=== PATIENT | female | born 1960 | race Caucasian/White ===

== ENCOUNTER → 2017-06-08 | Outpatient (CLI) | payer MEDICARE, SELFPAY | PROVIDERS: Family Provider Family Medicine; Visit Provider Family Medicine | DX: R60.9 Edema, unspecified (principal); M79.602 Pain in left arm | CPT/HCPCS: 93971 ==

== ENCOUNTER 2017-08-16 00:09 | Inpatient (IN) | payer MEDICARE, SELFPAY ==
[2017-08-16] VITALS (8 sets, daily range): BP systolic 94–184; BP diastolic 57–96; PULSE 76–96; RESP 16–20; TEMP 36.6–37.1; O2SAT 95–100; BMI 40.2; BMI 39.5
[2017-08-16 00:56] LABS: Basophils % 0.2 % (0.1-2.0); Eosinophils # 0.4 K/mm3 (0.0-0.4); Eosinophils % 1.9 % (0.1-12.0); Hematocrit 27.3 % (37.0-47.0); Lymphocytes % 4.7 K/mm3 (10-50); Mean Corpuscular HGB Conc 29.5 g/dL (31.8-35.4); Mean Corpuscular Hemoglobin 26.4 pg (27.0-31.2); Mean Corpuscular Volume 89.6 fl (81-99); Mean Platelet Volume 8.4 fl (7.4-10.4); Monocytes % 4.4 % (1.7-9.3); Neutrophils # 19.4 K/mm3 (1.8-7.8); Neutrophils % 88.8 % (37.0-80.0); Platelet Count 432 K/mm3 (142-424); Red Blood Count 3.04 M/mm3 (4.20-5.40); Red Cell Distribution Width 14.1 % (11.5-17.5); White Blood Count 21.9 K/mm3 (4.8-10.8)
[2017-08-16 01:10] LABS: Alanine Aminotransferase 16 U/L (12-78); Albumin Level 2.4 gm/dL (3.4-5.0); Albumin/Globulin Ratio 0.5 (1.1-1.8); Alkaline Phosphatase 151 U/L (46-116); Aspartate Amino Transferase 7 U/L (15-37); Bilirubin,Total 0.3 mg/dL (0.2-1.0); Blood Urea Nitrogen 43 mg/dL (7-18); Calcium 8.7 mg/dL (8.5-10.1); Carbon Dioxide 18 mmol/L (21.0-32.0); Chloride 105 mmol/L (98-107); Creatinine Clearance Estimated 38 mL/min (0-300); Creatinine,Serum 2.64 mg/dL (0.55-1.02); Estimated Glomerular Filt Rate 19 ml/min (>60); GFR (African American) 23 ML/MIN (>60); Globulin 4.5 gm/dl (1.3-3.2); Glucose 105 mg/dL (74-106); Salicylate 4.5 mg/dL (2.8-20.0); Sodium 136 mmol/L (136-145); Total Protein,Serum 6.9 gm/dL (6.4-8.2)
[2017-08-16 01:18] LABS: Acetaminophen 0 ug/mL (10-30); MANUAL DIFFERENTIAL MANUAL DIFFERENTIAL (MANUAL DIFF)
--- NOTE | 2017-08-16 01:18 | PC.NURSE ---
LAB CALLED WITH CRITICAL LAB VALUE. HEMOGLOBIN IS 8.0. DR ROWLAND NOTIFIED
[2017-08-16 01:22] LABS: Ethyl Alcohol 0 mg/dL (0-99)
--- NOTE | 2017-08-16 01:23 | XR_ITS ---
XR chest portable HISTORY: past history of hypoxia and shortness of air ITS.REASON: CONFUSION ORDERING PHYSICIAN: Zack Batista MD PATIENT AGE: 57 years COMPARISON: 11/24/2016 FINDINGS: The cardiomediastinal silhouette and pulmonary vascularity are within normal limits. The lungs are clear without infiltrates, suspicious nodules, or pleural effusions. No acute bony abnormalities. IMPRESSION: Negative chest, no acute finding
--- NOTE | 2017-08-16 01:25 | HMH.EDAMS ---
ED Disposition Clinical Impression: Acute delirium, Renal insufficiency Anemia Qualifiers: Anemia type: unspecified type Qualified Code(s): D64.9 - Anemia, unspecified Leukocytosis Qualifiers: Leukocytosis type: bandemia Qualified Code(s): D72.825 - Bandemia Disposition: Admitted as Observation Condition on Discharge: Good Referrals: Zack Batista MD [Primary Care Provider] - - Critical Care Critical Care Time: No Attestation: On 08/16/17, the high probability of a clinically significant, sudden or life threatening deterioration of the following system(s) required my full and direct attention, intervention and personal management. The time I documented below is in addition to time spent performing reported procedures but includes the following listed in this critical care notation. Medical Decision Making - Medical Records Medical records reviewed: Yes: I reviewed the patient's medical records. Vital Signs: 08/16/17 00:13 Temperature 97.8 F Temperature Source Oral Pulse Rate [Right Brachial] 96 H Respiratory Rate 16 Blood Pressure [Right Arm] 130/79 Blood Pressure Mean [Right Arm] 96 02 Sat by Pulse Oximetry 99 Oxygen Delivery Method Room Air - Lab Data Lab results reviewed: Yes: I reviewed the patient's lab results. Lab Results 08/16/17 00:45: WBC 21.9 H*, RBC 3.04 L, Hgb 8.0 L, Hct 27.3 L, MCV 89.6, MCH 26.4 L, MCHC 29.5 L, RDW 14.1, Plt Count 432 H, MPV 8.4, Neut % (Auto) 88.8 H, Lymph % (Auto) 4.7 L, [place] % (Auto) 4.4, Eos % (Auto) 1.9, Baso % (Auto) 0.2, Neut # (Auto) 19.4 H, Lymph # (Auto) 1.0, [place] # (Auto) 1.0, Eos # (Auto) 0.4, Baso # (Auto) 0.0 08/16/17 00:45: Sodium 136, Potassium 5.0, Chloride 105, Carbon Dioxide 18 L, Anion Gap 18.0 H, BUN 43 H, Creatinine 2.64 H, Estimated Creat Clear 38, Estimated GFR 19 L*, Est GFR ( Amer) 23 L, Glucose 105, Calcium 8.7, Total Bilirubin 0.3, AST 7 L, ALT 16, Alkaline Phosphatase 151 H, Total Protein 6.9, Albumin 2.4 L, Globulin 4.5 H, Albumin/Globulin Ratio 0.5 L, Salicylates 4.5, Acetaminophen 0 L, Plasma/Serum Alcohol 0 08/16/17 01:32: Urine Color Yellow, Urine Appearance Clear, Urine pH 5.0, Ur Specific [place] >= 1.030, Urine Protein Negative, Urine Glucose (UA) Negative, Urine Ketones Trace, Urine Blood Negative, Urine Nitrate Negative, Urine Bilirubin Negative, Urine Urobilinogen 0.2, Ur Leukocyte Esterase Negative 08/16/17 01:32: Urine Opiates Screen Positive H, Ur Barbituates Screen Negative, Ur Phencyclidine Scrn Negative, Ur Amphetamines Screen Negative, U Methamphetamines Scrn Negative, U Benzodiazepines Scrn Negative, Urine Cocaine Screen Negative, U Marijuana (THC) Screen Negative 08/16/17 01:32: Stool Occult Blood Negative Result diagrams: 08/16/17 00:45 08/16/17 00:45 Orders (Tests/Meds): ORDERS Category Date Time Status XR chest portable Stat Exams 08/16/17 01:23 Ordered Cardiac Enzymes Stat Lab 08/16/17 01:32 Received Complete Blood Count Auto Diff Stat Lab 08/16/17 00:45 Results POC Glucose,Bedside Stat Lab 08/16/17 00:29 Ordered Rapid Influenza A&B Antigens Stat Lab 08/16/17 01:23 Ordered UA [Urinalysis and Microscopic] Stat Lab 08/16/17 01:32 Results 12-lead EKG Request [ECG Request by /Joseph] Stat Y 08/16/17 00:55 Ordered - Radiology Data #1 Image(s): Chest Image Reviewed: Yes I reviewed the patient's radiology image Preliminary Findings: Normal/NAD - ECG Data Tracing #1 I reviewed this ECG and interpreted as documented below: Normal Sinus Rhythm: Yes Ischemic changes: non-specific ST-T wave changes - Physician Consults Physician Consulted: samantha Reason -: Admission - [place] Inquiry Pt receiving controlled substance: No Altered Mental Status HPI - General Chief Complaint: Psychiatric Symptoms Stated Complaint: need blood sugar checked, meter does not work Time Seen by Provider: 08/16/17 01:25 Mode of Arrival: Family Vehicle Source of Information: Patient, Relative, Medi
[2017-08-16 01:39] LABS: Microscopic, Urine URINE MICROSCOPIC (MICROSCOPIC)
[2017-08-16 01:42] LABS: Appearance,Urine CLEAR (Clear); Blood, Urine Negative (Negative); Color,Urine YELLOW (Yellow); Glucose,Urine (UA) Negative (Negative); Ketones,Urine TRACE (Negative); Leukocyte Esterase,Urine Negative (Negative); Nitrate,Urine Negative (Negative); Protein,Urine Negative (Negative); Specific Gravity, Urine >= 1.030 (1.005-1.030); Urobilinogen,Urine 0.2 EU/dl (0.2)
[2017-08-16 01:45] LABS: Bilirubin,Urine Negative (Negative); Occult Blood,Stool Negative (Negative)
[2017-08-16 01:50] LABS: Amphetamine/Metha Screen,Urine Negative ng/mL (<1000); Barbiturates Screen,Urine Negative ng/mL (<200); Benzodiazepines Screen,Urine Negative ng/mL (200); Cannabinoid Screen,Urine Negative ng/mL (<50); Cocaine Screen,Urine Negative ng/g (<300); Methadone Screen,Urine Negative ng/mL (<300); Opiate Screen,Urine Positive ng/mL (<300); Phencyclidine Screen,Urine Negative ng/mL (<25)
[2017-08-16 02:03] LABS: CKMB Relative Index 2.7 U/L (0-4.0); Creatine Kinase 66 U/L (26-192); Creatine Kinase MB 1.8 mg/ml (0.0-3.6); Troponin I < 0.02 ng/ml (0.00-0.06)
[2017-08-16 02:05] LABS: Bacteria,Urine Trace /lpf; WBC,Urine Occasional #/hpf (0-3)
--- NOTE | 2017-08-16 02:07 | PC.NURSE ---
[place] [facility] [place]
[2017-08-16 02:25] LABS: Anisocytosis 1+; Eosinophils % 1 % (0-3); Lymphocytes % 5 % (10-50); Monocytes % 2 % (2-9); Neutrophils % 91 % (42-76); Platelet Estimate Normal; Total Cells Counted 100
[2017-08-16 02:26] LABS: Hypochromasia 1+
[2017-08-16 02:58] LABS: T4 (Thyroxine) 5.1 ug/dl (4.7-13.3); Thyroid Stimulating Hormone 1.44 uIU/ml (0.358-3.740)
--- NOTE | 2017-08-16 03:11 | PC.NURSE ---
NURSE NOTIFIED OF PTS ELEVATED BP WILL RECHECK
[2017-08-16 03:18] LABS: Erythrocyte Sedimentation Rate > 120 mm/hr (0-30)
--- NOTE | 2017-08-16 04:18 | PC.NURSE ---
PT IS ABLE TO ANSWER QUESTIONS SUCH HER NAME, BIRTHDAY, DATE, AND WHERE SHE IS CORRECTLY. HOWEVER SHE DOES HAVE SOME CONFUSION. SHE HAS STATED THAT SHE DOES NOT KNOW HER MEDS AND THEN STATES THAT SHE DOES NOT KNOW HER MEDS. SHE ALSO STATES THAT SHE DON'T KNOW WHY SHE IS IN THE HOSPITAL AND CAN'T RECALL WHAT HAPPENED. SHE ANSWERS SOME QUESTIONS INAPPROPRIATELY. HER AND HER FAMILY ARE NOT SURE ABOUT ALL OF HER MEDICATIONS. SHE VOICED THAT SHE NEEDED TO VOID TWICE AND WAS UNSUCCESSFUL BOTH TIMES. SHE TRANSFERS WITH ASSIST X1. EQUAL AUTOMATIC GRINDING MACHINE OPERATOR. CAPILLARY REFILL <3. F/C PLACED AND PT HAD OUT 600CC OF YELLOW, CLEAR URINE IMMEDIATELY. SHE HAS A PULL SAFETY IN PLACE.
[2017-08-16 06:07] LABS: Microscopic,Cath URINE MICROSCOPIC (MICROSCOPIC)
[2017-08-16 06:11] LABS: Appearance,Urine/Cath CLEAR (Clear); Bilirubin,Cath Negative (Negative); Blood, Urine/Cath Negative (Negative); Color,Urine/Cath YELLOW (Yellow); Glucose,Urine/Cath (UA) Negative (Negative); Ketones,Urine/Cath TRACE (Negative); Leukocyte Esterase,Cath Negative (Negative); Nitrate,Cath Negative (Negative); PH,Urine/Cath 5.5 (5.0-8.5); Protein,Urine/Cath Negative (Negative); Urobilinogen,Cath 0.2 EU/dl (0.2)
[2017-08-16 06:25] LABS: Bacteria,Urine/Cath TRACE /lpf
--- NOTE | 2017-08-16 06:50 | CA_ITS ---
PROCEDURE: 2-D M-mode and color Doppler study INDICATIONS FOR THE TEST: Chest pain COPD Heart MurmurX Tobacco Smoking Palpitations Fatigue Syncope Edema Hypertension Diabetes MellitusX Rheumatic Fever SOB ESCOBAR Obesity Hyperlipidemia Family History HD Additional History PATIENT INFORMATION HEIGHT: 62 WEIGHT:220 GENDER: Female B/P:130/79 2-D/M-MODE INTERPRETATION: 2-D MEASUREMENTS OBSERVED VALUES IN CMS Right Ventricular Dimension (RVDd) 1.5 Interventricular Septum (Thickness)(IVsd) 1.2 Left Ventricular Internal Dimensions(LVIDd) 4.9 Left Ventricular Posterior Wall (Thickness)(LVPWd) 1.2 Aortic Root 2.8 Aortic Cusp Separation 1.8 Left Atrial Dimensions (LAD) 3.6 2D 1. Left atrium is mildly enlarged, left ventricle is normal size, there is mild qualitative concentric left ventricular hypertrophy, visually estimated ejection fraction 55% with no obvious regional wall motion abnormality. 2. The right atrium and right ventricle are normal size and contractility. 3. The aortic valve is minimally thickened and fibrosed. 4. The mitral and tricuspid valve leaflets are structurally normal. 5. The pulmonic valve is poorly visualized 6. No significant pericardial effusion noted. DOPPLER INTERROGATION: Doppler interrogation of the aortic, mitral and tricuspid valvular presence of mild mitral and tricuspid regurgitation, tricuspid and jet velocity is insufficient for calculation of the right ventricular systolic pressure, grade 1 diastolic dysfunction seen without tissue Doppler evidence of raised left atrial pressure. CONCLUSION: 1. Mildly enlarged left atrium, normal left ventricular size, mild qualitative concentric left ventricular hypertrophy, visually estimated ejection fraction 55% with no obvious regional wall motion abnormality, grade 1 diastolic dysfunction seen without tissue Doppler evidence of raised left atrial pressure. 2. Mild mitral and tricuspid regurgitation 3. No significant pericardial effusion noted.
[2017-08-16 06:56] LABS: Basophils % 0.2 % (0.1-2.0); Eosinophils # 0.2 K/mm3 (0.0-0.4); Eosinophils % 0.9 % (0.1-12.0); Hemoglobin 8.1 g/dL (12.2-16.2); Lymphocytes # 1.4 K/mm3 (0.7-4.5); Lymphocytes % 7.3 K/mm3 (10-50); Mean Corpuscular Hemoglobin 26.9 pg (27.0-31.2); Mean Corpuscular Volume 89.6 fl (81-99); Mean Platelet Volume 7.9 fl (7.4-10.4); Monocytes % 5.3 % (1.7-9.3); Neutrophils # 16.8 K/mm3 (1.8-7.8); Neutrophils % 86.2 % (37.0-80.0); Platelet Count 407 K/mm3 (142-424); Red Blood Count 3.01 M/mm3 (4.20-5.40); Red Cell Distribution Width 14.2 % (11.5-17.5); White Blood Count 19.5 K/mm3 (4.8-10.8)
[2017-08-16 07:04] LABS: Blood Urea Nitrogen 37 mg/dL (7-18); Carbon Dioxide 20 mmol/L (21.0-32.0); Chloride 109 mmol/L (98-107); Creatinine Clearance Estimated 46 mL/min (0-300); Creatinine,Serum 2.16 mg/dL (0.55-1.02); Estimated Glomerular Filt Rate 24 ml/min (>60); GFR (African American) 29 ML/MIN (>60); Glucose 99 mg/dL (74-106); Magnesium 2.4 mg/dL (1.4-2.2); Sodium 139 mmol/L (136-145)
--- NOTE | 2017-08-16 07:22 | HMH.HP ---
*Admission Date: 08/16/17 *Chief complaint: Hallucinations *History of present illness: 57-year-old female brought to the emergency department last night after contacting 911 with concern that there was a strange man in her bed. Police responded and found no one in the patient's home. Patient's daughter arrived at her house simultaneously. Patient reported feeling dizzy. According to the daughter she has recently become concerned about her blood sugars and wanted to check her blood sugar. She was brought to the emergency department for further evaluation. Daughter reports recently the patient has had very poor appetite with episodes of nausea. The daughter thought she may be dehydrated. Workup in the emergency department revealed a pleasant female without any significant physical findings except for a cardiac murmur. Labs revealed an elevated white blood cell count and acute kidney injury. Patient was admitted for IV fluids, further observation, repeat labs, echocardiogram. [facility] History Medical History: Reports:: Hypertension, Myocardial Infarction Denies:: Cancer, Diabetes Mellitus Type 1, Diabetes Mellitus Type 2, Internal Pacemaker, MRSA Other Surgeries: No: Pacemaker Amputation: No Fractures: No - *Social History Educational Level: Completed Grade School Smoking Status: Never smoker Alcohol Intake: never Occupational Status: unemployed Housing: apartment Household Members: none - Psychiatric History Expresses thoughts of harming self/others: None Suicide Plan Description: No Plan *Family Hx:: Anemia, Cancer, Heart Attack, Hyperlipidemia, Hypertension, Stroke Review of Systems - Constitutional Denies chills, Denies daytime sleepiness, Denies fever(s), Denies headache(s) - Eyes Denies blurry vision - ENT Denies abnormal hearing - *Cardiovascular Denies chest pain, Denies chest pain at rest, Denies chest pain with activity - *Respiratory Denies change in phlegm color, Denies chest congestion, Denies cough, Denies shortness of breath - *Gastrointestinal Reports abdominal pain, Reports vomiting - *Musculoskeletal Reports abnormal walking, Reports joint pain - *Neurologic Reports confusion, Denies localized weakness, Denies frequent falls, Denies headache(s), Denies seizure-like activity - Psychiatric Reports abnormal sleep pattern Meds Home Medications Medication Instructions Recorded Confirmed Type Baclofen [Lioresal 10mg tablet] 10 mg PO NEEDED PRN 08/16/17 08/16/17 History Fluoxetine HCl [Prozac 20mg 20 mg PO BID 08/16/17 08/16/17 History Capsule] Promethazine HCl [Phenergan 25mg 25 mg PO DAILY 08/16/17 08/16/17 History tab] Propranolol HCl 20 mg PO BID 08/16/17 08/16/17 History Tramadol HCl [Ultram 50mg 50 mg PO NEEDED PRN 08/16/17 08/16/17 History tablet] Zolpidem Tartrate [Ambien 10mg 10 mg PO HS 08/16/17 08/16/17 History tablet] levETIRAcetam [Keppra 500mg tablet] 500 mg PO BID 08/16/17 08/16/17 History Allergies Allergy/AdvReac Type Severity Reaction Status Date / Time Penicillins Allergy Intermediate I-ITCHING Verified 08/16/17 00:26 Exam Vital signs and Labs for Last 24 Hours: Temp Pulse Resp BP Pulse Ox 98.2 F 89 20 184/96 95 08/16/17 03:00 08/16/17 03:00 08/16/17 03:00 08/16/17 03:00 08/16/17 03:13 Laboratory Results - last 24 hr 08/16/17 05:15: Urine Color Yellow, Urine Appearance Clear, Urine pH 5.5, Ur Specific [place] 1.020, Urine Protein Negative, Urine Glucose (UA) Negative, Urine Ketones Trace, Urine Blood Negative, Urine Nitrate Negative, Urine Bilirubin Negative, Urine Urobilinogen 0.2, Ur Leukocyte Esterase Negative, Urine RBC None, Urine WBC None, Ur Squamous Epith Cells None, Urine Bacteria Trace 08/16/17 06:35: WBC 19.5 H, RBC 3.01 L, Hgb 8.1 L, Hct 27.0 L, MCV 89.6, MCH 26.9 L, MCHC 30.0 L, RDW 14.2, Plt Count 407, MPV 7.9, Neut % (Auto) 86.2 H, Lymph % (Auto) 7.3 L, [place] % (Auto) 5.3, Eos % (Auto) 0.9, Baso %
--- NOTE | 2017-08-16 07:26 | P.HP_ITS ---
*Admission Date: 08/16/17 *Chief complaint: Hallucinations *History of present illness: 57-year-old female brought to the emergency department last night after contacting 911 with concern that there was a strange man in her bed. Police responded and found no one in the patient's home. Patient's daughter arrived at her house simultaneously. Patient reported feeling dizzy. According to the daughter she has recently become concerned about her blood sugars and wanted to check her blood sugar. She was brought to the emergency department for further evaluation. Daughter reports recently the patient has had very poor appetite with episodes of nausea. The daughter thought she may be dehydrated. Workup in the emergency department revealed a pleasant female without any significant physical findings except for a cardiac murmur. Labs revealed an elevated white blood cell count and acute kidney injury. Patient was admitted for IV fluids, further observation, repeat labs, echocardiogram. [facility] History Medical History: Reports:: Hypertension, Myocardial Infarction Denies:: Cancer, Diabetes Mellitus Type 1, Diabetes Mellitus Type 2, Internal Pacemaker, MRSA Other Surgeries: No: Pacemaker Amputation: No Fractures: No - *Social History Educational Level: Completed Grade School Smoking Status: Never smoker Alcohol Intake: never Occupational Status: unemployed Housing: apartment Household Members: none - Psychiatric History Expresses thoughts of harming self/others: None Suicide Plan Description: No Plan *Family Hx:: Anemia, Cancer, Heart Attack, Hyperlipidemia, Hypertension, Stroke Review of Systems - Constitutional Denies chills, Denies daytime sleepiness, Denies fever(s), Denies headache(s) - Eyes Denies blurry vision - ENT Denies abnormal hearing - *Cardiovascular Denies chest pain, Denies chest pain at rest, Denies chest pain with activity - *Respiratory Denies change in phlegm color, Denies chest congestion, Denies cough, Denies shortness of breath - *Gastrointestinal Reports abdominal pain, Reports vomiting - *Musculoskeletal Reports abnormal walking, Reports joint pain - *Neurologic Reports confusion, Denies localized weakness, Denies frequent falls, Denies headache(s), Denies seizure-like activity - Psychiatric Reports abnormal sleep pattern Meds Home Medications Medication Instructions Recorded Confirmed Type Baclofen [Lioresal 10mg tablet] 10 mg PO NEEDED PRN 08/16/17 08/16/17 History Fluoxetine HCl [Prozac 20mg 20 mg PO BID 08/16/17 08/16/17 History Capsule] Promethazine HCl [Phenergan 25mg 25 mg PO DAILY 08/16/17 08/16/17 History tab] Propranolol HCl 20 mg PO BID 08/16/17 08/16/17 History Tramadol HCl [Ultram 50mg 50 mg PO NEEDED PRN 08/16/17 08/16/17 History tablet] Zolpidem Tartrate [Ambien 10mg 10 mg PO HS 08/16/17 08/16/17 History tablet] levETIRAcetam [Keppra 500mg tablet] 500 mg PO BID 08/16/17 08/16/17 History Allergies Allergy/AdvReac Type Severity Reaction Status Date / Time Penicillins Allergy Intermediate I-ITCHING Verified 08/16/17 00:26 Exam Vital signs and Labs for Last 24 Hours: Temp Pulse Resp BP Pulse Ox 98.2 F 89 20 184/96 95 08/16/17 03:00 08/16/17 03:00 08/16/17 03:00 08/16/17 03:00 08/16/17 03:13 Laboratory Results - last 24 hr 08/16/17 05:15: Urine Color Yellow, Urine Appeara
--- NOTE | 2017-08-16 07:35 | PC.NURSE ---
REPORT GIVEN TO Jp Gibbons
--- NOTE | 2017-08-16 07:54 | HMH.PHAVTE ---
[facility] Pharmacy VTE Monitoring - Patient Demographics Admission date: 08/16/17 Report Date: 08/16/17 Time: 07:54 Allergies/Adverse Reactions: Patient Allergies Penicillins Allergy (Intermediate, Verified 08/16/17 00:26) I-ITCHING Height: 1.57 m Weight: 98.089 kg Patient Problems: Current Active Problems Acute delirium (Acute) Anemia (Acute) Renal insufficiency (Acute) Leukocytosis (Acute) Delirium (Acute) Acute kidney injury (Acute) - VTE Risk Labs: VTE Related Lab Results Hgb 8.1 g/dL (12.2-16.2) L 08/16/17 06:35 Hct 27.0 % (37.0-47.0) L 08/16/17 06:35 Plt Count 407 K/mm3 (142-424) 08/16/17 06:35 BUN 37 mg/dL (7-18) H 08/16/17 06:35 Creatinine 2.16 mg/dL (0.55-1.02) H 08/16/17 06:35 Estimated Creat Clear 46 mL/min (0-300) 08/16/17 06:35 Was VTE Risk Assessment Performed: Yes VTE Risk Level: Low Risk Clinical Trial Participant: No - Prophylaxis VTE Prophylaxis Ordered?: Yes Types of VTE Prophylaxis: TEDS Thigh High Location of Applied Device: Bilateral Lower Extremeties
--- NOTE | 2017-08-16 17:59 | PC.NURSE ---
Pt has been alert to self and place. She has been confused t/o shift. No change from am assessment. Family has been at bedside. Ramirez removed and pt has had good urine output since. Will continue to monitor.
--- NOTE | 2017-08-16 18:49 | PC.NURSE ---
Report to be given to Idalmis Galeas RN
[2017-08-17] VITALS (12 sets, daily range): BP systolic 136–186; BP diastolic 52–95; PULSE 84–100; RESP 16–18; TEMP 36.8–37; O2SAT 95–98
--- NOTE | 2017-08-17 03:57 | PC.NURSE ---
PT HAS RESTED WELL THIS SHIFT. PT UP TO BSC X3 TONIGHT WITH ASSIST. PT C/O NAUSEA X1, ADMIN MED PER MAR. PT C/O HEADACHE X1 TONIGHT, BASE BRANDER PER MAR. VSS. NO OTHER CONCERNS AT THIS TIME, WILL CONT. TO MONITOR.
--- NOTE | 2017-08-17 06:27 | HMH.DCSUM ---
General - General Admission date: 08/16/17 Discharge date: 08/17/17 HPI HPI: 57-year-old female brought to the emergency department last night after contacting 911 with concern that there was a strange man in her bed. Police responded and found no one in the patient's home. Patient's daughter arrived at her house simultaneously. Patient reported feeling dizzy. According to the daughter she has recently become concerned about her blood sugars and wanted to check her blood sugar. She was brought to the emergency department for further evaluation. Daughter reports recently the patient has had very poor appetite with episodes of nausea. The daughter thought she may be dehydrated. Workup in the emergency department revealed a pleasant female without any significant physical findings except for a cardiac murmur. Labs revealed an elevated white blood cell count and acute kidney injury. Patient was admitted for IV fluids, further observation, repeat labs, echocardiogram. Hospital Course Hospital Course: Upon admission patient was started on IV fluids for her kidney injury. Pain is given Rocephin for elevated white blood cell count. Blood and urine cultures were drawn. In regards to her acute kidney injury the patient responded well to IV fluids. Medications were held that may affect her kidneys until discharge. Blood pressure remained stable during discharge. In regards to her elevated white blood cell count patient was given a dose of Rocephin. She had no physically identifiable source of infection. Patient was identified as having a murmur on physical exam. Echocardiogram was performed which showed a normal ejection fraction, mild mitral and tricuspid regurgitation, evidence of grade 1 diastolic dysfunction. Patient's urinary retention gradually improved. I believe the source of this may have been from antihistamine overdose. The patient's daughter went to the patient's medicines at home in an attempt to straighten out which medicines she is taking. Significant quantities of Benadryl were discovered which apparently the patient will take quite frequently for allergy symptoms. Patient did not have any further hallucinations once admitted to the hospital. On the morning of the on routine labs patient's white count had decreased but her anemia had slightly worsened. She was transfused packed red blood cells and anemia workup was begun with labs. Patient will follow-up in the office in 2 days for results. After transfusion she was discharged home on the . Patient will follow-up in my office in 2 days for medication review. Objective Vital signs: Temp Pulse Resp BP Pulse Ox 98.5 F 86 18 146/73 98 08/17/17 03:49 08/17/17 03:49 08/17/17 03:49 08/17/17 03:49 08/17/17 03:49 DS: Diagnosis - Discharge Diagnosis (1) Delirium Status: Resolved (2) Acute kidney injury Status: Resolved (3) Leukocytosis Status: Acute Discharge Plan - Patient Discharge Instructions ACTIVITY: Continue current activity DIET: continue same diet Patient Instructions: Anemia, Acute Renal Failure - Follow up Plan Follow up with: Zack Batista MD [Primary Care Provider] - 2 days Disposition: Home, Self-Long Term Medications: Home Medications Medication Instructions Recorded Confirmed Type Baclofen 20 mg PO QIDP PRN 08/16/17 08/16/17 History Diclofenac Potassium [Diclofenac 50 mg PO TID 08/16/17 08/16/17 History 50mg Tab] Fluoxetine HCl [Prozac 20mg 60 mg PO DAILY 08/16/17 08/16/17 History Capsule] Losartan Potassium 100 mg PO DAILY 08/16/17 08/16/17 History Omeprazole [Omeprazole 40mg 40 mg PO DAILY 08/16/17 08/16/17 History Capsule] Propranolol HCl 20 mg PO BID 08/16/17 08/16/17 History Tramadol HCl [Ultram 50mg 100 mg PO NEEDED PRN 08/16/17 08/16/17 History tablet] Zolpidem Tartrate [Ambien 10mg 10 mg PO HS 08/16/17 08/16/17 History tablet] hydrOXYzine HCl [Hy
--- NOTE | 2017-08-17 06:30 | P.DS_ITS ---
General - General Admission date: 08/16/17 Discharge date: 08/17/17 HPI HPI: 57-year-old female brought to the emergency department last night after contacting 911 with concern that there was a strange man in her bed. Police responded and found no one in the patient's home. Patient's daughter arrived at her house simultaneously. Patient reported feeling dizzy. According to the daughter she has recently become concerned about her blood sugars and wanted to check her blood sugar. She was brought to the emergency department for further evaluation. Daughter reports recently the patient has had very poor appetite with episodes of nausea. The daughter thought she may be dehydrated. Workup in the emergency department revealed a pleasant female without any significant physical findings except for a cardiac murmur. Labs revealed an elevated white blood cell count and acute kidney injury. Patient was admitted for IV fluids, further observation, repeat labs, echocardiogram. Hospital Course Hospital Course: Upon admission patient was started on IV fluids for her kidney injury. Pain is given Rocephin for elevated white blood cell count. Blood and urine cultures were drawn. In regards to her acute kidney injury the patient responded well to IV fluids. Medications were held that may affect her kidneys until discharge. Blood pressure remained stable during discharge. In regards to her elevated white blood cell count patient was given a dose of Rocephin. She had no physically identifiable source of infection. Patient was identified as having a murmur on physical exam. Echocardiogram was performed which showed a normal ejection fraction, mild mitral and tricuspid regurgitation, evidence of grade 1 diastolic dysfunction. Patient's urinary retention gradually improved. I believe the source of this may have been from antihistamine overdose. The patient's daughter went to the patient's medicines at home in an attempt to straighten out which medicines she is taking. Significant quantities of Benadryl were discovered which apparently the patient will take quite frequently for allergy symptoms. Patient did not have any further hallucinations once admitted to the hospital. On the morning of the on routine labs patient's white count had decreased but her anemia had slightly worsened. She was transfused packed red blood cells and anemia workup was begun with labs. Patient will follow-up in the office in 2 days for results. After transfusion she was discharged home on the . Patient will follow-up in my office in 2 days for medication review. Objective Vital signs: Temp Pulse Resp BP Pulse Ox 98.5 F 86 18 146/73 98 08/17/17 03:49 08/17/17 03:49 08/17/17 03:49 08/17/17 03:49 08/17/17 03:49 DS: Diagnosis - Discharge Diagnosis (1) Delirium Status: Resolved (2) Acute kidney injury Status: Resolved (3) Leukocytosis Status: Acute Discharge Plan - Patient Discharge Instructions ACTIVITY: Continue current activity DIET: continue same diet Patient Instructions: Anemia, Acute Renal Failure - Follow up Plan Follow up with: Zack Batista MD [Primary Care Provider] - 2 days Disposition: Home, Self-Snf Medications: Home Medications Medication Instructions Recorded Confirmed Type Baclofen 20 mg PO QIDP PRN 08/16/17 08/16/17 History Diclofenac Potassium [Diclofenac 50 mg PO TID 08/16/17 08/16/17 History 50mg Tab] Fluoxetine HCl [Prozac 20mg 60 mg PO DAILY 08/16/17 08/16/17 History
[2017-08-17 06:53] LABS: Basophils % 0.1 % (0.1-2.0); Eosinophils % 0.2 % (0.1-12.0); Hematocrit 25.4 % (37.0-47.0); Lymphocytes # 0.7 K/mm3 (0.7-4.5); Lymphocytes % 4.9 K/mm3 (10-50); Mean Corpuscular HGB Conc 30.3 g/dL (31.8-35.4); Mean Corpuscular Hemoglobin 26.4 pg (27.0-31.2); Mean Corpuscular Volume 87.2 fl (81-99); Monocytes # 0.6 K/mm3 (0.1-1.0); Monocytes % 4.2 % (1.7-9.3); Neutrophils % 90.7 % (37.0-80.0); Platelet Count 430 K/mm3 (142-424); Red Blood Count 2.91 M/mm3 (4.20-5.40); Red Cell Distribution Width 14.2 % (11.5-17.5); White Blood Count 15.4 K/mm3 (4.8-10.8)
[2017-08-17 07:08] LABS: Anion Gap 11.2 mEq/L (5-15); Blood Urea Nitrogen 17 mg/dL (7-18); Carbon Dioxide 22 mmol/L (21.0-32.0); Chloride 110 mmol/L (98-107); Creatinine Clearance Estimated 83 mL/min (0-300); Creatinine,Serum 1.18 mg/dL (0.55-1.02); Estimated Glomerular Filt Rate 48 ml/min (>60); GFR (African American) 58 ML/MIN (>60); Glucose 169 mg/dL (74-106); Potassium 5.2 mmoL/L (3.5-5.1); Sodium 138 mmol/L (136-145)
--- NOTE | 2017-08-17 07:25 | PC.NURSE ---
REPORT GIVEN TO Idalmis FALNNERY W/C
--- NOTE | 2017-08-17 07:27 | PC.NURSE ---
REPORT GIVEN TO Andreea LEHMAN RN
[2017-08-17 07:28] LABS: Hemoglobin 7.7 g/dL (12.2-16.2)
[2017-08-17 07:29] LABS: MANUAL DIFFERENTIAL MANUAL DIFFERENTIAL (MANUAL DIFF)
[2017-08-17 09:20] LABS: Reticulocyte % (Auto) 0.8 % (0.9-3.2)
--- NOTE | 2017-08-17 10:06 | PC.NURSE ---
PT STS HAVING CHRONIC BACK PAIN. HAVING THIS TYPE OF PAIN AT THIS TIME PRIOR TO BLOOD TRANSFUSION. INFORMED TO LET STAFF KNOW IF BACK PAIN CHANGES IN ANY WAY R/T REACTION. PT VERBALIZES UNDERSTANDING. WILL TREAT PAIN ACCORDING TO KRYSTYNA.
[2017-08-17 10:21] LABS: Ferritin 93 ng/mL (8-388)
--- NOTE | 2017-08-17 10:29 | PC.NURSE ---
PT HAS CHRONIC BACK PAIN. INSTRUCTED TO INFORM IF PAIN CHANGES IN ANY WAY R/T TRANSFUSION REACTION. PT VERBALIZED UNDERSTANDING. WILL MEDICATE PER AUG.
[2017-08-17 10:54] LABS: Lymphocytes % 4 % (10-50); Neutrophils % 96 % (42-76); Total Cells Counted 100
[2017-08-17 10:55] LABS: Hypochromasia 2+; Platelet Estimate Slight Increase
[2017-08-18 08:29] LABS: Iron 16 ug/dL (27-159); UIBC 195 ug/dL (131-425)
[2017-08-18 11:54] LABS: Iron Saturation 8 % (15-55); Vitamin B12 >2000 pg/mL (232-1245)
[2017-08-18 15:11] LABS: POC Glucose,Bedside 158 mg/dL (70-110)
[2017-08-19 08:00] LABS: Peripheral Smear Review Scanned Result
== END 2017-08-17 12:00 | disposition home or self-care (01) | DRG 948 ==
LOC: ER 02:24 → 2ND 02:36
PROVIDERS: Admitting Provider Family Medicine; Emergency Provider Emergency Medicine; Family Provider Family Medicine; PCP Family Medicine; Visit Provider Family Medicine
DX: R41.0 Disorientation, unspecified (principal); N17.9 Acute kidney failure, unspecified; I10 Essential (primary) hypertension; D72.825 Bandemia; D64.9 Anemia, unspecified; T45.0X5A Adverse effect of antiallergic and antiemetic drugs, initial encounter; R01.1 Cardiac murmur, unspecified
CPT/HCPCS: 36430; 36415; 71045; 80048; 80053; 80305; 80329; 81001; 82272; 82550; 82553; 82607; 82728; 82962; 83550; 83735; 84436; 84443; 84484; 85007; 85025; 85044; 85651; 86850; 87275; 87276; 93005; 93041; 93306; 96365; 99284; G0328; J2405; P9016

== ENCOUNTER 2017-09-18 09:11 | Observation (INO) | payer MEDICARE, SELFPAY ==
[2017-09-18] VITALS (9 sets, daily range): BP systolic 143–193; BP diastolic 81–109; PULSE 83–106; RESP 16–20; TEMP 36.4–37.1; O2SAT 94–99; BMI 38.4; BMI 39.3
--- NOTE | 2017-09-18 09:35 | PC.NURSE ---
PT UNABLE TO FINISH COCKTAIL. DRANK APPROX 10 ML
[2017-09-18 09:45] LABS: Basophils % 0.6 % (0.1-2.0); Eosinophils # 0.1 K/mm3 (0.0-0.4); Eosinophils % 1.4 % (0.1-12.0); Hematocrit 32.7 % (37.0-47.0); Hemoglobin 9.9 g/dL (12.2-16.2); Lymphocytes # 0.7 K/mm3 (0.7-4.5); Lymphocytes % 11.4 K/mm3 (10-50); Mean Corpuscular HGB Conc 30.3 g/dL (31.8-35.4); Mean Corpuscular Hemoglobin 27.1 pg (27.0-31.2); Mean Corpuscular Volume 89.5 fl (81-99); Mean Platelet Volume 8.3 fl (7.4-10.4); Monocytes # 0.2 K/mm3 (0.1-1.0); Monocytes % 3.5 % (1.7-9.3); Platelet Count 247 K/mm3 (142-424); Red Blood Count 3.65 M/mm3 (4.20-5.40); Red Cell Distribution Width 14.9 % (11.5-17.5); White Blood Count 6.1 K/mm3 (4.8-10.8)
[2017-09-18 09:58] LABS: Alanine Aminotransferase 23 U/L (12-78); Albumin Level 3.2 gm/dL (3.4-5.0); Albumin/Globulin Ratio 0.8 (1.1-1.8); Alkaline Phosphatase 107 U/L (46-116); Amylase 26 U/L (25-125); Anion Gap 11.9 mEq/L (5-15); Bilirubin,Total 0.3 mg/dL (0.2-1.0); Blood Urea Nitrogen 16 mg/dL (7-18); Calcium 9.3 mg/dL (8.5-10.1); Carbon Dioxide 27 mmol/L (21.0-32.0); Chloride 102 mmol/L (98-107); Creatinine Clearance Estimated 65 mL/min (0-300); Creatinine,Serum 1.46 mg/dL (0.55-1.02); Estimated Glomerular Filt Rate 37 ml/min (>60); GFR (African American) 45 ML/MIN (>60); Globulin 4.2 gm/dl (1.3-3.2); Glucose 123 mg/dL (74-106); Lipase 38 u/L (73-393); Sodium 137 mmol/L (136-145); Total Protein,Serum 7.4 gm/dL (6.4-8.2)
[2017-09-18 10:01] LABS: Aspartate Amino Transferase 20 U/L (15-37); Potassium 3.9 mmoL/L (3.5-5.1)
--- NOTE | 2017-09-18 10:48 | HMH.EDABDPAI ---
ED Disposition Clinical Impression: Abdominal pain, Intractable vomiting, Chronic anemia, Renal insufficiency Disposition: Home, Self-Care Condition on Discharge: Fair Instructions: DI for Acute Abdomen Referrals: Zack Batista MD [Primary Care Provider] - - Critical Care Critical Care Time: No Attestation: On 09/18/17, the high probability of a clinically significant, sudden or life threatening deterioration of the following system(s) required my full and direct attention, intervention and personal management. The time I documented below is in addition to time spent performing reported procedures but includes the following listed in this critical care notation. Medical Decision Making - Zion Inquiry Pt receiving controlled substance: No Zion was queried for this patient: No Vital Signs: 09/18/17 09:15 09/18/17 09:37 09/18/17 13:54 Temperature 98.1 F 98.2 F Temperature Source Temporal Artery Scan Temporal Artery Scan Pulse Rate [Right Radial] 106 H 98 H 103 H Respiratory Rate 16 18 18 Blood Pressure [Left Arm] 162/109 156/88 158/81 Blood Pressure Mean [Left Arm] 126 110 106 Blood Pressure Source [Left Arm] Automatic Cuff Blood Pressure Position [Left Arm] Sitting 02 Sat by Pulse Oximetry 96 99 96 Oxygen Delivery Method Room Air Room Air - Lab Data Lab Results 09/18/17 09:30: WBC 6.1, RBC 3.65 L, Hgb 9.9 L, Hct 32.7 L, MCV 89.5, MCH 27.1, MCHC 30.3 L, RDW 14.9, Plt Count 247, MPV 8.3, Neut % (Auto) 83.0 H, Lymph % (Auto) 11.4, [place] % (Auto) 3.5, Eos % (Auto) 1.4, Baso % (Auto) 0.6, Neut # (Auto) 5.0, Lymph # (Auto) 0.7, [place] # (Auto) 0.2, Eos # (Auto) 0.1, Baso # (Auto) 0.0 09/18/17 09:30: Sodium 137, Potassium 3.9, Chloride 102, Carbon Dioxide 27, Anion Gap 11.9, BUN 16, Creatinine 1.46 H, Estimated Creat Clear 65, Estimated GFR 37 L, Est GFR ( Amer) 45 L, Glucose 123 H, Calcium 9.3, Total Bilirubin 0.3, AST 20, ALT 23, Alkaline Phosphatase 107, Total Protein 7.4, Albumin 3.2 L, Globulin 4.2 H, Albumin/Globulin Ratio 0.8 L, Amylase 26, Lipase 38 L 09/18/17 09:30: Troponin I < 0.02 09/18/17 09:30: Magnesium 1.6 09/18/17 10:28: Lactic Acid 0.9 09/18/17 11:07: Urine Color Yellow, Urine Appearance Clear, Urine pH 6.0, Ur Specific [place] 1.015, Urine Protein Negative, Urine Glucose (UA) Negative, Urine Ketones Negative, Urine Blood Negative, Urine Nitrate Negative, Urine Bilirubin Negative, Urine Urobilinogen 0.2, Ur Leukocyte Esterase Negative, Urine WBC Occasional, Ur Squamous Epith Cells 3-5, Urine Bacteria Trace 09/18/17 11:20: Influenza Type A Ag Negative, Influenza Type B Ag Negative Result diagrams: 09/18/17 09:30 09/18/17 09:30 Orders (Tests/Meds): ED MEDICATIONS Generic Name Dose Route Start Last Admin Trade Name Freq PRN Reason Stop Dose Admin Pantoprazole Sodium 80 mg/ 100 mls @ 10 mls/hr 09/18/17 11:48 Sodium Chloride IV 09/21/17 11:47 .Q10H CATRACHO Discontinued Medications Generic Name Dose Route Start Last Admin Trade Name Freq PRN Reason Stop Dose Admin Belladonna Alkaloids 60 ml 09/18/17 09:35 09/18/17 09:35 Gi Cocktail 60ml Udc PO 09/18/17 09:36 60 ml ONCE ONE Administration Diatrizoate Meglum/Diatrizoate Sod 30 ml 09/18/17 11:02 09/18/17 11:09 Gastrografin 66%-10% 30ml PO 09/18/17 11:03 30 ml ONCE ONE Administration Famotidine 20 mg 09/18/17 10:48 09/18/17 11:09 Pepcid 20mg/2ml Vial IV 09/18/17 10:49 20 mg ONCE ONE Administration Sodium Chloride 1,000 mls @ 999 mls/hr 09/18/17 10:30 09/18/17 10:21 Sod Chlor 0.9% 1000ml Bag IV 09/18/17 11:30 999 mls/hr .Q1H1M CATRACHO Administration Pantoprazole Sodium 80 mg/ 100 mls @ 100 mls/hr 09/18/17 10:48 09/18/17 11:31 Sodium Chloride IV 09/18/17 11:47 100 mls/hr ONCE ONE Administration Metoclopramide HCl 5 mg 09/18/17 12:05 09/18/17 12:09 Reglan 10mg/2ml Vial IVP 09/18/17 12:06 5 mg ONCE ONE Administration Ondansetron HCl 4 mg
--- NOTE | 2017-09-18 10:52 | ED_ITS ---
ED Disposition Clinical Impression: Abdominal pain, Intractable vomiting, Chronic anemia, Renal insufficiency Disposition: Home, Self-Care Condition on Discharge: Fair Instructions: DI for Acute Abdomen Referrals: Zack Batista MD [Primary Care Provider] - - Critical Care Critical Care Time: No Attestation: On 09/18/17, the high probability of a clinically significant, sudden or life threatening deterioration of the following system(s) required my full and direct attention, intervention and personal management. The time I documented below is in addition to time spent performing reported procedures but includes the following listed in this critical care notation. Medical Decision Making - Zion Inquiry Pt receiving controlled substance: No Zion was queried for this patient: No Vital Signs: 09/18/17 09:15 09/18/17 09:37 09/18/17 13:54 Temperature 98.1 F 98.2 F Temperature Source Temporal Artery Scan Temporal Artery Scan Pulse Rate [Right Radial] 106 H 98 H 103 H Respiratory Rate 16 18 18 Blood Pressure [Left Arm] 162/109 156/88 158/81 Blood Pressure Mean [Left Arm] 126 110 106 Blood Pressure Source [Left Arm] Automatic Cuff Blood Pressure Position [Left Arm] Sitting 02 Sat by Pulse Oximetry 96 99 96 Oxygen Delivery Method Room Air Room Air - Lab Data Lab Results 09/18/17 09:30: WBC 6.1, RBC 3.65 L, Hgb 9.9 L, Hct 32.7 L, MCV 89.5, MCH 27.1, MCHC 30.3 L, RDW 14.9, Plt Count 247, MPV 8.3, Neut % (Auto) 83.0 H, Lymph % ( Auto) 11.4, [place] % (Auto) 3.5, Eos % (Auto) 1.4, Baso % (Auto) 0.6, Neut # (Auto ) 5.0, Lymph # (Auto) 0.7, [place] # (Auto) 0.2, Eos # (Auto) 0.1, Baso # (Auto) 0.0 09/18/17 09:30: Sodium 137, Potassium 3.9, Chloride 102, Carbon Dioxide 27, Anion Gap 11.9, BUN 16, Creatinine 1.46 H, Estimated Creat Clear 65, Estimated GFR 37 L, Est GFR ( Amer) 45 L, Glucose 123 H, Calcium 9.3, Total Bilirubin 0.3, AST 20, ALT 23, Alkaline Phosphatase 107, Total Protein 7.4, Albumin 3.2 L, Globulin 4.2 H, Albumin/Globulin Ratio 0.8 L, Amylase 26, Lipase 38 L 09/18/17 09:30: Troponin I < 0.02 09/18/17 09:30: Magnesium 1.6 09/18/17 10:28: Lactic Acid 0.9 09/18/17 11:07: Urine Color Yellow, Urine Appearance Clear, Urine pH 6.0, Ur Specific [place] 1.015, Urine Protein Negative, Urine Glucose (UA) Negative, Urine Ketones Negative, Urine Blood Negative, Urine Nitrate Negative, Urine Bilirubin Negative, Urine Urobilinogen 0.2, Ur Leukocyte Esterase Negative, Urine WBC Occasional, Ur Squamous Epith Cells 3-5, Urine Bacteria Trace 09/18/17 11:20: Influenza Type A Ag Negative, Influenza Type B Ag Negative Result diagrams: 09/18/17 09:30 09/18/17 09:30 Orders (Tests/Meds): ED MEDICATIONS Generic Name Dose Route Start Last Admin Trade Name Freq PRN Reason Stop Dose Admin Pantoprazole Sodium 80 mg/ 100 mls @ 10 mls/hr 09/18/17 11:48 Sodium Chloride IV 09/21/17 11:47 .Q10H CATRACHO Discontinued Medications Generic Name Dose Route Start Last Admin Trade Name Freq PRN Reason Stop Dose Admin Belladonna Alkaloids 60 ml 09/18/17 09:35 09/18/17 09:35 Gi Cocktail 60ml Udc PO 09/18/17 09:36 60 ml ONCE ONE Administration Diatrizoate Meglum/Diatrizoate Sod 30 ml 09/18/17 11:02 09/18/17 11:09 Gastrografin 66%-10% 30ml PO 09/18/17 11:03 30 ml ONCE ONE Administration Famotidine 20 mg
[2017-09-18 10:53] LABS: Lactic Acid 0.9 mmol/L (0.4-2.0)
--- NOTE | 2017-09-18 11:03 | CT_ITS ---
CT abdomen pelvis w con COMPARISON: None HISTORY: Upper abdominal pain nausea and vomiting for the past 12 hours TECHNIQUE: Multiaxial scans obtained from hemidiaphragms pelvic floor and were performed with IV and oral contrast. Sagittal and coronal reformats were evaluated as well. Unfortunately the patient vomited most of the oral contrast prior to the exam. Also because of decreased GFR half of the normal IV contrast was given. FINDINGS: The lower lung keller are clear. There is a moderate sized hiatal hernia. Is generalized cardiomegaly with left ventricular prominence. The liver spleen stomach pancreas and gallbladder appear grossly normal. There is some oral contrast remaining in the stomach with only small amount of diluted contrast progressing in the proximal small bowel. The adrenal glands are normal. The kidneys are normal in size and show symmetrical function. There are no calculi and is no obstructive uropathy. The proximal small bowel appears normal. There are mildly dilated fluid-filled filled loops of distal small bowel.. The appendix is normal caliber and retrocecal in location. There is mild hazy stranding of the mesentery particularly in the right lower quadrant. There is large amount stool in the cecum and ascending colon. There has been previous hysterectomy. Urinary bladder is unremarkable. There is a small amount of fluid in the right paracolic gutter. Impression: Mildly dilated fluid-filled loops of distal small bowel along with hazy stranding of the mesentery in the mid and lower abdomen and some degree of enteritis must be considered. The appendix is somewhat difficult to visualize but appears be normal in caliber. However a very early appendicitis cannot be absolutely excluded and suggest clinical correlation.
[2017-09-18 11:14] LABS: Magnesium 1.6 mg/dL (1.4-2.2)
[2017-09-18 11:18] LABS: Troponin I < 0.02 ng/ml (0.00-0.06)
[2017-09-18 11:33] LABS: Appearance,Urine CLEAR (Clear); Bilirubin,Urine Negative (Negative); Blood, Urine Negative (Negative); Color,Urine YELLOW (Yellow); Glucose,Urine (UA) Negative (Negative); Ketones,Urine Negative (Negative); Leukocyte Esterase,Urine Negative (Negative); Microscopic, Urine URINE MICROSCOPIC (MICROSCOPIC); Nitrate,Urine Negative (Negative); Protein,Urine Negative (Negative); Specific Gravity, Urine 1.015 (1.005-1.030); Urobilinogen,Urine 0.2 EU/dl (0.2)
[2017-09-18 11:44] LABS: Bacteria,Urine Trace /lpf; WBC,Urine Occasional #/hpf (0-3)
--- NOTE | 2017-09-18 12:04 | PC.NURSE ---
OKAYS TO SCAN PT NOW. PT VOMITING CONTRAST DYE.
--- NOTE | 2017-09-18 14:20 | PC.NURSE ---
BERTHA URIBE spoke with Dr. Fontaine who is disease intervention specialist for Dr. Batista
--- NOTE | 2017-09-18 14:27 | PC.NURSE ---
BERTHA URIBE speaking with Dr. Patel notifying him of a consult he placing on pt, pt is going to be admitted.
--- NOTE | 2017-09-18 14:48 | PC.NURSE ---
report called to Radha Rogel RN on second floor at this time.
--- NOTE | 2017-09-18 19:46 | PC.NURSE ---
REPORT GIVEN TO ADORE BARRERA RN
--- NOTE | 2017-09-18 19:57 | PC.NURSE ---
rn aware of elevated blood pressure
--- NOTE | 2017-09-18 20:07 | PC.NURSE ---
rechecked blood pressure manually, rn notified of bp
[2017-09-19 00:46] VITALS: BP 176/93
--- NOTE | 2017-09-19 00:46 | PC.NURSE ---
recheck on blood pressure from 1999 vital check
[2017-09-19 04:00] VITALS: BP 178/92; PULSE 79; RESP 18; TEMP 37.2; O2SAT 95
--- NOTE | 2017-09-19 04:12 | PC.NURSE ---
RN is aware of 0400 vitals
--- NOTE | 2017-09-19 06:04 | PC.NURSE ---
C/O ORTIZ AND NAUSEA THIS SHIFT, PRN PAIN AND NAUSEA MEDICATIONS ADMINISTERED PER MAR. NO EPISODES OF VOMITTING. VSS. WILL CONTINUE TO MONITOR.
[2017-09-19 07:08] LABS: Basophils % 0.5 % (0.1-2.0); Eosinophils % 0.6 % (0.1-12.0); Lymphocytes # 0.7 K/mm3 (0.7-4.5); Lymphocytes % 11.9 K/mm3 (10-50); Mean Corpuscular HGB Conc 30.2 g/dL (31.8-35.4); Mean Corpuscular Hemoglobin 26.8 pg (27.0-31.2); Mean Corpuscular Volume 88.8 fl (81-99); Mean Platelet Volume 8.4 fl (7.4-10.4); Monocytes # 0.3 K/mm3 (0.1-1.0); Neutrophils # 4.7 K/mm3 (1.8-7.8); Platelet Count 206 K/mm3 (142-424); Red Blood Count 3.31 M/mm3 (4.20-5.40); Red Cell Distribution Width 14.8 % (11.5-17.5); White Blood Count 5.7 K/mm3 (4.8-10.8)
[2017-09-19 07:10] LABS: Anion Gap 10.7 mEq/L (5-15); Blood Urea Nitrogen 13 mg/dL (7-18); Carbon Dioxide 27 mmol/L (21.0-32.0); Chloride 105 mmol/L (98-107); Creatinine Clearance Estimated 84 mL/min (0-300); Creatinine,Serum 1.16 mg/dL (0.55-1.02); Estimated Glomerular Filt Rate 49 ml/min (>60); GFR (African American) 59 ML/MIN (>60); Glucose 120 mg/dL (74-106); Magnesium 1.4 mg/dL (1.4-2.2); Potassium 3.7 mmoL/L (3.5-5.1); Sodium 139 mmol/L (136-145)
--- NOTE | 2017-09-19 07:18 | HMH.HP ---
*Admission Date: 09/18/17 *Chief complaint: Vomiting and epigastric pain *History of present illness: 57-year-old female was brought to the emergency department by her son after unrelenting vomiting began at around 3 AM yesterday morning. Patient has had similar episodes in the past where she will experience vomiting for no apparent reason. When symptoms were not improving yesterday she contacted her son who brought her to the emergency department. In the emergency department she was felt to be dehydrated. CT scan of the abdomen and pelvis was consistent with enteritis but could not 100% rule out an appendicitis. Patient was admitted for IV fluids and surgical consultation. Patient was admitted to the hospital within the last 2 months and was found to have new onset anemia and has been scheduled for colonoscopy next month with Dr. Doshi. Patient reports that her vomiting began at 3 AM and the last thing she had to eat the evening before was a hamburger around 5 or 6:00 in the evening. She does not believe the meat was contaminated she had just bought it that day. She has had small amounts of diarrhea. He denies fevers or chills. [facility] History Medical History: Reports:: Anxiety, Hypertension, Seizures Denies:: Cancer, Diabetes Mellitus Type 1, Diabetes Mellitus Type 2, Internal Pacemaker, MRSA Other Surgeries: Yes: Hysterectomy-Total. No: Pacemaker Amputation: No Fractures: No - *Social History Educational Level: Attended High School Smoking Status: Never smoker Alcohol Intake: never Occupational Status: disabled Housing: apartment Household Members: none - Psychiatric History Expresses thoughts of harming self/others: None Suicide Plan Description: No Plan *Family Hx:: Anemia, Cancer, Heart Attack, Hyperlipidemia, Hypertension, Stroke Review of Systems - Review of Systems Review of systems:: pertinent systems reviewed and negative unless documented below - *Cardiovascular Denies chest pain, Denies shortness of breath - *Respiratory Denies chest congestion, Denies cough - *Gastrointestinal Reports abdominal pain, Reports nausea, Denies coffee ground vomit, Denies constipation, Denies difficulty swallowing, Denies bright, red blood in stools, Denies black, tarry stools Meds Home Medications Medication Instructions Recorded Confirmed Type Baclofen 20 mg PO QIDP PRN 08/16/17 09/18/17 History Diclofenac Potassium [Diclofenac 50 mg PO TID 08/16/17 09/18/17 History 50mg Tab] Fluoxetine HCl [Prozac 20mg 60 mg PO DAILY 08/16/17 09/18/17 History Capsule] Losartan Potassium 100 mg PO DAILY 08/16/17 09/18/17 History Omeprazole [Omeprazole 40mg 40 mg PO DAILY 08/16/17 09/18/17 History Capsule] Propranolol HCl 20 mg PO BID 08/16/17 09/18/17 History Tramadol HCl [Ultram 50mg 100 mg PO NEEDED PRN 08/16/17 09/18/17 History tablet] Zolpidem Tartrate [Ambien 10mg 10 mg PO HS 08/16/17 09/18/17 History tablet] hydrOXYzine HCl [Hydroxyzine HCl] 50 mg PO QID 08/16/17 09/18/17 History levETIRAcetam [Keppra 500mg tablet] 500 mg PO BID 08/16/17 09/18/17 History Aspirin [Aspirin 81mg EC Tab] 81 mg PO DAILY 09/18/17 09/18/17 History Allergies Allergy/AdvReac Type Severity Reaction Status Date / Time Penicillins Allergy Intermediate I-ITCHING Verified 09/18/17 09:27 Exam Vital signs and Labs for Last 24 Hours: Temp Pulse Resp BP Pulse Ox 98.9 F 79 18 178/92 95 09/19/17 04:00 09/19/17 04:00 09/19/17 04:00 09/19/17 04:00 09/19/17 04:00 I & O for Last 24 hours: Intake & Output 09/16/17 09/17/17 09/18/17 09/19/17 11:59 11:59 11:59 11:59 Intake Total 350 / 350 Balance 350 / 350 Weight 215 lb Narrative: Patient is awake and alert, oriented to person place and time this morning. Oropharynx is moist. Sclerae are clear. Neck is without lymphadenopathy. Lungs are clear to auscultation. Heart rate is mildly tachycardic. Abdomen is soft with mild e
[2017-09-19 07:22] LABS: Hemoglobin 8.9 g/dL (12.2-16.2)
--- NOTE | 2017-09-19 07:22 | P.HP_ITS ---
*Admission Date: 09/18/17 *Chief complaint: Vomiting and epigastric pain *History of present illness: 57-year-old female was brought to the emergency department by her son after unrelenting vomiting began at around 3 AM yesterday morning. Patient has had similar episodes in the past where she will experience vomiting for no apparent reason. When symptoms were not improving yesterday she contacted her son who brought her to the emergency department. In the emergency department she was felt to be dehydrated. CT scan of the abdomen and pelvis was consistent with enteritis but could not 100% rule out an appendicitis. Patient was admitted for IV fluids and surgical consultation. Patient was admitted to the hospital within the last 2 months and was found to have new onset anemia and has been scheduled for colonoscopy next month with Dr. Doshi. Patient reports that her vomiting began at 3 AM and the last thing she had to eat the evening before was a hamburger around 5 or 6:00 in the evening. She does not believe the meat was contaminated she had just bought it that day. She has had small amounts of diarrhea. He denies fevers or chills. [facility] History Medical History: Reports:: Anxiety, Hypertension, Seizures Denies:: Cancer, Diabetes Mellitus Type 1, Diabetes Mellitus Type 2, Internal Pacemaker, MRSA Other Surgeries: Yes: Hysterectomy-Total. No: Pacemaker Amputation: No Fractures: No - *Social History Educational Level: Attended High School Smoking Status: Never smoker Alcohol Intake: never Occupational Status: disabled Housing: apartment Household Members: none - Psychiatric History Expresses thoughts of harming self/others: None Suicide Plan Description: No Plan *Family Hx:: Anemia, Cancer, Heart Attack, Hyperlipidemia, Hypertension, Stroke Review of Systems - Review of Systems Review of systems:: pertinent systems reviewed and negative unless documented below - *Cardiovascular Denies chest pain, Denies shortness of breath - *Respiratory Denies chest congestion, Denies cough - *Gastrointestinal Reports abdominal pain, Reports nausea, Denies coffee ground vomit, Denies constipation, Denies difficulty swallowing, Denies bright, red blood in stools, Denies black, tarry stools Meds Home Medications Medication Instructions Recorded Confirmed Type Baclofen 20 mg PO QIDP PRN 08/16/17 09/18/17 History Diclofenac Potassium [Diclofenac 50 mg PO TID 08/16/17 09/18/17 History 50mg Tab] Fluoxetine HCl [Prozac 20mg 60 mg PO DAILY 08/16/17 09/18/17 History Capsule] Losartan Potassium 100 mg PO DAILY 08/16/17 09/18/17 History Omeprazole [Omeprazole 40mg 40 mg PO DAILY 08/16/17 09/18/17 History Capsule] Propranolol HCl 20 mg PO BID 08/16/17 09/18/17 History Tramadol HCl [Ultram 50mg 100 mg PO NEEDED PRN 08/16/17 09/18/17 History tablet] Zolpidem Tartrate [Ambien 10mg 10 mg PO HS 08/16/17 09/18/17 History tablet] hydrOXYzine HCl [Hydroxyzine HCl] 50 mg PO QID 08/16/17 09/18/17 History levETIRAcetam [Keppra 500mg tablet] 500 mg PO BID 08/16/17 09/18/17 History Aspirin [Aspirin 81mg EC Tab] 81 mg PO DAILY 09/18/17 09/18/17 History Allergies Allergy/AdvReac Type Severity Reaction Status Date / Time Penicillins Allergy Intermediate I-ITCHING Verified 09/18/17 09:27 Exam Vital signs and Labs for Last 24 Hours: Temp Pulse Resp BP Pulse Ox 98.9 F 79 18 178/92 95
[2017-09-19 07:23] LABS: Hematocrit 29.3 % (37.0-47.0)
--- NOTE | 2017-09-19 07:27 | PC.NURSE ---
REPORT GIVEN TO Idalmis FLANNERY W/C
--- NOTE | 2017-09-19 07:30 | HMH.DCSUM ---
General - General Admission date: 09/18/17 Discharge date: 09/19/17 HPI HPI: 57-year-old female was brought to the emergency department by her son after unrelenting vomiting began at around 3 AM yesterday morning. Patient has had similar episodes in the past where she will experience vomiting for no apparent reason. When symptoms were not improving yesterday she contacted her son who brought her to the emergency department. In the emergency department she was felt to be dehydrated. CT scan of the abdomen and pelvis was consistent with enteritis but could not 100% rule out an appendicitis. Patient was admitted for IV fluids and surgical consultation. Patient was admitted to the hospital within the last 2 months and was found to have new onset anemia and has been scheduled for colonoscopy next month with Dr. Doshi. Patient reports that her vomiting began at 3 AM and the last thing she had to eat the evening before was a hamburger around 5 or 6:00 in the evening. She does not believe the meat was contaminated she had just bought it that day. She has had small amounts of diarrhea. He denies fevers or chills. Hospital Course Hospital Course: Pati was admitted and underwent surgical cosultation the following morning. By this time patient had only epigastric tenderness. Dr. Jhaveri evaluated the patient. Decision was made to repeat CT of the abdomen and pelvis due to poor transit of contrast material on initial ER eval. Repeat imaging did raise concern for a right sided colonic mass. discussed further workup with patient. Decision was made to proceed with OP colonoscopy in one week and further decision making then. Patient tolerated advancement of her diet and was discharged home Objective Vital signs: Temp Pulse Resp BP Pulse Ox 98.9 F 79 18 178/92 95 09/19/17 04:00 09/19/17 04:00 09/19/17 04:00 09/19/17 04:00 09/19/17 04:00 Results Labs on day of discharge: Labs from last 24 hours 09/19/17 09/19/17 06:30 06:30 WBC 5.7 RBC 3.31 L Hgb 8.9 L D Hct 29.3 L MCV 88.8 MCH 26.8 L MCHC 30.2 L RDW 14.8 Plt Count 206 MPV 8.4 Neut % (Auto) 82.0 H Lymph % (Auto) 11.9 [place] % (Auto) 5.0 Eos % (Auto) 0.6 Baso % (Auto) 0.5 Neut # (Auto) 4.7 Lymph # (Auto) 0.7 [place] # (Auto) 0.3 Eos # (Auto) 0.0 Baso # (Auto) 0.0 Sodium 139 Potassium 3.7 Chloride 105 Carbon Dioxide 27 Anion Gap 10.7 BUN 13 Creatinine 1.16 H D Estimated Creat Clear 84 Estimated GFR 49 L Est GFR ( Amer) 59 D Glucose 120 H Magnesium 1.4 D DS: Diagnosis - Discharge Diagnosis (1) Gastroenteritis Status: Acute Discharge Plan - Patient Discharge Instructions ACTIVITY: Continue current activity DIET: continue same diet Patient Instructions: Acute Abdominal Pain, DI for Viral Gastroenteritis -- Adult - Follow up Plan Follow up with: Zack Batista MD [Primary Care Provider] - 09/23/17 Disposition: Home, Self-[facility] Medications: Home Medications Medication Instructions Recorded Confirmed Type Baclofen 20 mg PO QIDP PRN 08/16/17 09/18/17 History Fluoxetine HCl [Prozac 20mg 60 mg PO DAILY 08/16/17 09/18/17 History Capsule] Losartan Potassium 100 mg PO DAILY 08/16/17 09/18/17 History Omeprazole [Omeprazole 40mg 40 mg PO DAILY 08/16/17 09/18/17 History Capsule] Propranolol HCl 20 mg PO BID 08/16/17 09/18/17 History Tramadol HCl [Ultram 50mg 100 mg PO NEEDED PRN 08/16/17 09/18/17 History tablet] Zolpidem Tartrate [Ambien 10mg 10 mg PO HS 08/16/17 09/18/17 History tablet] levETIRAcetam [Keppra 500mg tablet] 500 mg PO BID 08/16/17 09/18/17 History Aspirin [Aspirin 81mg EC Tab] 81 mg PO DAILY 09/18/17 09/18/17 History Ondansetron HCl [Ondansetron 8mg 8 mg PO TIDP PRN 09/19/17 09/19/17 History Tab] Prescriptions/Medication Reconciliation: Continue Tramadol HCl [Ultram 50mg table
[2017-09-19 08:00] VITALS: BP 169/71; PULSE 69; RESP 16; TEMP 36.7; O2SAT 97
--- NOTE | 2017-09-19 08:03 | P.CONPHA_ITS ---
[facility] Pharmacy VTE Monitoring - Patient Demographics Admission date: 09/18/17 Report Date: 09/19/17 Time: 08:03 Allergies/Adverse Reactions: Patient Allergies Penicillins Allergy (Intermediate, Verified 09/18/17 09:27) I-ITCHING Height: 1.57 m Weight: 97.522 kg Patient Problems: Current Active Problems Renal insufficiency (Acute) Abdominal pain (Acute) Intractable vomiting (Acute) Chronic anemia (Acute) Gastroenteritis (Acute) - VTE Risk Labs: VTE Related Lab Results Hgb 8.9 g/dL (12.2-16.2) L D 09/19/17 06:30 Hct 29.3 % (37.0-47.0) L 09/19/17 06:30 Plt Count 206 K/mm3 (142-424) 09/19/17 06:30 BUN 13 mg/dL (7-18) 09/19/17 06:30 Creatinine 1.16 mg/dL (0.55-1.02) H D 09/19/17 06:30 Estimated Creat Clear 84 mL/min (0-300) 09/19/17 06:30 Was VTE Risk Assessment Performed: No VTE Score: 2 VTE Risk Level: Very Low Risk - Prophylaxis VTE Prophylaxis Ordered?: Yes Types of VTE Prophylaxis: TEDS Knee High Location of Applied Device: Bilateral Lower Extremeties - VTE Diagnosis Confirmed Treatment or plan recommended: Continue Current Treatment
--- NOTE | 2017-09-19 08:05 | HMH.GSCON ---
*Admission Date: 09/18/17 *Chief complaint: Abdominal pain *History of present illness: Patient is a very pleasant 57-year-old white female. Over about the past month or so she has had episodes of sharp burning epigastric pain. A similar episode yesterday and developed some vomiting. She was brought to the emergency department by her son after unrelenting vomiting began at around 3 AM yesterday morning. Patient has had similar episodes in the past where she will experience vomiting for no apparent reason. When symptoms were not improving yesterday she contacted her son who brought her to the emergency department. In the emergency department she was felt to be dehydrated. CT scan of the abdomen and pelvis was consistent with enteritis but could not 100% rule out an appendicitis. Patient was admitted for IV fluids and surgical consultation. Patient was admitted to the hospital within the last 2 months and was found to have new onset anemia and has been scheduled for colonoscopy and endoscopy next month with Dr. Tico quiroz in [place]. Patient denies any diarrhea. Of note, she did undergo gallbladder workup several years ago with no stones on ultrasound and normal ejection fraction by HIDA scan. She has not had prior colonoscopy. Review of Systems - Review of Systems Review of systems:: pertinent systems reviewed and negative unless documented below [facility] History Medical History: Reports:: Anxiety, Hypertension, Myocardial Infarction, Seizures Denies:: Cancer, Diabetes Mellitus Type 1, Diabetes Mellitus Type 2, Internal Pacemaker, MRSA Other Medical History: Reports: Anemia Other Surgeries: Yes: Hysterectomy-Total. No: Pacemaker Amputation: No Fractures: No - *Social History Educational Level: Attended High School Smoking Status: Never smoker Alcohol Intake: never Occupational Status: disabled Housing: apartment Household Members: none - Psychiatric History Expresses thoughts of harming self/others: None Suicide Plan Description: No Plan Pschychiatric History:: Reports:: Anxiety *Family Hx:: Anemia, Cancer, Heart Attack, Hyperlipidemia, Hypertension, Stroke Meds Home Medications Medication Instructions Recorded Confirmed Type Baclofen 20 mg PO QIDP PRN 08/16/17 09/18/17 History Diclofenac Potassium [Diclofenac 50 mg PO TID 08/16/17 09/18/17 History 50mg Tab] Fluoxetine HCl [Prozac 20mg 60 mg PO DAILY 08/16/17 09/18/17 History Capsule] Losartan Potassium 100 mg PO DAILY 08/16/17 09/18/17 History Omeprazole [Omeprazole 40mg 40 mg PO DAILY 08/16/17 09/18/17 History Capsule] Propranolol HCl 20 mg PO BID 08/16/17 09/18/17 History Tramadol HCl [Ultram 50mg 100 mg PO NEEDED PRN 08/16/17 09/18/17 History tablet] Zolpidem Tartrate [Ambien 10mg 10 mg PO HS 08/16/17 09/18/17 History tablet] hydrOXYzine HCl [Hydroxyzine HCl] 50 mg PO QID 08/16/17 09/18/17 History levETIRAcetam [Keppra 500mg tablet] 500 mg PO BID 08/16/17 09/18/17 History Aspirin [Aspirin 81mg EC Tab] 81 mg PO DAILY 09/18/17 09/18/17 History Allergies Allergy/AdvReac Type Severity Reaction Status Date / Time Penicillins Allergy Intermediate I-ITCHING Verified 09/18/17 09:27 Exam Vital signs and Labs for Last 24 Hours: Temp Pulse Resp BP Pulse Ox 98.0 F 69 16 169/71 97 09/19/17 08:00 09/19/17 08:00 09/19/17 08:00 09/19/17 08:00 09/19/17 08:00 Laboratory Results - last 24 hr 09/19/17 06:30: WBC 5.7, RBC 3.31 L, Hgb 8.9 L D, Hct 29.3 L, MCV 88.8, MCH 26.8 L, MCHC 30.2 L, RDW 14.8, Plt Count 206, MPV 8.4, Neut % (Auto) 82.0 H, Lymph % (Auto) 11.9, [place] % (Auto) 5.0, Eos % (Auto) 0.6, Baso % (Auto) 0.5, Neut # (Auto) 4.7, Lymph # (Auto) 0.7, [place] # (Auto) 0.3, Eos # (Auto) 0.0, Baso # (Auto) 0.0 09/19/17 06:30: Sodium 139, Potassium 3.7, Chloride 105, Carbon Dioxide 27, Anion Gap 10.7, BUN 13, Creatinine 1.16 H D, Estimated Creat Clear 84, Estimated GFR 49 L, Est GFR ( Amer) 59 D, Glucose
--- NOTE | 2017-09-19 08:08 | P.CONS_ITS ---
*Admission Date: 09/18/17 *Chief complaint: Abdominal pain *History of present illness: Patient is a very pleasant 57-year-old white female. Over about the past month or so she has had episodes of sharp burning epigastric pain. A similar episode yesterday and developed some vomiting. She was brought to the emergency department by her son after unrelenting vomiting began at around 3 AM yesterday morning. Patient has had similar episodes in the past where she will experience vomiting for no apparent reason. When symptoms were not improving yesterday she contacted her son who brought her to the emergency department. In the emergency department she was felt to be dehydrated. CT scan of the abdomen and pelvis was consistent with enteritis but could not 100% rule out an appendicitis. Patient was admitted for IV fluids and surgical consultation. Patient was admitted to the hospital within the last 2 months and was found to have new onset anemia and has been scheduled for colonoscopy and endoscopy next month with Dr. Tico quiroz in [place]. Patient denies any diarrhea. Of note, she did undergo gallbladder workup several years ago with no stones on ultrasound and normal ejection fraction by HIDA scan. She has not had prior colonoscopy. Review of Systems - Review of Systems Review of systems:: pertinent systems reviewed and negative unless documented below [facility] History Medical History: Reports:: Anxiety, Hypertension, Myocardial Infarction, Seizures Denies:: Cancer, Diabetes Mellitus Type 1, Diabetes Mellitus Type 2, Internal Pacemaker, MRSA Other Medical History: Reports: Anemia Other Surgeries: Yes: Hysterectomy-Total. No: Pacemaker Amputation: No Fractures: No - *Social History Educational Level: Attended High School Smoking Status: Never smoker Alcohol Intake: never Occupational Status: disabled Housing: apartment Household Members: none - Psychiatric History Expresses thoughts of harming self/others: None Suicide Plan Description: No Plan Pschychiatric History:: Reports:: Anxiety *Family Hx:: Anemia, Cancer, Heart Attack, Hyperlipidemia, Hypertension, Stroke Meds Home Medications Medication Instructions Recorded Confirmed Type Baclofen 20 mg PO QIDP PRN 08/16/17 09/18/17 History Diclofenac Potassium [Diclofenac 50 mg PO TID 08/16/17 09/18/17 History 50mg Tab] Fluoxetine HCl [Prozac 20mg 60 mg PO DAILY 08/16/17 09/18/17 History Capsule] Losartan Potassium 100 mg PO DAILY 08/16/17 09/18/17 History Omeprazole [Omeprazole 40mg 40 mg PO DAILY 08/16/17 09/18/17 History Capsule] Propranolol HCl 20 mg PO BID 08/16/17 09/18/17 History Tramadol HCl [Ultram 50mg 100 mg PO NEEDED PRN 08/16/17 09/18/17 History tablet] Zolpidem Tartrate [Ambien 10mg 10 mg PO HS 08/16/17 09/18/17 History tablet] hydrOXYzine HCl [Hydroxyzine HCl] 50 mg PO QID 08/16/17 09/18/17 History levETIRAcetam [Keppra 500mg tablet] 500 mg PO BID 08/16/17 09/18/17 History Aspirin [Aspirin 81mg EC Tab] 81 mg PO DAILY 09/18/17 09/18/17 History Allergies Allergy/AdvReac Type Severity Reaction Status Date / Time Penicillins Allergy Intermediate I-ITCHING Verified 09/18/17 09:27 Exam Vital signs and Labs for Last 24 Hours: Temp Pulse Resp BP Pulse Ox 98.0 F 69 16 169/71 97 09/19/17 08:00 09/19/17 08:00 09/19/17 08:00 09/19/17 08:00 09/19/17 08:00 Laboratory Results - last 24 hr
--- NOTE | 2017-09-19 09:36 | CT_ITS ---
CT abdomen pelvis w con Ordering Physician: Zack Batista MD Patient Age: 57 years: Female HISTORY: ITS.REASON: ABDOMINAL PAINseen yesterday has improved TECHNIQUE: Helical CT is performed at of pelvis with 75 cc Isovue-[id number] as well as additional diluted Gastroview oral enteric contrast From the axial acquisition thickened axial, sagittal and coronal reconstructions performed on CT workstation. COMPARISON : Previous CT abdomen 09/18/2017 FINDINGS Previous dilatation dilated distal small small bowel has shown significant improvement since yesterday, however we now see more pronounced diffuse wall thickening throughout the distal small bowel and terminal ileum region. The latter Suggesting inflammation, and possible enteritis of the distal small bowel versus postobstructive changes There is still some mild small bowel wall dilatation . Scattered small air-fluid levels are seen throughout the small bowel. However there is good passage of the oral contrast throughout the entire small bowel and with oral contrast throughout the entire colon from today as well as yesterday's dosage. There is still some mesenteric edema & omental edema which is most evident anteriorly as seen on axial images above and below the level of the umbilicus. This anterior most edema extensive along the anterior abdominal wall as seen best on axial image [id number]. This area require follow-up scanning to exclude any additional features such as might be seen with associated features involving. Fell landing here.q. With this is also some additional minimal fluid overlying the bowel loops are at the right lower quadrant and between bowel loops towards the pelvis pelvic basin thickening here on the right. Scant fluid at cul-de-sac. -- The other features of significant concern is a segmental area wall thickening at the right colon.- Requires colonoscopy This measures up to nearly 4 cm length of concentric wall thickening seen at right colon as it approaches the hepatic flexure.q axial image 64 sagittal 32 & coronal 37. Again the lumen appears narrowed through this region. Findings are concerning for malignancy and colonoscopy required. Images reviewed with Dr. Jhaveri. I would note that there is a diverticulum extending posteriorly on the sagittal image 32, from this area but I do not believe this reflects a localized diverticulitis process. A focal colitis conceivably could yield this segmental wall thickening malignancy needs to be excluded ------- Lung bases are clear. Cardiomegaly again noted. Moderate stool seen throughout colon but is significantly diminished volume of stool right colon suggests today. With this I speculated stool and material within the right colon near view with a partial obstruction at the suspect lesion right colon contributing to yesterday's more dilated distal small bowel. Liver appears satisfactory with no good evidence of lesion or metastatic disease on today's contrast study, nor on yesterday's. Gallbladder. No definitive calcified gallstone is no wall thickening. Pancreas. Diffuse fatty changes no focal lesions. No retroperitoneal nor mesenteric nor pelvic adenopathy. Kidneys. No urinary tract calculi nor obstruction. Small less than 1 cm cyst at the lower portion left kidney. . Osseous. Degenerative disc changes L4/5 mild dextroscoliosis L-spine. No osseous lesions. Sclerotic changes at the margins of SI joints. Nonspecific Pelvis. Previous hysterectomy no adnexal masses IMPRESSION 1. Nearly 4 cm concentric area wall thickening at the mid right colon, towards the hepatic flexure.Requires colonoscopy to further evaluate. . Incidental note nonthickened/noninflamed diverticulum extending posteriorly from this same area, but I do not believe this wall thickening reflects a dive
[2017-09-19 15:48] VITALS: BP 183/99; PULSE 68; RESP 18; TEMP 36.8; O2SAT 97
== END 2017-09-19 17:45 | disposition home or self-care (01) ==
LOC: ER 14:20 → 2ND 15:57
PROVIDERS: Admitting Provider Internal Medicine Adolescent Medicine; Emergency Provider Emergency Medicine; Family Provider Family Medicine; PCP Family Medicine; Visit Provider Family Medicine
DX: E86.0 Dehydration (principal); K52.9 Noninfective gastroenteritis and colitis, unspecified; I10 Essential (primary) hypertension; R56.9 Unspecified convulsions; N28.9 Disorder of kidney and ureter, unspecified; Z83.2 Family history of diseases of the blood and blood-forming organs and certain disorders involving the immune mechanism; Z90.710 Acquired absence of both cervix and uterus; Z79.891 Long term (current) use of opiate analgesic; Z79.899 Other long term (current) drug therapy; Z88.0 Allergy status to penicillin; I25.2 Old myocardial infarction; Z80.9 Family history of malignant neoplasm, unspecified; Z82.49 Family history of ischemic heart disease and other diseases of the circulatory system; Z83.49 Family history of other endocrine, nutritional and metabolic diseases; Z82.3 Family history of stroke
CPT/HCPCS: 36415; 74177; 80048; 80053; 81001; 82150; 83605; 83690; 83735; 84484; 85025; 87275; 87276; 93005; 96365; 96375; 99285; G0378; J1956; J2405; Q9967

== ENCOUNTER → 2017-10-03 14:00 | Outpatient (CLI) | payer MEDICARE, SELFPAY ==
[2017-10-03 14:33] LABS: Basophils % 0.4 % (0.1-2.0); Eosinophils # 0.2 K/mm3 (0.0-0.4); Eosinophils % 5.3 % (0.1-12.0); Hematocrit 28.1 % (37.0-47.0); Hemoglobin 8.4 g/dL (12.2-16.2); Lymphocytes # 0.9 K/mm3 (0.7-4.5); Lymphocytes % 21.7 K/mm3 (10-50); Mean Platelet Volume 9.2 fl (7.4-10.4); Monocytes # 0.3 K/mm3 (0.1-1.0); Monocytes % 7.2 % (1.7-9.3); Neutrophils # 2.6 K/mm3 (1.8-7.8); Neutrophils % 65.3 % (37.0-80.0); Platelet Count 229 K/mm3 (142-424); Red Blood Count 3.12 M/mm3 (4.20-5.40); Red Cell Distribution Width 14.4 % (11.5-17.5)
[2017-10-03 16:08] LABS: Alanine Aminotransferase 16 U/L (12-78); Albumin Level 3.2 gm/dL (3.4-5.0); Albumin/Globulin Ratio 1.1 (1.1-1.8); Alkaline Phosphatase 92 U/L (46-116); Anion Gap 13.1 mEq/L (5-15); Aspartate Amino Transferase 12 U/L (15-37); Bilirubin,Total 0.4 mg/dL (0.2-1.0); Blood Urea Nitrogen 14 mg/dL (7-18); Calcium 8.3 mg/dL (8.5-10.1); Carbon Dioxide 27 mmol/L (21.0-32.0); Chloride 106 mmol/L (98-107); Creatinine,Serum 1.44 mg/dL (0.55-1.02); Estimated Glomerular Filt Rate 38 ml/min (>60); Ferritin 29 ng/mL (8-388); GFR (African American) 46 ML/MIN (>60); Glucose 89 mg/dL (74-106); Potassium 4.1 mmoL/L (3.5-5.1); Sodium 142 mmol/L (136-145); Total Protein,Serum 6.2 gm/dL (6.4-8.2)
[2017-10-03 16:09] LABS: C-Reactive Protein < 0.2 mg/L (0.0-0.9)
[2017-10-03 17:15] LABS: Erythrocyte Sedimentation Rate 23 mm/hr (0-30)
[2017-10-05 08:26] LABS: Iron 58 ug/dL (27-159); Iron Saturation 15 % (15-55); UIBC 327 ug/dL (131-425)
[2017-10-05 16:16] LABS: Vitamin B12 332 pg/mL (232-1245)
[2017-10-07 21:03] LABS: Saccharomyces cerevisiae, IgA <20.0 Units (0.0-24.9); Saccharomyces cerevisiae, IgG 89.8 Units (0.0-24.9)
== END ==
PROVIDERS: Visit Provider Internal Medicine Gastroenterology
DX: D64.9 Anemia, unspecified (principal); K52.9 Noninfective gastroenteritis and colitis, unspecified; Z79.899 Other long term (current) drug therapy
CPT/HCPCS: 36415; 80053; 82607; 82728; 83550; 85025; 85651; 86140; 86256; 86671

== ENCOUNTER → 2017-10-24 06:00 | Outpatient (CLI) | payer MEDICARE, SELFPAY ==
[2017-10-26 10:48] LABS: Occult Blood,Stool Negative (Negative)
== END ==
PROVIDERS: Visit Provider Internal Medicine Gastroenterology
DX: D64.9 Anemia, unspecified (principal)
CPT/HCPCS: 82272; G0328

== ENCOUNTER → 2017-10-25 10:00 | Outpatient (CLI) | payer MEDICARE, SELFPAY ==
[2017-10-26 10:49] LABS: Occult Blood,Stool Negative (Negative)
== END ==
PROVIDERS: Visit Provider Internal Medicine Gastroenterology
DX: D64.9 Anemia, unspecified (principal)
CPT/HCPCS: 82272; G0328

== ENCOUNTER → 2017-10-26 09:38 | Outpatient (CLI) | payer MEDICARE, SELFPAY ==
[2017-10-26 10:49] LABS: Occult Blood,Stool Negative (Negative)
== END ==
PROVIDERS: Visit Provider Internal Medicine Gastroenterology
DX: D64.9 Anemia, unspecified (principal)
CPT/HCPCS: 82272; G0328

== ENCOUNTER 2017-11-21 12:48 | Outpatient (CLI) | payer MEDICARE, SELFPAY ==
[2017-11-21 13:00] VITALS: BP 144/70; PULSE 69; RESP 18; TEMP 36.8; O2SAT 97
[2017-11-21 13:01] VITALS: BMI 36.6
[2017-11-21 13:33] LABS: Hematocrit 26.8 % (37.0-47.0)
--- NOTE | 2017-11-21 16:07 | PC.NURSE ---
1340 11/21/17 Spoke with Galdino Sapp APRN regarding pt's H&H 8.0/26.8, who states ok to have pt return in am 11/22/17 at 0830 for transfusion of 2 units PRBC's as ordered due to H/H stable.
== END 2017-11-21 13:50 | disposition home or self-care (01) ==
LOC: INF 12:51
PROVIDERS: PCP Family Medicine; Visit Provider Nurse Practitioner Family
DX: D63.8 Anemia in other chronic diseases classified elsewhere (principal)
CPT/HCPCS: 85014; 85018; 86850

== ENCOUNTER → 2017-11-22 08:00 | Outpatient (CLI) | payer MEDICARE, SELFPAY ==
[2017-11-22] VITALS (21 sets, daily range): BP systolic 141–169; BP diastolic 70–95; PULSE 62–69; RESP 18–20; TEMP 36.3–36.9; O2SAT 96–99; BMI 38.4
--- NOTE | 2017-11-22 15:26 | PC.NURSE ---
attempted to draw post h&h called lab to draw dimas cortez at [id number]
[2017-11-22 15:30] LABS: Hemoglobin 10.6 g/dL (12.2-16.2)
== END ==
PROVIDERS: Family Provider Family Medicine; PCP Family Medicine; Visit Provider Nurse Practitioner Family
DX: D63.8 Anemia in other chronic diseases classified elsewhere (principal); N28.9 Disorder of kidney and ureter, unspecified
CPT/HCPCS: 36415; 36430; 85014; 85018; P9016

== ENCOUNTER → 2017-12-07 10:59 | Outpatient (CLI) | payer MEDICARE, SELFPAY ==
[2017-12-07 11:42] LABS: Basophils % 0.4 % (0.1-2.0); Eosinophils # 0.1 K/mm3 (0.0-0.4); Eosinophils % 0.6 % (0.1-12.0); Hematocrit 37.3 % (37.0-47.0); Hemoglobin 11.5 g/dL (12.2-16.2); Lymphocytes # 0.7 K/mm3 (0.7-4.5); Lymphocytes % 8.2 K/mm3 (10-50); Mean Corpuscular HGB Conc 30.8 g/dL (31.8-35.4); Mean Corpuscular Hemoglobin 26.2 pg (27.0-31.2); Mean Corpuscular Volume 85.1 fl (81-99); Mean Platelet Volume 7.6 fl (7.4-10.4); Monocytes # 0.2 K/mm3 (0.1-1.0); Monocytes % 2.2 % (1.7-9.3); Neutrophils # 7.3 K/mm3 (1.8-7.8); Neutrophils % 88.5 % (37.0-80.0); Platelet Count 289 K/mm3 (142-424); Red Blood Count 4.38 M/mm3 (4.20-5.40); Red Cell Distribution Width 15.8 % (11.5-17.5); White Blood Count 8.2 K/mm3 (4.8-10.8)
[2017-12-07 11:50] LABS: MANUAL DIFFERENTIAL MANUAL DIFFERENTIAL (MANUAL DIFF)
[2017-12-07 12:06] LABS: Anion Gap 16.3 mEq/L (5-15); Blood Urea Nitrogen 45 mg/dL (7-18); CKMB Relative Index 2.2 U/L (0-4.0); Carbon Dioxide 24 mmol/L (21.0-32.0); Chloride 101 mmol/L (98-107); Creatine Kinase 76 U/L (26-192); Creatine Kinase MB 1.7 ng/ml (0.0-3.6); Creatinine,Serum 2.04 mg/dL (0.55-1.02); Estimated Glomerular Filt Rate 25 ml/min (>60); GFR (African American) 31 ML/MIN (>60); Glucose 116 mg/dL (74-106); Potassium 4.3 mmoL/L (3.5-5.1); Sodium 137 mmol/L (136-145); Troponin I < 0.02 ng/ml (0.00-0.06)
[2017-12-07 12:55] LABS: Eosinophils % 1 % (0-3); Hypochromasia 2+; Lymphocytes % 10 % (10-50); Monocytes % 4 % (2-9); Neutrophils % 84 % (42-76); Platelet Estimate Normal; Total Cells Counted 100
== END ==
PROVIDERS: Family Provider Family Medicine; PCP Family Medicine; Visit Provider Physician Assistant
DX: D72.825 Bandemia (principal); R07.89 Other chest pain; N28.9 Disorder of kidney and ureter, unspecified; D64.9 Anemia, unspecified; I20.9 Angina pectoris, unspecified; R06.09 Other forms of dyspnea
CPT/HCPCS: 36415; 80048; 82550; 82553; 84484; 85007; 85025

== ENCOUNTER 2018-03-18 05:31 | Inpatient (IN) ==
[2018-03-18 04:32] LABS: Basophils % 0.5 % (0.1-2.0); Eosinophils % 0.2 % (0.1-12.0); Hematocrit 31.1 % (37.0-47.0); Hemoglobin 9.9 g/dL (12.2-16.2); Lymphocytes # 0.5 K/mm3 (0.7-4.5); Lymphocytes % 5.2 K/mm3 (10-50); Mean Corpuscular Hemoglobin 28.1 pg (27.0-31.2); Mean Corpuscular Volume 87.7 fl (81-99); Mean Platelet Volume 7.9 fl (7.4-10.4); Microscopic, Urine URINE MICROSCOPIC (MICROSCOPIC); Monocytes # 0.6 K/mm3 (0.1-1.0); Monocytes % 6.3 % (1.7-9.3); Neutrophils # 8.3 K/mm3 (1.8-7.8); Platelet Count 277 K/mm3 (142-424); Red Blood Count 3.54 M/mm3 (4.20-5.40); White Blood Count 9.5 K/mm3 (4.8-10.8)
[2018-03-18 04:39] LABS: Appearance,Urine CLEAR (Clear); Bilirubin,Urine Negative (Negative); Blood, Urine 2+ (Negative); Color,Urine YELLOW (Yellow); Glucose,Urine (UA) Negative (Negative); Ketones,Urine Negative (Negative); Leukocyte Esterase,Urine Negative (Negative); Protein,Urine Negative (Negative); Urobilinogen,Urine 0.2 EU/dl (0.2)
[2018-03-18 04:42] LABS: Amphetamine/Metha Screen,Urine Negative ng/mL (<1000); Barbiturates Screen,Urine Negative ng/mL (<200); Benzodiazepines Screen,Urine Negative ng/mL (<200); Cannabinoid Screen,Urine Negative ng/mL (<50); Cocaine Screen,Urine Negative ng/mL (<300); Methadone Screen,Urine Negative ng/mL (<300); Opiate Screen,Urine Negative ng/mL (<300); Phencyclidine Screen,Urine Negative ng/mL (<25)
[2018-03-18 04:43] LABS: Anion Gap 19.7 mEq/L (5-15); Calcium 8.5 mg/dL (8.5-10.1); Potassium 3.7 mmoL/L (3.5-5.1); RBC,Urine 20-50 #/hpf (0-3)
[2018-03-18 04:50] LABS: Lymphocytes % 7 % (10-50); Monocytes % 4 % (2-9); Neutrophils % 79 % (42-76); RBC Morphology Normal; Rouleaux 1+; Total Cells Counted 100
--- NOTE | 2018-03-18 05:08 | Emergency Department Note ---
ED Disposition Clinical Impression: Altered mental status, Acute renal insufficiency Disposition: Admitted as Observation Condition on Discharge: Fair Instructions: DI for Altered Mental Status - Critical Care Critical Care Time: No Attestation: On , the high probability of a clinically significant, sudden or life threatening deterioration of the following system(s) required my full and direct attention, intervention and personal management. The time I documented below is in addition to time spent performing reported procedures but includes the following listed in this critical care notation. Medical Decision Making - Medical Records Medical records reviewed: Yes: I reviewed the patient's medical records. - [place] Inquiry Pt receiving controlled substance: No [place] was queried for this patient: No Vital Signs: 03/18/18 03:30 Temperature 98 F Temperature Source Oral Pulse Rate [Right Radial] 86 Respiratory Rate 16 Blood Pressure [Right Arm] 157/101 H Blood Pressure Mean [Right Arm] 119 Blood Pressure Source [Right Arm] Automatic Cuff Blood Pressure Position [Right Arm] Supine 02 Sat by Pulse Oximetry 93 L Oxygen Delivery Method Room Air Orders (Tests/Meds): ORDERS Category Date Time Status CT head/brain wo con Stat Cat Scan 03/18/18 03:31 Taken Chest XR -- portable [XR chest portable] Stat Exams 03/18/18 04:01 Ordered BMP [Basic Metabolic Panel] Stat Lab 03/18/18 03:34 Ordered Blood alcohol [Ethyl Alcohol] Stat Lab 03/18/18 04:06 Ordered CBC w/Auto Diff [Complete Blood Count Auto Diff] Stat Lab 03/18/18 03:34 Or dered UA [Urinalysis and Microscopic] Stat Lab 03/18/18 03:33 Ordered UDS [Drug Screen,Urine] Stat Lab 03/18/18 03:33 Ordered - CT Data CT Scan: Head, Chest Time Received: 05:[address] Reviewed: Yes: I have reviewed the patient's CT results Preliminary Findings: Normal/NAD Altered Mental Status HPI - General Chief Complaint: Altered Mental Status Stated Complaint: ams Time Seen by Provider: 03/18/18 05:34 Mode of Arrival: EMS (05) Source of Information: Relative Limitations: Altered Mental Status Description of Symptoms (Recalled from ER Triage Doc. by RN): Patient was on phone with daughter. Daughter noticed that patient was confused. Daughter called police and request Police and EMS to check on. Ems reports patient home was in a mess. - History of Present Illness HPI narrative: Patient with history of HTN, Seizure disorder brought to the ED by EMS for AMS. According to her daughter, she received a phone call from patient's neighbour after they found her wondering around in the parking lot and confused MD complaint: altered mental status, confusion ( ) Onset (ago): unknown Severity: moderate Consistency of symptoms: waxing and waning - Related Data Home Medications Medication Instructions Recorded Confirmed Losartan Potassium 100 mg PO DAILY 08/16/17 01/04/18 levETIRAcetam [Keppra 500mg tablet] 1,000 mg PO BID 08/16/17 01/04/18 Aspirin [Aspirin 81mg EC Tab] 81 mg PO DAILY 09/18/17 01/04/18 Ondansetron HCl [Ondansetron 8mg 8 mg PO TIDP PRN 09/19/17 01/04/18 Tab] fluoxetine 20 mg capsule 40 mg PO BID cap 12/07/17 01/04/18 furosemide 20 mg tablet 20 mg PO DAILY PRN tab 12/07/17 01/04/18 propranolol 20 mg tablet 20 mg PO BID 12/07/17 01/04/18 risperidone 2 mg tablet 2 mg PO DAILY tab 12/07/17 01/04/18 Bisoprolol Fumarate [Bisoprolol 20 mg PO BID 12/26/17 01/04/18 10mg Tablet] NIFEdipine [Nifedipine ER] 60 mg PO DAILY 01/04/18 01/04/18 Allergies Allergy/AdvReac Type Severity Reaction Status Date / Time Penicillins Allergy Intermediate I-ITCHING Verified 10/21/17 07:15 [facility] History I have reviewed the patient's past medical history: Yes Medical History: Reports:: Anxiety, Gastroesophageal Reflux Disease(GERD), Hypertension, Myocardial Infarction, Seizures Denies:: Cancer, Diabetes Mellitus Type 1, Diabetes Mellitus Type 2, Lung Disease, MRSA Other Medical History: Reports: Anemia Other Surgeries: Yes: Colonoscopy, Hysterectomy-Total Amputation: No Fractures: No - Social History Smoking Status: Never smoker Alcohol Intake: never Alcohol Intake Frequency:: other Substance Use Type: denies use Occupational Status: disabled Housing: apartment Household Members: none - Psychiatric History Expresses thoughts of harming self/others: None Suicide Plan Description: No Plan Pschychiatric History:: Reports:: Anxiety Family Hx:: Anemia, Cancer, Heart Attack, Hyperlipidemia, Hypertension, Stroke Comment: of [place] at 71-Mother. of [place] at 72-Father ROS Obtained: Yes All systems reviewed & no additional complaints Physical Exam - General General appearance: in no apparent distress - Head Head exam: atraumatic, normocephalic, normal inspection - Eye Eye exam: Present: normal appearance, PERRL, EOMI - ENT ENT exam: Present: normal exam, normal oropharynx, mucous membranes moist, TM's normal bilaterally, normal external ear exam - Neck Neck exam: Present: normal inspection, full ROM, trachea midline. Absent: meningismus, lymphadenopathy - Chest Chest inspection: Present: normal inspection, symmetric chest wall rise. Absent: tenderness - Respiratory Respiratory exam: Present: normal lung sounds bilaterally. Absent: respiratory distress - Cardiovascular Cardiovascular exam: Present: regular rate, normal rhythm. Absent: JVD - Abdominal Exam Abdominal exam: Present: soft, normal bowel sounds. Absent: distention, tenderness, guarding - Extremities Exam Extremities exam: Present: normal inspection, full ROM, normal capillary refill. Absent: calf tenderness - Back Exam Back exam: Present: normal inspection. Absent: tenderness - Neurological Exam Neurological exam: Present: alert, oriented X3 - Psychiatric Psychiatric exam: Present: normal affect, normal mood - Skin Skin exam: Present: warm, dry, intact, normal color - Lymphatic Lymphatic Findings: no adenopathy
--- NOTE | 2018-03-18 08:16 | History & Physical Report ---
*Admission Date: 03/18/18 *Chief complaint: Mental status changes *History of present illness: 57-year-old female presented to the emergency department early this morning after her daughter was contacted because someone noticed the patient wandering around in parking lot and seemingly confused. Patient was ultimately brought to the hospital by EMS. Patient has been having vomiting and diarrhea over the last 48 hours (at least). Patient cannot provide much history. She was found to be dehydrated with acute kidney injury. IV fluids been started and she has been admitted. Patient can answer questions this morning. She repeatedly asks "am I ". [facility] History Medical History: Reports:: Anxiety, Gastroesophageal Reflux Disease(GERD), Hypertension, Myocardial Infarction, Seizures Denies:: Cancer, Diabetes Mellitus Type 1, Diabetes Mellitus Type 2, Lung Dis ease, MRSA Other Medical History: Reports: Anemia Other Surgeries: Yes: Colonoscopy, Hysterectomy-Total Amputation: No Fractures: No - *Social History Smoking Status: Never smoker Alcohol Intake: never Alcohol Intake Frequency:: other Substance Use Type: denies use Occupational Status: disabled Housing: apartment Household Members: none - Psychiatric History Expresses thoughts of harming self/others: None Suicide Plan Description: No Plan Pschychiatric History:: Reports:: Anxiety *Family Hx:: Anemia, Cancer, Heart Attack, Hyperlipidemia, Hypertension, Stroke Review of Systems - Review of Systems Review of systems:: unable to obtain Meds Home Medications Medication Instructions Recorded Confirmed Type RX: Losartan Potassium 100 mg PO DAILY 08/16/17 03/18/18 History RX: levETIRAcetam [Keppra 500mg 1,000 mg PO BID 08/16/17 03/18/18 History tablet] RX: Aspirin [Aspirin 81mg EC 81 mg PO DAILY 09/18/17 03/18/18 History Tab] RX: Ondansetron HCl [Ondansetron 8 mg PO TIDP PRN 09/19/17 03/18/18 History 8mg Tab] fluoxetine 20 mg capsule 40 mg PO BID cap 12/07/17 03/18/18 History furosemide 20 mg tablet 20 mg PO DAILY PRN tab 12/07/17 03/18/18 History propranolol 20 mg tablet 20 mg PO BID 12/07/17 03/18/18 History risperidone 2 mg tablet 2 mg PO DAILY tab 12/07/17 03/18/18 History RX: Bisoprolol Fumarate 20 mg PO BID 12/26/17 03/18/18 History [Bisoprolol 10mg Tablet] NIFEdipine [Nifedipine ER] 60 mg PO DAILY 01/04/18 03/18/18 History Fluoxetine HCl [Prozac] 40 mg PO DAILY 03/18/18 03/18/18 History Pantoprazole Sodium [Protonix 40mg 40 mg PO DAILY 03/18/18 03/18/18 History tablet] Allergies Allergy/AdvReac Type Severity Reaction Status Date / Time Penicillins Allergy Intermediate I-ITCHING Verified 10/21/17 07:15 Exam Vital signs and Labs for Last 24 Hours: Temp Pulse Resp BP Pulse Ox 98.4 F 110 H 14 190/98 H 97 03/18/18 06:52 03/18/18 07:00 03/18/18 07:00 03/18/18 06:52 03/18/18 06:52 Laboratory Results - last 24 hr 03/18/18 04:20: Urine Color Yellow, Urine Appearance Clear, Urine pH 6.0, Ur Specific [place] 1.020, Urine Protein Negative, Urine Glucose (UA) Negative, Urine Ketones Negative, Urine Blood 2+, Urine Nitrate Negative, Urine Bilirubin Negative, Urine Urobilinogen 0.2, Ur Leukocyte Esterase Negative, Urine RBC 20- 50, Urine WBC 3-5 03/18/18 04:20: Urine Opiates Screen Negative, Urine Methadone Screen Negative, Ur Barbituates Screen Negative, Ur Phencyclidine Scrn Negative, Ur Amphetamines Screen Negative, U Benzodiazepines Scrn Negative, Urine Cocaine Screen Negative, U Marijuana (THC) Screen Negative 03/18/18 04:20: WBC 9.5, RBC 3.54 L, Hgb 9.9 L, Hct 31.1 L, MCV 87.7, MCH 28.1, MCHC 32.0, RDW 15.0, Plt Count 277, MPV 7.9, Neut % (Auto) 88.0 H, Lymph % (Auto) 5.2 L, [place] % (Auto) 6.3, Eos % (Auto) 0.2, Baso % (Auto) 0.5, Neut # (Auto) 8.3 H, Lymph # (Auto) 0.5 L, [place] # (Auto) 0.6, Eos # (Auto) 0.0, Baso # (Auto) 0.0, Total Counted 100, Neutrophils % (Manual) 79 H, Band Neutrophils % 10.0 H, Lymphocytes % (Manual) 7 L, Monocytes % (Manual) 4, Platelet Estimate Normal, RBC Morphology Normal, Rouleaux 1+ 03/18/18 04:20: Sodium 147 H, Potassium 3.7, Chloride 107, Carbon Dioxide 24, Anion Gap 19.7 H, BUN 49 H, Creatinine 2.60 H, Estimated Creat Clear 35, Estimated GFR 19 L*, Est GFR ( Amer) 23 L, Glucose 122 H, Calcium 8.5, Plasma/Serum Alcohol 0 I & O for Last 24 hours: Intake & Output 03/15/18 03/16/18 03/17/18 03/18/18 11:59 11:59 11:59 11:59 Output Total 1399 / 1399 Balance -1399 / -1400 Weight 211 lb Narrative: Patient is resting comfortably in bed and was difficult to arouse but did wake up she does not appear to be in any distress. ENT exam is significant for dry oropharynx with dry cracked lips. Neck is without lymphadenopathy. Heart has a regular rate and rhythm. Lungs are clear to auscultation. Abdomen is soft, nontender, nondistended with active bowel sounds. Neurologically the patient is oriented to person. He has active range of motion in the extremities but is suffering from tetany in the hands. Assessment and Plan (1) Acute kidney injury Current visit: Yes Status: Acute Category: Medical Code(s): N17.9 - Acute kidney failure, unspecified (2) Acute alteration in mental status Current visit: Yes Status: Acute Category: Medical Code(s): R41.82 - Altered mental status, unspecified (3) Hypertension Current visit: Yes Status: Acute Category: Medical Code(s): I10 - Essential (primary) hypertension (4) Anemia of chronic disease Current visit: Yes Status: Acute Category: Medical Code(s): D63.8 - Anemia in other chronic diseases classified elsewhere (5) Seizure disorder Current visit: Yes Status: Acute Category: Medical Code(s): G40.909 - Epilepsy, unspecified, not intractable, without status epilepticus - Assessment and plan all Dx Assessment and Plan for all problems:: 1. IV fluids for rehydration 2. Clear liquid diet 3. IV hydralazine for solid blood pressure greater than 160. Restart patient's bisoprolol and nifedipine. 4. Repeat labs in a.m. 5. Restart Patric
--- NOTE | 2018-03-18 12:21 | Pharmacy Consult Notes ---
[facility] Pharmacy VTE Monitoring - Patient Demographics Admission date: 03/18/18 Report Date: 03/18/18 Time: 12:21 Allergies/Adverse Reactions: Patient Allergies Penicillins Allergy (Intermediate, Verified 10/21/17 07:15) I-ITCHING Height: 1.65 m Weight: 95.708 kg Patient Problems: Current Active Problems Altered mental status (Acute) Acute renal insufficiency (Acute) Acute kidney injury (Acute) Acute alteration in mental status (Acute) Hypertension (Acute) Anemia of chronic disease (Acute) Seizure disorder (Acute) - VTE Risk Labs: VTE Related Lab Results Hgb 9.9 g/dL (12.2-16.2) L 03/18/18 04:20 Hct 31.1 % (37.0-47.0) L 03/18/18 04:20 Plt Count 277 K/mm3 (142-424) 03/18/18 04:20 BUN 49 mg/dL (7-18) H 03/18/18 04:20 Creatinine 2.60 mg/dL (0.55-1.02) H 03/18/18 04:20 Estimated Creat Clear 35 mL/min (0-300) 03/18/18 04:20 VTE Score: 4 VTE Risk Level: Low Risk - Prophylaxis VTE Prophylaxis Ordered?: Yes Types of VTE Prophylaxis: TEDS Knee High Location of Applied Device: Bilateral Lower Extremeties
[2018-03-19 06:49] LABS: Basophils # 0.1 K/mm3 (0-0.2); Basophils % 0.6 % (0.1-2.0); Eosinophils # 0.1 K/mm3 (0.0-0.4); Eosinophils % 0.9 % (0.1-12.0); Hemoglobin 8.8 g/dL (12.2-16.2); Lymphocytes # 1.5 K/mm3 (0.7-4.5); Lymphocytes % 15.6 K/mm3 (10-50); Mean Corpuscular HGB Conc 30.9 g/dL (31.8-35.4); Mean Corpuscular Hemoglobin 27.2 pg (27.0-31.2); Mean Corpuscular Volume 88.1 fl (81-99); Mean Platelet Volume 7.9 fl (7.4-10.4); Monocytes # 0.6 K/mm3 (0.1-1.0); Monocytes % 6.6 % (1.7-9.3); Neutrophils # 7.3 K/mm3 (1.8-7.8); Neutrophils % 76.3 % (37.0-80.0); Platelet Count 256 K/mm3 (142-424); Red Blood Count 3.22 M/mm3 (4.20-5.40); White Blood Count 9.6 K/mm3 (4.8-10.8)
[2018-03-19 06:50] LABS: Hematocrit 28.4 % (37.0-47.0)
[2018-03-19 07:00] LABS: Anion Gap 16.2 mEq/L (5-15); Calcium 8.8 mg/dL (8.5-10.1); Potassium 3.2 mmoL/L (3.5-5.1)
--- NOTE | 2018-03-19 07:06 | Progress Note ---
Internal Medicine - PN: Subj *Date: 03/19/18 *Time: 07:02 Interval history: Patient remained confused most of the day yesterday although as the evening progressed patient seemed to become more lucid. She did have a low-grade fever to 100 degrees and was given Tylenol. This morning she awakens easily. She does complain of bilateral lower leg pain. She denies headache. She does feel nauseous but has not vomited. She has not had any further diarrhea. She denies abdominal pain. Patient did pull out her IV. Exam Vital signs and Labs for Last 24 Hours: Temp Pulse Resp BP Pulse Ox 98.5 F 69 18 161/70 H 93 L 03/19/18 04:00 03/19/18 04:00 03/19/18 04:00 03/19/18 04:00 03/19/18 04:00 Laboratory Results - last 24 hr 03/19/18 06:23: WBC 9.6, RBC 3.22 L, Hgb 8.8 L, Hct 28.4 L, MCV 88.1, MCH 27.2, MCHC 30.9 L, RDW 15.0, Plt Count 256, MPV 7.9, Neut % (Auto) 76.3, Lymph % (Auto) 15.6, [place] % (Auto) 6.6, Eos % (Auto) 0.9, Baso % (Auto) 0.6, Neut # (Auto) 7.3, Lymph # (Auto) 1.5, [place] # (Auto) 0.6, Eos # (Auto) 0.1, Baso # (Auto) 0.1 I & O for Last 24 hours: Intake & Output 03/16/18 03/17/18 03/18/18 03/19/18 11:59 11:59 11:59 11:59 Intake Total 600 / 600 Output Total 1400 / 1400 2100 / 2100 Balance -1400 / -1400 -1500 / -1500 Weight 211 lb 211 lb Narrative: Patient is alert and oriented to day and year as well as self. Oropharynx remains dry. Lungs are clear to auscultation. Heart has a regular rate and rhythm. Abdomen is soft and obese. Skin exam reveals a bruise above the right eyebrow and a small abrasion above the left eyebrow. Patient has multiple bruises on the lower legs as well. Palpation of the lower legs does not cause any pain. Assessment and Plan (1) Acute kidney injury Current visit: Yes Status: Acute Category: Medical Code(s): N17.9 - Acute kidney failure, unspecified (2) Acute alteration in mental status Current visit: Yes Status: Acute Category: Medical Code(s): R41.82 - Altered mental status, unspecified (3) Hypertension Current visit: Yes Status: Acute Category: Medical Code(s): I10 - Essential (primary) hypertension (4) Anemia of chronic disease Current visit: Yes Status: Acute Category: Medical Code(s): D63.8 - Anemia in other chronic diseases classified elsewhere (5) Seizure disorder Current visit: Yes Status: Acute Category: Medical Code(s): G40.909 - Epilepsy, unspecified, not intractable, without status epilepticus - Assessment and plan all Dx Assessment and Plan for all problems:: 1. Await renal function this morning. Patient may need to have IV reestabl ished. She is able to drink liquids and is on a full liquid diet. Continue to hold losartan 2. Continue bisoprolol and nifedipine for hypertension. Continue as needed hydralazine 3. DC Ramirez catheter 4. Out of bed to chair with assistance
[2018-03-20 05:58] LABS: Basophils # 0.1 K/mm3 (0-0.2); Basophils % 0.6 % (0.1-2.0); Eosinophils # 0.1 K/mm3 (0.0-0.4); Eosinophils % 0.8 % (0.1-12.0); Hemoglobin 9.1 g/dL (12.2-16.2); Lymphocytes # 1.2 K/mm3 (0.7-4.5); Lymphocytes % 12.9 K/mm3 (10-50); Mean Corpuscular HGB Conc 31.4 g/dL (31.8-35.4); Mean Corpuscular Hemoglobin 27.8 pg (27.0-31.2); Mean Corpuscular Volume 88.5 fl (81-99); Mean Platelet Volume 7.4 fl (7.4-10.4); Monocytes # 0.5 K/mm3 (0.1-1.0); Monocytes % 5.1 % (1.7-9.3); Neutrophils # 7.2 K/mm3 (1.8-7.8); Neutrophils % 80.6 % (37.0-80.0); Platelet Count 263 K/mm3 (142-424); Red Blood Count 3.28 M/mm3 (4.20-5.40); Red Cell Distribution Width 14.8 % (11.5-17.5); White Blood Count 8.9 K/mm3 (4.8-10.8)
[2018-03-20 06:08] LABS: Anion Gap 16.3 mEq/L (5-15); Calcium 8.8 mg/dL (8.5-10.1); Potassium 3.3 mmoL/L (3.5-5.1)
--- NOTE | 2018-03-20 07:05 | Discharge Summary ---
General - General Admission date:: 03/18/18 Discharge date: 03/20/18 HPI HPI: 57-year-old female presented to the emergency department early this morning after her daughter was contacted because someone noticed the patient wandering around in parking lot and seemingly confused. Patient was ultimately brought to the hospital by EMS. Patient has been having vomiting and diarrhea over the last 48 hours (at least). Patient cannot provide much history. She was found to be dehydrated with acute kidney injury. IV fluids been started and she has been admitted. Patient can answer questions this morning. She repeatedly asks "am I ". Hospital Course Hospital Course: For patient's acute kidney injury she was admitted and placed on normal saline at 150 mL's an hour. Acute kidney injury was due to dehydration in combination with some of her antihypertensives, losartan and hydrochlorothiazide.. Over the course of hospitalizations patient's BUN and creatinine improved daily. On the day of discharge creatinine was 0.9 with BUN of 17. Patient's mental status also gradually improved over the course of hospitalization. Patient became more lucid as she became better hydrated. While hospitalized her Keppra was continued for her history of seizures but Risperdal was held. Risperdal will be discontinued at discharge. As patient became more hydrated she developed urinary frequency and complaint of bladder spasm. She continued to have nausea which is somewhat chronic in nature. She was able to tolerate liquids. On March 20 patient was discharged home. Patient will follow-up in the office in 2-3 days Objective Vital signs: Temp Pulse Resp BP Pulse Ox 98.0 F 71 20 157/79 H 97 03/20/18 03:57 03/20/18 03:57 03/20/18 03:57 03/20/18 03:57 03/20/18 03:57 Results Labs on day of discharge: Labs from last 24 hours 03/20/18 03/20/18 03/19/18 05:47 05:47 06:23 WBC 8.9 RBC 3.28 L Hgb 9.1 L Hct 29.0 L MCV 88.5 MCH 27.8 MCHC 31.4 L RDW 14.8 Plt Count 263 MPV 7.4 Neut % (Auto) 80.6 H Lymph % (Auto) 12.9 [place] % (Auto) 5.1 Eos % (Auto) 0.8 Baso % (Auto) 0.6 Neut # (Auto) 7.2 Lymph # (Auto) 1.2 [place] # (Auto) 0.5 Eos # (Auto) 0.1 Baso # (Auto) 0.1 Sodium 142 143 Potassium 3.3 L 3.2 L Chloride 105 107 Carbon Dioxide 24 23 Anion Gap 16.3 H 16.2 H BUN 17 D 25 H D Creatinine 0.97 D 1.31 H D Estimated Creat Clear 99 73 Estimated GFR 60 42 L Est GFR ( Amer) 72 D 51 L D Glucose 105 D 84 Calcium 8.8 8.8 DS: Diagnosis - Discharge Diagnosis (1) Acute kidney injury Status: Acute (2) Acute alteration in mental status Status: Acute (3) Hypertension Status: Acute (4) Anemia of chronic disease Status: Acute (5) Seizure disorder Status: Acute Discharge Plan - Patient Discharge Instructions ACTIVITY: Continue current activity DIET: continue same diet - Follow up Plan Follow up with: Zack Batista MD [Primary Care Provider] - 2 days Disposition: Home, Self-Fci Medications: Home Medications Medication Instructions Recorded Confirmed Type levETIRAcetam [Keppra 500mg tablet] 500 mg PO BID 08/16/17 03/18/18 History Aspirin [Aspirin 81mg EC Tab] 81 mg PO DAILY 09/18/17 03/18/18 History fluoxetine 20 mg capsule 60 mg PO DAILY cap 12/07/17 03/18/18 History furosemide 20 mg tablet 20 mg PO DAILY PRN tab 12/07/17 03/18/18 History propranolol 20 mg tablet 60 mg PO BID 12/07/17 03/18/18 History risperidone 2 mg tablet 2 mg PO DAILY tab 12/07/17 03/18/18 History NIFEdipine [Nifedipine ER] 60 mg PO DAILY 01/04/18 03/18/18 History Bethanechol Chloride [Urecholine] 10 mg PO DIRECTED 03/18/18 03/18/18 History Losartan Potassium 100 mg PO DAILY 03/18/18 03/18/18 History Ondansetron [Zofran 8mg ODT] 8 mg PO TIDP PRN 03/18/18 03/18/18 History Pantoprazole Sodium [Protonix 40mg 40 mg PO DAILY 03/18/18 03/18/18 History tablet] Potassium Chloride [Klor-con 20 20 meq PO DAILY 03/18/18 03/18/18 History mEq tablet] Prescriptions/Medication Reconciliation: Continue propranolol 20 mg tablet 60 mg PO BID fluoxetine 20 mg capsule 60 mg PO DAILY cap levETIRAcetam [Keppra 500mg tablet] 500 mg PO BID Pantoprazole Sodium [Protonix 40mg tablet] 40 mg PO DAILY Losartan Potassium 100 mg PO DAILY Ondansetron [Zofran 8mg ODT] 8 mg PO TIDP PRN PRN Reason: Nausea And Vomiting Potassium Chloride [Klor-con 20 mEq tablet] 20 meq PO DAILY Aspirin [Aspirin 81mg EC Tab] 81 mg PO DAILY NIFEdipine [Nifedipine ER] 60 mg PO DAILY Discontinued risperidone 2 mg tablet 2 mg PO DAILY tab furosemide 20 mg tablet 20 mg PO DAILY PRN tab PRN Reason: fluid Bethanechol Chloride [Urecholine] 10 mg PO DIRECTED
== END 2018-03-20 12:13 | disposition home or self-care (01) ==
LOC: 2ND 05:42
PROVIDERS: ADMIT Internal Medicine Adolescent Medicine; ATTEND Family Medicine
CPT/HCPCS: J2405

== ENCOUNTER 2018-03-27 09:13 | Outpatient (CLI) | payer MEDICARE, SELFPAY ==
[2018-03-27] VITALS (7 sets, daily range): BP systolic 151–168; BP diastolic 74–80; PULSE 71–78; RESP 18; TEMP 36.1; O2SAT 96–97
== END 2018-03-27 12:50 | disposition home or self-care (01) ==
PROVIDERS: PCP Family Medicine; Visit Provider Nurse Practitioner
DX: R11.10 Vomiting, unspecified (principal)
CPT/HCPCS: 96360; 96361; 96375; J2405

== ENCOUNTER → 2018-05-25 14:09 | Outpatient (CLI) | payer MEDICARE, SELFPAY ==
--- NOTE | 2018-05-25 14:25 | XR_ITS ---
XR hip LT 2-3V w/pelvis HISTORY: ITS.REASON: LEFT LOWER LEG PAIN,LT LEG PAIN ORDERING PHYSICIAN: Sulma Berg PATIENT AGE: 57 years COMPARISON: None FINDINGS: No fracture or dislocation is evident. No significant degenerative change. No lytic or blastic change. Unremarkable soft tissues. Incidental note is made of sclerosis of the SI joints right more extensive than left. IMPRESSION: 1. 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 2. Otherwise negative left hip
--- NOTE | 2018-05-25 14:25 | XR_ITS ---
XR tibia fibula LT 2V CLINICAL INDICATION: ITS.REASON: LEFT LEG PAIN,LT LOWER LEG PAIN ORDERING PHYSICIAN: Sulma Berg PATIENT AGE: 57 years Comparison: None FINDINGS: There are mild osteoarthritic changes of the medial compartment and patellofemoral joint. The tibia and fibula have an unremarkable appearance. IMPRESSION: Osteoarthritis of the knee otherwise negative left tib-fib
--- NOTE | 2018-05-25 14:25 | XR_ITS ---
XR femur LT 2V CLINICAL INDICATION: ITS.REASON: LEFT LOWER LEG PAIN,LT LEG PAIN ORDERING PHYSICIAN: Sulma Berg PATIENT AGE: 57 years Comparison: None FINDINGS: There are moderate osteoarthritic changes of the medial compartment of the knee. The left femur has an otherwise unremarkable appearance. The hip has an unremarkable appearance. IMPRESSION: Osteoarthritis of the medial compartment of the left knee
== END ==
PROVIDERS: PCP Nurse Practitioner; Visit Provider Nurse Practitioner
DX: M79.605 Pain in left leg (principal); M79.662 Pain in left lower leg
CPT/HCPCS: 73502; 73552; 73590

== ENCOUNTER → 2018-06-01 14:56 | Outpatient (CLI) | payer MEDICARE, SELFPAY ==
--- NOTE | 2018-06-01 14:57 | MR_ITS ---
MR hip RT wo con HISTORY: Right leg pain with numbness and tingling ITS.REASON: RIGHT HIP PAIN, WEAKNESS OF RIGHT LOWER EXTREMITY ORDERING PHYSICIAN: Sulma Berg PATIENT AGE: 57 years COMPARISON: None TECHNIQUE: Multiplanar multiecho sequences are performed without contrast. FINDINGS: No fracture or dislocation. No bony destructive process. No significant degenerative change or joint effusion. No evidence of a vascular sclerosis. No adjacent bone marrow or muscular edema. No soft tissue masses. There is a small amount of nonspecific subcutaneous edema within the lateral aspect of the hips within the adipose tissue. There is slight increased T2 signal superficial to the greater trochanters on both sides nonspecific but may be seen with trochanteric bursal sinus. IMPRESSION: 1. Possible trochanteric bursitis bilaterally. 2. Otherwise negative MRI of the right hip
== END ==
PROVIDERS: PCP Nurse Practitioner; Visit Provider Nurse Practitioner
DX: M25.551 Pain in right hip (principal); R29.898 Other symptoms and signs involving the musculoskeletal system
CPT/HCPCS: 73721

== ENCOUNTER 2018-06-02 09:37 | Outpatient (CLI) | payer MEDICARE, SELFPAY ==
[2018-06-02 09:37] VITALS: BMI 38.4
[2018-06-02 10:10] VITALS: BP 147/77; PULSE 68; RESP 20; TEMP 36.9; O2SAT 95
[2018-06-02 10:24] LABS: Basophils # 0.1 K/mm3 (0-0.2); Basophils % 1.2 % (0.1-2.0); Eosinophils # 0.1 K/mm3 (0.0-0.4); Eosinophils % 2.6 % (0.1-12.0); Hematocrit 29.6 % (37.0-47.0); Lymphocytes # 1.2 K/mm3 (0.7-4.5); Lymphocytes % 30.9 % (10-50); Mean Corpuscular HGB Conc 30.5 g/dL (31.8-35.4); Mean Corpuscular Hemoglobin 28.3 pg (27.0-31.2); Mean Corpuscular Volume 92.8 fl (81-99); Mean Platelet Volume 7.2 fl (7.4-10.4); Monocytes # 0.3 K/mm3 (0.1-1.0); Neutrophils # 2.2 K/mm3 (1.8-7.8); Neutrophils % 58.3 % (37.0-80.0); Platelet Count 248 K/mm3 (142-424); Red Blood Count 3.19 M/mm3 (4.20-5.40); Red Cell Distribution Width 14.4 % (11.5-17.5); White Blood Count 3.8 K/mm3 (4.8-10.8)
[2018-06-02 10:33] LABS: Alanine Aminotransferase 21 U/L (12-78); Albumin/Globulin Ratio 0.8 (1.1-1.8); Alkaline Phosphatase 104 U/L (46-116); Aspartate Amino Transferase 12 U/L (15-37); Bilirubin,Total 0.3 mg/dL (0.2-1.0); Blood Urea Nitrogen 18 mg/dL (7-18); Calcium 8.8 mg/dL (8.5-10.1); Carbon Dioxide 27 mmol/L (21.0-32.0); Chloride 103 mmol/L (98-107); Creatinine Clearance Estimated 60 mL/min (50-200); Creatinine,Serum 1.58 mg/dL (0.55-1.02); Estimated Glomerular Filt Rate 34 ml/min (>60); GFR (African American) 41 ML/MIN (>60); Globulin 3.8 gm/dl (1.3-3.2); Glucose 95 mg/dL (74-106); Sodium 137 mmol/L (136-145); Total Protein,Serum 6.8 gm/dL (6.4-8.2)
[2018-06-02 10:45] VITALS: BP 156/79; PULSE 68; RESP 20; TEMP 36.9; O2SAT 98
[2018-06-02 11:45] VITALS: BP 155/74; PULSE 68; RESP 20
[2018-06-02 12:45] VITALS: BP 160/74; PULSE 60; RESP 20; TEMP 36.9; O2SAT 96
[2018-06-02 14:00] VITALS: BP 155/70; RESP 20; TEMP 36.9; O2SAT 96
== END 2018-06-02 14:10 | disposition home or self-care (01) ==
PROVIDERS: PCP Nurse Practitioner; Visit Provider Nurse Practitioner
DX: E86.0 Dehydration (principal)
CPT/HCPCS: 36415; 80053; 85025; 96360; 96361

== ENCOUNTER 2018-07-08 19:28 | Inpatient (IN) ==
[2018-07-08 20:06] LABS: Microscopic, Urine URINE MICROSCOPIC (MICROSCOPIC)
[2018-07-08 20:11] LABS: Basophils % 0.4 % (0.1-2.0); Eosinophils # 0.1 K/mm3 (0.0-0.4); Eosinophils % 0.6 % (0.1-12.0); Hematocrit 30.6 % (37.0-47.0); Lymphocytes # 0.8 K/mm3 (0.7-4.5); Lymphocytes % 8.6 % (10-50); Mean Corpuscular HGB Conc 32.8 g/dL (31.8-35.4); Mean Corpuscular Hemoglobin 30.7 pg (27.0-31.2); Mean Corpuscular Volume 93.5 fl (81-99); Mean Platelet Volume 7.3 fl (7.4-10.4); Monocytes # 0.2 K/mm3 (0.1-1.0); Monocytes % 2.6 % (1.7-9.3); Neutrophils % 87.7 % (37.0-80.0); Platelet Count 270 K/mm3 (142-424); Red Blood Count 3.27 M/mm3 (4.20-5.40); Red Cell Distribution Width 15.1 % (11.5-17.5); White Blood Count 9.2 K/mm3 (4.8-10.8)
[2018-07-08 20:12] LABS: ABG Base Excess -2.9 mmol/L (-2.4-2.3); ABG HCO3 23.6 mmhg (22.0-26.0); ABG Oxygen Saturation 94 % (90-100); ABG PO2 71.7 mmhg (80-100); ABG TCO2 25.1 mmhg (23-27)
[2018-07-08 20:13] LABS: Allen's Test Y; Oxygen R/A %
[2018-07-08 20:23] LABS: Amphetamine/Metha Screen,Urine Negative ng/mL (<1000); Barbiturates Screen,Urine Negative ng/mL (<200); Benzodiazepines Screen,Urine Negative ng/mL (<200); Cannabinoid Screen,Urine Negative ng/mL (<50); Cocaine Screen,Urine Negative ng/mL (<300); Methadone Screen,Urine Negative ng/mL (<300); Opiate Screen,Urine Negative ng/mL (<300); Phencyclidine Screen,Urine Negative ng/mL (<25)
[2018-07-08 20:25] LABS: Appearance,Urine CLEAR (Clear); Bilirubin,Urine Negative (Negative); Blood, Urine Negative (Negative); Color,Urine YELLOW (Yellow); Glucose,Urine (UA) Negative (Negative); Ketones,Urine Negative (Negative); Leukocyte Esterase,Urine Negative (Negative); PH,Urine 5.5 (5.0-8.5); Protein,Urine Negative (Negative); Urobilinogen,Urine 0.2 EU/dl (0.2)
[2018-07-08 20:28] LABS: Alanine Aminotransferase 33 U/L (12-78); Albumin/Globulin Ratio 0.8 (1.1-1.8); Alkaline Phosphatase 108 U/L (46-116); Anion Gap 16.6 mEq/L (5-15); Aspartate Amino Transferase 19 U/L (15-37); Bilirubin,Total 0.3 mg/dL (0.2-1.0); Blood Urea Nitrogen 40 mg/dL (7-18); Calcium 8.9 mg/dL (8.5-10.1); Carbon Dioxide 22 mmol/L (21.0-32.0); Chloride 101 mmol/L (98-107); Globulin 3.8 gm/dl (1.3-3.2); Glucose 132 mg/dL (74-106); Potassium 5.6 mmoL/L (3.5-5.1); Sodium 134 mmol/L (136-145); Total Protein,Serum 6.8 gm/dL (6.4-8.2)
[2018-07-08 20:30] LABS: C-Reactive Protein < 0.2 mg/L (0.0-0.9)
[2018-07-08 20:32] LABS: Lymphocytes % 8 % (10-50); Monocytes % 2 % (2-9); Neutrophils % 82 % (42-76); Polychromasia 1+; Total Cells Counted 100
[2018-07-08 20:54] LABS: Erythrocyte Sedimentation Rate 41 mm/hr (0-30)
--- NOTE | 2018-07-08 22:33 | Emergency Department Note ---
ED Disposition Clinical Impression: Chronic anemia, Acute renal insufficiency, Hypertensive urgency Change in mental status Qualifiers: Altered mental status type: unspecified Qualified Code(s): R41.82 - Altered mental status, unspecified Disposition: Admitted as Observation Condition on Discharge: Good - Critical Care Critical Care Time: No Attestation: On 07/08/18, the high probability of a clinically significant, sudden or life threatening deterioration of the following system(s) required my full and direct attention, intervention and personal management. The time I documented below is in addition to time spent performing reported procedures but includes the following listed in this critical care notation. Medical Decision Making - Medical Records Medical records reviewed: Yes: I reviewed the patient's medical records. - [place] Inquiry Pt receiving controlled substance: No Vital Signs: 07/08/18 19:29 07/08/18 21:28 07/08/18 22:06 Temperature 97.7 F Temperature Source Rectal Pulse Rate [Right Radial] 84 81 83 Respiratory Rate 16 18 18 Blood Pressure [Right Arm] 174/85 H 164/111 H 176/110 H Blood Pressure Mean [Right Arm] 114 128 132 Blood Pressure Source [Right Arm] Automatic Cuff Blood Pressure Position [Right Arm] Supine 02 Sat by Pulse Oximetry 97 96 97 Oxygen Delivery Method Room Air Room Air Room Air 07/08/18 22:17 07/08/18 22:40 Temperature Temperature Source Pulse Rate [Right Radial] 88 81 Respiratory Rate 18 22 Blood Pressure [Right Arm] 180/110 H 183/95 H Blood Pressure Mean [Right Arm] 133 124 Blood Pressure Source [Right Arm] Manual Cuff/ Auscultation Automatic Cuff Blood Pressure Position [Right Arm] Supine Supine 02 Sat by Pulse Oximetry 97 96 Oxygen Delivery Method Room Air Room Air - Lab Data Lab results reviewed: Yes: I reviewed the patient's lab results. Lab Results 07/08/18 19:55: Urine Color Yellow, Urine Appearance Clear, Urine pH 5.5, Ur Specific [place] 1.020, Urine Protein Negative, Urine Glucose (UA) Negative, Urine Ketones Negative, Urine Blood Negative, Urine Nitrate Negative, Urine Bilirubin Negative, Urine Urobilinogen 0.2, Ur Leukocyte Esterase Negative, Ur Squamous Epith Cells 3-5, Ur Renal Epithelial Cell 5-10 07/08/18 19:55: WBC 9.2, RBC 3.27 L, Hgb 10.0 L, Hct 30.6 L, MCV 93.5, MCH 30.7, MCHC 32.8, RDW 15.1, Plt Count 270, MPV 7.3 L, Neut % (Auto) 87.7 H, Lymph % (Auto) 8.6 L, [place] % (Auto) 2.6, Eos % (Auto) 0.6, Baso % (Auto) 0.4, Neut # (Auto) 8.0 H, Lymph # (Auto) 0.8, [place] # (Auto) 0.2, Eos # (Auto) 0.1, Baso # (Auto) 0.0, Total Counted 100, Neutrophils % (Manual) 82 H, Band Neutrophils % 8.0, Lymphocytes % (Manual) 8 L, Monocytes % (Manual) 2, Platelet Estimate Normal, Polychromasia 1+, Poikilocytosis 1+, ESR 41 H 07/08/18 19:55: Sodium 134 L, Potassium 5.6 H, Chloride 101, Carbon Dioxide 22, Anion Gap 16.6 H, BUN 40 H, Creatinine 2.22 H, Estimated Creat Clear 45, Estimated GFR 23 L, Est GFR ( Amer) 28 L, Glucose 132 H, Calcium 8.9, Total Bilirubin 0.3, AST 19, ALT 33, Alkaline Phosphatase 108, Troponin I < 0.02, C-Reactive Protein < 0.2, Total Protein 6.8, Albumin 3.0 L, Globulin 3.8 H , Albumin/Globulin Ratio 0.8 L 07/08/18 19:55: Lactate 1.7 07/08/18 19:55: Urine Opiates Screen Negative, Urine Methadone Screen Negative, Ur Barbituates Screen Negative, Ur Phencyclidine Scrn Negative, Ur Amphetamines Screen Negative, U Benzodiazepines Scrn Negative, Urine Cocaine Screen Negative, U Marijuana (THC) Screen Negative 07/08/18 19:55: Influenza Type A Ag Negative, Influenza Type B Ag Negative 07/08/18 20:11: Specimen Source L/r, O2 % R/a, ABG pH 7.30 L, ABG pCO2 49.0 H, ABG pO2 71.7 L, ABG HCO3 23.6, ABG Total CO2 25.1, ABG O2 Saturation 94, ABG Base Excess -2.9 L, Maxim Test Y Result diagrams: 07/08/18 19:55 07/08/18 19:55 Orders (Tests/Meds): ED MEDICATIONS Generic Name Dose Route Start Last Admin Trade Name Freq PRN Reason Stop Dose Admin Sodium Chloride 1,000 mls @ 999 mls/hr 07/08/18 20:00 07/08/18 19:53 Sod Chlor 0.9% 1000ml Bag IV 07/08/18 21:00 999 mls/hr .Q1H1M CATRACHO Administration Sodium Chloride 10 ml 07/08/18 19:38 Saline Flush 10ml Syringe IV 08/07/18 19:37 NEEDED PRN Maintain IV Site Discontinued Medications Generic Name Dose Route Start Last Admin Trade Name Freq PRN Reason Stop Dose Admin Clonidine HCl 0.1 mg 07/08/18 22:24 07/08/18 22:26 Clonidine 0.1mg Tablet PO 07/08/18 22:25 0.1 mg ONCE ONE Administration ORDERS Category Date Time Status CT cervical spine wo con Stat Cat Scan 07/08/18 19:[address] head/brain wo con Stat Cat Scan 07/08/18 19:38 Taken XR chest AP Stat Exams 07/08/18 19:38 Taken XR pelvis 1-2V Stat Exams 07/08/18 19:53 Taken Levetiracetam (Keppra) Stat Lab 07/08/18 19:55 Received Urinalysis and Microscopic Stat Lab 07/08/18 19:55 Ordered Blood Culture Stat Micro 07/08/18 19:55 Received ABG [Arterial Blood Gas] Stat RT 07/08/18 19:50 Ordered - Radiology Data #1 Image(s): Chest, Pelvis Image Reviewed: Yes I reviewed the patient's radiology image Preliminary Findings: No Fracture Seen - CT Data CT Scan: Head, C-Spine Time Received: 22:[address] Reviewed: Yes: I have viewed the radiologist's interpretation Preliminary Findings: Abnormal (possible chnages ) - ECG Data Tracing #1 Normal Sinus Rhythm: Yes Ischemic changes: non-specific ST-T wave changes Altered Mental Status HPI - General Chief Complaint: Dizziness Stated Complaint: dizziness Time Seen by Provider: 07/08/18 20:00 Mode of Arrival: EMS Source of Information: Patient, Relative, EMS, Medical Record Limitations: No Limitations Description of Symptoms (Recalled from ER Triage Doc. by RN): pt reports she has fallen three times today, reports dizziness/generalized weakness, no loc or complaints from previous falls - History of Present Illness HPI narrative: has had several falls - pt with episodes of confusion - pt with no chest pain or neuro sx - no focal changes - MD complaint: altered mental status Onset (ago): hour(s) Timing confirmed by: family member Severity: moderate Consistency of symptoms: waxing and waning Context: history of similar presentation Associated symptoms: difficulty walking - Related Data Home Medications Medication Instructions Recorded Confirmed levETIRAcetam [Keppra 500mg tablet] 500 mg PO DAILY 08/16/17 07/08/18 fluoxetine 20 mg capsule 60 mg PO DAILY cap 12/07/17 07/08/18 propranolol 20 mg tablet 60 mg PO BID 12/07/17 07/08/18 NIFEdipine [Nifedipine ER] 60 mg PO DAILY 01/04/18 07/08/18 Ondansetron [Zofran 8mg ODT] 8 mg PO TIDP PRN 03/18/18 07/08/18 Pantoprazole Sodium [Protonix 40mg 40 mg PO DAILY 03/18/18 07/08/18 tablet] Amitriptyline HCl 75 mg PO DAILY 07/08/18 07/08/18 Baclofen 20 mg PO DAILY 07/08/18 07/08/18 Omeprazole [Omeprazole 40mg 40 mg PO DAILY 07/08/18 07/08/18 Capsule] hydrOXYzine HCl [Hydroxyzine HCl] 50 mg PO DAILY 07/08/18 07/08/18 Allergies Allergy/AdvReac Type Severity Reaction Status Date / Time Penicillins Allergy Intermediate I-ITCHING Verified 07/08/18 19:45 [facility] History - Hepatitis A Screen Drug use history?: No High risk sexual behaviors?: No History of sexually transmitted infection?: No Currently employed?: No Childcare worker?: No Do you have indoor plumbing?: Yes Do you have electricity?: Yes Attestation statement:: This patient has been screened for Hepatitis A risk factors. I have reviewed the patient's past medical history: Yes Medical History: Reports:: Anxiety, Gastroesophageal Reflux Disease(GERD), Hypertension, Myocardial Infarction, Seizures Denies:: Cancer, Diabetes Mellitus Type 1, Diabetes Mellitus Type 2, Lung Disease, MRSA Other Medical History: Reports: Anemia Other Surgeries: Yes: Colonoscopy, Hysterectomy-Total Amputation: No Fractures: No - Social History Smoking Status: Never smoker Alcohol Intake: never Alcohol Intake Frequency:: other Substance Use Type: denies use Occupational Status: disabled Housing: apartment Household Members: none - Psychiatric History Expresses thoughts of harming self/others: None Suicide Plan Description: No Plan Pschychiatric History:: Reports:: Anxiety Family Hx:: Anemia, Cancer, Heart Attack, Hyperlipidemia, Hypertension, Stroke Comment: of [place] at 71-Mother. of [place] at 72-Father ROS Obtained: Yes All systems reviewed & no additional complaints - Constitutional Constitutional: Denies fever(s) - Eyes Eyes: Denies change in vision - ENT Ears, Nose, Mouth, and Throat: Denies sore throat - Cardiovascular Cardiovascular: Denies chest pain - Respiratory Respiratory: No cough - Gastrointestinal Gastrointestingal: Denies: abdominal pain - Genitourinary Female Genitourinary: Denies flank pain, Denies hematuria - Musculoskeletal Musculoskeletal: Denies neck pain - Integumentary/Breasts Skin/Breast: Denies rash - Neurologic Neurologic: Reports as per HPI, Denies convulsions, Reports unsteadiness, Reports frequent falls, Denies headache(s), Denies seizure-like activity Physical Exam - General General appearance: alert, in no apparent distress, obese - Head Head exam: normocephalic - Eye Eye exam: Present: PERRL, EOMI. Absent: scleral icterus - ENT ENT exam: Present: normal oropharynx, other (no evid of tongue biting ) - Neck Neck exam: Present: trachea midline - Respiratory Respiratory exam: Present: other (dec bs bilat ) - Cardiovascular Cardiovascular exam: Present: regular rate, systolic murmur, +S4 - Abdominal Exam Abdominal exam: Present: soft - Extremities Exam Extremities exam: Present: pedal edema. Absent: calf tenderness - Neurological Exam Neurological exam: Present: oriented X3, CN II-XII intact, other. Absent: normal gait, motor sensory deficit, reflexes normal - Expanded Neurological Exam Patient oriented to: Present: person (upper ext more than left ) Coma scale eye opening: Spontaneous Coma scale motor response: Obeys commands Coma scale verbal response: Oriented Coma scale total: 15 - Psychiatric Psychiatric exam: Present: normal affect - Skin Skin exam: Absent: rash
[2018-07-09 05:49] LABS: Basophils % 0.3 % (0.1-2.0); Eosinophils % 0.1 % (0.1-12.0); Hematocrit 33.7 % (37.0-47.0); Hemoglobin 10.4 g/dL (12.2-16.2); Lymphocytes # 1.2 K/mm3 (0.7-4.5); Lymphocytes % 13.6 % (10-50); Mean Corpuscular HGB Conc 30.8 g/dL (31.8-35.4); Mean Corpuscular Hemoglobin 28.9 pg (27.0-31.2); Mean Corpuscular Volume 94.1 fl (81-99); Mean Platelet Volume 6.9 fl (7.4-10.4); Monocytes # 0.3 K/mm3 (0.1-1.0); Monocytes % 3.9 % (1.7-9.3); Neutrophils # 7.1 K/mm3 (1.8-7.8); Platelet Count 299 K/mm3 (142-424); Red Blood Count 3.58 M/mm3 (4.20-5.40); Red Cell Distribution Width 15.3 % (11.5-17.5); White Blood Count 8.6 K/mm3 (4.8-10.8)
[2018-07-09 06:21] LABS: Anion Gap 15.3 mEq/L (5-15); Calcium 9.2 mg/dL (8.5-10.1); Carbon Dioxide 24 mmol/L (21.0-32.0); Chloride 103 mmol/L (98-107); Glucose 113 mg/dL (74-106); Sodium 136 mmol/L (136-145)
[2018-07-09 06:28] LABS: Potassium 6.3 mmoL/L (3.5-5.1)
[2018-07-09 06:40] LABS: Blood Urea Nitrogen 33 mg/dL (7-18)
--- NOTE | 2018-07-09 07:41 | History & Physical Report ---
*Admission Date: 07/09/18 *Chief complaint: Mental status changes *History of present illness: 58-year-old female presented to the emergency department after a neighbor called EMS due to patient's confusion. Patient was brought to the emergency department for evaluation. History is essentially taken from the ER noticed but has no recollection of her evaluation in the emergency department. Patient was found to be confused and had acute kidney injury. She was admitted for IV fluids and observation. Patient had apparently fallen and hit her head and was also complaining of neck pain time of presentation. Significant traumatic injury was ruled out. This morning she also complains of low back pain. In addition to her acute kidney injury and had mild hyperkalemia. She was placed on IV fluids and admitted. [facility] History I have reviewed the patient's past medical history: Yes Medical History: Reports:: Anxiety, Gastroesophageal Reflux Disease(GERD), Hypertension, Seizures Denies:: Cancer, Diabetes Mellitus Type 1, Diabetes Mellitus Type 2, Lung Disease, MRSA Have you ever received a pneumonia vaccine?: No Have you received a flu vaccine this season?: No Other Medical History: Reports: Anemia Other Surgeries: Yes: Colonoscopy, Hysterectomy-Total Amputation: No Fractures: No - *Social History Smoking Status: Unknown if ever smoked Alcohol Intake: never Alcohol Intake Frequency:: other Substance Use Type: denies use Occupational Status: disabled Housing: apartment Household Members: none Travel in the last 8 weeks: None - Psychiatric History Expresses thoughts of harming self/others: None Suicide Plan Description: No Plan Pschychiatric History:: Reports:: Anxiety *Family Hx:: Anemia, Cancer, Heart Attack, Hyperlipidemia, Hypertension, Stroke Review of Systems - Review of Systems Review of systems:: pertinent systems reviewed and negative unless documented below - Constitutional Denies body ache(s), Denies chills - Eyes Denies blurry vision - *Cardiovascular Denies chest pain, Denies chest pain at rest - *Respiratory Denies change in phlegm color, Denies chest congestion - *Gastrointestinal Denies belching, Denies bloating - *Musculoskeletal Reports abnormal walking, Reports joint pain, Reports back pain - *Neurologic Reports unsteadiness, Reports frequent falls, Denies seizure-like activity, Denies headache(s), Denies seizure-like activity - Psychiatric Reports abnormal sleep pattern, Reports anxiety, Reports behavioral changes, Reports confusion Meds Home Medications Medication Instructions Recorded Confirmed Type levETIRAcetam [Keppra 500mg tablet] 500 mg PO DAILY 08/16/17 07/08/18 History fluoxetine 20 mg capsule 60 mg PO DAILY cap 12/07/17 07/08/18 History propranolol 20 mg tablet 60 mg PO BID 12/07/17 07/08/18 History NIFEdipine [Nifedipine ER] 60 mg PO DAILY 01/04/18 07/08/18 History Ondansetron [Zofran 8mg ODT] 8 mg PO TIDP PRN 03/18/18 07/08/18 History Pantoprazole Sodium [Protonix 40mg 40 mg PO DAILY 03/18/18 07/08/18 History tablet] Amitriptyline HCl 75 mg PO DAILY 07/08/18 07/08/18 History Baclofen 20 mg PO DAILY 07/08/18 07/08/18 History Omeprazole [Omeprazole 40mg 40 mg PO DAILY 07/08/18 07/08/18 History Capsule] hydrOXYzine HCl [Hydroxyzine HCl] 50 mg PO DAILY 07/08/18 07/08/18 History Allergies Allergy/AdvReac Type Severity Reaction Status Date / Time Penicillins Allergy Intermediate I-ITCHING Verified 07/08/18 19:45 Exam Vital signs and Labs for Last 24 Hours: Temp Pulse Resp BP Pulse Ox 98.6 F 73 16 153/78 H 96 07/09/18 04:00 07/09/18 04:00 07/09/18 04:00 07/09/18 04:00 07/09/18 04:00 Laboratory Results - last 24 hr 07/08/18 19:55: Urine Color Yellow, Urine Appearance Clear, Urine pH 5.5, Ur Specific [place] 1.020, Urine Protein Negative, Urine Glucose (UA) Negative, Urine Ketones Negative, Urine Blood Negative, Urine Nitrate Negative, Urine Bilirubin Negative, Urine Urobilinogen 0.2, Ur Leukocyte Esterase Negative, Ur Squamous Epith Cells 3-5, Ur Renal Epithelial Cell 5-10 07/08/18 19:55: WBC 9.2, RBC 3.27 L, Hgb 10.0 L, Hct 30.6 L, MCV 93.5, MCH 30.7, MCHC 32.8, RDW 15.1, Plt Count 270, MPV 7.3 L, Neut % (Auto) 87.7 H, Lymph % (Auto) 8.6 L, [place] % (Auto) 2.6, Eos % (Auto) 0.6, Baso % (Auto) 0.4, Neut # (Auto) 8.0 H, Lymph # (Auto) 0.8, [place] # (Auto) 0.2, Eos # (Auto) 0.1, Baso # (Auto) 0.0, Total Counted 100, Neutrophils % (Manual) 82 H, Band Neutrophils % 8.0, Lymphocytes % (Manual) 8 L, Monocytes % (Manual) 2, Platelet Estimate Normal, Polychromasia 1+, Poikilocytosis 1+, ESR 41 H 07/08/18 19:55: Sodium 134 L, Potassium 5.6 H, Chloride 101, Carbon Dioxide 22, Anion Gap 16.6 H, BUN 40 H, Creatinine 2.22 H, Estimated Creat Clear 45, Estimated GFR 23 L, Est GFR ( Amer) 28 L, Glucose 132 H, Calcium 8.9, Total Bilirubin 0.3, AST 19, ALT 33, Alkaline Phosphatase 108, Troponin I < 0.02, C-Reactive Protein < 0.2, Total Protein 6.8, Albumin 3.0 L, Globulin 3.8 H , Albumin/Globulin Ratio 0.8 L 07/08/18 19:55: Lactate 1.7 07/08/18 19:55: Urine Opiates Screen Negative, Urine Methadone Screen Negative, Ur Barbituates Screen Negative, Ur Phencyclidine Scrn Negative, Ur Amphetamines Screen Negative, U Benzodiazepines Scrn Negative, Urine Cocaine Screen Negative, U Marijuana (THC) Screen Negative 07/08/18 19:55: Influenza Type A Ag Negative, Influenza Type B Ag Negative 07/08/18 20:11: Specimen Source L/r, O2 % R/a, ABG pH 7.30 L, ABG pCO2 49.0 H, ABG pO2 71.7 L, ABG HCO3 23.6, ABG Total CO2 25.1, ABG O2 Saturation 94, ABG Base Excess -2.9 L, Maxim Test Y 07/09/18 00:46: POC Glucose 174 H 07/09/18 02:00: Troponin I < 0.02 07/09/18 05:15: Sodium 136, Potassium 6.3 H*, Chloride 103, Carbon Dioxide 24, Anion Gap 15.3 H, BUN 33 H, Creatinine 1.60 H D, Estimated Creat Clear 59, Estimated GFR 33 L, Est GFR ( Amer) 40 L D, Glucose 113 H, Calcium 9.2, Troponin I < 0.02 07/09/18 05:15: WBC 8.6, RBC 3.58 L, Hgb 10.4 L, Hct 33.7 L, MCV 94.1, MCH 28.9, MCHC 30.8 L, RDW 15.3, Plt Count 299, MPV 6.9 L, Neut % (Auto) 82.0 H, Lymph % (Auto) 13.6, [place] % (Auto) 3.9, Eos % (Auto) 0.1, Baso % (Auto) 0.3, Neut # (Auto) 7.1, Lymph # (Auto) 1.2, [place] # (Auto) 0.3, Eos # (Auto) 0.0, Baso # (Auto) 0.0 I & O for Last 24 hours: Intake & Output 07/06/18 07/07/18 07/08/18 07/09/18 11:59 11:59 11:59 11:59 Output Total 1500 / 1500 Balance -1500 / -1500 Weight 210 lb Narrative: Patient is awake and appears trouble in bed. She is oriented to person, place, time. She is pleasant. HEENT exam reveals an abrasion across the bridge of the nose. Pupils are reactive to light. Oropharynx is moist. Tympanic brains are visible and translucent. Is without lymphadenopathy. Lungs are clear to auscultation. Heart has a regular rate and rhythm. Abdomen is soft, obese, nontender. Bowel sounds are present. Neurologically the patient has intact sensory and motor function of the extremities. Gait was not tested. Back exam reveals some mild lumbar paraspinal tenderness. Assessment and Plan (1) Hyperkalemia Current visit: Yes Status: Acute Category: Medical Code(s): E87.5 - Hyperkalemia (2) Altered mental status Current visit: Yes Status: Acute Qualifiers: Altered mental status type: unspecified Qualified Code(s): R41.82 - Altered mental status, unspecified Category: Medical Code(s): R41.82 - Altered mental status, unspecified (3) Chronic anemia Current visit: Yes Status: Acute Category: Medical Code(s): D64.9 - Anemia, unspecified (4) Acute kidney injury Current visit: No Status: Acute Category: Medical Code(s): N17.9 - Acute kidney failure, unspecified (5) Hypertension Current visit: No Status: Acute Category: Medical Code(s): I10 - Essential (primary) hypertension (6) Seizure disorder Current visit: No Status: Acute Category: Medical Code(s): G40.909 - E pilepsy, unspecified, not intractable, without status epilepticus (7) Low back pain Current visit: Yes Status: Acute Category: Medical Code(s): M54.5 - Low back pain - Assessment and plan all Dx Assessment and Plan for all problems:: 1. IV fluids and orally oxalate 2 hyperkalemia 2. IV fluids to treat acute kidney injury 3. Continue calcium channel melisa for hypertension and I am going to add prazosin. 4. X-rays of lumbar spine
--- NOTE | 2018-07-09 10:56 | Pharmacy Consult Notes ---
[facility] Pharmacy VTE Monitoring - Patient Demographics Admission date: 07/08/18 Report Date: 07/09/18 Time: 10:56 Allergies/Adverse Reactions: Patient Allergies Penicillins Allergy (Intermediate, Verified 07/08/18 19:45) I-ITCHING Height: 1.57 m Weight: 95.254 kg Patient Problems: Current Active Problems Chronic anemia (Acute) Hypertensive urgency (Acute) Altered mental status (Acute) Acute renal insufficiency (Acute) Hyperkalemia (Acute) Low back pain (Acute) - VTE Risk Labs: VTE Related Lab Results Hgb 10.4 g/dL (12.2-16.2) L 07/09/18 05:15 Hct 33.7 % (37.0-47.0) L 07/09/18 05:15 Plt Count 299 K/mm3 (142-424) 07/09/18 05:15 BUN 33 mg/dL (7-18) H 07/09/18 05:15 Creatinine 1.60 mg/dL (0.55-1.02) H D 07/09/18 05:15 Estimated Creat Clear 59 mL/min (50-200) 07/09/18 05:15 Was VTE Risk Assessment Performed: Yes VTE Score: 4 VTE Risk Level: Low Risk - Prophylaxis VTE Prophylaxis Ordered?: Yes Types of VTE Prophylaxis: TEDS Knee High Location of Applied Device: Bilateral Lower Extremeties - VTE Diagnosis Confirmed Treatment or plan recommended: Continue Current Treatment
[2018-07-10 06:12] LABS: Basophils % 0.4 % (0.1-2.0); Eosinophils % 0.5 % (0.1-12.0); Hematocrit 28.4 % (37.0-47.0); Lymphocytes # 1.4 K/mm3 (0.7-4.5); Mean Corpuscular HGB Conc 31.7 g/dL (31.8-35.4); Mean Corpuscular Hemoglobin 29.4 pg (27.0-31.2); Mean Corpuscular Volume 92.7 fl (81-99); Monocytes # 0.5 K/mm3 (0.1-1.0); Monocytes % 5.8 % (1.7-9.3); Neutrophils # 6.4 K/mm3 (1.8-7.8); Neutrophils % 76.3 % (37.0-80.0); Platelet Count 246 K/mm3 (142-424); Red Blood Count 3.06 M/mm3 (4.20-5.40); Red Cell Distribution Width 15.1 % (11.5-17.5); White Blood Count 8.4 K/mm3 (4.8-10.8)
[2018-07-10 06:24] LABS: Anion Gap 13.3 mEq/L (5-15); Calcium 8.4 mg/dL (8.5-10.1); Potassium 4.3 mmoL/L (3.5-5.1)
--- NOTE | 2018-07-10 07:27 | Progress Note ---
Internal Medicine - PN: Subj *Date: 07/10/18 *Time: 07:25 Interval history: Patient has no complaints this morning other than headache which she gets at home her day with uneventful yesterday. Blood culture has turned positive for gram-positive cocci in clusters indicating staph species. Exam Vital signs and Labs for Last 24 Hours: Temp Pulse Resp BP Pulse Ox 98.4 F 97 H 17 135/69 96 07/10/18 07:23 07/10/18 07:23 07/10/18 07:23 07/10/18 07:23 07/10/18 07:23 Laboratory Results - last 24 hr 07/10/18 05:26: WBC 8.4, RBC 3.06 L, Hgb 9.0 L, Hct 28.4 L, MCV 92.7, MCH 29.4, MCHC 31.7 L, RDW 15.1, Plt Count 246, MPV 7.0 L, Neut % (Auto) 76.3, Lymph % (Auto) 17.0, [place] % (Auto) 5.8, Eos % (Auto) 0.5, Baso % (Auto) 0.4, Neut # (Auto) 6.4, Lymph # (Auto) 1.4, [place] # (Auto) 0.5, Eos # (Auto) 0.0, Baso # (Auto) 0.0 07/10/18 05:26: Sodium 139, Potassium 4.3 D, Chloride 104, Carbon Dioxide 26, Anion Gap 13.3, BUN 34 H, Creatinine 1.67 H, Estimated Creat Clear 57, Estimated GFR 32 L, Est GFR ( Amer) 38 L, Glucose 101, Calcium 8.4 L I & O for Last 24 hours: Intake & Output 07/07/18 07/08/18 07/09/18 07/10/18 11:59 11:59 11:59 11:59 Intake Total 480 / 480 1745 / 1745 Output Total 1500 / 1500 900 / 900 Balance -1020 / -1020 845 / 845 Weight 209 lb 15.986 oz 237 lb 2 oz Microbiology Reports for the Last 24 Hours: Microbiology 07/08/18 19:55 Blood Blood Culture - Preliminary Gram Positive Cocci 07/08/18 19:55 Blood Blood Culture - Preliminary Gram Positive Cocci Narrative: Patient is awake and alert. She is oriented to person place and time. Lungs remain clear to [place]. Heart has a regular rhythm. Abdomen is soft, nontender, nondistended Assessment and Plan (1) Acute kidney injury Current visit: No Status: Acute Category: Medical Code(s): N17.9 - Acute kidney failure, unspecified (2) Hyperkalemia Current visit: Yes Status: Acute Category: Medical Code(s): E87.5 - Hyperkalemia (3) Altered mental status Current visit: Yes Status: Acute Qualifiers: Altered mental status type: unspecified Qualified Code(s): R41.82 - Altered mental status, unspecified Category: Medical Code(s): R41.82 - Altered mental status, unspecified (4) Chronic anemia Current visit: Yes Status: Acute Category: Medical Code(s): D64.9 - Anemia, unspecified (5) Hypertension Current visit: No Status: Acute Category: Medical Code(s): I10 - Essential (primary) hypertension (6) Seizure disorder Current visit: No Status: Acute Category: Medical Code(s): G40.909 - Epilepsy, unspecified, not intractable, without status epilepticus (7) Low back pain Current visit: Yes Status: Acute Category: Medical Code(s): M54.5 - Low back pain - Assessment and plan all Dx Assessment and Plan for all problems:: 1. Continue IV hydration and monitoring of renal function 2. Start IV Rocephin and Vancocin for gram-positive cocci in blood 3. Restart patient's back
--- NOTE | 2018-07-10 09:20 | Pharmacy Consult Notes ---
- Pharmacy Consult Date: 07/10/18 Time: 09:18 Referring provider: DR. GLOVER Reason for Consult:: VANCOMYCIN DOSING Allergies and ADEs:: Allergies Allergy/AdvReac Type Severity Reaction Status Date / Time Penicillins Allergy Intermediate I-ITCHING Verified 07/08/18 19:45 Home Medications:: Home Medications Medication Instructions Recorded Confirmed Type levETIRAcetam [Keppra 500mg tablet] 500 mg PO BID 08/16/17 07/09/18 History fluoxetine 20 mg capsule 60 mg PO DAILY cap 12/07/17 07/08/18 History NIFEdipine [Nifedipine ER] 60 mg PO DAILY 01/04/18 07/08/18 History Pantoprazole Sodium [Protonix 40mg 40 mg PO DAILY 03/18/18 07/08/18 History tablet] Baclofen 20 mg PO QID 07/08/18 07/09/18 History hydrOXYzine HCl [Hydroxyzine HCl] 50 mg PO Q6HP PRN 07/08/18 07/09/18 History Amitriptyline HCl 150 mg PO DAILY 07/09/18 07/09/18 History Diclofenac Sodium [Diclofenac 75mg 75 mg PO BID 07/09/18 07/09/18 History Tab] Propranolol HCl [Propranolol HCl 60 mg PO DAILY 07/09/18 07/09/18 History ER] Height: 1.57 m Weight: 107.558 kg Laboratory Results:: Laboratory Results - last 24 hr 07/10/18 05:26: WBC 8.4, RBC 3.06 L, Hgb 9.0 L, Hct 28.4 L, MCV 92.7, MCH 29.4, MCHC 31.7 L, RDW 15.1, Plt Count 246, MPV 7.0 L, Neut % (Auto) 76.3, Lymph % (Auto) 17.0, [place] % (Auto) 5.8, Eos % (Auto) 0.5, Baso % (Auto) 0.4, Neut # (Auto) 6.4, Lymph # (Auto) 1.4, [place] # (Auto) 0.5, Eos # (Auto) 0.0, Baso # (Auto) 0.0 07/10/18 05:26: Sodium 139, Potassium 4.3 D, Chloride 104, Carbon Dioxide 26, Anion Gap 13.3, BUN 34 H, Creatinine 1.67 H, Estimated Creat Clear 57, Estimated GFR 32 L, Est GFR ( Amer) 38 L, Glucose 101, Calcium 8.4 L Medical History: Reports:: Anxiety, Gastroesophageal Reflux Disease(GERD), Hypertension, Myocardial Infarction, Seizures Denies:: Cancer, Diabetes Mellitus Type 1, Diabetes Mellitus Type 2, Lung Disease, MRSA Assessment and Plan (1) Acute kidney injury Current visit: No Status: Acute Category: Medical Code(s): N17.9 - Acute kidney failure, unspecified (2) Hyperkalemia Current visit: Yes Status: Acute Category: Medical Code(s): E87.5 - Hyperkalemia (3) Altered mental status Current visit: Yes Status: Acute Qualifiers: Altered mental status type: unspecified Qualified Code(s): R41.82 - Altered mental status, unspecified Category: Medical Code(s): R41.82 - Altered mental status, unspecified (4) Chronic anemia Current visit: Yes Status: Acute Category: Medical Code(s): D64.9 - Anemia, unspecified (5) Hypertension Current visit: No Status: Acute Category: Medical Code(s): I10 - Essential (primary) hypertension (6) Seizure disorder Current visit: No Status: Acute Category: Medical Code(s): G40.909 - Epilepsy, unspecified, not intractable, without status epilepticus (7) Low back pain Current visit: Yes Status: Acute Category: Medical Code(s): M54.5 - Low back pain - Assessment and plan all Dx Assessment and Plan for all problems:: BASED ON PATIENT'S FACTORS, RECOMMEND STARTING PATIENT WITH VANCOMYCIN 2000 MG Q36H AT THIS TIME. PHARMACY WILL FOLLOW DAILY AND ADJUST APPROPRIATE. JANNETTE JULIAN, NONID
[2018-07-11 06:53] LABS: Basophils % 0.1 % (0.1-2.0); Eosinophils # 0.1 K/mm3 (0.0-0.4); Eosinophils % 0.7 % (0.1-12.0); Hematocrit 28.6 % (37.0-47.0); Hemoglobin 9.3 g/dL (12.2-16.2); Lymphocytes # 0.9 K/mm3 (0.7-4.5); Mean Corpuscular HGB Conc 32.5 g/dL (31.8-35.4); Mean Corpuscular Hemoglobin 29.9 pg (27.0-31.2); Mean Platelet Volume 7.9 fl (7.4-10.4); Monocytes # 0.4 K/mm3 (0.1-1.0); Monocytes % 5.3 % (1.7-9.3); Neutrophils # 5.2 K/mm3 (1.8-7.8); Neutrophils % 79.9 % (37.0-80.0); Platelet Count 239 K/mm3 (142-424); Red Blood Count 3.11 M/mm3 (4.20-5.40); Red Cell Distribution Width 15.2 % (11.5-17.5); White Blood Count 6.6 K/mm3 (4.8-10.8)
[2018-07-11 07:19] LABS: Anion Gap 17.4 mEq/L (5-15); Calcium 8.8 mg/dL (8.5-10.1); Potassium 4.4 mmoL/L (3.5-5.1)
--- NOTE | 2018-07-11 07:21 | Progress Note ---
Internal Medicine - PN: Subj *Date: 07/11/18 *Time: 07:19 Interval history: Patient's only complaint this morning is headache. She did participate with physical therapy yesterday. Patient's blood cultures have returned and are positive for 2 separate gram-positive cocci species. Patient has not had any infectious symptoms prior to or during admission. Exam Vital signs and Labs for Last 24 Hours: Temp Pulse Resp BP Pulse Ox 98.2 F 98 H 18 144/74 H 98 07/11/18 04:00 07/11/18 04:00 07/11/18 04:00 07/11/18 04:00 07/11/18 04:00 Laboratory Results - last 24 hr 07/11/18 05:39: WBC 6.6, RBC 3.11 L, Hgb 9.3 L, Hct 28.6 L, MCV 92.0, MCH 29.9, MCHC 32.5, RDW 15.2, Plt Count 239, MPV 7.9, Neut % (Auto) 79.9, Lymph % (Auto) 14.0, [place] % (Auto) 5.3, Eos % (Auto) 0.7, Baso % (Auto) 0.1, Neut # (Auto) 5.2, Lymph # (Auto) 0.9, [place] # (Auto) 0.4, Eos # (Auto) 0.1, Baso # (Auto) 0.0 I & O for Last 24 hours: Intake & Output 07/08/18 07/09/18 07/10/18 07/11/18 11:59 11:59 11:59 11:59 Intake Total 480 / 480 1745 / 1745 480 / 480 Output Total 1500 / 1500 900 / 900 Balance -1020 / -1020 845 / 845 480 / 480 Weight 209 lb 15.986 oz 237 lb 2 oz 226 lb 2 oz Microbiology Reports for the Last 24 Hours: Microbiology 07/08/18 19:55 Blood Blood Culture - Preliminary Aerococcus viridans 07/08/18 19:55 Blood Blood Culture - Preliminary Staph hominis ssp hominis Narrative: Patient is awake and alert. She seems to be uncomfortable from some mild photophobia. Oropharynx is moist and clear. Neck is without lymphadenopathy. Lungs are clear to auscultation. Heart has a regular rate and rhythm without murmur Assessment and Plan (1) Acute kidney injury Current visit: No Status: Acute Category: Medical Code(s): N17.9 - Acute kidney failure, unspecified (2) Hyperkalemia Current visit: Yes Status: Acute Category: Medical Code(s): E87.5 - Hyperkalemia (3) Altered mental status Current visit: Yes Status: Acute Qualifiers: Altered mental status type: unspecified Qualified Code(s): R41.82 - Altered mental status, unspecified Category: Medical Code(s): R41.82 - Altered mental status, unspecified (4) Chronic anemia Current visit: Yes Status: Acute Category: Medical Code(s): D64.9 - Anemia, unspecified (5) Hypertension Current visit: No Status: Acute Category: Medical Code(s): I10 - Essential (primary) hypertension (6) Seizure disorder Current visit: No Status: Acute Category: Medical Code(s): G40.909 - Epilepsy, unspecified, not intractable, without status epilepticus (7) Low back pain Current visit: Yes Status: Acute Category: Medical Code(s): M54.5 - Low back pain (8) Coag negative Staphylococcus bacteremia Current visit: Yes Status: Acute Category: Medical Code(s): R78.81 - Bacteremia - Assessment and plan all Dx Assessment and Plan for all problems:: Patient was started on Rocephin and vancomycin yesterday. Rocephin will be discontinued and vancomycin will be the drug of choice. Echocardiogram will be ordered to rule out endocarditis. Plan on repeating blood cultures late this evening. I suspect patient's positive blood cultures are likely contaminants but workup must proceed.
--- NOTE | 2018-07-11 19:59 | Cardiology Report ---
PROCEDURE: 2-D M-mode and color Doppler study INDICATIONS FOR THE TEST: Chest pain COPD Heart Murmur Tobacco Smoking Palpitations Fatigue Syncope Edema Hypertension+Diabetes Mellitus Rheumatic Fever SOB ESCOBAR Obesity+Hyperlipidemia Family History HD Additional History staph bacteremia,acute kidney failure PATIENT INFORMATION HEIGHT: 61 WEIGHT:226 GENDER: Female B/P:135/69 2-D/M-MODE INTERPRETATION: 2-D MEASUREMENTS OBSERVED VALUES IN CMS Right Ventricular Dimension (RVDd) 1.8 Interventricular Septum (Thickness)(IVsd) 1.1 Left Ventricular Internal Dimensions(LVIDd) 5.3 Left Ventricular Posterior Wall (Thickness)(LVPWd) 0.7 Aortic Root 2.6 Aortic Cusp Separation 1.1 Left Atrial Dimensions (LAD) 4.2 2D 1. Left atrium is mildly enlarged, left ventricle is normal size, mild concentric left ventricular hypertrophy, hyperdynamic left ventricular systolic function, visually estimated ejection fraction of over 65% with no regional wall motion abnormality. 2. The right atrium and right ventricle are normal size and contractility. 3. The aortic valve is minimally thickened and fibrosed. 4. The mitral and tricuspid valvular grossly normal. 5. The pulmonic valve is poorly present. 6. No significant pericardial effusion noted. DOPPLER INTERROGATION: Doppler interrogation of the aortic, mitral and tricuspid valvular presence of mild mitral and tricuspid regurgitation, tricuspid regurgitation jet velocity is inadequate for calculation of the right ventricular systolic pressure, Doppler evidence of high cardiac output state is also seen. Diastolic parameters are inconclusive. CONCLUSION: 1. Mildly enlarged left atrium, normal left ventricular size, mild concentric left ventricular hypertrophy, hyperdynamic left ventricular systolic function, visually estimated ejection fraction over 65% with no regional wall motion abnormality, Doppler evidence of high cardiac output state seen. Diastolic parameters are inconclusive. 2. Mild mitral and tricuspid regurgitation 3. No significant pericardial effusion noted.
[2018-07-12 06:57] LABS: Basophils % 0.2 % (0.1-2.0); Eosinophils # 0.1 K/mm3 (0.0-0.4); Eosinophils % 0.9 % (0.1-12.0); Hemoglobin 9.7 g/dL (12.2-16.2); Lymphocytes % 14.7 % (10-50); Mean Corpuscular HGB Conc 31.4 g/dL (31.8-35.4); Mean Corpuscular Hemoglobin 29.1 pg (27.0-31.2); Mean Corpuscular Volume 92.8 fl (81-99); Mean Platelet Volume 7.2 fl (7.4-10.4); Monocytes # 0.4 K/mm3 (0.1-1.0); Monocytes % 5.8 % (1.7-9.3); Neutrophils # 5.3 K/mm3 (1.8-7.8); Neutrophils % 78.2 % (37.0-80.0); Platelet Count 271 K/mm3 (142-424); Red Blood Count 3.34 M/mm3 (4.20-5.40); White Blood Count 6.8 K/mm3 (4.8-10.8)
[2018-07-12 07:06] LABS: Calcium 9.2 mg/dL (8.5-10.1)
--- NOTE | 2018-07-12 07:10 | Progress Note ---
Internal Medicine - PN: Subj *Date: 07/12/18 *Time: 07:08 Interval history: Patient has no complaints. She did receive Toradol for headache yesterday which improved her headache. She had for Tylenol yesterday evening. She continues to endorse nausea and has a burning sensation in her stomach whenever she tries to eat or drink. She did ambulate with assistance in the room yesterday. Exam Vital signs and Labs for Last 24 Hours: Temp Pulse Resp BP Pulse Ox 97.9 F 94 H 16 139/80 96 07/12/18 04:00 07/12/18 04:00 07/12/18 04:00 07/12/18 04:00 07/12/18 04:00 Laboratory Results - last 24 hr 07/11/18 05:39: Sodium 139, Potassium 4.4, Chloride 104, Carbon Dioxide 22, Anion Gap 17.4 H, BUN 28 H, Creatinine 1.36 H, Estimated Creat Clear 35, Estimated GFR 40 L, Est GFR ( Amer) 49 L D, Glucose 119 H, Calcium 8.8 07/12/18 06:10: WBC 6.8, RBC 3.34 L, Hgb 9.7 L, Hct 31.0 L, MCV 92.8, MCH 29.1, MCHC 31.4 L, RDW 15.0, Plt Count 271, MPV 7.2 L, Neut % (Auto) 78.2, Lymph % (Auto) 14.7, [place] % (Auto) 5.8, Eos % (Auto) 0.9, Baso % (Auto) 0.2, Neut # (Auto) 5.3, Lymph # (Auto) 1.0, [place] # (Auto) 0.4, Eos # (Auto) 0.1, Baso # (Auto) 0.0 I & O for Last 24 hours: Intake & Output 07/09/18 07/10/18 07/11/18 07/12/18 11:59 11:59 11:59 11:59 Intake Total 480 / 480 1745 / 1745 720 / 720 480 / 480 Output Total 1500 / 1500 900 / 900 Balance -1020 / -1020 845 / 845 720 / 720 480 / 480 Weight 209 lb 15.986 oz 237 lb 2 oz 226 lb 2 oz Microbiology Reports for the Last 24 Hours: Microbiology 07/08/18 19:55 Blood Blood Culture - Preliminary Staph hominis ssp hominis 07/08/18 19:55 Blood Blood Culture - Preliminary Aerococcus viridans Gram Positive Cocci Narrative: She is oriented to person place and time this morning. Lungs remain clear. Heart has a regular rate and rhythm. Abdomen is soft and obese. Assessment and Plan (1) Acute kidney injury Current visit: No Status: Acute Category: Medical Code(s): N17.9 - Acute kidney failure, unspecified (2) Hyperkalemia Current visit: Yes Status: Acute Category: Medical Code(s): E87.5 - Hyperkalemia (3) Altered mental status Current visit: Yes Status: Acute Qualifiers: Altered mental status type: unspecified Qualified Code(s): R41.82 - Altered mental status, unspecified Category: Medical Code(s): R41.82 - Altered mental status, unspecified (4) Chronic anemia Current visit: Yes Status: Acute Category: Medical Code(s): D64.9 - Anemia, unspecified (5) Hypertension Current visit: No Status: Acute Category: Medical Code(s): I10 - Essential (primary) hypertension (6) Seizure disorder Current visit: No Status: Acute Category: Medical Code(s): G40.909 - Epilepsy, unspecified, not intractable, without status epilepticus (7) Low back pain Current visit: Yes Status: Acute Category: Medical Code(s): M54.5 - Low back pain (8) Coag negative Staphylococcus bacteremia Current visit: Yes Status: Acute Category: Medical Code(s): R78.81 - Bacteremia - Assessment and plan all Dx Assessment and Plan for all problems:: 1. Add Carafate for her dyspepsia 2. Repeat blood cultures this morning. Continue IV vancomycin. Patient has yet to show signs of infection
--- NOTE | 2018-07-13 07:32 | Progress Note ---
Internal Medicine - PN: Subj *Date: 07/13/18 *Time: 07:30 Interval history: Patient has no complaints this morning. She wishes to go home. She denies fevers or chills overnight. She denies cough or dysuria Exam Vital signs and Labs for Last 24 Hours: Temp Pulse Resp BP Pulse Ox 99.0 F 101 H 15 149/77 H 96 07/13/18 04:00 07/13/18 04:00 07/13/18 04:00 07/13/18 04:00 07/13/18 04:00 Laboratory Results - last 24 hr 07/08/18 19:55: Levetiracetam 31.1 I & O for Last 24 hours: Intake & Output 07/10/18 07/11/18 07/12/18 07/13/18 11:59 11:59 11:59 11:59 Intake Total 1745 / 1745 720 / 720 480 / 480 2188 / 2188 Output Total 900 / 900 300 / 300 Balance 845 / 845 720 / 720 480 / 480 1888 / 1888 Weight 237 lb 2 oz 226 lb 2 oz 226 lb 2.015 oz Microbiology Reports for the Last 24 Hours: Microbiology 07/08/18 19:55 Blood Blood Culture - Preliminary Staph hominis ssp hominis Narrative: She appears at baseline. Lungs are clear. Heart is slightly tachycardic but regular. Abdomen is soft. Assessment and Plan (1) Coag negative Staphylococcus bacteremia Current visit: Yes Status: Acute Category: Medical Code(s): R78.81 - Bacteremia (2) Acute kidney injury Current visit: No Status: Acute Category: Medical Code(s): N17.9 - Acute kidney failure, unspecified (3) Hyperkalemia Current visit: Yes Status: Acute Category: Medical Code(s): E87.5 - Hyperkalemia (4) Altered mental status Current visit: Yes Status: Acute Qualifiers: Altered mental status type: unspecified Qualified Code(s): R41.82 - Altered mental status, unspecified Category: Medical Code(s): R41.82 - Altered mental status, unspecified (5) Chronic anemia Current visit: Yes Status: Acute Category: Medical Code(s): D64.9 - Anemia, unspecified (6) Hypertension Current visit: No Status: Acute Category: Medical Code(s): I10 - Essential (primary) hypertension (7) Seizure disorder Current visit: No Status: Acute Category: Medical Code(s): G40.909 - Epilepsy, unspecified, not intractable, without status epilepticus (8) Low back pain Current visit: Yes Status: Acute Category: Medical Code(s): M54.5 - Low back pain - Assessment and plan all Dx Assessment and Plan for all problems:: Continue IV vancomycin at this time. Await labs this morning. Plan is to wait for second set of blood cultures to guide further medical decision making
--- NOTE | 2018-07-13 09:31 | Pharmacy Consult Notes ---
- Pharmacy Consult Date: 07/13/18 Time: 09:30 Referring provider: DR. GLOVER Reason for Consult:: VANCOMYCIN TROUGH LEVEL Allergies and ADEs:: Allergies Allergy/AdvReac Type Severity Reaction Status Date / Time Penicillins Allergy Intermediate I-ITCHING Verified 07/08/18 19:45 Home Medications:: Home Medications Medication Instructions Recorded Confirmed Type levETIRAcetam [Keppra 500mg tablet] 500 mg PO BID 08/16/17 07/09/18 History fluoxetine 20 mg capsule 60 mg PO DAILY cap 12/07/17 07/08/18 History NIFEdipine [Nifedipine ER] 60 mg PO DAILY 01/04/18 07/08/18 History Pantoprazole Sodium [Protonix 40mg 40 mg PO DAILY 03/18/18 07/08/18 History tablet] Baclofen 20 mg PO QID 07/08/18 07/09/18 History hydrOXYzine HCl [Hydroxyzine HCl] 50 mg PO Q6HP PRN 07/08/18 07/09/18 History Amitriptyline HCl 150 mg PO DAILY 07/09/18 07/09/18 History Diclofenac Sodium [Diclofenac 75mg 75 mg PO BID 07/09/18 07/09/18 History Tab] Propranolol HCl [Propranolol HCl 60 mg PO DAILY 07/09/18 07/09/18 History ER] Height: 1.57 m Weight: 102.569 kg Laboratory Results:: Laboratory Results - last 24 hr 07/08/18 19:55: Levetiracetam 31.1 07/13/18 08:40: Vancomycin Trough 9.5 L Medical History: Reports:: Anxiety, Gastroesophageal Reflux Disease(GERD), Hypertension, Myocardial Infarction, Seizures Denies:: Cancer, Diabetes Mellitus Type 1, Diabetes Mellitus Type 2, Lung Disease, MRSA Assessment and Plan (1) Coag negative Staphylococcus bacteremia Current visit: Yes Status: Acute Category: Medical Code(s): R78.81 - Bacteremia (2) Acute kidney injury Current visit: No Status: Acute Category: Medical Code(s): N17.9 - Acute kidney failure, unspecified (3) Hyperkalemia Current visit: Yes Status: Acute Category: Medical Code(s): E87.5 - Hyperkalemia (4) Altered mental status Current visit: Yes Status: Acute Qualifiers: Altered mental status type: unspecified Qualified Code(s): R41.82 - Altered mental status, unspecified Category: Medical Code(s): R41.82 - Altered mental status, unspecified (5) Chronic anemia Current visit: Yes Status: Acute Category: Medical Code(s): D64.9 - Anemia, unspecified (6) Hypertension Current visit: No Status: Acute Category: Medical Code(s): I10 - Essential (primary) hypertension (7) Seizure disorder Current visit: No Status: Acute Category: Medical Code(s): G40.909 - Epilepsy, unspecified, not intractable, without status epilepticus (8) Low back pain Current visit: Yes Status: Acute Category: Medical Code(s): M54.5 - Low back pain - Assessment and plan all Dx Assessment and Plan for all problems:: BASED ON PATIENT FACTORS AND VANCOMYCIN TROUGH LEVEL, RECOMMEND CHANGING DOSE AND INTERVAL TO VANCOMYCIN 1750 MG IV Q24H. PHARMACY WILL CONTINUE TO MONITOR DAILY AND ADJUST APPROPRIATE.
--- NOTE | 2018-07-14 07:15 | Progress Note ---
Internal Medicine - PN: Subj *Date: 07/14/18 *Time: 07:07 Interval history: Patient reports to having a good night with about two and a half hours of interrupted sleep. Biggest complaint is feeling so tired and unable to think clearly. She is wanting to go home today if appropriate. As of this morning there has been no growth on blood cultures drawn on 07/12/18. Exam Vital signs and Labs for Last 24 Hours: Temp Pulse Resp BP Pulse Ox 98.5 F 98 H 22 145/75 H 98 07/14/18 04:00 07/14/18 04:00 07/14/18 04:00 07/14/18 04:00 07/14/18 04:00 Laboratory Results - last 24 hr 07/13/18 08:40: Vancomycin Trough 9.5 L I & O for Last 24 hours: Intake & Output 07/11/18 07/12/18 07/13/18 07/14/18 23:59 23:59 23:59 23:59 Intake Total 720 / 720 2188 / 2188 1100 / 1100 130 / 130 Output Total 300 / 300 Balance 720 / 720 1888 / 1888 1100 / 1100 130 / 130 Weight 226 lb 2 oz 226 lb 2.015 oz 226 lb 2.015 oz 227 lb 4 oz - Constitutional no acute distress, obese - *Routine HEENT Exam ENT: Present: mucous membranes moist - *Routine Respiratory Exam Present: CTA bilaterally. Absent: accessory muscle use, decreased breath sounds - *Routine Cardiovascular Exam Present: RRR, Normal S1, Normal S2. Absent: murmur, irregular rhythm - *Routine Abdominal Exam Present: soft, normoactive bowel sounds. Absent: tenderness, distended - *Routine Extremities Exam Absent: cyanosis, edema - *Routine Skin Exam Comments: bruising noted on upper and lower extremities - *Routine Neurological Exam Present: alert, oriented X3 - Routine Psychiatric Exam Present: normal affect Assessment and Plan (1) Coag negative Staphylococcus bacteremia Current visit: Yes Status: Acute Category: Medical Code(s): R78.81 - Bacteremia (2) Acute kidney injury Current visit: No Status: Acute Category: Medical Code(s): N17.9 - Acute kidney failure, unspecified (3) Hyperkalemia Current visit: Yes Status: Acute Category: Medical Code(s): E87.5 - Hyperkalemia (4) Altered mental status Current visit: Yes Status: Acute Qualifiers: Altered mental status type: unspecified Qualified Code(s): R41.82 - Altered mental status, unspecified Category: Medical Code(s): R41.82 - Altered mental status, unspecified (5) Chronic anemia Current visit: Yes Status: Acute Category: Medical Code(s): D64.9 - Anemia, unspecified (6) Hypertension Current visit: No Status: Acute Category: Medical Code(s): I10 - Essential (primary) hypertension (7) Seizure disorder Current visit: No Status: Acute Category: Medical Code(s): G40.909 - Epilepsy, unspecified, not intractable, without status epilepticus (8) Low back pain Current visit: Yes Status: Acute Category: Medical Code(s): M54.5 - Low back pain - Assessment and plan all Dx Assessment and Plan for all problems:: Patient needs to receive IV vancomycin this morning and then OK to discharge home. New discharge medications will include ceftin.
--- NOTE | 2018-07-14 07:32 | Discharge Summary ---
General - General Admission date:: 07/08/18 Discharge date: 07/14/18 HPI HPI: 58-year-old female presented to the emergency department after a neighbor called EMS due to patient's confusion. Patient was brought to the emergency department for evaluation. History is essentially taken from the ER noticed but has no recollection of her evaluation in the emergency department. Patient was found to be confused and had acute kidney injury. She was admitted for IV fluids and observation. Patient had apparently fallen and hit her head and was also complaining of neck pain time of presentation. Significant traumatic injury was ruled out. This morning she also complains of low back pain. In addition to her acute kidney injury and had mild hyperkalemia. She was placed on IV fluids and admitted. Hospital Course Hospital Course: Patient was admitted for treatment of her hyperkalemia and acute kidney injury with IV fluids. Creatinine gradually trended down and potassium decreased as well with IV fluids and a few doses of Kayexalate. Less than 24 hours hours after admission however patient's blood cultures turned positive for staph species of bacteria. Patient was started on Rocephin and vancomycin. Ultimately her first sets of blood cultures grew out Aerococcus and Staphylococcus hominis. Patient was continued on vancomycin. The etiology of her bacteremia was unclear however as patient had a normal urinalysis, normal chest x-ray on admission. She had no signs of infection. Echocardiogram was performed and no valvular vegetations were seen. She was continued on vancomycin which was begun on the . On the a repeat set of blood cultures was drawn. By the the repeat set of blood cultures were negative for growth. Patient was discharged home. She will continue Ceftin 500 mg twice daily for an additional 5 days. Patient will follow-up in the office next week. Patient's blood pressure was severely elevated on presentation to the hospital as well. Adjustments were made to her antihypertensives and she will be taken off all NIKI inhibitors or angiotensin receptor blockers in favor of antihypertensives that do not affect the kidney. Patient was started on pra zosin while hospitalized. Patient complained of low back pain the day after admission and x-rays show degenerative changes Objective Vital signs: Temp Pulse Resp BP Pulse Ox 98.5 F 98 H 22 145/75 H 98 07/14/18 04:00 07/14/18 04:00 07/14/18 04:00 07/14/18 04:00 07/14/18 04:00 Results Labs on day of discharge: Labs from last 24 hours 07/13/18 08:40 Vancomycin Trough 9.5 L Preliminary micro results at discharge 07/08/18 19:55 Blood Culture - Preliminary Blood Staph hominis ssp hominis 07/08/18 19:55 Blood Culture - Preliminary Blood Aerococcus viridans Gram Positive Cocci DS: Diagnosis - Discharge Diagnosis (1) Coag negative Staphylococcus bacteremia Status: Acute (2) Acute kidney injury Status: Acute (3) Hyperkalemia Status: Acute (4) Altered mental status Status: Acute (5) Chronic anemia Status: Acute (6) Hypertension Status: Acute (7) Seizure disorder Status: Acute (8) Low back pain Status: Acute Discharge Plan - Patient Discharge Instructions ACTIVITY: Continue current activity Patient Instructions: DI for Hyperkalemia, DI for Hypocalcemia, DI for Altered Mental Status, Bacteremia-Child - Follow up Plan Follow up with: Zack Batista MD [Staff Physician] - 1 week (her daughter will schedule appointment) Disposition: Home, Self-Senior Living Medications: Home Medications Medication Instructions Recorded Confirmed Type levETIRAcetam [Keppra 500mg tablet] 500 mg PO BID 08/16/17 07/09/18 History fluoxetine 20 mg capsule 60 mg PO DAILY cap 12/07/17 07/08/18 History NIFEdipine [Nifedipine ER] 60 mg PO DAILY 01/04/18 07/08/18 History Pantoprazole Sodium [Protonix 40mg 40 mg PO DAILY 03/18/18 07/08/18 History tablet] Baclofen 20 mg PO QID 07/08/18 07/09/18 History hydrOXYzine HCl [Hydroxyzine HCl] 50 mg PO Q6HP PRN 07/08/18 07/09/18 History Amitriptyline HCl 150 mg PO DAILY 07/09/18 07/09/18 History Diclofenac Sodium [Diclofenac 75mg 75 mg PO BID 07/09/18 07/09/18 History Tab] Propranolol HCl [Propranolol HCl 60 mg PO DAILY 07/09/18 07/09/18 History ER] Prazosin HCl 2 mg PO DAILY #30 capsule 07/14/18 Rx cefUROXime axetil [Ceftin 500mg 500 mg PO BID #10 tab 07/14/18 Rx Tab (GEQ)] Prescriptions/Medication Reconciliation: New Prazosin HCl 2 mg PO DAILY #30 capsule cefUROXime axetil [Ceftin 500mg Tab (GEQ)] 500 mg PO BID #10 tab Continue fluoxetine 20 mg capsule 60 mg PO DAILY cap levETIRAcetam [Keppra 500mg tablet] 500 mg PO BID Pantoprazole Sodium [Protonix 40mg tablet] 40 mg PO DAILY Propranolol HCl [Propranolol HCl ER] 60 mg PO DAILY NIFEdipine [Nifedipine ER] 60 mg PO DAILY Discontinued hydrOXYzine HCl [Hydroxyzine HCl] 50 mg PO Q6HP PRN PRN Reason: Anxiety Baclofen 20 mg PO QID Diclofenac Sodium [Diclofenac 75mg Tab] 75 mg PO BID Amitriptyline HCl 150 mg PO DAILY
== END 2018-07-14 10:57 | disposition home or self-care (01) | DRG 641 ==
LOC: 2ND 19:28 → ER 19:28 → 2ND 07-09 00:11
PROVIDERS: ADMIT Emergency Medicine; ATTEND Family Medicine
CPT/HCPCS: 36415; 70450; 71010; 71045; 72100; 72125; 72170; 80048; 80053; 80177; 80202; 80305; 81001; 82803; 82962; 83605; 84484; 85007; 85025; 85651; 86140; 87040; 87077; 87186; 87275; 87276; 90686; 90732; 93005; 93306; 96365; 97110; 97116; 97162; 97530; 99285; G0378; J2405; J3370

== ENCOUNTER 2018-09-19 17:56 | Inpatient (IN) ==
--- NOTE | 2018-09-19 18:06 | Emergency Department Note ---
ED Disposition Condition on Discharge: Fair - Critical Care Critical Care Time: No <OctavioEhsan - Last Filed: 09/19/18 20:06> <Young Vega - Last Filed: 09/19/18 22:18> Clinical Impression: Hypokalemia, Renal insufficiency Fall Qualifiers: Encounter type: initial encounter Qualified Code(s): W19.XXXA - Unspecified fall, initial encounter Disposition: Still a Patient Referrals: Zack Batista MD [Primary Care Provider] - Attestation: On 09/19/18, the high probability of a clinically significant, sudden or life threatening deterioration of the following system(s) required my full and direct attention, intervention and personal management. The time I documented below is in addition to time spent performing reported procedures but includes the following listed in this critical care notation. Medical Decision Making - [place] Inquiry Pt receiving controlled substance: No - Radiology Data #1 Image(s): Chest, Pelvis Image Reviewed: Yes I reviewed the patient's radiology image, Yes I have reviewed radiologist's interpretation - CT Data CT Scan: Head, C-Spine, T-Spine, L-Spine Time Received: 19:[address] Reviewed: Yes: I have viewed the radiologist's interpretation <TannerakilEhsan - Last Filed: 09/19/18 20:06> - Lab Data Result diagrams: 09/19/18 19:45 09/19/18 20:35 - Physician Consults Physician Consulted: blane Reason -: Admission <Young Vega - Last Filed: 09/19/18 22:18> Vital Signs: 09/19/18 17:58 09/19/18 19:58 09/19/18 20:00 Temperature 98.1 F 98.7 F 98.7 F Temperature Source Oral Rectal Rectal Pulse Rate Pulse Rate [Right Brachial] 75 101 H 116 H Respiratory Rate 16 20 18 Blood Pressure Blood Pressure [Right Arm] 183/106 H 147/88 H 138/68 Blood Pressure Mean [Right Arm] 131 107 91 Blood Pressure Source Blood Pressure Source [Right Arm] Automatic Cuff Automatic Cuff Blood Pressure Position Blood Pressure Position [Right Arm] Sitting Supine 02 Sat by Pulse Oximetry 97 97 97 Oxygen Delivery Method Room Air Room Air Room Air 09/19/18 20:30 09/19/18 20:58 09/19/18 21:53 Temperature Temperature Source Pulse Rate Pulse Rate [Right Brachial] 102 H 72 72 Respiratory Rate 18 18 18 Blood Pressure Blood Pressure [Right Arm] 142/49 H 146/48 H 100/67 L Blood Pressure Mean [Right Arm] 80 80 78 Blood Pressure Source Blood Pressure Source [Right Arm] Automatic Cuff Automatic Cuff Blood Pressure Position Blood Pressure Position [Right Arm] Supine Supine 02 Sat by Pulse Oximetry 97 98 97 Oxygen Delivery Method Room Air Room Air Room Air 09/19/18 22:03 Temperature 98.3 F Temperature Source Oral Pulse Rate 67 Pulse Rate [Right Brachial] Respiratory Rate 18 Blood Pressure 133/64 Blood Pressure [Right Arm] Blood Pressure Mean [Right Arm] Blood Pressure Source Automatic Cuff Blood Pressure Source [Right Arm] Blood Pressure Position Sitting Blood Pressure Position [Right Arm] 02 Sat by Pulse Oximetry Oxygen Delivery Method Room Air - Lab Data Lab Results 09/19/18 19:45: WBC 6.9, RBC 3.43 L, Hgb 10.6 L, Hct 32.3 L, MCV 94.2, MCH 30.8, MCHC 32.7, RDW 16.9, Plt Count 80 L, MPV 8.2, Neut % (Auto) 71.9, Lymph % (Auto) 15.9, Walker % (Auto) 11.6 H, Eos % (Auto) 0.4, Baso % (Auto) 0.2, Neut # (Auto) 5.0, Lymph # (Auto) 1.1, Walker # (Auto) 0.8, Eos # (Auto) 0.0, Baso # (Auto) 0.0 09/19/18 19:55: Urine Opiates Screen Negative, Urine Methadone Screen Negative, Ur Barbituates Screen Negative, Ur Phencyclidine Scrn Negative, Ur Amphetamines Screen Negative, U Benzodiazepines Scrn Negative, Urine Cocaine Screen Negative, U Marijuana (THC) Screen Negative 09/19/18 19:55: Urine Color [place], Urine Appearance Clear, Urine pH 6.5, Ur Specific [place] 1.020, Urine Protein 2+, Urine Glucose (UA) Negative, Urine Ketones 2+, Urine Blood Negative, Urine Nitrate Negative, Urine Bilirubin Negative, Urine Urobilinogen 0.2, Ur Leukocyte Esterase Negative, Urine WBC Occasional, Ur Squamous Epith Cells Occasional, Urine Bacteria Trace 09/19/18 20:35: Sodium 140, Potassium 2.9 L*, Chloride 99, Carbon Dioxide 26, Anion Gap 17.9 H, BUN 23 H, Creatinine 1.42 H, Estimated Creat Clear 76, Estimated GFR 38 L, Est GFR ( Amer) 46 L, Glucose 101, Calcium 9.0, Total Bilirubin 0.7, AST 21, ALT 21, Alkaline Phosphatase 58, Total Creatine Kinase 168, Total Protein 6.5, Albumin 3.1 L, Globulin 3.4 H, Albumin/Globulin Ratio 0.9 L, Salicylates 3.2, Acetaminophen 0 L, Total Valproic Acid 32.2 L, Foreign sma/Serum Alcohol 0 Orders (Tests/Meds): ED MEDICATIONS Discontinued Medications Generic Name Dose Route Start Last Admin Trade Name Freq PRN Reason Stop Dose Admin Sodium Chloride 10 ml 09/19/18 18:00 Saline Flush 10ml Syringe IV 10/19/18 17:59 NEEDED PRN Maintain IV Site Sodium Chloride 1,000 ml 09/19/18 18:03 Sod Chlor 0.9% 1000ml Bag IV 09/19/18 18:04 BOLUS ONE ORDERS Category Date Time Status CXR Portable -- PICC line placement [XR chest portable Exams 09/19/18 21:42 Taken PICC plac] Stat Levetiracetam (Keppra) Routine Lab 09/19/18 20:35 Received - Radiology Data #1 Pelvis: IMPRESSION: Negative for fracture, mild bilateral sacroiliitis and mild osteitis pubis noted Dictated By: Ramiro Marie Signed By: <Electronically signed by Ramiro Marie in [place]> 09/19/181911 Chest: IMPRESSION: Negative chest, no acute finding Dictated By: Ramiro Marie Signed By: <Electronically signed by Ramiro Marie in [place]> 09/19/181911 (Ehsan Cunningham) - CT Data Findings Narrative: Thoracic spine: IMPRESSION: Mild multilevel degenerative changes of the middle lower thoracic spine, no acute bony pathology noted Dictated By: Ramior Marie Signed By: <Electronically signed by Ramiro Marie in [place]> 09/19/181905 Lumbar spine: IMPRESSION: Moderate degenerative disc disease L4-5, small left paracentral and foraminal disc protrusion L5-S1 Dictated By: Ramiro Marie Signed By: <Electronically signed by Ramiro Marie in [place]> 09/19/181908 Head: IMPRESSION: Findings of mild age-appropriate cortical atrophy, no acute intracranial pathology noted Dictated By: Ramiro Marie Signed By: <Electronically signed by Ramiro Marie in [place]> 09/19/181899 Cervical spine: IMPRESSION: Findings suggesting muscle spasm along with mild degenerative disc disease C5-6 and C6-7, no acute cervical spine pathology noted Dictated By: Ramiro Marie Signed By: <Electronically signed by Ramiro Marie in [place]> 09/19/181902 (Ehsan Cunningham) Medical Decision Narrative: 8:00 PM: At shift change, I have discussed the patient with Dr. Vega, who will assume care of the patient at this time. I have discussed all clinical information including history, physical and diagnostic study results. Preliminary diagnoses based on information available at this point have been recorded by me. Controlled substance administration and critical care statement are also preliminary, as of the time of handoff. (Ehsan Cunningham) General Adult HPI <Ehsan Cunningham - Last Filed: 09/19/18 20:06> <Young Vega - Last Filed: 09/19/18 22:18> - General Chief complaint: Fall Stated complaint: fall Time Seen by Provider: 09/19/18 18:03 - History of Present Illness HPI narrative: Brought in by ambulance from her home. Very sketchy history. Patient says that her son told her that she fell and broke the coffee table last night. He was not there, apparently this was just from inspection of the scene. The patient tells me that she thinks she had a seizure. She says she was incontinent of urine. She thinks this happened last night. She says that she could not get up and apparently laid in the floor all night. Reportedly, her son called today and did not get an answer and therefore went to check on her and found her in the floor. She has multiple bruises. Apparently she laid on the floor all night. She denies any sort of assault or that she was hurt by anybody. She complains of a severe headache. She has pain in her neck and her entire back. She has pain from the multiple bruises. She denies abdominal pain. (Ehsan Cunningham) - Related Data Home Medications Medication Instructions Recorded Confirmed Propranolol HCl [Propranolol HCl 60 mg PO DAILY 07/09/18 09/19/18 ER] Prazosin HCl 1 mg PO DAILY 07/17/18 09/19/18 Cholecalciferol (Vitamin D3) 50,000 unit PO WEEKLY 09/19/18 09/19/18 [Vitamin D3 50,000 unit Cap] Divalproex Sodium [Depakote 250mg 250 mg PO BID 09/19/18 09/19/18 (Delayed-Release) tablet] Iron [Iron 18mg Tab] 65 mg PO DAILY 09/19/18 09/19/18 Melatonin 10 mg PO DAILY 09/19/18 09/19/18 OLANZapine [Olanzapine] 10 mg PO DAILY 09/19/18 09/19/18 Allergies Allergy/AdvReac Type Severity Reaction Status Date / Time Penicillins Allergy Intermediate I-ITCHING Verified 07/08/18 19:45 [facility] History I have reviewed the patient's past medical history: Yes Medical History: Reports:: Anxiety, Diabetes Mellitus Type 1, Diabetes Mellitus Type 2, Gastroesophageal Reflux Disease(GERD), Hypertension, Myocardial Infarction, Seizures Denies:: Cancer, Internal Pacemaker, Lung Disease, MRSA Other Medical History: Reports: Anemia Other Surgeries: Yes: Colonoscopy, Hysterectomy-Total. No: Pacemaker Amputation: No Fractures: No - Social History Smoking Status: Unknown if ever smoked Alcohol Intake: never Alcohol Intake Frequency:: other Substance Use Type: denies use Occupational Status: disabled Housing: apartment Household Members: none - Psychiatric History Pschychiatric History:: Reports:: Anxiety Family Hx:: Anemia, Cancer, Heart Attack, Hyperlipidemia, Hypertension, Stroke Comment: of DC at 71-Mother. of [place] at 72-Father <Ehsan Cunningham - Last Filed: 09/19/18 20:06> - Hepatitis A Screen Attestation statement:: This patient has been screened for Hepatitis A risk factors. ROS Obtained: Yes All systems reviewed & no additional complaints - Constitutional Constitutional: Denies fever(s) - Eyes Eyes: Denies change in vision - Cardiovascular Cardiovascular: Reports chest pain (From bruises) - Respiratory Respiratory: No cough, No dyspnea - Gastrointestinal Gastrointestingal: Denies: abdominal pain, diarrhea, vomiting - Genitourinary Female Genitourinary: Reports urinary incontinence - Musculoskeletal Musculoskeletal: Reports as per HPI - Neurologic Neurologic: Reports headache(s) <Ehsan Cunningham - Last Filed: 09/19/18 20:06> Physical Exam - General General appearance: alert, in no apparent distress - Eye Eye exam: Present: PERRL, EOMI - ENT ENT exam: Present: mucous membranes moist - Neck Neck exam: Present: normal inspection, trachea midline - Chest Chest inspection: Present: normal inspection, symmetric chest wall rise - Respiratory Respiratory exam: Present: normal lung sounds bilaterally. Absent: respiratory distress - Cardiovascular Cardiovascular exam: Present: regular rate, normal rhythm, normal heart sounds - Abdominal Exam Abdominal exam: Present: soft. Absent: distention, tenderness, guarding - Extremities Exam Extremities exam: Present: other (No deformity) - Neurological Exam Neurological exam: Present: alert, oriented X3 - Psychiatric Psychiatric exam: Present: normal affect, normal mood - Skin Skin exam: Present: warm, dry <Ehsan Cunningham - Last Filed: 09/19/18 20:06> - General Comment: Multiple large dark purple ecchymoses on her breasts, upper chest, left periscapular area, arms, and lower legs. Abrasion dorsum of left hand. Ecchymosis and mild edema right upper eyelid, upper lip. Abrasion upper forehead. (HusseinnunuEhsan) Procedures - Central Line Placement Right Femoral Time Out Performed: Yes Patient Placed on Monitor/Pulse Ox: Yes MD Prep: mask, gown, gloves Central Line Prep: Chlorhexidine scrub Local Anesthetic: lidocaine 1% Amount of anesthesia used (mL): 2 Ultrasound Used for Placement: No Complications: other (guide wire resistance and aborted procedure ) <Young Vega - Last Filed: 09/19/18 22:18>
[2018-09-19 20:04] LABS: Microscopic, Urine URINE MICROSCOPIC (MICROSCOPIC)
[2018-09-19 20:12] LABS: Appearance,Urine CLEAR (Clear); Blood, Urine Negative (Negative); Color,Urine ORANGE (Yellow); Glucose,Urine (UA) Negative (Negative); Ketones,Urine 2+ (Negative); Leukocyte Esterase,Urine Negative (Negative); PH,Urine 6.5 (5.0-8.5); Protein,Urine 2+ (Negative); Urobilinogen,Urine 0.2 EU/dl (0.2)
[2018-09-19 20:17] LABS: Amphetamine/Metha Screen,Urine Negative ng/mL (<1000); Barbiturates Screen,Urine Negative ng/mL (<200); Benzodiazepines Screen,Urine Negative ng/mL (<200); Cannabinoid Screen,Urine Negative ng/mL (<50); Cocaine Screen,Urine Negative ng/mL (<300); Methadone Screen,Urine Negative ng/mL (<300); Opiate Screen,Urine Negative ng/mL (<300); Phencyclidine Screen,Urine Negative ng/mL (<25)
[2018-09-19 20:22] LABS: Bacteria,Urine Trace /lpf; Bilirubin,Urine Negative (Negative); Squamous Epithelial Cell,Urine Occasional #/hpf (0-5); WBC,Urine Occasional #/hpf (0-3)
[2018-09-19 20:58] LABS: Basophils % 0.2 % (0.1-2.0); Eosinophils % 0.4 % (0.1-12.0); Hematocrit 32.3 % (37.0-47.0); Hemoglobin 10.6 g/dL (12.2-16.2); Lymphocytes # 1.1 K/mm3 (0.7-4.5); Lymphocytes % 15.9 % (10-50); Mean Corpuscular HGB Conc 32.7 g/dL (31.8-35.4); Mean Corpuscular Hemoglobin 30.8 pg (27.0-31.2); Mean Corpuscular Volume 94.2 fl (81-99); Mean Platelet Volume 8.2 fl (7.4-10.4); Monocytes # 0.8 K/mm3 (0.1-1.0); Monocytes % 11.6 % (1.7-9.3); Neutrophils % 71.9 % (37.0-80.0); Platelet Count 80 K/mm3 (142-424); Red Blood Count 3.43 M/mm3 (4.20-5.40); Red Cell Distribution Width 16.9 % (11.5-17.5); White Blood Count 6.9 K/mm3 (4.8-10.8)
[2018-09-19 21:23] LABS: Albumin Level 3.1 gm/dL (3.4-5.0); Albumin/Globulin Ratio 0.9 (1.1-1.8); Anion Gap 17.9 mEq/L (5-15); Bilirubin,Total 0.7 mg/dL (0.2-1.0); Globulin 3.4 gm/dl (1.3-3.2); Salicylate 3.2 mg/dL (2.8-20.0); Total Protein,Serum 6.5 gm/dL (6.4-8.2); Valproic Acid, (Depakene) 32.2 ug/mL (50-100)
[2018-09-19 21:53] LABS: Potassium 2.9 mmoL/L (3.5-5.1)
[2018-09-20 06:27] LABS: Anion Gap 14.3 mEq/L (5-15); Calcium 8.2 mg/dL (8.5-10.1)
[2018-09-20 06:31] LABS: Potassium 2.3 mmoL/L (3.5-5.1)
[2018-09-20 07:19] LABS: Basophils % 0.3 % (0.1-2.0); Eosinophils % 0.8 % (0.1-12.0); Hematocrit 24.7 % (37.0-47.0); Lymphocytes # 0.8 K/mm3 (0.7-4.5); Lymphocytes % 19.2 % (10-50); Mean Corpuscular Hemoglobin 31.5 pg (27.0-31.2); Mean Corpuscular Volume 95.7 fl (81-99); Mean Platelet Volume 8.2 fl (7.4-10.4); Monocytes # 0.5 K/mm3 (0.1-1.0); Monocytes % 11.1 % (1.7-9.3); Neutrophils % 68.5 % (37.0-80.0); Platelet Count 57 K/mm3 (142-424); Red Blood Count 2.58 M/mm3 (4.20-5.40); Red Cell Distribution Width 16.8 % (11.5-17.5); White Blood Count 4.4 K/mm3 (4.8-10.8)
[2018-09-20 07:21] LABS: Hemoglobin 8.2 g/dL (12.2-16.2)
--- NOTE | 2018-09-20 07:28 | Pharmacy Consult Notes ---
[facility] Pharmacy VTE Monitoring - Patient Demographics Admission date: 09/19/18 Report Date: 09/20/18 Time: 07:27 Allergies/Adverse Reactions: Patient Allergies Penicillins Allergy (Intermediate, Verified 07/08/18 19:45) I-ITCHING Height: 1.57 m Weight: 98.628 kg Patient Problems: Current Active Problems Renal insufficiency (Acute) Hypokalemia (Acute) Fall (Acute) - VTE Risk Labs: VTE Related Lab Results Hgb 8.2 g/dL (12.2-16.2) L D 09/20/18 05:50 Hct 24.7 % (37.0-47.0) L 09/20/18 05:50 Plt Count 57 K/mm3 (142-424) L D 09/20/18 05:50 BUN 23 mg/dL (7-18) H 09/20/18 05:50 Creatinine 1.58 mg/dL (0.55-1.02) H 09/20/18 05:50 Estimated Creat Clear 62 mL/min (50-200) 09/20/18 05:50 VTE Risk Level: Low Risk - Prophylaxis VTE Prophylaxis Ordered?: Yes Types of VTE Prophylaxis: TEDS Knee High Location of Applied Device: Bilateral Lower Extremeties - VTE Diagnosis Confirmed Treatment or plan recommended: Continue Current Treatment
--- NOTE | 2018-09-20 07:36 | History & Physical Report ---
*Admission Date: 09/19/18 <Rose Mary Lowe 09/20/18 07:47> *Chief complaint: hypokalemia and renal insufficiency <Rose Mary Lowe 09/20/18 07:47> *History of present illness: 58 year old female presents to [facility] ER after unwitnessed fall. The last thing patient remembers is being cold on Tuesday evening. Son was unable to get ahold of her after multiple attempts and subsequently went to physically check to find her down. Daughter, usual assembler tester is out of town for spring break. Patient was alert and conscious at that time but could not ambulate. Life alert necklace was in another room. Uses walker for ambulation. It is unknown how long patient was in floor but she had incidence of urinary incontinence. Patient frequently visits [facility] and has had multiple similar events this year alone. Labs in ER showed hypokalemia and renal insufficiency. CT scans of pelvis, chest, spine and head were all negative. Patient is currently lying in bed with seizure precaution pads up eating breakfast. She reports soreness and headache. <Rose Mary Lowe 09/20/18 07:47> [facility] History Medical History: Reports:: Anxiety, Gastroesophageal Reflux Disease(GERD), Hypertension, MRSA, Myocardial Infarction, Seizures Denies:: Cancer, Diabetes Mellitus Type 1, Internal Pacemaker, Lung Disease <Rose Mary Lowe 09/20/18 07:47> *Have you ever received a pneumonia vaccine?: No <Rose Mary Lowe 09/20/18 07:47> *Have you received a flu vaccine this season?: Yes <Rose Mary Lowe 09/20/18 07:47> Other Medical History: Reports: Anemia <Rose Mary Lowe 09/20/18 07:47> Other Surgeries: Yes: Colonoscopy, Hysterectomy-Total. No: Pacemaker <LoweRose Mary Jaime 09/20/18 07:47> Amputation: No <LoweRose Mary Jaime 09/20/18 07:47> Fractures: No <LoweRose Mary Jaime 09/20/18 07:47> - *Social History Educational Level: Completed High School <LoweRose Mary Jaime 09/20/18 07:47> Smoking Status: Unknown if ever smoked <LoweRose Mary Jaime 09/20/18 07:47> Alcohol Intake: never <Rose Mary Lowe 09/20/18 07:47> Alcohol Intake Frequency:: other <Rose Mary Lowe 09/20/18 07:47> Substance Use Type: denies use <Rose Mary Lowe 09/20/18 07:47> *Occupational Status:: disabled <Rose Mary Lowe 09/20/18 07:47> Housing: apartment <Rose Mary Lowe 09/20/18 07:47> Household Members: none <Rose Mary Lowe 09/20/18 07:47> *Travel in the last 8 weeks: None <Rose Mary Lowe 09/20/18 07:47> - Psychiatric History Expresses thoughts of harming self/others: None <Rose Mary Lowe 09/20/18 07:47> Suicide Plan Description: No Plan <Rose Mary Lowe 09/20/18 07:47> Pschychiatric History:: Reports:: Anxiety <Rose Mary Lowe 09/20/18 07:47> Family Hx:: Anemia, Cancer, Heart Attack, Hyperlipidemia, Hypertension, Stroke <Rose Mary Lowe 09/20/18 07:47> Review of Systems - Constitutional Reports body ache(s), Reports chills, Reports lack of energy, Reports weakness, Denies weight gain, Denies weight loss <Rose Mary Lowe 09/20/18 07:47> - Eyes Denies change in vision, Denies sensitivity to light <Rose Mary Lowe 09/20/18 07:47> - ENT Reports headache(s) <Rose Mary Lowe 09/20/18 07:47> - *Cardiovascular Denies chest pain, Denies shortness of breath, Denies rapid, pounding, or irregular heartbeat <Rose Mary Lowe 09/20/18 07:47> - *Gastrointestinal Denies abdominal pain, Denies change in bowel habits, Denies loose stools, Denies nausea, Denies vomiting <Rose Mary Lowe 09/20/18 07:47> - *Genitourinary Reports urinary incontinence <Rose Mary Lowe 09/20/18 07:47> - *Musculoskeletal Reports abnormal walking <Rose Mary Lowe 09/20/18 07:47> Comments: uses walker <Rose Mary Lowe S - 09/20/18 07:47> - *Neurologic Reports headache(s), Reports seizure-like activity, Denies dizziness <Rose Mary Lowe - 09/20/18 07:47> Comments: patient reports seizure like activity, this is unwitnessed <Rose Mary Lowe - 09/20/18 07:47> - Psychiatric Reports memory loss <Rose Mary Lowe - 09/20/18 07:47> Meds Home Medications Medication Instructions Recorded Confirmed Type Propranolol HCl [Propranolol HCl 60 mg PO DAILY 07/09/18 09/19/18 History ER] Prazosin HCl 1 mg PO DAILY 07/17/18 09/19/18 History Cholecalciferol (Vitamin D3) 50,000 unit PO WEEKLY 09/19/18 09/19/18 History [Vitamin D3 50,000 unit Cap] Divalproex Sodium [Depakote 250mg 250 mg PO BID 09/19/18 09/19/18 History (Delayed-Release) tablet] Iron [Iron 18mg Tab] 65 mg PO DAILY 09/19/18 09/19/18 History Melatonin 10 mg PO DAILY 09/19/18 09/19/18 History OLANZapine [Olanzapine] 10 mg PO DAILY 09/19/18 09/19/18 History <Zack Fontaine - 09/20/18 08:10> Allergies Allergy/AdvReac Type Severity Reaction Status Date / Time Penicillins Allergy Intermediate I-ITCHING Verified 07/08/18 19:45 <Zack Fontaine - 09/20/18 08:10> Exam Vital signs and Labs for Last 24 Hours: Temp Pulse Resp BP Pulse Ox 98.4 F 67 18 126/58 L 98 09/20/18 08:00 09/20/18 08:00 09/20/18 08:00 09/20/18 08:00 09/20/18 08:00 Laboratory Results - last 24 hr 09/19/18 19:45: WBC 6.9, RBC 3.43 L, Hgb 10.6 L, Hct 32.3 L, MCV 94.2, MCH 30.8, MCHC 32.7, RDW 16.9, Plt Count 80 L, MPV 8.2, Neut % (Auto) 71.9, Lymph % (Auto) 15.9, [place] % (Auto) 11.6 H, Eos % (Auto) 0.4, Baso % (Auto) 0.2, Neut # (Auto) 5.0, Lymph # (Auto) 1.1, [place] # (Auto) 0.8, Eos # (Auto) 0.0, Baso # (Auto) 0.0 09/19/18 19:55: Urine Opiates Screen Negative, Urine Methadone Screen Negative, Ur Barbituates Screen Negative, Ur Phencyclidine Scrn Negative, Ur Amphetamines Screen Negative, U Benzodiazepines Scrn Negative, Urine Cocaine Screen Negative, U Marijuana (THC) Screen Negative 09/19/18 19:55: Urine Color [place], Urine Appearance Clear, Urine pH 6.5, Ur Specific [place] 1.020, Urine Protein 2+, Urine Glucose (UA) Negative, Urine Ketones 2+, Urine Blood Negative, Urine Nitrate Negative, Urine Bilirubin Negative, Urine Urobilinogen 0.2, Ur Leukocyte Esterase Negative, Urine WBC Occasional, Ur Squamous Epith Cells Occasional, Urine Bacteria Trace 09/19/18 20:35: Sodium 140, Potassium 2.9 L*, Chloride 99, Carbon Dioxide 26, Anion Gap 17.9 H, BUN 23 H, Creatinine 1.42 H, Estimated Creat Clear 76, Estimated GFR 38 L, Est GFR ( Amer) 46 L, Glucose 101, Calcium 9.0, Total Bilirubin 0.7, AST 21, ALT 21, Alkaline Phosphatase 58, Total Creatine Kinase 168, Total Protein 6.5, Albumin 3.1 L, Globulin 3.4 H, Albumin/Globulin Ratio 0.9 L, Salicylates 3.2, Acetaminophen 0 L, Total Valproic Acid 32.2 L, Plasma/Serum Alcohol 0 09/20/18 01:33: Troponin I 0.31 H 09/20/18 04:15: Troponin I 0.28 H 09/20/18 05:50: WBC 4.4 L D, RBC 2.58 L, Hgb 8.2 L D, Hct 24.7 L, MCV 95.7, MCH 31.5 H, MCHC 33.0, RDW 16.8, Plt Count 57 L D, MPV 8.2, Neut % (Auto) 68.5, Lymph % (Auto) 19.2, [place] % (Auto) 11.1 H, Eos % (Auto) 0.8, Baso % (Auto) 0.3, Neut # (Auto) 3.0, Lymph # (Auto) 0.8, [place] # (Auto) 0.5, Eos # (Auto) 0.0, Baso # (Auto) 0.0 09/20/18 05:50: Sodium 144, Potassium 2.3 L* D, Chloride 105, Carbon Dioxide 27, Anion Gap 14.3, BUN 23 H, Creatinine 1.58 H, Estimated Creat Clear 62, Estimated GFR 34 L, Est GFR ( Amer) 41 L, Glucose 76 D, Calcium 8.2 L, Magnesium 1.5 <Zack Fontaine - 09/20/18 08:10> Temp Pulse Resp BP Pulse Ox 98.3 F 72 15 98/60 L 94 L 09/20/18 04:00 09/20/18 04:00 09/20/18 04:00 09/20/18 04:00 09/20/18 04:00 Laboratory Results - last 24 hr 09/19/18 19:45: WBC 6.9, RBC 3.43 L, Hgb 10.6 L, Hct 32.3 L, MCV 94.2, MCH 30.8, MCHC 32.7, RDW 16.9, Plt Count 80 L, MPV 8.2, Neut % (Auto) 71.9, Lymph % (Auto) 15.9, [place] % (Auto) 11.6 H, Eos % (Auto) 0.4, Baso % (Auto) 0.2, Neut # (Auto) 5.0, Lymph # (Auto) 1.1, [place] # (Auto) 0.8, Eos # (Auto) 0.0, Baso # (Auto) 0.0 09/19/18 19:55: Urine Opiates Screen Negative, Urine Methadone Screen Negative, Ur Barbituates Screen Negative, Ur Phencyclidine Scrn Negative, Ur Amphetamines Screen Negative, U Benzodiazepines Scrn Negative, Urine Cocaine Screen Negative, U Marijuana (THC) Screen Negative 09/19/18 19:55: Urine Color [place], Urine Appearance Clear, Urine pH 6.5, Ur Specific [place] 1.020, Urine Protein 2+, Urine Glucose (UA) Negative, Urine Ketones 2+, Urine Blood Negative, Urine Nitrate Negative, Urine Bilirubin Negative, Urine Urobilinogen 0.2, Ur Leukocyte Esterase Negative, Urine WBC Occasional, Ur Squamous Epith Cells Occasional, Urine Bacteria Trace 09/19/18 20:35: Sodium 140, Potassium 2.9 L*, Chloride 99, Carbon Dioxide 26, Anion Gap 17.9 H, BUN 23 H, Creatinine 1.42 H, Estimated Creat Clear 76, Estimated GFR 38 L, Est GFR ( Amer) 46 L, Glucose 101, Calcium 9.0, Total Bilirubin 0.7, AST 21, ALT 21, Alkaline Phosphatase 58, Total Creatine Kinase 168, Total Protein 6.5, Albumin 3.1 L, Globulin 3.4 H, Albumin/Globulin Ratio 0.9 L, Salicylates 3.2, Acetaminophen 0 L, Total Valproic Acid 32.2 L, Plasma/Serum Alcohol 0 09/20/18 01:33: Troponin I 0.31 H 09/20/18 04:15: Troponin I 0.28 H 09/20/18 05:50: WBC 4.4 L D, RBC 2.58 L, Hgb 8.2 L D, Hct 24.7 L, MCV 95.7, MCH 31.5 H, MCHC 33.0, RDW 16.8, Plt Count 57 L D, MPV 8.2, Neut % (Auto) 68.5, Lymph % (Auto) 19.2, [place] % (Auto) 11.1 H, Eos % (Auto) 0.8, Baso % (Auto) 0.3, Neut # (Auto) 3.0, Lymph # (Auto) 0.8, [place] # (Auto) 0.5, Eos # (Auto) 0.0, Baso # (Auto) 0.0 09/20/18 05:50: Sodium 144, Potassium 2.3 L* D, Chloride 105, Carbon Dioxide 27, Anion Gap 14.3, BUN 23 H, Creatinine 1.58 H, Estimated Creat Clear 62, Estimated GFR 34 L, Est GFR ( Amer) 41 L, Glucose 76 D, Calcium 8.2 L, Magnesium 1.5 <Rose Mary Lowe S - 09/20/18 07:47> I & O for Last 24 hours: Intake & Output 09/17/18 09/18/18 09/19/18 09/20/18 11:59 11:59 11:59 11:59 Intake Total 809 / 809 Balance 809 / 809 Weight 217 lb 7 oz <Zack Fontaine - 09/20/18 08:10> Intake & Output 09/17/18 09/18/18 09/19/18 09/20/18 23:59 23:59 23:59 23:59 Intake Total 689 / 689 Balance 689 / 689 Weight 217 lb 7 oz 217 lb 7 oz <Rose Mary Lowe - 09/20/18 07:47> - Constitutional no acute distress, obese, chronically ill appearing, cooperative <Rose Mary Lowe - 09/20/18 07:47> - *Routine HEENT Exam Head: Present: normocephalic <Rose Mary Lowe - 09/20/18 07:47> Eye: Present: EOMI, PERRL, normal accommodation <Rose Mary Lowe 09/20/18 07:47> ENT: Present: mucous membranes moist <Rose Mary Lowe 09/20/18 07:47> Comments: small bruise noted mid forehead <Rose Mary Lowe 09/20/18 07:47> - *Routine Respiratory Exam Present: CTA bilaterally. Absent: accessory muscle use <Rose Mary Lowe 09/20/18 07:47> - *Routine Cardiovascular Exam Present: RRR, Normal S1, Normal S2. Absent: bradycardia, tachycardia, irregular rhythm <Rose Mary Lowe - 09/20/18 07:47> - *Routine Abdominal Exam Present: soft, normoactive bowel sounds. Absent: tenderness, distended <Rose Mary Lowe 09/20/18 07:47> - *Routine Extremities Exam Present: pulses intact, pallor. Absent: cyanosis, edema <Rose Mary Lowe - 09/20/18 07:47> - *Routine Skin Exam Present: intact, ecchymosis <Rose Mary Lowe - 09/20/18 07:47> Comments: multiple bruises noted to chest, breast, abdomen, and teresa lower extremities <Rose Mary Lowe - 09/20/18 07:47> - *Routine Neurological Exam Present: alert, oriented X3, moving all extremities, hearing grossly intact, normal speech. Absent: altered mental status, facial asymmetry <Rose Mary Lowe - 09/20/18 07:47> - Routine Psychiatric Exam Present: normal affect <Rose Mary Lowe 09/20/18 07:47> Assessment and Plan (1) Hypokalemia Current visit: Yes Status: Acute Category: Medical Code(s): E87.6 - Hypokalemia (2) Acute renal insufficiency Current visit: No Status: Acute Category: Medical Code(s): N28.9 - Disorder of kidney and ureter, unspecified <Rose Mary Lowe - 09/20/18 07:28> (1) Hypokalemia Current visit: Yes Status: Acute Category: Medical Code(s): E87.6 - Hypokalemia (2) Acute renal insufficiency Current visit: No Status: Acute Category: Medical Code(s): N28.9 - Disorder of kidney and ureter, unspecified <Zack Fontaine - 09/20/18 08:10> - Assessment and plan all Dx Assessment and Plan for all problems:: Cross covering for Dr. Batista, agree with above note and plan. Will recommend also PT/OT evaluation. <Zcak Fontaine - 09/20/18 08:10> Admit to second floor medical surgical unit for observation, seizure precautions in place. PO potassium has been ordered and IVFs now to contain potassium. Repeat labs in AM. Regular diet. OK to ambulate. Will check on patient this afternoon. <Rose Mary Lowe - 09/20/18 07:47>
[2018-09-21 06:13] LABS: Basophils % 0.2 % (0.1-2.0); Eosinophils # 0.1 K/mm3 (0.0-0.4); Lymphocytes # 1.4 K/mm3 (0.7-4.5); Mean Corpuscular Hemoglobin 31.7 pg (27.0-31.2); Mean Platelet Volume 8.3 fl (7.4-10.4); Monocytes # 0.4 K/mm3 (0.1-1.0); Monocytes % 9.4 % (1.7-9.3); Neutrophils # 2.6 K/mm3 (1.8-7.8); Neutrophils % 57.4 % (37.0-80.0); Platelet Count 65 K/mm3 (142-424); Red Blood Count 2.49 M/mm3 (4.20-5.40); Red Cell Distribution Width 16.9 % (11.5-17.5); White Blood Count 4.6 K/mm3 (4.8-10.8)
[2018-09-21 06:32] LABS: Anion Gap 11.3 mEq/L (5-15); Calcium 8.2 mg/dL (8.5-10.1); Potassium 3.3 mmoL/L (3.5-5.1)
[2018-09-21 07:09] LABS: Hematocrit 23.9 % (37.0-47.0); Hemoglobin 7.9 g/dL (12.2-16.2)
--- NOTE | 2018-09-21 07:27 | Progress Note ---
Internal Medicine - PN: Subj *Date: 09/21/18 *Time: 07:25 Interval history: Patient has no complaints this morning. She still has no recollection of how she may have fallen at home and how she injured herself. She does complain of dysuria this morning Exam Vital signs and Labs for Last 24 Hours: Temp Pulse Resp BP Pulse Ox 98.2 F 67 16 95/60 L 97 09/21/18 04:00 09/21/18 04:00 09/21/18 04:00 09/21/18 04:00 09/21/18 04:00 Laboratory Results - last 24 hr 09/20/18 13:50: Potassium 3.4 L D 09/21/18 06:00: WBC 4.6 L, RBC 2.49 L, Hgb 7.9 L*, Hct 23.9 L*, MCV 96.0, MCH 31.7 H, MCHC 33.0, RDW 16.9, Plt Count 65 L, MPV 8.3, Neut % (Auto) 57.4, Lymph % (Auto) 30.0, [place] % (Auto) 9.4 H, Eos % (Auto) 3.0, Baso % (Auto) 0.2, Neut # (Auto) 2.6, Lymph # (Auto) 1.4, [place] # (Auto) 0.4, Eos # (Auto) 0.1, Baso # (Auto) 0.0 09/21/18 06:00: Sodium 141, Potassium 3.3 L, Chloride 106, Carbon Dioxide 27, Anion Gap 11.3, BUN 27 H, Creatinine 1.70 H, Estimated Creat Clear 58, Estimated GFR 31 L, Est GFR ( Amer) 38 L, Glucose 99, Calcium 8.2 L I & O for Last 24 hours: Intake & Output 09/18/18 09/19/18 09/20/18 09/21/18 11:59 11:59 11:59 11:59 Intake Total 809 / 809 2466 / 2466 Output Total 700 / 700 Balance 809 / 809 1766 / 1766 Weight 217 lb 7 oz 220 lb 4 oz Narrative: She is awake and alert. She is oriented to person, place, time. Lungs are clear to auscultation. Heart has a regular rate and rhythm. Abdomen is obese and soft but nontender Assessment and Plan (1) Hypokalemia Current visit: Yes Status: Acute Category: Medical Code(s): E87.6 - Hypokalemia (2) Acute renal insufficiency Current visit: No Status: Acute Category: Medical Code(s): N28.9 - Disorder of kidney and ureter, unspecified (3) Dysuria Current visit: Yes Status: Acute Category: Medical Code(s): R30.0 - Dy suria (4) Anemia in chronic kidney disease Current visit: Yes Status: Acute Category: Medical Code(s): N18.9 - Chronic kidney disease, unspecified; D63.1 - Anemia in chronic kidney disease - Assessment and plan all Dx Assessment and Plan for all problems:: 1. Patient be given a fluid bolus this morning 2. Type and cross and transfuse 1 unit of packed red blood cells 3. Continue oral potassium replacement 4. Check urinalysis
[2018-09-22 03:46] LABS: Hematocrit 30.6 % (37.0-47.0)
[2018-09-22 03:52] LABS: Hemoglobin 10.5 g/dL (12.2-16.2)
[2018-09-22 04:14] LABS: Microscopic, Urine URINE MICROSCOPIC (MICROSCOPIC)
[2018-09-22 04:19] LABS: Appearance,Urine CLEAR (Clear); Bilirubin,Urine Negative (Negative); Blood, Urine 3+ (Negative); Color,Urine YELLOW (Yellow); Glucose,Urine (UA) Negative (Negative); Ketones,Urine Negative (Negative); Leukocyte Esterase,Urine 2+ (Negative); Protein,Urine 1+ (Negative); Urobilinogen,Urine 0.2 EU/dl (0.2)
[2018-09-22 04:23] LABS: Bacteria,Urine 4+ /lpf; RBC,Urine Occasional #/hpf (0-3); Squamous Epithelial Cell,Urine Occasional #/hpf (0-5)
[2018-09-22 06:39] LABS: Basophils % 0.3 % (0.1-2.0); Eosinophils # 0.1 K/mm3 (0.0-0.4); Eosinophils % 3.3 % (0.1-12.0); Hematocrit 29.8 % (37.0-47.0); Hemoglobin 10.1 g/dL (12.2-16.2); Lymphocytes # 0.9 K/mm3 (0.7-4.5); Lymphocytes % 22.8 % (10-50); Mean Corpuscular Hemoglobin 31.4 pg (27.0-31.2); Mean Corpuscular Volume 92.4 fl (81-99); Mean Platelet Volume 7.9 fl (7.4-10.4); Monocytes # 0.4 K/mm3 (0.1-1.0); Monocytes % 10.6 % (1.7-9.3); Neutrophils # 2.6 K/mm3 (1.8-7.8); Platelet Count 85 K/mm3 (142-424); Red Blood Count 3.22 M/mm3 (4.20-5.40); Red Cell Distribution Width 18.5 % (11.5-17.5); White Blood Count 4.1 K/mm3 (4.8-10.8)
[2018-09-22 06:59] LABS: Anion Gap 11.7 mEq/L (5-15); Calcium 8.4 mg/dL (8.5-10.1); Potassium 3.7 mmoL/L (3.5-5.1)
--- NOTE | 2018-09-22 07:17 | Progress Note ---
Internal Medicine - PN: Subj *Date: 09/22/18 *Time: 07:16 Interval history: Patient has no complaints this morning. She received 2 units of packed red blood cells yesterday. Initially I had opted to give her 1 but when it was discovered she had antibodies that required screening I opted to go on and give her 2 units so there would be no other delays. Patient had a nice response to 2 units of packed red blood cells. She continues to have some urinary urgency and urinalysis performed yesterday was abnormal. Patient will be started on antibiotics today. She is ambulating with assistance Exam Vital signs and Labs for Last 24 Hours: Temp Pulse Resp BP Pulse Ox 98.3 F 82 17 148/78 H 95 09/22/18 03:20 09/22/18 03:20 09/22/18 03:20 09/22/18 03:20 09/22/18 03:20 Laboratory Results - last 24 hr 09/21/18 04:05: Urine Color Yellow, Urine Appearance Clear, Urine pH 7.0, Ur Specific [place] 1.010, Urine Protein 1+, Urine Glucose (UA) Negative, Urine Ketones Negative, Urine Blood 3+, Urine Nitrate Positive, Urine Bilirubin Negative, Urine Urobilinogen 0.2, Ur Leukocyte Esterase 2+ A, Urine RBC Occasional, Urine WBC 3-5, Ur Squamous Epith Cells Occasional, Urine Bacteria 4+ 09/21/18 08:15: Blood Type O Positive, Antibody Screen Positive, Crossmatch (AHG) See Detail 09/21/18 08:15: Antibody Identification Anti-c 09/22/18 03:37: Hgb 10.5 L D, Hct 30.6 L 09/22/18 06:27: WBC 4.1 L, RBC 3.22 L D, Hgb 10.1 L, Hct 29.8 L, MCV 92.4, MCH 31.4 H, MCHC 34.0, RDW 18.5 H, Plt Count 85 L D, MPV 7.9, Neut % (Auto) 63.0, Lymph % (Auto) 22.8, [place] % (Auto) 10.6 H, Eos % (Auto) 3.3, Baso % (Auto) 0.3, Neut # (Auto) 2.6, Lymph # (Auto) 0.9, [place] # (Auto) 0.4, Eos # (Auto) 0.1, Baso # (Auto) 0.0 09/22/18 06:27: Sodium 143, Potassium 3.7, Chloride 108 H, Carbon Dioxide 27, Anion Gap 11.7, BUN 18 D, Creatinine 1.21 H D, Estimated Creat Clear 41, Estimated GFR 46 L, Est GFR ( Amer) 56 L D, Glucose 92, Calcium 8.4 L I & O for Last 24 hours: Intake & Output 09/19/18 09/20/18 09/21/18 09/22/18 11:59 11:59 11:59 11:59 Intake Total 809 / 809 2826 / 2826 720.97 / 720.97 Output Total 700 / 700 1050 / 1050 Balance 809 / 809 2126 / 2126 -329.03 / -329.03 Weight 217 lb 7 oz 220 lb 4 oz 227 lb 2 oz Microbiology Reports for the Last 24 Hours: Microbiology 09/19/18 19:45 Blood Blood Culture - Preliminary NO GROWTH AFTER 48 HOURS 09/19/18 19:45 Blood Blood Culture - Preliminary NO GROWTH AFTER 48 HOURS Narrative: Patient is awake and alert she is oriented to person and place. Lungs are clear. Heart has a regular rate and rhythm. Abdomen is obese and soft. Assessment and Plan (1) Hypokalemia Current visit: Yes Status: Acute Category: Medical Code(s): E87.6 - Hypokalemia (2) Acute renal insufficiency Current visit: No Status: Acute Category: Medical Code(s): N28.9 - Disorder of kidney and ureter, unspecified (3) Dysuria Current visit: Yes Status: Acute Category: Medical Code(s): R30.0 - Dysuria (4) Anemia in chronic kidney disease Current visit: Yes Status: Acute Category: Medical Code(s): N18.9 - Chronic kidney disease, unspecified; D63.1 - Anemia in chronic kidney disease (5) Urinary tract infection Current visit: Yes Status: Acute Category: Medical Code(s): N39.0 - Urinary tract infection, site not specified - Assessment and plan all Dx Assessment and Plan for all problems:: 1. Continue oral potassium supplementation with serial BMPs 2. Start Rocephin 1 g IV daily 3. Repeat CBC in a.m. 4. Anticipate discharge to [facility] tomorrow for usp
[2018-09-23 06:51] LABS: Basophils % 0.3 % (0.1-2.0); Eosinophils # 0.1 K/mm3 (0.0-0.4); Eosinophils % 2.9 % (0.1-12.0); Hematocrit 30.3 % (37.0-47.0); Hemoglobin 10.2 g/dL (12.2-16.2); Lymphocytes # 1.1 K/mm3 (0.7-4.5); Lymphocytes % 27.9 % (10-50); Mean Corpuscular HGB Conc 33.6 g/dL (31.8-35.4); Mean Corpuscular Hemoglobin 30.6 pg (27.0-31.2); Mean Corpuscular Volume 90.9 fl (81-99); Mean Platelet Volume 7.4 fl (7.4-10.4); Monocytes # 0.5 K/mm3 (0.1-1.0); Monocytes % 12.4 % (1.7-9.3); Neutrophils # 2.2 K/mm3 (1.8-7.8); Neutrophils % 56.4 % (37.0-80.0); Platelet Count 124 K/mm3 (142-424); Red Blood Count 3.34 M/mm3 (4.20-5.40); Red Cell Distribution Width 18.2 % (11.5-17.5); White Blood Count 3.9 K/mm3 (4.8-10.8)
--- NOTE | 2018-09-23 07:26 | Discharge Summary ---
General - General Admission date:: 09/20/18 Discharge date: 09/23/18 HPI HPI: 58 year old female presents to [facility] ER after unwitnessed fall. The last thing patient remembers is being cold on Tuesday evening. Son was unable to get ahold of her after multiple attempts and subsequently went to physically check to find her down. Daughter, usual feather separator is out of town for spring break. Patient was alert and conscious at that time but could not ambulate. Life alert necklace was in another room. Uses walker for ambulation. It is unknown how long patient was in floor but she had incidence of urinary incontinence. Patient frequently visits [facility] and has had multiple similar events this year alone. Labs in ER showed hypokalemia and renal insufficiency. CT scans of pelvis, chest, spine and head were all negative. Patient is currently lying in bed with seizure precaution pads up eating breakfast. She reports soreness and headache. Hospital Course Hospital Course: Patient was admitted and placed on IV fluids for her acute kidney injury and ordered potassium for hypokalemia. Creatinine actually worsened for the first 48 hours before it improved. Potassium slowly responded to both intravenous and oral replacement. Due to the patient's weakness and fall at home physical therapy was consulted and the patient began working with physical therapy and improved a little bit in regards to her ability to ambulate each day. Her mental status remained oriented to person, place, time while hospitalized and she showed no signs of cognitive defect. Patient was felt to be a good candidate for short-term half-way and a bed was found at [facility]. Patient will be discharged to [facility] for half-way and physical therapy. Urinalysis was abnormal but urine culture showed no growth. Labs were performed on the day of discharge so do not need to be repeated at the facility Objective Vital signs: Temp Pulse Resp BP Pulse Ox 97.9 F 69 18 183/90 H 97 09/23/18 03:40 09/23/18 03:40 09/23/18 03:40 09/23/18 03:40 09/23/18 03:40 Results Labs on day of discharge: Labs from last 24 hours 09/23/18 06:31 WBC 3.9 L RBC 3.34 L Hgb 10.2 L Hct 30.3 L MCV 90.9 MCH 30.6 MCHC 33.6 RDW 18.2 H Plt Count 124 L D MPV 7.4 Neut % (Auto) 56.4 Lymph % (Auto) 27.9 [place] % (Auto) 12.4 H Eos % (Auto) 2.9 Baso % (Auto) 0.3 Neut # (Auto) 2.2 Lymph # (Auto) 1.1 [place] # (Auto) 0.5 Eos # (Auto) 0.1 Baso # (Auto) 0.0 Preliminary micro results at discharge 09/21/18 04:05 Urine Culture - Preliminary Urine,Clean Catch NO GROWTH AFTER 24 HOURS 09/19/18 19:45 Blood Culture - Preliminary Blood NO GROWTH AFTER 48 HOURS 09/19/18 19:45 Blood Culture - Preliminary Blood NO GROWTH AFTER 48 HOURS DS: Diagnosis - Discharge Diagnosis (1) Acute renal insufficiency Status: Acute (2) Hypokalemia Status: Acute (3) Dysuria Status: Acute (4) Anemia in chronic kidney disease Status: Acute (5) Urinary tract infection Status: Suspected Discharge Plan - Patient Discharge Instructions ACTIVITY: Continue current activity DIET: continue same diet Patient Instructions: Kidney Failure, DI for Hypokalemia, How to Prevent Falls, Hypokalemia - Follow up Plan Disposition: [facility] Home Medications: Home Medications Medication Instructions Recorded Confirmed Type Propranolol HCl [Propranolol HCl 60 mg PO BID 07/09/18 09/20/18 History ER] Prazosin HCl 1 mg PO PM 07/17/18 09/20/18 History Cholecalciferol (Vitamin D3) 50,000 unit PO DIRECTED 09/19/18 09/20/18 History [Vitamin D3 50,000 unit Cap] Divalproex Sodium [Depakote 250mg 250 mg PO DAILY 09/19/18 09/20/18 History (Delayed-Release) tablet] Iron [Iron 18mg Tab] 65 mg PO DAILY 09/19/18 09/19/18 History Melatonin 10 mg PO HS 09/19/18 09/20/18 History OLANZapine [Olanzapine] 10 mg PO DAILY 09/19/18 09/19/18 History Ondansetron [Zofran 4mg ODT] 8 mg PO DAILY PRN 09/20/18 09/20/18 History Pantoprazole Sodium [Protonix 40mg 40 mg PO DAILY 09/20/18 09/20/18 History tablet] Terazosin HCl [Hytrin 1mg Capsule] 1 mg PO HS 09/20/18 09/20/18 History Prescriptions/Medication Reconciliation: Continue Propranolol HCl [Propranolol HCl ER] 60 mg PO BID Prazosin HCl 1 mg PO PM Iron [Iron 18mg Tab] 65 mg PO DAILY OLANZapine [Olanzapine] 10 mg PO DAILY Divalproex Sodium [Depakote 250mg (Delayed-Release) tablet] 250 mg PO DAILY Melatonin 10 mg PO HS Ondansetron [Zofran 4mg ODT] 8 mg PO DAILY PRN PRN Reason: Nausea Cholecalciferol (Vitamin D3) [Vitamin D3 50,000 unit Cap] 50,000 unit PO DIRECTED Pantoprazole Sodium [Protonix 40mg tablet] 40 mg PO DAILY Discontinued Terazosin HCl [Hytrin 1mg Capsule] 1 mg PO HS
[2018-09-23 07:46] LABS: Calcium 8.9 mg/dL (8.5-10.1)
== END 2018-09-23 09:45 | DRG 605 ==
LOC: 2ND 17:56 → ER 17:56
PROVIDERS: ADMIT Internal Medicine Adolescent Medicine; ATTEND Family Medicine
CPT/HCPCS: 36415; 36620; 70450; 71010; 71045; 72125; 72128; 72131; 72170; 80048; 80053; 80164; 80165; 80177; 80305; 80329; 81001; 82550; 83735; 84132; 84484; 85014; 85018; 85025; 86850; 86870; 87040; 87086; 87088; 87186; 93005; 96365; 96374; 97110; 97116; 97162; 97165; 97530; 97535; 99285; C1751; G0378; P9016

== ENCOUNTER → 2018-09-25 01:57 | Outpatient (CLI) | payer MEDICARE, SELFPAY ==
[2018-09-25 02:17] LABS: Microscopic, Urine URINE MICROSCOPIC (MICROSCOPIC)
[2018-09-25 02:22] LABS: Appearance,Urine CLEAR (Clear); Bilirubin,Urine Negative (Negative); Blood, Urine TRACE-I (Negative); Color,Urine YELLOW (Yellow); Glucose,Urine (UA) Negative (Negative); Ketones,Urine Negative (Negative); Leukocyte Esterase,Urine 1+ (Negative); Nitrate,Urine Negative (Negative); Protein,Urine Negative (Negative); Specific Gravity, Urine <= 1.005 (1.005-1.030); Urobilinogen,Urine 0.2 EU/dl (0.2)
[2018-09-25 02:25] LABS: Amorphous Sediment,Urine Trace /lpf; Mucus,Urine Trace /lpf
[2018-09-25 03:33] LABS: Basophils % 0.5 % (0.1-2.0); Eosinophils # 0.1 K/mm3 (0.0-0.4); Eosinophils % 2.3 % (0.1-12.0); Hemoglobin 10.7 g/dL (12.2-16.2); Lymphocytes # 1.4 K/mm3 (0.7-4.5); Lymphocytes % 33.6 % (10-50); Mean Corpuscular HGB Conc 34.4 g/dL (31.8-35.4); Mean Corpuscular Hemoglobin 30.4 pg (27.0-31.2); Mean Corpuscular Volume 88.4 fl (81-99); Mean Platelet Volume 7.3 fl (7.4-10.4); Monocytes # 0.5 K/mm3 (0.1-1.0); Monocytes % 13.2 % (1.7-9.3); Neutrophils % 50.4 % (37.0-80.0); Platelet Count 184 K/mm3 (142-424); Red Cell Distribution Width 17.8 % (11.5-17.5); White Blood Count 4.1 K/mm3 (4.8-10.8)
== END ==
PROVIDERS: Visit Provider Family Medicine
DX: D63.1 Anemia in chronic kidney disease (principal); R82.90 Unspecified abnormal findings in urine; N18.9 Chronic kidney disease, unspecified
CPT/HCPCS: 81001; 85025; 87086

== ENCOUNTER 2019-03-30 09:13 | Inpatient (IN) ==
--- NOTE | 2019-03-30 09:47 | Emergency Department Note ---
ED Disposition Clinical Impression: Hypokalemia, Hypotension Disposition: Admitted as Observation Condition on Discharge: Fair Referrals: Zack Batista MD [Primary Care Provider] - Time of Disposition: 17:38 - Critical Care Critical Care Time: No Attestation: On 03/30/19, the high probability of a clinically significant, sudden or life threatening deterioration of the following system(s) required my full and direct attention, intervention and personal management. The time I documented below is in addition to time spent performing reported procedures but includes the fol lowing listed in this critical care notation. Medical Decision Making - Medical Records Medical records reviewed: Yes: I reviewed the patient's medical records. - Zion Inquiry Pt receiving controlled substance: No Zion was queried for this patient: No Vital Signs: 03/30/19 09:02 03/30/19 10:53 03/30/19 12:55 Temperature 98.4 F Temperature Source Oral Pulse Rate [Right Radial] 66 100 H 64 Respiratory Rate 18 Blood Pressure [Right Arm] 112/84 93/54 L 108/46 L Blood Pressure Mean [Right Arm] 93 67 66 Blood Pressure Source [Right Arm] Automatic Cuff Automatic Cuff Automatic Cuff Blood Pressure Position [Right Arm] Sitting Sitting Supine 02 Sat by Pulse Oximetry 99 93 L 94 L Oxygen Delivery Method Room Air Room Air Room Air 03/30/19 15:48 Temperature Temperature Source Pulse Rate [Right Radial] 70 Respiratory Rate Blood Pressure [Right Arm] 117/87 Blood Pressure Mean [Right Arm] 97 Blood Pressure Source [Right Arm] Automatic Cuff Blood Pressure Position [Right Arm] Sitting 02 Sat by Pulse Oximetry 93 L Oxygen Delivery Method Room Air - Lab Data Lab results reviewed: Yes: I reviewed the patient's lab results. Lab Results 03/30/19 11:15: WBC 4.6 L, RBC 2.87 L, Hgb 9.1 L, Hct 27.8 L, MCV 96.8, MCH 31.8 H, MCHC 32.8, RDW 16.0, Plt Count 57 L, MPV 11.2 H, Neut % (Auto) 63.0, Lymph % (Auto) 24.4, Cooper % (Auto) 10.1 H, Eos % (Auto) 2.3, Baso % (Auto) 0.2, Neut # (Auto) 2.9, Lymph # (Auto) 1.1, Cooper # (Auto) 0.5, Eos # (Auto) 0.1, Baso # (Auto) 0.0 03/30/19 11:15: Sodium 139, Potassium 2.3 L*, Chloride 104, Carbon Dioxide 25, Anion Gap 12.3, BUN 17, Creatinine 2.87 H, Estimated Creat Clear 31, Estimated GFR 17 L*, Est GFR ( Amer) 21 L, Glucose 128 H, Calcium 9.0, Total Bilirubin 0.6, AST 8 L, ALT 6 L, Alkaline Phosphatase 56, Total Protein 5.9 L, Albumin 2.8 L, Globulin 3.1, Albumin/Globulin Ratio 0.9 L 03/30/19 12:15: Lactate 1.1 03/30/19 12:15: Total Creatine Kinase 84 Result diagrams: 03/30/19 11:15 03/30/19 11:15 Orders (Tests/Meds): ED MEDICATIONS Generic Name Dose Route Start Last Admin Trade Name Freq PRN Reason Stop Dose Admin Potassium Chloride/Water 100 mls @ 50 mls/hr 03/30/19 12:44 03/30/19 14:59 Potassium Chloride 20meq/100ml Ivpb IV 03/30/19 18:43 Not Given Q2H CATRACHO Discontinued Medications Generic Name Dose Route Start Last Admin Trade Name Freq PRN Reason Stop Dose Admin Sodium Chloride 1,000 mls @ 999 mls/hr 03/30/19 09:45 03/30/19 12:55 Sod Chlor 0.9% 1000ml Bag IV 03/30/19 10:45 999 mls/hr .Q1H1M CATRACHO Administration Sodium Chloride 1,000 mls @ 999 mls/hr 03/30/19 12:45 Sod Chlor 0.9% 1000ml Bag IV 03/30/19 13:45 .Q1H1M CATRACHO Ondansetron HCl 4 mg 03/30/19 09:41 03/30/19 13:28 Zofran 4mg/2ml Vial IV 03/30/19 09:42 4 mg ONCE ONE Administration Potassium Chloride 40 meq 03/30/19 12:42 Klor-Con 20meq Tablet PO 03/30/19 12:43 ONCE ONE ORDERS Category Date Time Status Drug Screen,Urine Stat Lab 03/30/19 13:21 Ordered UA [Urinalysis and Microscopic] Stat Lab 03/30/19 09:38 Ordered Blood Culture Stat Micro 03/30/19 12:15 Received General Adult HPI - General Chief complaint: Fall Stated complaint: FALL Time Seen by Provider: 03/30/19 09:44 Mode of Arrival: EMS Source of Information: Patient, EMS Limitations: No Limitations Description of Symptoms (Recalled from ER Triage Doc. by RN): PT BROUGHT IN VIA EMS WITH C/O FALLING INTO THE FLOOR OF HER APT. PT C/O NECK PAIN, BACK PAIN, RT SIDE PAIN. - History of Present Illness HPI narrative: Has had weakness and multiple falls, relates to orthostatic symptoms at home. hypotensive on arrival today. Hit head, pelvis, also complains of pain to neck.patient fell at 440 pm yesterday and was on floor until ambulance brought her in this this date. Back pain is later voicee MD complaint: fall at her home in bedroom, weakness in legs. - Related Data Home Medications Medication Instructions Recorded Confirmed Propranolol HCl [Propranolol HCl 60 mg PO BID 07/09/18 03/30/19 ER] Prazosin HCl 1 mg PO PM 07/17/18 03/30/19 Cholecalciferol (Vitamin D3) 50,000 unit PO DIRECTED 09/19/18 03/30/19 [Vitamin D3 50,000 unit Cap] Divalproex Sodium [Depakote 250mg 250 mg PO DAILY 09/19/18 03/30/19 (Delayed-Release) tablet] Iron [Iron 18mg Tab] 65 mg PO DAILY 09/19/18 03/30/19 Melatonin 10 mg PO HS 09/19/18 03/30/19 OLANZapine [Olanzapine] 10 mg PO DAILY 09/19/18 03/30/19 Ondansetron [Zofran 4mg ODT] 8 mg PO DAILY PRN 09/20/18 03/30/19 Pantoprazole Sodium [Protonix 40mg 40 mg PO DAILY 09/20/18 03/30/19 tablet] Allergies Allergy/AdvReac Type Severity Reaction Status Date / Time Penicillins Allergy Intermediate I-ITCHING Verified 07/08/18 19:45 [facility] History - Hepatitis A Screen Drug use history?: No High risk sexual behaviors?: No History of sexually transmitted infection?: No Currently employed?: No Childcare worker?: No Do you have indoor plumbing?: Yes Do you have electricity?: Yes Attestation statement:: This patient has been screened for Hepatitis A risk factors. I have reviewed the patient's past medical history: Yes Medical History: Reports:: Anxiety, Gastroesophageal Reflux Disease(GERD), Hypertension, MRSA, Myocardial Infarction, Seizures Denies:: Cancer, Diabetes Mellitus Type 1, Diabetes Mellitus Type 2, Internal Pacemaker, Lung Disease Other Medical History: Reports: Anemia Other Surgeries: Yes: Colonoscopy, Hysterectomy-Total. No: Pacemaker Amputation: No Fractures: No - Social History Smoking Status: Never smoker Alcohol Intake: never Alcohol Intake Frequency:: other Substance Use Type: denies use Occupational Status: disabled Housing: apartment Household Members: none - Psychiatric History Pschychiatric History:: Reports:: Anxiety Family Hx:: Anemia, Cancer, Heart Attack, Hyperlipidemia, Hypertension, Stroke Comment: of [place] at 71-Mother. of [place] at 72-Father ROS Obtained: Yes All systems reviewed & no additional complaints - Constitutional Constitutional: Denies fever(s), Reports lethargy, Reports weakness - Eyes Eyes: Reports system reviewed and no additional complaints, except as docu, Denies change in vision - ENT Ears, Nose, Mouth, and Throat: Reports system reviewed and no additional complaints, except as docu - Cardiovascular Cardiovascular: Denies chest pain, Denies chest pain at rest, Denies diaphoresis, Denies dyspnea, Denies edema - Respiratory Respiratory: No chest congestion, No cough, No dyspnea - Gastrointestinal Gastrointestingal: Denies: abdominal pain, diarrhea, vomiting - Musculoskeletal Musculoskeletal: Reports muscle weakness, Reports muscle aches, Reports neck pain, Denies numbness - Integumentary/Breasts Skin/Breast: Denies rash, Denies skin pain - Neurologic Neurologic: Denies seizure-like activity, Reports weakness, Reports other (near syncope, likely related to hypotension) - Hematologic/Lymphatic Henatologic/Lymphatic: Denies easy bleeding, Denies easy bruising Physical Exam - General General appearance: alert, obese - Head Head exam: other (light bruising toforehead.) - Eye Eye exam: Present: normal appearance - ENT ENT exam: Present: normal exam, normal oropharynx, mucous membranes moist, TM's normal bilaterally, normal external ear exam - Neck Neck exam: Present: normal inspection, tenderness, other (minimal, diffusely in paraspinous muscles) - Respiratory Respiratory exam: Present: normal lung sounds bilaterally. Absent: respiratory distress - Cardiovascular Cardiovascular exam: Present: regular rate - Abdominal Exam Abdominal exam: Present: soft, normal bowel sounds. Absent: distention, tenderness, guarding - Extremities Exam Extremities exam: Present: normal inspection, full ROM, normal capillary refill. Absent: calf tenderness - Back Exam Back exam: Present: normal inspection. Absent: tenderness - Neurological Exam Neurological exam: Present: alert, oriented X3, CN II-XII intact - Psychiatric Psychiatric exam: Present: normal affect - Skin Skin exam: Absent: other (scattered small ecchymotic areas arms , abdomen) - Lymphatic Lymphatic Findings: no adenopathy
[2019-03-30 11:28] LABS: Basophils % 0.2 % (0.1-2.0); Eosinophils # 0.1 K/mm3 (0.0-0.4); Eosinophils % 2.3 % (0.1-12.0); Hematocrit 27.8 % (37.0-47.0); Hemoglobin 9.1 g/dL (12.2-16.2); Lymphocytes # 1.1 K/mm3 (0.7-4.5); Lymphocytes % 24.4 % (10-50); Mean Corpuscular HGB Conc 32.8 g/dL (31.8-35.4); Mean Corpuscular Volume 96.8 fl (81-99); Mean Platelet Volume 11.2 fl (7.4-10.4); Monocytes # 0.5 K/mm3 (0.1-1.0); Monocytes % 10.1 % (1.7-9.3); Neutrophils # 2.9 K/mm3 (1.8-7.8); Platelet Count 57 K/mm3 (142-424); Red Blood Count 2.87 M/mm3 (4.20-5.40); White Blood Count 4.6 K/mm3 (4.8-10.8)
[2019-03-30 11:41] LABS: Albumin Level 2.8 gm/dL (3.4-5.0); Albumin/Globulin Ratio 0.9 (1.1-1.8); Anion Gap 12.3 mEq/L (5-15); Bilirubin,Total 0.6 mg/dL (0.2-1.0); Globulin 3.1 gm/dl (1.3-3.2); Total Protein,Serum 5.9 gm/dL (6.4-8.2)
[2019-03-31 07:12] LABS: Basophils % 0.2 % (0.1-2.0); Eosinophils # 0.1 K/mm3 (0.0-0.4); Hematocrit 27.7 % (37.0-47.0); Hemoglobin 8.4 g/dL (12.2-16.2); Lymphocytes # 1.5 K/mm3 (0.7-4.5); Lymphocytes % 43.2 % (10-50); Mean Corpuscular HGB Conc 30.5 g/dL (31.8-35.4); Mean Corpuscular Volume 101.9 fl (81-99); Mean Platelet Volume 10.6 fl (7.4-10.4); Monocytes # 0.2 K/mm3 (0.1-1.0); Monocytes % 7.2 % (1.7-9.3); Neutrophils # 1.6 K/mm3 (1.8-7.8); Neutrophils % 47.5 % (37.0-80.0); Platelet Count 78 K/mm3 (142-424); Red Blood Count 2.72 M/mm3 (4.20-5.40); Red Cell Distribution Width 16.3 % (11.5-17.5); White Blood Count 3.4 K/mm3 (4.8-10.8)
[2019-03-31 07:22] LABS: Anion Gap 13.5 mEq/L (5-15); Calcium 8.6 mg/dL (8.5-10.1)
--- NOTE | 2019-03-31 11:18 | Pharmacy Consult Notes ---
[facility] Pharmacy VTE Monitoring - Patient Demographics Admission date: 03/30/19 Report Date: 03/31/19 Time: 11:17 Allergies/Adverse Reactions: Patient Allergies Penicillins Allergy (Intermediate, Verified 07/08/18 19:45) I-ITCHING Height: 1.57 m Weight: 95.906 kg Patient Problems: Current Active Problems Hypokalemia (Acute) Hypotension (Acute) Recurrent falls (Acute) - VTE Risk Labs: VTE Related Lab Results Hgb 8.4 g/dL (12.2-16.2) L 03/31/19 06:59 Hct 27.7 % (37.0-47.0) L 03/31/19 06:59 Plt Count 78 K/mm3 (142-424) L D 03/31/19 06:59 BUN 18 mg/dL (7-18) 03/31/19 06:59 Creatinine 3.01 mg/dL (0.55-1.02) H 03/31/19 06:59 Estimated Creat Clear 32 mL/min (50-200) 03/31/19 06:59 - Prophylaxis VTE Prophylaxis Ordered?: Yes Types of VTE Prophylaxis: TEDS Knee High Location of Applied Device: Bilateral Lower Extremeties
--- NOTE | 2019-03-31 11:47 | History & Physical Report ---
*Admission Date: 03/30/19 *Chief complaint: falls, confusion *History of present illness: Ms. Mireles is a 58-year-old female with recurrent hospitalizations for weakness and fatigue in the past few years. Has had previous episodes of hypokalemia and acute kidney injury as well. She presented to the ER yesterday due to fatigue and frequent falls worsening over the past week. Has some mild confusion at time of admission and is a poor historian at time of interview this morning. She reports that she came to the ER because of falls and weakness at home. Denies nausea, vomiting, fevers, recurrent diarrhea, shortness of breath or focal neurological sx. On initial assessment she was found to have acute renal failure with HOMERO approximately 2.8. Baseline is in the 1.1-1.3 range. She also is noted to have hypokalemia, back pain, and hypotension. She does report her urine output has been less lately. Only takes prazosin and propranolol for blood pressure but his not wanted to stop taking them due to very labile blood pressure with episodes of hypertension, at least per her report. She is also on valproic acid for seizure disorder, olanzapine for suspected depression versus history of psychosis. No family at bedside to get further history from. [facility] History I have reviewed the patient's past medical history: Yes Medical History: Reports:: Anxiety, Gastroesophageal Reflux Disease(GERD), Hypertension, MRSA, Myocardial Infarction, Seizures Denies:: Cancer, Diabetes Mellitus Type 1, Diabetes Mellitus Type 2, Internal Pacemaker, Lung Disease *Have you ever received a pneumonia vaccine?: Yes *Have you received a flu vaccine this season?: No Other Medical History: Reports: Anemia Other Surgeries: Yes: Colonoscopy, Colon Resection, Hysterectomy-Total. No: Pacemaker Amputation: No Fractures: No - *Social History Smoking Status: Never smoker Alcohol Intake: never Alcohol Intake Frequency:: other Substance Use Type: denies use *Occupational Status:: disabled Housing: apartment Household Members: none *Travel in the last 8 weeks: None - Psychiatric History Pschychiatric History:: Reports:: Anxiety Family Hx:: Anemia, Cancer, Heart Attack, Hyperlipidemia, Hypertension, Stroke Review of Systems - Review of Systems Review of systems:: pertinent systems reviewed and negative unless documented below - *Neurologic Reports weakness, Reports other (near syncope, likely related to hypotension), Denies numbness, Denies seizure-like activity Meds Home Medications Medication Instructions Recorded Confirmed Type Propranolol HCl [Propranolol HCl 60 mg PO BID 07/09/18 03/31/19 History ER] Prazosin HCl 2 mg PO HS 07/17/18 03/31/19 History Cholecalciferol (Vitamin D3) 50,000 unit PO DIRECTED 09/19/18 03/31/19 History [Vitamin D3 50,000 unit Cap] Divalproex Sodium [Depakote 250mg 750 mg PO BID 09/19/18 03/31/19 History (Delayed-Release) tablet] Melatonin 10 mg PO HS 09/19/18 03/31/19 History OLANZapine [Olanzapine] 10 mg PO DAILY 09/19/18 03/31/19 History Ondansetron [Zofran 4mg ODT] 8 mg PO DAILY PRN 09/20/18 03/31/19 History Pantoprazole Sodium [Protonix 40mg 40 mg PO DAILY 09/20/18 03/31/19 History tablet] Nitrofurantoin Monohyd/M-Cryst 100 mg PO DAILY 03/31/19 03/31/19 History [Nitrofurantoin Florence-Mcr 100 mg] Allergies Allergy/AdvReac Type Severity Reaction Status Date / Time Penicillins Allergy Intermediate I-ITCHING Verified 07/08/18 19:45 Exam Vital signs and Labs for Last 24 Hours: Temp Pulse Resp BP Pulse Ox 98.0 F 67 18 90/50 L 98 03/31/19 08:00 03/31/19 08:00 03/31/19 08:00 03/31/19 08:00 03/31/19 08:00 Laboratory Results - last 24 hr 03/30/19 12:15: Lactate 1.1 03/30/19 12:15: Total Creatine Kinase 84 03/30/19 20:37: POC Glucose 119 H 03/31/19 05:50: POC Glucose 78 03/31/19 06:59: WBC 3.4 L D, RBC 2.72 L, Hgb 8.4 L, Hct 27.7 L, MCV 101.9 H, MCH 31.0, MCHC 30.5 L, RDW 16.3, Plt Count 78 L D, MPV 10.6 H, Neut % (Auto) 47.5, Lymph % (Auto) 43.2, Florence % (Auto) 7.2, Eos % (Auto) 2.0, Baso % (Auto) 0.2, Neut # (Auto) 1.6 L, Lymph # (Auto) 1.5, Florence # (Auto) 0.2, Eos # (Auto) 0.1, Baso # (Auto) 0.0 03/31/19 06:59: Sodium 142, Potassium 2.5 L*, Chloride 107, Carbon Dioxide 24, Anion Gap 13.5, BUN 18, Creatinine 3.01 H, Estimated Creat Clear 32, Estimated GFR 16 L*, Est GFR ( Amer) 19 L*, Glucose 81 D, Calcium 8.6, Magnesium 1.8 I & O for Last 24 hours: Intake & Output 03/28/19 03/29/19 03/30/19 03/31/19 23:59 23:59 23:59 23:59 Intake Total 457 / 457 Balance 457 / 457 Weight 95.283 kg 95.906 kg - Constitutional obese, chronically ill appearing - *Routine HEENT Exam Head: Present: normocephalic Eye: Present: EOMI, PERRL ENT: Present: mucous membranes moist. Absent: dentition normal - *Routine Neck Exam Present: supple. Absent: lymphadenopathy - *Routine Respiratory Exam Present: CTA bilaterally - *Routine Cardiovascular Exam Present: RRR - *Routine Abdominal Exam Present: soft, normoactive bowel sounds. Absent: tenderness - *Routine Extremities Exam Present: edema (1+). Absent: cyanosis, clubbing - Routine Back/Spine/Pelvis Exam Comments: Tender to palpation mid back, worse on the right in paraspinal muscles - *Routine Skin Exam Present: warm. Absent: rash - *Routine Neurological Exam Present: alert Oriented x2, speech wandering at times. Slow to respond to questions. Assessment and Plan (1) Hypokalemia Current visit: Yes Status: Acute Category: Medical Code(s): E87.6 - Hypokalemia Has had previous episodes of similar electrolyte disturbance. Not on any diuretics. No clear cause for hypokalemia at this time. No reported diarrhea as possible loss or emesis is possible loss. Cannot rule out however given recurrent episodes of hypokalemia the patient may have underlying renal disorder such as Bartter, phyllis, or Conn syndrome. At this time will replace aggressively with both IV and oral formulations of potassium chloride. Would benefit from more extensive work-up in the outpatient setting and referral to bunch breaker after medically stable. Additionally given patient's mood disorder and psychoses, would be of value to review medications in the past to make sure she does not have diuretics at home that she may be taking surreptitiously causing excessive potassium loss. (2) Hypotension Current visit: Yes Status: Acute Category: Medical Code(s): I95.9 - Hypotension, unspecified Suspect due to dehydration. Will hold propranolol and prazosin at this time. 1 L bolus lactated Ringer's administered this morning, will assess response to fluid resuscitation. Repeat labs this afternoon to monitor for improvement and HOMERO (3) Recurrent falls Current visit: Yes Status: Chronic Category: Medical Code(s): R29.6 - Repeated falls Suspect secondary to fatigue, electrolyte disturbances, dehydration, kidney injury. Physical therapy consult placed. Patient may benefit from short-term [place] [facility] placement for medication management and physical therapy. (4) Acute alteration in mental status Current visit: No Status: Acute Category: Medical Code(s): R41.82 - Alter ed mental status, unspecified We will monitor for improvement with improvement in kidney function and normalization of electrolytes. Holding olanzapine at this time as it may cause altered mental status and hypotension, 2 problems this patient is struggling with at this time. Continue Depakote, VPA level pending (5) Acute kidney injury Current visit: No Status: Acute Category: Medical Code(s): N17.9 - Acute kidney failure, unspecified (6) Anemia Current visit: No Status: Chronic Qualifiers: Anemia type: unspecified type Qualified Code(s): D64.9 - Anemia, unspecified Category: Medical Code(s): D64.9 - Anemia, unspecified Patient is anemic with macrocytosis, no active bleeding apparent. Suspect B12 and folate deficient. Recommend B12 shots in the outpatient setting. Will obtain B12 level. (7) Seizure disorder Current visit: No Status: Chronic Category: Medical Code(s): G40.909 - Epilepsy, unspecified, not intractable, without status epilepticus Continue Depakote in setting of seizure disorder, seizure precautions in place (8) Thrombocytopenia Current visit: Yes Status: Acute Category: Medical Code(s): D69.6 - Thrombocytopenia, unspecified Unclear about the chronicity of thrombocytopenia. Differential diagnosis at this time consists of abnormal function, consumption due to bleeds, cirrhosis, decreased production due to bone marrow abnormality. Will pursue right upper quadrant ultrasound to assess for liver abnormality given clinical setting. - Assessment and plan all Dx Assessment and Plan for all problems:: Ms. Macario is a 58-year-old female who presented with dizziness and falls. Found to have hypokalemia, hypo-tension, thrombocytopenia, anemia, and kidney dysfunction. At this time she is quite ill. Further work-up pending with labs and imaging ordered. We will continue fluid resuscitation for patient's hypotension and kidney injury. Repeat labs this afternoon to assess for improvement. Caution with medications that may worsen her altered mental status. Will avoid nephrotoxins. Patient's current condition is guarded, prognosis unclear at this time. No indication as of yet for antibiotics but will have low threshold to initiate if possible infection found. To needs to require inpatient management. Anticipate needing placement at time of discharge given fatigue and falls, PT to assess.
[2019-03-31 12:10] LABS: Amphetamine/Metha Screen,Urine Negative ng/mL (<1000); Barbiturates Screen,Urine Negative ng/mL (<200); Benzodiazepines Screen,Urine Negative ng/mL (<200); Cannabinoid Screen,Urine Negative ng/mL (<50); Cocaine Screen,Urine Negative ng/mL (<300); Methadone Screen,Urine Negative ng/mL (<300); Opiate Screen,Urine Positive ng/mL (<300); Phencyclidine Screen,Urine Negative ng/mL (<25)
[2019-03-31 18:54] LABS: Calcium 8.5 mg/dL (8.5-10.1)
[2019-04-01 06:02] LABS: Basophils % 0.3 % (0.1-2.0); Eosinophils # 0.1 K/mm3 (0.0-0.4); Eosinophils % 2.2 % (0.1-12.0); Lymphocytes # 2.3 K/mm3 (0.7-4.5); Lymphocytes % 51.2 % (10-50); Mean Corpuscular HGB Conc 30.6 g/dL (31.8-35.4); Monocytes # 0.6 K/mm3 (0.1-1.0); Monocytes % 12.2 % (1.7-9.3); Neutrophils # 1.5 K/mm3 (1.8-7.8); Platelet Count 70 K/mm3 (142-424); Red Blood Count 2.33 M/mm3 (4.20-5.40); Red Cell Distribution Width 16.4 % (11.5-17.5); White Blood Count 4.5 K/mm3 (4.8-10.8)
[2019-04-01 06:05] LABS: Hemoglobin 7.3 g/dL (12.2-16.2)
[2019-04-01 06:22] LABS: Albumin Level 2.3 gm/dL (3.4-5.0); Albumin/Globulin Ratio 0.8 (1.1-1.8); Anion Gap 11.7 mEq/L (5-15); Bilirubin,Total 0.4 mg/dL (0.2-1.0); Globulin 2.8 gm/dl (1.3-3.2); Total Protein,Serum 5.1 gm/dL (6.4-8.2)
[2019-04-01 06:27] LABS: Anisocytosis 1+; Lymphocytes % 64 % (10-50); Macrocytosis 3+; Monocytes % 6 % (2-9); Neutrophils % 29 % (42-76); Total Cells Counted 100
[2019-04-01 06:30] LABS: Phosphorous 1.7 mg/dL (2.4-4.9)
[2019-04-01 06:31] LABS: Calcium 8.7 mg/dL (8.5-10.1)
--- NOTE | 2019-04-01 08:51 | Progress Note ---
Internal Medicine - PN: Subj *Date: 04/01/19 *Time: 08:47 Interval history: Patient without new complaints. Continues to feel dizzy and unsteady on her feet. Has back pain from falls. Scheduled for abd. u/s this a.m. Exam Vital signs and Labs for Last 24 Hours: Temp Pulse Resp BP Pulse Ox 97.6 F 79 16 114/61 93 L 04/01/19 07:56 04/01/19 07:56 04/01/19 07:56 04/01/19 07:56 04/01/19 07:56 Laboratory Results - last 24 hr 03/30/19 11:20: Urine Opiates Screen Positive H, Urine Methadone Screen Negative, Ur Barbituates Screen Negative, Ur Phencyclidine Scrn Negative, Ur Amphetamines Screen Negative, U Benzodiazepines Scrn Negative, Urine Cocaine Screen Negative, U Marijuana (THC) Screen Negative 03/31/19 06:59: Magnesium 1.8 03/31/19 11:20: Urine Color Yellow, Urine Appearance Clear, Urine pH 6.0, Ur Specific Patten 1.020, Urine Protein Trace, Urine Glucose (UA) Negative, Urine Ketones Negative, Urine Blood Negative, Urine Nitrate Negative, Urine Bilirubin 1+ A, Urine Urobilinogen 0.2, Ur Leukocyte Esterase Negative, Urine WBC 3-5, Ur Squamous Epith Cells Occasional, Urine Bacteria Trace, Hyaline Casts Occ 03/31/19 18:00: Sodium 138, Potassium 3.0 L, Chloride 105, Carbon Dioxide 23, Anion Gap 13.0, BUN 17, Creatinine 3.06 H, Estimated Creat Clear 31, Estimated GFR 16 L*, Est GFR ( Amer) 19 L*, Glucose 132 H D, Calcium 8.5 03/31/19 18:00: Ammonia 21 04/01/19 05:40: WBC 4.5 L D, RBC 2.33 L, Hgb 7.3 L*, Hct 24.0 L, MCV 103.0 H, MCH 31.5 H, MCHC 30.6 L, RDW 16.4, Plt Count 70 L, MPV 10.0, Neut % (Auto) 34.0 L, Lymph % (Auto) 51.2 H, Waller % (Auto) 12.2 H, Eos % (Auto) 2.2, Baso % (Auto) 0.3, Neut # (Auto) 1.5 L, Lymph # (Auto) 2.3, Waller # (Auto) 0.6, Eos # (Auto) 0.1, Baso # (Auto) 0.0, Total Counted 100, Neutrophils % (Manual) 29 L, Band Neutrophils % 1.0, Lymphocytes % (Manual) 64 H, Monocytes % (Manual) 6, Hypersegmented Neuts 1+, Platelet Estimate Slight decrease, Anisocytosis 1+, Macrocytosis 3+ 04/01/19 05:40: Sodium 139, Potassium 2.7 L*, Chloride 106, Carbon Dioxide 24, Anion Gap 11.7, BUN 15, Creatinine 2.89 H, Estimated Creat Clear 34, Estimated GFR 17 L*, Est GFR ( Amer) 20 L, Glucose 78 D, Calcium 8.7, Phosphorus 1.7 L, Magnesium 1.5 D, Total Bilirubin 0.4, AST 12 L D, ALT 8 L D, Alkaline Phosphatase 49, Total Protein 5.1 L, Albumin 2.3 L, Globulin 2.8, Albumin/Globulin Ratio 0.8 L I & O for Last 24 hours: Intake & Output 03/29/19 03/30/19 03/31/19 04/01/19 11:59 11:59 11:59 11:59 Intake Total 457 / 457 3125.5 / 3125.5 Output Total 325 / 325 Balance 457 / 457 2800.5 / 2800.5 Weight 200 lb 211 lb 7 oz 221 lb 2 oz Narrative: Disheveled. Mentation is slow and patient often repeats herself. Lungs are clear. Heart has a regular rate and rhythm. Abd is obese and soft. Skin has multiple bruises on arms, legs. No bruising of back. Ramirez catheter is anchored Assessment and Plan (1) Metabolic encephalopathy Current visit: Yes Status: Acute Category: Medical Code(s): G93.41 - Metabolic encephalopathy Continue electrolyte replacement and await B12 level and Depakote level. (2) Hypokalemia Current visit: Yes Status: Acute Category: Medical Code(s): E87.6 - Hypokalemia Change IVF to d5 1/2 NS w/KCL and give runs of KCL today (3) Hypotension Current visit: Yes Status: Acute Category: Medical Code(s): I95.9 - Hypotension, unspecified (4) Recurrent falls Current visit: Yes Status: Chronic Category: Medical Code(s): R29.6 - Repeated falls PT eval (5) Acute alteration in mental status Current visit: No Status: Acute Category: Medical Code(s): R41.82 - Altered mental status, unspecified (6) Acute kidney injury Current visit: No Status: Acute Category: Medical Code(s): N17.9 - Acute kidney failure, unspecified Serial BMP (7) Anemia Current visit: No Status: Chronic Qualifiers: Anemia type: unspecified type Qualified Code(s): D64.9 - Anemia, unspecified Category: Medical Code(s): D64.9 - Anemia, unspecified (8) Seizure disorder Current visit: No Status: Chronic Category: Medical Code(s): G40.909 - Epilepsy, unspecified, not intractable, without status epilepticus H/O of "seizures" only ever witnessed by her now . 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 (9) Thrombocytopenia Current visit: Yes Status: Acute Category: Medical Code(s): D69.6 - Thrombocytopenia, unspecified
[2019-04-02 06:58] LABS: Basophils % 0.3 % (0.1-2.0); Eosinophils # 0.1 K/mm3 (0.0-0.4); Eosinophils % 2.7 % (0.1-12.0); Hematocrit 29.8 % (37.0-47.0); Hemoglobin 9.1 g/dL (12.2-16.2); Lymphocytes # 1.6 K/mm3 (0.7-4.5); Lymphocytes % 35.7 % (10-50); Mean Corpuscular HGB Conc 30.5 g/dL (31.8-35.4); Mean Corpuscular Volume 102.9 fl (81-99); Mean Platelet Volume 9.1 fl (7.4-10.4); Monocytes # 0.6 K/mm3 (0.1-1.0); Monocytes % 14.2 % (1.7-9.3); Neutrophils # 2.1 K/mm3 (1.8-7.8); Neutrophils % 47.1 % (37.0-80.0); Platelet Count 80 K/mm3 (142-424); Red Cell Distribution Width 15.9 % (11.5-17.5); White Blood Count 4.4 K/mm3 (4.8-10.8)
[2019-04-02 07:13] LABS: Anion Gap 11.5 mEq/L (5-15); Calcium 8.8 mg/dL (8.5-10.1)
--- NOTE | 2019-04-02 07:14 | Progress Note ---
Internal Medicine - PN: Subj *Date: 04/02/19 *Time: 07:10 Interval history: Patient continues to complain of back pain. She did get out of bed with assistance yesterday. She was able to eat. Abdominal ultrasound revealed a common bile duct at the upper limit of normal and some mild hepatic i rregularities. Patient received 1 unit of packed red blood cells yesterday evening. Exam Vital signs and Labs for Last 24 Hours: Temp Pulse Resp BP Pulse Ox 98.2 F 91 H 19 141/62 H 98 04/02/19 06:15 04/02/19 06:15 04/02/19 06:15 04/02/19 06:15 04/02/19 06:15 Laboratory Results - last 24 hr 04/01/19 08:14: Magnesium 1.5 04/01/19 09:20: Blood Type O Positive, Antibody Screen Positive, Crossmatch (AHG) See Detail 04/01/19 09:20: Antibody Identification Anti-c I & O for Last 24 hours: Intake & Output 03/30/19 03/31/19 04/01/19 04/02/19 11:59 11:59 11:59 11:59 Intake Total 457 / 457 3225.5 / 3225.5 3028 / 3028 Output Total 325 / 325 1245 / 1245 Balance 457 / 457 2900.5 / 2900.5 1783 / 1783 Weight 200 lb 211 lb 7 oz 221 lb 2 oz 226 lb Microbiology Reports for the Last 24 Hours: Microbiology 03/31/19 11:20 Urine,Catheterized Urine Culture - Preliminary NO GROWTH AFTER 24 HOURS 03/30/19 12:15 Blood Blood Culture - Preliminary NO GROWTH AFTER 48 HOURS 03/30/19 12:15 Blood Blood Culture - Preliminary NO GROWTH AFTER 48 HOURS Narrative: Patient seems more alert this morning. Mentation is still slow. Oropharynx is moist. Neck is without lymphadenopathy. Lungs are clear. Heart has a regular rate and rhythm. Abdomen is obese and soft. Assessment and Plan (1) Metabolic encephalopathy Current visit: Yes Status: Acute Category: Medical Code(s): G93.41 - Metabolic encephalopathy Mild improvement today. Continue to replace deficient electrolytes (2) Hypokalemia Current visit: Yes Status: Acute Category: Medical Code(s): E87.6 - Hy pokalemia (3) Hypotension Current visit: Yes Status: Resolved Category: Medical Code(s): I95.9 - Hypotension, unspecified Decrease IV fluids to 75 mL's an hour of D5 half-normal saline with potassium (4) Recurrent falls Current visit: Yes Status: Chronic Category: Medical Code(s): R29.6 - Repeated falls PT eval today (5) Acute kidney injury Current visit: No Status: Acute Category: Medical Code(s): N17.9 - Acute kidney failure, unspecified Await morning labs. Blood pressure slowly improving. Continue to hold antihypertensives (6) Anemia Current visit: No Status: Chronic Qualifiers: Anemia type: unspecified type Qualified Code(s): D64.9 - Anemia, unspecified Category: Medical Code(s): D64.9 - Anemia, unspecified Await morning labs. Suspect anemia is dilutional. (7) Seizure disorder Current visit: No Status: Chronic Category: Medical Code(s): G40.909 - Epilepsy, unspecified, not intractable, without status epilepticus Dilantin level in process (8) Thrombocytopenia Current visit: Yes Status: Acute Category: Medical Code(s): D69.6 - Thrombocytopenia, unspecified (9) Body mass index (BMI) of 40.1 to 44.9 in adult Current visit: Yes Status: Acute Category: Medical Code(s): Z68.41 - Body mass index (BMI) 40.0-44.9, adult (10) Hypomagnesemia Current visit: Yes Status: Acute Category: Medical Code(s): E83.42 - Hypomagnesemia - Assessment and plan all Dx Assessment and Plan for all problems:: Overall patient still requires inpatient management to correct electrolyte deficiencies and monitor renal function. PT eval today. Care management has been consulted to look into placement
--- NOTE | 2019-04-02 17:36 | Electrocardiograph Report ---
APPROVED REPORT Exam: Resting ECG HR:65 bpm ECG Measurements Heart Rate 65 AXES WA 200 P 68 QRSd 90 QRS -8 QT 382 T209 QTc 397 <Conclusion> Normal sinus rhythm ST & T wave abnormality, consider anterolateral ischemia Abnormal ECG Electronically signed by : Gordon Flynn, 04/02/2019 17:35:33
[2019-04-03 06:13] LABS: Basophils % 0.3 % (0.1-2.0); Eosinophils # 0.1 K/mm3 (0.0-0.4); Eosinophils % 4.1 % (0.1-12.0); Hematocrit 27.3 % (37.0-47.0); Hemoglobin 8.3 g/dL (12.2-16.2); Lymphocytes # 1.5 K/mm3 (0.7-4.5); Lymphocytes % 43.6 % (10-50); Mean Corpuscular HGB Conc 30.4 g/dL (31.8-35.4); Mean Corpuscular Volume 104.4 fl (81-99); Mean Platelet Volume 8.6 fl (7.4-10.4); Monocytes # 0.3 K/mm3 (0.1-1.0); Monocytes % 8.1 % (1.7-9.3); Neutrophils # 1.5 K/mm3 (1.8-7.8); Neutrophils % 43.9 % (37.0-80.0); Platelet Count 52 K/mm3 (142-424); Red Blood Count 2.61 M/mm3 (4.20-5.40); Red Cell Distribution Width 15.8 % (11.5-17.5); White Blood Count 3.4 K/mm3 (4.8-10.8)
[2019-04-03 06:26] LABS: Anion Gap 10.6 mEq/L (5-15); Calcium 8.3 mg/dL (8.5-10.1)
--- NOTE | 2019-04-03 07:20 | Progress Note ---
Internal Medicine - PN: Subj *Date: 04/03/19 *Time: 07:17 Interval history: Patient has no new complaints this morning. She ambulated with the assistance of physical therapy. Nursing staff reports 2 episodes of incontinence since removal of her Ramirez catheter. Patient slept well overnight and is been oriented to person, place, date and year. Exam Vital signs and Labs for Last 24 Hours: Temp Pulse Resp BP Pulse Ox 98.3 F 83 20 122/64 96 04/03/19 04:00 04/03/19 04:00 04/03/19 04:00 04/03/19 04:00 04/03/19 04:00 Laboratory Results - last 24 hr 04/02/19 06:25: WBC 4.4 L, RBC 2.90 L, Hgb 9.1 L, Hct 29.8 L, MCV 102.9 H, MCH 31.4 H, MCHC 30.5 L, RDW 15.9, Plt Count 80 L, MPV 9.1, Neut % (Auto) 47.1, Lymph % (Auto) 35.7, [place] % (Auto) 14.2 H, Eos % (Auto) 2.7, Baso % (Auto) 0.3, Neut # (Auto) 2.1, Lymph # (Auto) 1.6, [place] # (Auto) 0.6, Eos # (Auto) 0.1, Baso # (Auto) 0.0 04/03/19 05:39: Sodium 141, Potassium 3.6, Chloride 112 H, Carbon Dioxide 22, Anion Gap 10.6, BUN 11, Creatinine 1.86 H, Estimated Creat Clear 25, Estimated GFR 28 L, Est GFR ( Amer) 34 L D, Glucose 82, Calcium 8.3 L I & O for Last 24 hours: Intake & Output 03/31/19 04/01/19 04/02/19 04/03/19 11:59 11:59 11:59 11:59 Intake Total 457 / 457 3225.5 / 3225.5 3148 / 3148 3122 / 3122 Output Total 325 / 325 1245 / 1245 1000 / 1000 Balance 457 / 457 2900.5 / 2900.5 1903 / 1903 2122 / 2122 Weight 211 lb 7 oz 221 lb 2 oz 226 lb 224 lb 8 oz Microbiology Reports for the Last 24 Hours: Microbiology 03/31/19 11:20 Urine,Catheterized Urine Culture - Final NO GROWTH AFTER 48 HOURS Narrative: Patient is asleep when I entered the room and awakens easily. Speech is fluent and clear. Lungs are distant but clear. Heart has a regular rate and rhythm. Abdomen is soft and obese. Assessment and Plan (1) Metabolic encephalopathy Current visit: Yes Status: Acute Category: Medical Code(s): G93.41 - Metabolic encephalopathy (2) Hypokalemia Current visit: Yes Status: Acute Category: Medical Code(s): E87.6 - Hypokalemia (3) Hypotension Current visit: Yes Status: Resolved Category: Medical Code(s): I95.9 - Hypotension, unspecified (4) Recurrent falls Current visit: Yes Status: Chronic Category: Medical Code(s): R29.6 - Repeated falls (5) Acute kidney injury Current visit: No Status: Acute Category: Medical Code(s): N17.9 - Acute kidney failure, unspecified (6) Anemia Current visit: No Status: Chronic Qualifiers: Anemia type: unspecified type Qualified Code(s): D64.9 - Anemia, unspecified Category: Medical Code(s): D64.9 - Anemia, unspecified (7) Seizure disorder Current visit: No Status: Chronic Category: Medical Code(s): G40.909 - Epilepsy, unspecified, not intractable, without status epilepticus (8) Thrombocytopenia Current visit: Yes Status: Acute Category: Medical Code(s): D69.6 - Thrombocytopenia, unspecified (9) Body mass index (BMI) of 40.1 to 44.9 in adult Current visit: Yes Status: Acute Category: Medical Code(s): Z68.41 - Body mass index (BMI) 40.0-44.9, adult (10) Hypomagnesemia Current visit: Yes Status: Acute Category: Medical Code(s): E83.42 - Hypomagnesemia - Assessment and plan all Dx Assessment and Plan for all problems:: 1. Renal function improving. Continue to hold antihypertensives. Discontinue IV fluids today 2. Patient has been asked to ambulate as much as possible today. 3. Monitor oral intake today. 4. Patient has high risk of readmission I want to ensure that she is able to ambulate with minimal assistance and feed herself. Anticipate discharge tomorrow if patient continues to improve
[2019-04-04 06:14] LABS: Anion Gap 9.4 mEq/L (5-15); Calcium 8.6 mg/dL (8.5-10.1)
[2019-04-04 06:21] LABS: Basophils % 0.1 % (0.1-2.0); Eosinophils # 0.1 K/mm3 (0.0-0.4); Eosinophils % 4.6 % (0.1-12.0); Hematocrit 26.8 % (37.0-47.0); Hemoglobin 8.4 g/dL (12.2-16.2); Lymphocytes # 1.3 K/mm3 (0.7-4.5); Lymphocytes % 48.8 % (10-50); Mean Corpuscular HGB Conc 31.3 g/dL (31.8-35.4); Mean Platelet Volume 8.7 fl (7.4-10.4); Monocytes # 0.3 K/mm3 (0.1-1.0); Monocytes % 9.8 % (1.7-9.3); Neutrophils % 36.7 % (37.0-80.0); Red Blood Count 2.63 M/mm3 (4.20-5.40); Red Cell Distribution Width 16.1 % (11.5-17.5); White Blood Count 2.7 K/mm3 (4.8-10.8)
[2019-04-04 06:40] LABS: Platelet Count 50 K/mm3 (142-424)
--- NOTE | 2019-04-04 07:25 | Discharge Summary ---
General - General Admission date:: 03/30/19 Discharge date: 04/04/19 HPI HPI: Ms. Mireles is a 58-year-old female with recurrent hospitalizations for weakness and fatigue in the past few years. Has had previous episodes of hypokalemia and acute kidney injury as well. She presented to the ER yesterday due to fatigue and frequent falls worsening over the past week. Has some mild confusion at time of admission and is a poor historian at time of interview this morning. She reports that she came to the ER because of falls and weakness at home. Denies nausea, vomiting, fevers, recurrent diarrhea, shortness of breath or focal neurological sx. On initial assessment she was found to have acute renal failure with HOMERO approximately 2.8. Baseline is in the 1.1-1.3 range. She also is noted to have hypokalemia, back pain, and hypotension. She does report her urine output has been less lately. Only takes prazosin and propranolol for blood pressure but his not wanted to stop taking them due to very labile blood pressure with episodes of hypertension, at least per her report. She is also on valproic acid for seizure disorder, olanzapine for suspected depression versus history of psychosis. No family at bedside to get further history from. Hospital Course Hospital Course: Patient was admitted and started on IV fluids with lactated Ringer's and given oral potassium supplementation. Potassium was slow to respond and fluids were changed to D5 half-normal saline with 20 mEq of potassium plus additional runs of IV potassium. Ultimately this corrected patient's potassium. She will continue oral potassium supplementation. Patient's acute kidney injury was believed to be partially due to dehydration but it was also impossible to rule out kidney injury from medication. Patient can be somewhat noncompliant with her medical regimen and during her hospitalization a bottle of nitroglycerin was discovered at her home which it appeared the patient had been taking. Patient has never been prescribed nitroglycerin and the bottle was actually a very old prescription that belonged to her . Pressure remained quite low during the initial part of hospitalization but did correct with IV fluid hydration and time. Patient was extremely confused upon admission. She has underlying depressive disorder. In addition to her major depression she had developed a metabolic encephalopathy from her acute kidney injury and hypokalemia. Depakote levels and B12 levels were also drawn but had not returned at the time of this dictation. Patient was hypotensive on admission from her acute kidney injury and continued use of her antihypertensives at home during onset of this illness. Antihypertensives were held and at discharge her prazosin will be restarted. Propranolol will be held. 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 She does see neurology in [place] and has been prescribed Depakote. Depakote is to prevent any "seizures" as well as a mood stabilizer in this patient. Patient became anemic while hospitalized and this is believed to be dilutional. She was transfused 1 unit of packed red blood cells with good response. He moglobin at discharge was 8.4. Patient will need to start iron supplementation as her anemia is chronic. She has had GI work-up without source of bleeding identified. As with her hypokalemia some of her anemia is felt to be from poor nutrition. Mental Status: below average/baseline rehab potential: good prognosis: good Objective Vital signs: Temp Pulse Resp BP Pulse Ox 97.7 F 99 H 18 116/76 98 04/04/19 04:00 04/04/19 04:00 04/04/19 04:00 04/04/19 04:00 04/04/19 04:00 no acute distress - *Routine HEENT Exam Head: Present: normocephalic Eye: Present: PERRL ENT: Present: mucous membranes moist - *Routine Neck Exam Present: supple, full ROM - *Routine Respiratory Exam Present: CTA bilaterally - *Routine Cardiovascular Exam Present: RRR, Normal S1, Normal S2 - *Routine Abdominal Exam Present: soft, normoactive bowel sounds Results Labs on day of discharge: Labs from last 24 hours 04/04/19 04/04/19 04/03/19 05:47 05:47 05:39 WBC 2.7 L 3.4 L RBC 2.63 L 2.61 L Hgb 8.4 L 8.3 L Hct 26.8 L 27.3 L MCV 102.0 H 104.4 H MCH 31.9 H 31.7 H MCHC 31.3 L 30.4 L RDW 16.1 15.8 Plt Count 50 L 52 L D MPV 8.7 8.6 Neut % (Auto) 36.7 L 43.9 Lymph % (Auto) 48.8 43.6 [place] % (Auto) 9.8 H 8.1 Eos % (Auto) 4.6 4.1 Baso % (Auto) 0.1 0.3 Neut # (Auto) 1.0 L 1.5 L Lymph # (Auto) 1.3 1.5 [place] # (Auto) 0.3 0.3 Eos # (Auto) 0.1 0.1 Baso # (Auto) 0.0 0.0 Sodium 142 Potassium 3.4 L Chloride 112 H Carbon Dioxide 24 Anion Gap 9.4 BUN 8 D Creatinine 1.61 H Estimated Creat Clear 29 Estimated GFR 33 L Est GFR ( Amer) 40 L Glucose 77 Calcium 8.6 Preliminary micro results at discharge 03/30/19 12:15 Blood Culture - Preliminary Blood NO GROWTH AFTER 48 HOURS 03/30/19 12:15 Blood Culture - Preliminary Blood NO GROWTH AFTER 48 HOURS DS: Diagnosis - Discharge Diagnosis (1) Metabolic encephalopathy Status: Acute (2) Hypokalemia Status: Acute (3) Hypotension Status: Resolved (4) Recurrent falls Status: Chronic (5) Acute kidney injury Status: Acute (6) Anemia Status: Chronic (7) Seizure disorder Status: Chronic (8) Thrombocytopenia Status: Acute (9) Body mass index (BMI) of 40.1 to 44.9 in adult Status: Acute (10) Hypomagnesemia Status: Acute Discharge Plan - Patient Discharge Instructions ACTIVITY: Continue current activity DIET: continue same diet Patient Instructions: Anemia, DI for Hypokalemia, How to Prevent Falls, Encephalopathy, DI for Hypotension - Follow up Plan Follow up with: Zack Batista MD [Primary Care Provider] - Disposition: Xfer [facility] Home Medications: Home Medications Medication Instructions Recorded Confirmed Type Prazosin HCl 2 mg PO HS 07/17/18 03/31/19 History Divalproex Sodium [Depakote 250mg 750 mg PO BID 09/19/18 03/31/19 History (Delayed-Release) tablet] Melatonin 10 mg PO HS 09/19/18 03/31/19 History OLANZapine [Olanzapine] 10 mg PO DAILY 09/19/18 03/31/19 History Ondansetron [Zofran 4mg ODT] 8 mg PO DAILY PRN 09/20/18 03/31/19 History Pantoprazole Sodium [Protonix 40mg 40 mg PO DAILY 09/20/18 03/31/19 History tablet] Cyanocobalamin (Vitamin B-12) 1,000 mcg PO DAILY #30 tab 04/04/19 Rx [Vitamin B-12 1000mcg Tablet] Folic Acid 0.4 mg PO DAILY #30 tab 04/04/19 Rx Multivitamin [Daily Multiple 1 each PO DAILY #30 tab 04/04/19 Rx Vitamin] Prescriptions/Medication Reconciliation: New Multivitamin [Daily Multiple Vitamin] 1 each PO DAILY #30 tab Folic Acid 0.4 mg PO DAILY #30 tab Cyanocobalamin (Vitamin B-12) [Vitamin B-12 1000mcg Tablet] 1,000 mcg PO DAILY #30 tab Continued Prazosin HCl 2 mg PO HS OLANZapine [Olanzapine] 10 mg PO DAILY Divalproex Sodium [Depakote 250mg (Delayed-Release) tablet] 750 mg PO BID Melatonin 10 mg PO HS Ondansetron [Zofran 4mg ODT] 8 mg PO DAILY PRN PRN Reason: Nausea Pantoprazole Sodium [Protonix 40mg tablet] 40 mg PO DAILY Discontinued Propranolol HCl [Propranolol HCl ER] 60 mg PO BID Nitrofurantoin Monohyd/M-Cryst [Nitrofurantoin [place]-Mcr 100 mg] 100 mg PO DAILY Cholecalciferol (Vitamin D3) [Vitamin D3 50,000 unit Cap] 50,000 unit PO DIRECTED - Problem Reconciliation Problems Reviewed?: Yes
== END 2019-04-04 17:30 | DRG 640 ==
LOC: ER 09:13 → 2ND 09:13 → OBSVTOIN 18:28 → 2ND 18:29
PROVIDERS: ADMIT Emergency Medicine; ATTEND Family Medicine
CPT/HCPCS: 36415; 70450; 71010; 71045; 72125; 72128; 72131; 72170; 76705; 80048; 80053; 80165; 80305; 81001; 82140; 82550; 82607; 82962; 83605; 83735; 84100; 85007; 85025; 86850; 86870; 87040; 87086; 93005; 96365; 96366; 96375; 97110; 97116; 97162; 99284; J2405; P9016

== ENCOUNTER 2019-04-09 12:34 | Observation (INO) ==
[2019-04-09 18:31] LABS: Basophils % 0.3 % (0.1-2.0); Eosinophils # 0.1 K/mm3 (0.0-0.4); Eosinophils % 1.3 % (0.1-12.0); Hematocrit 28.4 % (37.0-47.0); Hemoglobin 8.8 g/dL (12.2-16.2); Lymphocytes # 1.3 K/mm3 (0.7-4.5); Lymphocytes % 32.1 % (10-50); Mean Corpuscular HGB Conc 31.1 g/dL (31.8-35.4); Mean Corpuscular Volume 103.6 fl (81-99); Mean Platelet Volume 8.9 fl (7.4-10.4); Monocytes # 0.6 K/mm3 (0.1-1.0); Monocytes % 14.8 % (1.7-9.3); Neutrophils # 2.1 K/mm3 (1.8-7.8); Neutrophils % 51.5 % (37.0-80.0); Platelet Count 89 K/mm3 (142-424); Red Blood Count 2.74 M/mm3 (4.20-5.40); Red Cell Distribution Width 16.1 % (11.5-17.5)
[2019-04-09 18:38] LABS: Anion Gap 8.2 mEq/L (5-15); Calcium 8.8 mg/dL (8.5-10.1)
[2019-04-09 19:04] LABS: Ferritin 517 ng/mL (8-388); Lactate Dehydrogenase 264 U/L (82-234)
--- NOTE | 2019-04-10 07:09 | H&P/Discharge Summary ---
General - General Admission date:: 04/09/19 Discharge date: 04/10/19 *Admission Date: 04/09/19 *Chief complaint: Anemia *History of present illness: 58-year-old female with recent hospitalization for anemia had routine labs drawn at [facility] where she is currently residing. On her CBC her hemoglobin returned at 7.9. Decision was made to proceed with transfusion. This could not be accomplished on an outpatient basis due to transportation issues and decision was made to admit the patient for transfusion. Currently patient is still awaiting transfusion as there have been issues with transport of her blood to this facility. Patient herself denies any shortness of breath. Both staff at the snf and daughter have described her as pale. This morning she has no complaints of pain [facility] History I have reviewed the patient's past medical history: Yes Medical History: Reports:: Anxiety, Gastroesophageal Reflux Disease(GERD), Hypertension, Myocardial Infarction, Seizures Denies:: Cancer, Diabetes Mellitus Type 1, Diabetes Mellitus Type 2, Internal Pacemaker, Lung Disease, MRSA *Have you ever received a pneumonia vaccine?: Yes *Have you received a flu vaccine this season?: Yes Other Medical History: Reports: Anemia Other Surgeries: Yes: Colonoscopy, Colon Resection, Hysterectomy-Total. No: Pacemaker Amputation: No Fractures: No - *Social History Educational Level: Attended Grade School Smoking Status: Never smoker Alcohol Intake: never Alcohol Intake Frequency:: other Substance Use Type: denies use *Occupational Status:: disabled Housing: snf Household Members: none *Travel in the last 8 weeks: None - Psychiatric History Pschychiatric History:: Reports:: Anxiety Family Hx:: Anemia, Cancer, Heart Attack, Hyperlipidemia, Hypertension, Stroke Review of Systems - Review of Systems Review of systems:: pertinent systems reviewed and negative unless documented below - Constitutional Denies body ache(s), Denies chills - *Cardiovascular Denies chest pain, Denies chest pain at rest, Denies chest pain with activity - *Respiratory Denies chest congestion, Denies cough, Denies shortness of breath - *Gastrointestinal Denies abdominal pain, Denies belching - *Musculoskeletal Reports abnormal walking, Reports joint pain, Reports back pain - *Neurologic Reports abnormal walking, Reports behavioral changes Exam Vital signs and Labs for Last 24 Hours: Temp Pulse Resp BP Pulse Ox 98.3 F 67 18 129/62 98 04/10/19 04:00 04/10/19 04:00 04/10/19 04:00 04/10/19 04:00 04/10/19 04:00 Laboratory Results - last 24 hr 04/09/19 18:06: WBC 4.0 L, RBC 2.74 L, Hgb 8.8 L, Hct 28.4 L, MCV 103.6 H, MCH 32.2 H, MCHC 31.1 L, RDW 16.1, Plt Count 89 L, MPV 8.9, Neut % (Auto) 51.5, Lymph % (Auto) 32.1, [place] % (Auto) 14.8 H, Eos % (Auto) 1.3, Baso % (Auto) 0.3, Neut # (Auto) 2.1, Lymph # (Auto) 1.3, [place] # (Auto) 0.6, Eos # (Auto) 0.1, Baso # (Auto) 0.0 04/09/19 18:06: Sodium 142, Potassium 3.2 L, Chloride 109 H, Carbon Dioxide 28, Anion Gap 8.2, BUN 7, Creatinine 1.31 H, Estimated Creat Clear 76, Estimated GFR 42 L, Est GFR ( Amer) 51 L, Glucose 83, Calcium 8.8 04/09/19 18:06: Ferritin 517 H D, Lactate Dehydrogenase 264 H 04/09/19 18:06: Blood Type O Positive, Antibody Screen Positive, Crossmatch (AHG) See Detail 04/09/19 18:06: Antibody Identification Anti-c I & O for Last 24 hours: Intake & Output 04/07/19 04/08/19 04/09/19 04/10/19 11:59 11:59 11:59 11:59 Intake Total 240 / 240 Balance 240 / 240 Weight 220 lb 4.997 oz Narrative: Patient awakens easily this morning. She is oriented to person and place. Oropharynx is moist. Neck is without lymphadenopathy. Lungs are clear to auscultation. Abdomen is obese and soft. Patient moves all extremities. Neurologically there are no motor or sensory deficits Hospital Course Hospital Course: Patient was admitted, typed and crossed for 2 units of packed red blood cells but when her hemoglobin performed at this facility returned higher than it had at the outside facility decision was made to transfuse only 1 unit of packed red blood cells. Patient was transfused 1 unit of packed red blood cells and then discharged back to [facility]. Results Labs on day of discharge: Labs from last 24 hours 04/09/19 04/09/19 04/09/19 18:06 18:06 18:06 WBC RBC Hgb Hct MCV MCH MCHC RDW Plt Count MPV Neut % (Auto) Lymph % (Auto) [place] % (Auto) Eos % (Auto) Baso % (Auto) Neut # (Auto) Lymph # (Auto) [place] # (Auto) Eos # (Auto) Baso # (Auto) Sodium Potassium Chloride Carbon Dioxide Anion Gap BUN Creatinine Estimated Creat Clear Estimated GFR Est GFR ( Amer) Glucose Calcium Ferritin 517 H D Lactate Dehydrogenase 264 H Blood Type O Positive Antibody Screen Positive Antibody Identification Anti-c Crossmatch ([facility]) See Detail 04/09/19 04/09/19 18:06 18:06 WBC 4.0 L RBC 2.74 L Hgb 8.8 L Hct 28.4 L MCV 103.6 H MCH 32.2 H MCHC 31.1 L RDW 16.1 Plt Count 89 L MPV 8.9 Neut % (Auto) 51.5 Lymph % (Auto) 32.1 [place] % (Auto) 14.8 H Eos % (Auto) 1.3 Baso % (Auto) 0.3 Neut # (Auto) 2.1 Lymph # (Auto) 1.3 [place] # (Auto) 0.6 Eos # (Auto) 0.1 Baso # (Auto) 0.0 Sodium 142 Potassium 3.2 L Chloride 109 H Carbon Dioxide 28 Anion Gap 8.2 BUN 7 Creatinine 1.31 H Estimated Creat Clear 76 Estimated GFR 42 L Est GFR ( Amer) 51 L Glucose 83 Calcium 8.8 Ferritin Lactate Dehydrogenase Blood Type Antibody Screen Antibody Identification Crossmatch ([facility]) DS: Diagnosis - Discharge Diagnosis (1) Anemia of chronic disease Status: Acute Discharge Plan - Patient Discharge Instructions ACTIVITY: Continue current activity DIET: continue same diet Patient Instructions: Blood Transfusion, Anemia, DI for Blood Transfusion - Follow up Plan [facility] Home Medications: Home Medications Medication Instructions Recorded Confirmed Type Prazosin HCl 2 mg PO HS 07/17/18 04/09/19 History Divalproex Sodium [Depakote 250mg 750 mg PO BID 09/19/18 04/09/19 History (Delayed-Release) tablet] Melatonin 10 mg PO HS 09/19/18 04/09/19 History OLANZapine [Olanzapine] 10 mg PO DAILY 09/19/18 04/09/19 History Ondansetron [Zofran 4mg ODT] 8 mg PO DAILY PRN 09/20/18 04/09/19 History Pantoprazole Sodium [Protonix 40mg 40 mg PO DAILY 09/20/18 04/09/19 History tablet] Cyanocobalamin (Vitamin B-12) 1,000 mcg PO DAILY 04/09/19 04/09/19 History [Vitamin B-12 1000mcg Tablet] Folic Acid 0.4 mg PO DAILY 04/09/19 04/09/19 History Multivitamin [Daily Multiple 1 each PO DAILY 04/09/19 04/09/19 History Vitamin] Propranolol HCl [Propranolol HCl 60 mg PO DAILY #30 cap.sa.24h 04/10/19 Rx ER] Prescriptions/Medication Reconciliation: New Propranolol HCl [Propranolol HCl ER] 60 mg PO DAILY #30 cap.sa.24h Continued Prazosin HCl 2 mg PO HS OLANZapine [Olanzapine] 10 mg PO DAILY Melatonin 10 mg PO HS Ondansetron [Zofran 4mg ODT] 8 mg PO DAILY PRN PRN Reason: Nausea Cyanocobalamin (Vitamin B-12) [Vitamin B-12 1000mcg Tablet] 1,000 mcg PO DAILY Multivitamin [Daily Multiple Vitamin] 1 each PO DAILY Folic Acid 0.4 mg PO DAILY Pantoprazole Sodium [Protonix 40mg tablet] 40 mg PO DAILY Discontinued Divalproex Sodium [Depakote 250mg (Delayed-Release) tablet] 750 mg PO BID - Problem Reconciliation Problems Reviewed?: Yes
--- NOTE | 2019-04-10 09:09 | Pharmacy Consult Notes ---
[facility] Pharmacy VTE Monitoring - Patient Demographics Admission date: 04/10/19 Report Date: 04/10/19 Time: 09:09 Allergies/Adverse Reactions: Patient Allergies Penicillins Allergy (Intermediate, Verified 07/08/18 19:45) I-ITCHING Height: 1.57 m Weight: 99.932 kg - VTE Risk Labs: VTE Related Lab Results Hgb 8.8 g/dL (12.2-16.2) L 04/09/19 18:06 Hct 28.4 % (37.0-47.0) L 04/09/19 18:06 Plt Count 89 K/mm3 (142-424) L 04/09/19 18:06 BUN 7 mg/dL (7-18) 04/09/19 18:06 Creatinine 1.31 mg/dL (0.55-1.02) H 04/09/19 18:06 Estimated Creat Clear 76 mL/min (50-200) 04/09/19 18:06 Was VTE Risk Assessment Performed: Yes VTE Score: 2 VTE Risk Level: Very Low Risk - Prophylaxis VTE Prophylaxis Ordered?: Yes Types of VTE Prophylaxis: TEDS Knee High Location of Applied Device: Bilateral Lower Extremeties - VTE Diagnosis Confirmed Treatment or plan recommended: Continue Current Treatment
[2019-04-10 12:07] LABS: Hematocrit 31.1 % (37.0-47.0)
[2019-04-11 08:25] LABS: Folate >20.0 ng/mL (>3.0)
== END 2019-04-10 15:03 ==
LOC: 2ND
PROVIDERS: ADMIT Family Medicine; ATTEND Family Medicine
CPT/HCPCS: 36415; 80048; 82728; 82746; 83540; 83550; 83615; 85014; 85018; 85025; 86850; 86870; G0378; J2405; P9016

== ENCOUNTER 2019-10-20 12:44 | Inpatient (IN) | payer MEDICARE, SELFPAY ==
[2019-10-20 12:27] VITALS: BP 148/108; PULSE 61; RESP 18; TEMP 36.9; O2SAT 100; BMI 38.2
--- NOTE | 2019-10-20 12:38 | CT_ITS ---
PROCEDURE: CT CERVICAL SPINE WO CON CLINICAL INDICATION: AMS, FALL Pain following injury, fall with injury and pain, altered mental status with confusion and disorientation COMPARISON: CT CERVICAL SPINE WO CON from 03/30/2019 TECHNIQUE: Axial images obtained with sagittal and coronal reformats. All CT scans at the facility use one or more dose reduction, viz: automated exposure control, ma/kV adjustment per patient size (including targeted exams where dose is matched to indication, i.e. head), or iterative reconstruction technique. Axial spiral CT scanning performed of the cervical spine beginning at the base of the skull and continuing to the upper T-spine. 3-D multiplanar reconstruction with 3-D manipulation of volumetric data set in image rendering was completed by the radiologist and/or technologist with the supervision of the radiologist on independent workstation. FINDINGS: There is straightening/reversal of the normal lordosis which may be due to patient positioning or muscle spasm. No fracture or dislocation. There is mild degenerative disc disease from C4-T1. No bony canal stenosis. The lung apices are clear IMPRESSION: Mild degenerative changes, no acute finding Dictated by: Maxim Paredes MD 10/20/2019 14:23 Electronically signed by Maxim Paredes MD in [place] 10/20/2019 14:23
--- NOTE | 2019-10-20 12:38 | CT_ITS ---
PROCEDURE: CT HEAD/BRAIN WO CON CLINICAL INDICATION: AMS, FALL Altered mental status, altered level consciousness, confusion, disorientation, fall with injury and pain COMPARISON: CT HEAD/BRAIN WO CON from 03/30/2019 TECHNIQUE: Axial images obtained. All CT scans at the facility use one or more dose reduction, viz: automated exposure control, ma/kV adjustment per patient size (including targeted exams where dose is matched to indication, i.e. head), or iterative reconstruction technique. FINDINGS: No midline shift, mass effect, intracranial hemorrhage, hydrocephalus, or extra-axial fluid collection is evident. There is generalized atrophy with hypoattenuation of the periventricular white matter consistent with microangiopathic changes. The calvarium has an unremarkable appearance. No mastoid effusion. No sinus air-fluid level. IMPRESSION: No acute intracranial finding Dictated by: Maxim Paredes MD 10/20/2019 14:21 Electronically signed by Maxim Paredes MD in [place] 10/20/2019 14:21
--- NOTE | 2019-10-20 12:39 | XR_ITS ---
PROCEDURE: XR CHEST PORTABLE CLINICAL HISTORY: AMS, FALL Fall with injury and pain COMPARISON: [id number] XR chest portable PICC plac from 09/19/2018 CXR2 XR chest AP from 09/19/2018 XR CHEST PORTABLE from 03/30/2019 FINDINGS: The cardiomediastinal silhouette and pulmonary vascularity are within normal limits. The lungs are clear without infiltrates, suspicious nodules, or pleural effusions. There is chronic elevation of the right hemidiaphragm. No acute bony anomalies. IMPRESSION: No change with no acute finding Dictated by: Maxim Paredes MD 10/20/2019 14:24 Electronically signed by Maxim Paredes MD in [place] 10/20/2019 14:24
[2019-10-20 13:36] LABS: Basophils % 1.1 % (0.1-2.0); Chloride 102 mmol/L (98-107); Eosinophils # 0.1 K/mm3 (0.0-0.4); Eosinophils % 2.5 % (0.1-12.0); Hematocrit 28.2 % (37.0-47.0); Hemoglobin 9.1 g/dL (12.2-16.2); Lymphocytes # 0.8 K/mm3 (0.7-4.5); Lymphocytes % 26.2 % (10-50); Mean Corpuscular HGB Conc 32.4 g/dL (31.8-35.4); Mean Corpuscular Hemoglobin 30.7 pg (27.0-31.2); Mean Corpuscular Volume 94.7 fl (81-99); Monocytes # 0.1 K/mm3 (0.1-1.0); Monocytes % 3.9 % (1.7-9.3); Neutrophils # 2.1 K/mm3 (1.8-7.8); Neutrophils % 66.2 % (37.0-80.0); Red Blood Count 2.98 M/mm3 (4.20-5.40); Red Cell Distribution Width 18.9 % (11.5-17.5); Sodium 140 mmol/L (136-145); White Blood Count 3.2 K/mm3 (4.8-10.8)
--- NOTE | 2019-10-20 13:36 | PC.NURSE ---
PT TO RAD
[2019-10-20 13:39] LABS: Alanine Aminotransferase 19 U/L (12-78); Albumin Level 3.3 g/dl (3.5-5.0); Albumin/Globulin Ratio 1.2 (1.1-1.8); Alkaline Phosphatase 59 U/L (38-126); Anion Gap 14.3 mEq/L (5-15); Aspartate Amino Transferase 63 U/L (14-36); Bilirubin,Total 0.8 mg/dl (0.2-1.3); Blood Urea Nitrogen 13 mg/dl (7-17); Carbon Dioxide 26 mmol/L (22.0-30.0); Creatinine Clearance Estimated 79 mL/min (50-200); Estimated Glomerular Filt Rate 42 ml/min (>60); GFR (African American) 51 ML/MIN (>60); Globulin 2.7 g/dL (1.3-3.2)
[2019-10-20 13:40] LABS: Calcium 9.2 mg/dl (8.4-10.2); Glucose 96 mg/dl (74-100); Lactic Acid 1.5 mmol/L (0.7-2.1)
[2019-10-20 13:43] LABS: Potassium 2.3 mmoL/L (3.5-5.1)
[2019-10-20 13:51] LABS: Troponin I 0.03 ng/ml (0.00-0.034)
[2019-10-20 14:02] LABS: Platelet Count 30 K/mm3 (142-424)
[2019-10-20 15:03] LABS: Microscopic, Urine URINE MICROSCOPIC (MICROSCOPIC)
[2019-10-20 15:09] LABS: Appearance,Urine CLEAR (Clear); Blood, Urine 2+ (Negative); Color,Urine YELLOW (Yellow); Glucose,Urine (UA) Negative (Negative); Ketones,Urine 1+ (Negative); Leukocyte Esterase,Urine Negative (Negative); Nitrate,Urine Negative (Negative); Protein,Urine TRACE (Negative); Specific Gravity, Urine 1.015 (1.005-1.030)
[2019-10-20 15:20] LABS: Bilirubin,Urine Negative (Negative)
--- NOTE | 2019-10-20 15:27 | PC.NURSE ---
PAGING DR GALICIA AT THIS TIME. HE IS AUDITOR APPRAISER FOR DR GLOVER
--- NOTE | 2019-10-20 15:32 | HMH.EDAMS ---
ED Disposition Clinical Impression: Delirium due to general medical condition, Mental status alteration, Low back pain, Dehydration, Anemia in chronic kidney disease, Thrombocytopenia, Acute kidney injury Disposition: Admitted as Observation Condition on Discharge: Good Instructions: DI for Altered Mental Status Additional Instructions: Spoke to Dr. Mercado for admission for this patient. - Critical Care Critical Care Time: No Attestation: On 10/20/19, the high probability of a clinically significant, sudden or life threatening deterioration of the following system(s) required my full and direct attention, intervention and personal management. The time I documented below is in addition to time spent performing reported procedures but includes the following listed in this critical care notation. Medical Decision Making - Medical Records Medical records reviewed: Yes: I reviewed the patient's medical records. - [place] Inquiry Pt receiving controlled substance: No Vital Signs: 10/20/19 12:27 Temperature 98.4 F Temperature Source Oral Pulse Rate [Right Radial] 61 Respiratory Rate 18 Blood Pressure [Right Arm] 148/108 H Blood Pressure Mean [Right Arm] 121 Blood Pressure Source [Right Arm] Automatic Cuff 02 Sat by Pulse Oximetry 100 Oxygen Delivery Method Room Air - Lab Data Lab results reviewed: Yes: I reviewed the patient's lab results. Lab Results 10/20/19 13:18: WBC 3.2 L, RBC 2.98 L, Hgb 9.1 L, Hct 28.2 L, MCV 94.7, MCH 30.7, MCHC 32.4, RDW 18.9 H, Plt Count 30 L*, MPV 10.0, Neut % (Auto) 66.2, Lymph % (Auto) 26.2, [place] % (Auto) 3.9, Eos % (Auto) 2.5, Baso % (Auto) 1.1, Neut # (Auto) 2.1, Lymph # (Auto) 0.8, [place] # (Auto) 0.1, Eos # (Auto) 0.1, Baso # (Auto) 0.0 10/20/19 13:18: Sodium 140, Potassium 2.3 L*, Chloride 102, Carbon Dioxide 26, Anion Gap 14.3, BUN 13, Creatinine 1.30 H, Estimated Creat Clear 79, Estimated GFR 42 L, Est GFR ( Amer) 51 L, Glucose 96, Calcium 9.2, Total Bilirubin 0.8, AST 63 H, ALT 19, Alkaline Phosphatase 59, Troponin I 0.03, Total Protein 6.0 L, Albumin 3.3 L, Globulin 2.7, Albumin/Globulin Ratio 1.2 10/20/19 13:18: Lactate 1.5 10/20/19 13:30: Urine Color Yellow, Urine Appearance Clear, Urine pH 7.0, Ur Specific [place] 1.015, Urine Protein Trace, Urine Glucose (UA) Negative, Urine Ketones 1+, Urine Blood 2+, Urine Nitrate Negative, Urine Bilirubin Negative, Urine Urobilinogen 1.0, Ur Leukocyte Esterase Negative Result diagrams: 10/20/19 13:18 10/20/19 13:18 Orders (Tests/Meds): ORDERS Category Date Time Status Troponin I Q3H Lab 10/20/19 15:45 Ordered Troponin I Q3H Lab 10/20/19 18:45 Ordered UA [Urinalysis and Microscopic] Stat Lab 10/20/19 13:30 Results Blood Culture Stat Micro 10/20/19 13:18 Ordered - CT Data CT Scan: Head Time Received: 15:[address] Reviewed: Yes: I have viewed the radiologist's interpretation Preliminary Findings: Normal/NAD - ECG Data Tracing #1 I reviewed this ECG and interpreted as documented below: Normal Sinus Rhythm: Yes Altered Mental Status HPI - General Chief Complaint: Altered Mental Status Stated Complaint: AMS Time Seen by Provider: 10/20/19 15:00 Mode of Arrival: EMS Source of Information: Patient, Relative Limitations: No Limitations Description of Symptoms (Recalled from ER Triage Doc. by RN): PT BROUGHT TO ED FOR A STATED FALL AND UNKNOWN TIME DOWN PER SON. PT HAS NO OBVIOUS INJURIES NOTED. EMS REPORTS PT WAS ABLE TO GET UP AND AMBULATE OUTSIDE TO THE STRETCHER USING HER WALKER. PT DOES HAVE AMS. - History of Present Illness HPI narrative: 59-year-old female presents the ED with acute alteration in mental status. Per son she has been more confused over the last 24 hours than usual. When I went to assess the patient I had to do a sternal rub to just get her aroused and she was really unable to answer any questions for me at that time. The son states she has had no nausea or vomiting. He also
[2019-10-20 15:49] LABS: Bacteria,Urine Trace /lpf; WBC,Urine Occasional #/hpf (0-3)
--- NOTE | 2019-10-20 15:50 | PC.NURSE ---
CALLED CHARGE NURSE FOR BED ASSIGNMENT. PATIENT WILL BE ADMITTED TO ROOM 206. ER STAFF NOTIFIED AT THIS TIME
[2019-10-20 16:01] VITALS: BMI 31.2; BMI 31.4
[2019-10-20 16:50] VITALS: BP 158/85; PULSE 85; RESP 20; TEMP 36.8; O2SAT 98
[2019-10-20 17:01] VITALS: BP 144/96; PULSE 60; RESP 16; TEMP 37.2; O2SAT 91
[2019-10-20 20:00] VITALS: BP 162/90; PULSE 66; RESP 18; TEMP 36.5; O2SAT 98
[2019-10-21] VITALS (23 sets, daily range): BP systolic 90–164; BP diastolic 53–79; PULSE 58–84; RESP 14–18; TEMP 36.8–37.3; O2SAT 95–99; BMI 31.2
--- NOTE | 2019-10-21 03:24 | PC.NURSE ---
Much difficulty getting pt to take meds, she would pocket and hold meds in her mouth. Literally had to dig them out and put in pudding followed by multiple drinks of water to get her to take them. Doesn't follow instructions well and has repetitive speech. Vital signs find bp on the high side, afebrile. NS with 40K at 125ml/hr infusing well in left chest. Ramirez cath patent and draining by gravity to bedside with clear, yellow urine noted. Pt requested something for neck and back pain in earlier shift, Dr Mercado put in for tylenol, however pt has not asked again and has been sleeping. Call light w/i reach, safety is on and audible, monitoring continues.
--- NOTE | 2019-10-21 06:18 | PC.NURSE ---
Pt's blood pressure elevated at beginning of the shift, returned back to wnl at the end of the shift. Pt resting most of the shift, awakens easily, however quickly returns back to sleep. Confusion continues with no improvement noted. No changes from previous note.
[2019-10-21 06:30] LABS: Basophils % 0.4 % (0.1-2.0); Eosinophils # 0.1 K/mm3 (0.0-0.4); Lymphocytes # 1.2 K/mm3 (0.7-4.5); Lymphocytes % 46.9 % (10-50); Mean Corpuscular HGB Conc 31.9 g/dL (31.8-35.4); Mean Corpuscular Hemoglobin 30.8 pg (27.0-31.2); Mean Corpuscular Volume 96.3 fl (81-99); Mean Platelet Volume 10.2 fl (7.4-10.4); Monocytes # 0.1 K/mm3 (0.1-1.0); Monocytes % 4.9 % (1.7-9.3); Neutrophils # 1.1 K/mm3 (1.8-7.8); Neutrophils % 44.8 % (37.0-80.0); Red Blood Count 2.39 M/mm3 (4.20-5.40); Red Cell Distribution Width 19.4 % (11.5-17.5); White Blood Count 2.5 K/mm3 (4.8-10.8)
[2019-10-21 06:37] LABS: Hemoglobin 7.4 g/dL (12.2-16.2); Platelet Count 26 K/mm3 (142-424)
[2019-10-21 06:50] LABS: Alanine Aminotransferase 11 U/L (12-78); Albumin Level 2.4 g/dl (3.5-5.0); Albumin/Globulin Ratio 1.1 (1.1-1.8); Alkaline Phosphatase 44 U/L (38-126); Anion Gap 7.5 mEq/L (5-15); Aspartate Amino Transferase 38 U/L (14-36); Bilirubin,Total 0.4 mg/dl (0.2-1.3); Blood Urea Nitrogen 13 mg/dl (7-17); Carbon Dioxide 23 mmol/L (22.0-30.0); Chloride 112 mmol/L (98-107); Creatinine Clearance Estimated 63 mL/min (50-200); Estimated Glomerular Filt Rate 46 ml/min (>60); GFR (African American) 56 ML/MIN (>60); Globulin 2.2 g/dL (1.3-3.2); Lactate Dehydrogenase 292 U/L (313-618); Sodium 140 mmol/L (136-145); Total Protein,Serum 4.6 g/dl (6.3-8.2)
[2019-10-21 06:55] LABS: Calcium 8.2 mg/dl (8.4-10.2); Glucose 66 mg/dl (74-100); Potassium 2.5 mmoL/L (3.5-5.1)
[2019-10-21 08:39] LABS: Magnesium 1.7 mg/dl (1.6-2.3)
--- NOTE | 2019-10-21 08:51 | HMH.HP ---
*Admission Date: 10/20/19 *Chief complaint: Mental status changes *History of present illness: 59-year-old female was found by family down at home unable to ambulate or stand under her own power. Patient was confused. She was brought to the emergency department. History is limited as the patient is no condition to answer questions this morning. In the emergency department patient was found to be hypokalemic and pancytopenic. This is not the first time patient has presented with these diagnoses associated with mental status changes. Patient was admitted on IV fluids to replace her potassium and serial CBCs have been ordered. This morning the patient's hypokalemia is essentially unchanged and pancytopenia has worsened. Nursing staff reports patient has become less interactive since admission. She required assistance with feeding. She had difficulty taking her nighttime medicines due to difficulty following instructions Regarding the patient's pancytopenia patient has seen guest service team leader and undergone bone marrow biopsy which was nondiagnostic. [facility] History I have reviewed the patient's past medical history: Yes Medical History: Reports:: Anxiety, Gastroesophageal Reflux Disease(GERD), Hypertension, Myocardial Infarction Denies:: Cancer, Diabetes Mellitus Type 1, Diabetes Mellitus Type 2, Internal Pacemaker, Lung Disease, MRSA, Seizures *Have you ever received a pneumonia vaccine?: Yes *Have you received a flu vaccine this season?: Yes Other Medical History: Reports: Anemia, Arthritis Comment:: Seizure disorder, psychosis NOS Laterality Cases: Bilateral: Breast Biopsy Other Surgeries: Yes: Cholecystectomy, Colonoscopy, Colon Resection, Hysterectomy-Total. No: Pacemaker Amputation: No Fractures: No - *Social History Educational Level: Completed High School Smoking Status: Never smoker Alcohol Intake: never Alcohol Intake Frequency:: other Substance Use Type: opiates *Occupational Status:: disabled Housing: apartment Household Members: none *Travel in the last 8 weeks: None - Psychiatric History Pschychiatric History:: Reports:: Anxiety Family Hx:: Anemia, Cancer, Heart Attack, Hyperlipidemia, Hypertension, Stroke Review of Systems - Review of Systems Review of systems:: unable to obtain Meds Home Medications Medication Instructions Recorded Confirmed Type Prazosin HCl 2 mg PO HS 07/17/18 10/20/19 History Melatonin 10 mg PO HS 09/19/18 10/20/19 History OLANZapine [Olanzapine] 10 mg PO DAILY 09/19/18 10/20/19 History Ondansetron [Zofran 4mg ODT] 8 mg PO DAILY PRN 09/20/18 10/20/19 History Pantoprazole Sodium [Protonix 40mg 40 mg PO DAILY 09/20/18 10/20/19 History tablet] Multivitamin [Daily Multiple 1 each PO DAILY 04/09/19 10/20/19 History Vitamin] cholecalciferol (vitamin D3) 250 10,000 unit PO QWEEK cap 05/10/19 10/20/19 History mcg (10,000 unit) capsule Propranolol HCl [Propranolol HCl 60 mg PO DAILY 05/15/19 10/20/19 History ER] Phenytoin Sodium Extended 100 mg PO BID 10/20/19 10/20/19 History [Dilantin 100mg Capsule] levETIRAcetam [Levetiracetam] 500 mg PO BID 10/20/19 10/20/19 History Allergies Allergy/AdvReac Type Severity Reaction Status Date / Time Penicillins Allergy Intermediate I-ITCHING Verified 05/10/19 14:47 Exam Vital signs and Labs for Last 24 Hours: Temp Pulse Resp BP Pulse Ox 98.7 F 67 16 90/53 L 98 10/21/19 07:51 10/21/19 07:51 10/21/19 07:51 10/21/19 07:51 10/21/19 07:51 Laboratory Results - last 24 hr 10/20/19 13:18: WBC 3.2 L, RBC 2.98 L, Hgb 9.1 L, Hct 28.2 L, MCV 94.7, MCH 30.7, MCHC 32.4, RDW 18.9 H, Plt Count 30 L*, MPV 10.0, Neut % (Auto) 66.2, Lymph % (Auto) 26.2, [place] % (Auto) 3.9, Eos % (Auto) 2.5, Baso % (Auto) 1.1, Neut # (Auto) 2.1, Lymph # (Auto) 0.8, [place] # (Auto) 0.1, Eos # (Auto) 0.1, Baso # (Auto) 0.0 10/20/19 13:18: Sodium 140, Potassium 2.3 L*, Chloride 102, Carbon Dioxide 26, Anion Gap 14.3, BUN 13, Creatinine 1.30 H, Es
--- NOTE | 2019-10-21 09:26 | P.CONPHA_ITS ---
[facility] Pharmacy VTE Monitoring - Patient Demographics Admission date: 10/20/19 Report Date: 10/21/19 Time: 09:26 Allergies/Adverse Reactions: Patient Allergies Penicillins Allergy (Intermediate, Verified 05/10/19 14:47) I-ITCHING Height: 1.57 m Weight: 77.111 kg Patient Problems: Current Active Problems Altered mental status (Acute) Acute kidney injury (Acute) Low back pain (Acute) Dehydration (Acute) Anemia in chronic kidney disease (Acute) Thrombocytopenia (Acute) Delirium due to general medical condition (Acute) Hypokalemia (Acute) Pancytopenia (Acute) - VTE Risk Labs: VTE Related Lab Results Hgb 7.4 g/dL (12.2-16.2) L* 10/21/19 05:50 Hct 23.0 % (37.0-47.0) L* 10/21/19 05:50 Plt Count 26 K/mm3 (142-424) L* 10/21/19 05:50 BUN 13 mg/dl (7-17) 10/21/19 05:50 Creatinine 1.20 mg/dl (0.52-1.04) H 10/21/19 05:50 Estimated Creat Clear 63 mL/min (50-200) 10/21/19 05:50 VTE Score: 4 VTE Risk Level: Low Risk - Prophylaxis VTE Prophylaxis Ordered?: Yes Types of VTE Prophylaxis: TEDS Knee High Location of Applied Device: Bilateral Lower Extremeties
[2019-10-21 09:47] LABS: Creatinine,Urine Random 123 mg/dL (Not Estab.)
[2019-10-21 09:56] LABS: Phenytoin (Dilantin) < 3.0 ug/ml (10-20)
[2019-10-21 10:06] LABS: Basophils % 0.5 % (0.1-2.0); Eosinophils % 1.1 % (0.1-12.0); Lymphocytes # 1.1 K/mm3 (0.7-4.5); Lymphocytes % 34.7 % (10-50); Mean Corpuscular HGB Conc 32.6 g/dL (31.8-35.4); Mean Corpuscular Hemoglobin 31.1 pg (27.0-31.2); Mean Corpuscular Volume 95.7 fl (81-99); Mean Platelet Volume 11.4 fl (7.4-10.4); Monocytes # 0.2 K/mm3 (0.1-1.0); Monocytes % 6.4 % (1.7-9.3); Neutrophils # 1.9 K/mm3 (1.8-7.8); Neutrophils % 57.3 % (37.0-80.0); Red Blood Count 2.41 M/mm3 (4.20-5.40); Red Cell Distribution Width 19.6 % (11.5-17.5); White Blood Count 3.3 K/mm3 (4.8-10.8)
[2019-10-21 10:08] LABS: Chloride 111 mmol/L (98-107); Hematocrit 23.1 % (37.0-47.0); Hemoglobin 7.5 g/dL (12.2-16.2); Platelet Count 25 K/mm3 (142-424); Sodium 144 mmol/L (136-145)
[2019-10-21 10:09] LABS: Potassium 2.4 mmoL/L (3.5-5.1)
[2019-10-21 10:11] LABS: Blood Urea Nitrogen 11 mg/dl (7-17); Creatinine Clearance Estimated 54 mL/min (50-200); Estimated Glomerular Filt Rate 39 ml/min (>60); GFR (African American) 47 ML/MIN (>60)
[2019-10-21 10:12] LABS: Anion Gap 10.4 mEq/L (5-15); Calcium 8.2 mg/dl (8.4-10.2); Carbon Dioxide 25 mmol/L (22.0-30.0); Glucose 95 mg/dl (74-100)
--- NOTE | 2019-10-21 10:17 | HMH.PHACONS ---
- Pharmacy Consult Date: 10/21/19 Time: 10:17 Referring provider: DR. GLOVER Reason for Consult:: VANCOMYCIN DOSING Allergies and ADEs:: Allergies Allergy/AdvReac Type Severity Reaction Status Date / Time Penicillins Allergy Intermediate I-ITCHING Verified 05/10/19 14:47 Home Medications:: Home Medications Medication Instructions Recorded Confirmed Type Prazosin HCl 2 mg PO HS 07/17/18 10/20/19 History Melatonin 10 mg PO HS 09/19/18 10/20/19 History OLANZapine [Olanzapine] 10 mg PO DAILY 09/19/18 10/20/19 History Ondansetron [Zofran 4mg ODT] 8 mg PO DAILY PRN 09/20/18 10/20/19 History Pantoprazole Sodium [Protonix 40mg 40 mg PO DAILY 09/20/18 10/20/19 History tablet] Multivitamin [Daily Multiple 1 each PO DAILY 04/09/19 10/20/19 History Vitamin] cholecalciferol (vitamin D3) 250 10,000 unit PO QWEEK cap 05/10/19 10/20/19 History mcg (10,000 unit) capsule Propranolol HCl [Propranolol HCl 60 mg PO DAILY 05/15/19 10/20/19 History ER] Phenytoin Sodium Extended 100 mg PO BID 10/20/19 10/20/19 History [Dilantin 100mg Capsule] levETIRAcetam [Levetiracetam] 500 mg PO BID 10/20/19 10/20/19 History Height: 1.57 m Weight: 77.111 kg Laboratory Results:: Laboratory Results - last 24 hr 10/20/19 13:18: WBC 3.2 L, RBC 2.98 L, Hgb 9.1 L, Hct 28.2 L, MCV 94.7, MCH 30.7, MCHC 32.4, RDW 18.9 H, Plt Count 30 L*, MPV 10.0, Neut % (Auto) 66.2, Lymph % (Auto) 26.2, [place] % (Auto) 3.9, Eos % (Auto) 2.5, Baso % (Auto) 1.1, Neut # (Auto) 2.1, Lymph # (Auto) 0.8, [place] # (Auto) 0.1, Eos # (Auto) 0.1, Baso # (Auto) 0.0 10/20/19 13:18: Sodium 140, Potassium 2.3 L*, Chloride 102, Carbon Dioxide 26, Anion Gap 14.3, BUN 13, Creatinine 1.30 H, Estimated Creat Clear 79, Estimated GFR 42 L, Est GFR ( Amer) 51 L, Glucose 96, Calcium 9.2, Total Bilirubin 0.8, AST 63 H, ALT 19, Alkaline Phosphatase 59, Troponin I 0.03, Total Protein 6.0 L, Albumin 3.3 L, Globulin 2.7, Albumin/Globulin Ratio 1.2 10/20/19 13:18: Lactate 1.5 10/20/19 13:30: Urine Color Yellow, Urine Appearance Clear, Urine pH 7.0, Ur Specific [place] 1.015, Urine Protein Trace, Urine Glucose (UA) Negative, Urine Ketones 1+, Urine Blood 2+, Urine Nitrate Negative, Urine Bilirubin Negative, Urine Urobilinogen 1.0, Ur Leukocyte Esterase Negative, Urine RBC 3-5, Urine WBC Occasional, Ur Squamous Epith Cells 5-10, Urine Bacteria Trace 10/21/19 05:10: Phenytoin < 3.0 L 10/21/19 05:50: Sodium 140, Potassium 2.5 L*, Chloride 112 H, Carbon Dioxide 23, Anion Gap 7.5, BUN 13, Creatinine 1.20 H, Estimated Creat Clear 63, Estimated GFR 46 L, Est GFR ( Amer) 56 L, Glucose 66 L D, Calcium 8.2 L D, Total Bilirubin 0.4, AST 38 H D, ALT 11 L D, Alkaline Phosphatase 44, Lactate Dehydrogenase 292 L, Total Protein 4.6 L, Albumin 2.4 L D, Globulin 2.2, Albumin/Globulin Ratio 1.1 10/21/19 05:50: WBC 2.5 L, RBC 2.39 L, Hgb 7.4 L*, Hct 23.0 L*, MCV 96.3, MCH 30.8, MCHC 31.9, RDW 19.4 H, Plt Count 26 L*, MPV 10.2, Neut % (Auto) 44.8, Lymph % (Auto) 46.9, [place] % (Auto) 4.9, Eos % (Auto) 3.0, Baso % (Auto) 0.4, Neut # (Auto) 1.1 L, Lymph # (Auto) 1.2, [place] # (Auto) 0.1, Eos # (Auto) 0.1, Baso # (Auto) 0.0 10/21/19 05:50: Magnesium 1.7 10/21/19 09:32: Urine Creatinine 123 10/21/19 09:50: Crossmatch (AHG) See Detail 10/21/19 09:50: WBC 3.3 L D, RBC 2.41 L, Hgb 7.5 L*, Hct 23.1 L*, MCV 95.7, MCH 31.1, MCHC 32.6, RDW 19.6 H, Plt Count 25 L*, MPV 11.4 H, Neut % (Auto) 57.3, Lymph % (Auto) 34.7, [place] % (Auto) 6.4, Eos % (Auto) 1.1, Baso % (Auto) 0.5, Neut # (Auto) 1.9, Lymph # (Auto) 1.1, [place] # (Auto) 0.2, Eos # (Auto) 0.0, Baso # (Auto) 0.0 10/21/19 09:50: Sodium 144, Potassium 2.4 L*, Chloride 111 H Medical History: Reports:: Anxiety, Gastroesophageal Reflux Disease(GERD), Hypertension, Myocardial Infarction Denies:: Cancer, Diabetes Mellitus Type 1, Diabetes Mellitus Type 2, Internal Pacemaker, Lung Disease, MRSA, Seizures Assessment and Plan (1) Hypokalemia Current visit: Yes Status: Acute
--- NOTE | 2019-10-21 13:55 | HMH.PHAINT ---
HOME MEDICATIONS RECONCILED FROM [facility] PHARMACY FILL LIST.
--- NOTE | 2019-10-21 20:05 | PC.NURSE ---
Unsuccessful stick x 1 to right hand to obtain IV site. Nurse Cecy Correia notified.
[2019-10-22] VITALS (9 sets, daily range): BP systolic 99–180; BP diastolic 51–98; PULSE 65–100; RESP 15–16; TEMP 36.7–37.2; O2SAT 95–100; BMI 31.2
[2019-10-22 01:46] LABS: Hemoglobin 9.5 g/dL (12.2-16.2)
[2019-10-22 01:51] LABS: Potassium 2.8 mmoL/L (3.5-5.1)
--- NOTE | 2019-10-22 06:20 | PC.NURSE ---
Began shift with first unit of blood infusing, with first check found #22 in left chest infiltrated. House phoned to restart IV, one attempt, she called Isael Lane,[employer] Machine Stitcher up to start new, pt is a difficult stick. #22 IV established in R breast, attempted a second IV but unable. First unit infused, ABX given, 2nd unit infused with order to get one hour post and morning labs at the same time. Labs drawn with critical potassium of 2.[address] Mercado with order to give 2 grams Magnesium IV first followed by 60 mEq of potassium IV next. Pt is currently on first run of Potassium. Running at 30ml/hr in the #22 in right chest, no infiltration noted thus far. Pt tolerated blood, magnesium and potassium well thus far. Often c/o being dry, asking anyone who enters the room for a drink of water, oral care given every one to two hours, pt is much appreciative of care. Presently resting, with seizure pads in place, staff monitoring, remains safe.
[2019-10-22 06:54] LABS: Chloride 119 mmol/L (98-107); Potassium 3.2 mmoL/L (3.5-5.1); Sodium 143 mmol/L (136-145)
[2019-10-22 06:56] LABS: Blood Urea Nitrogen 10 mg/dl (7-17); Creatinine Clearance Estimated 63 mL/min (50-200); Estimated Glomerular Filt Rate 46 ml/min (>60); GFR (African American) 56 ML/MIN (>60)
[2019-10-22 06:57] LABS: Anion Gap 6.2 mEq/L (5-15); Calcium 8.7 mg/dl (8.4-10.2); Carbon Dioxide 21 mmol/L (22.0-30.0); Glucose 71 mg/dl (74-100)
--- NOTE | 2019-10-22 07:11 | HMH.ACPN2 ---
Internal Medicine - PN: Subj *Date: 10/22/19 *Time: 07:11 Interval history: Patient has no new complaints this morning. Interactions remain minimal. Nursing staff reports overnight patient would ask for drink of water whenever staff would enter room. This morning patient's opens eyes when her name is called and can answer some simple questions with one-word answers or by movements of her head. She still remains quite somnolent. She required additional potassium overnight. Exam Vital signs and Labs for Last 24 Hours: Temp Pulse Resp BP Pulse Ox 98.3 F 65 15 99/51 L 96 10/22/19 04:00 10/22/19 04:00 10/22/19 04:00 10/22/19 04:00 10/22/19 04:00 Laboratory Results - last 24 hr 10/21/19 05:10: Phenytoin < 3.0 L 10/21/19 05:50: Magnesium 1.7 10/21/19 09:32: Urine Creatinine 123 10/21/19 09:50: Blood Type O Positive, Antibody Screen Negative, Crossmatch (AHG) See Detail 10/21/19 09:50: WBC 3.3 L D, RBC 2.41 L, Hgb 7.5 L*, Hct 23.1 L*, MCV 95.7, MCH 31.1, MCHC 32.6, RDW 19.6 H, Plt Count 25 L*, MPV 11.4 H, Neut % (Auto) 57.3, Lymph % (Auto) 34.7, [place] % (Auto) 6.4, Eos % (Auto) 1.1, Baso % (Auto) 0.5, Neut # (Auto) 1.9, Lymph # (Auto) 1.1, [place] # (Auto) 0.2, Eos # (Auto) 0.0, Baso # (Auto) 0.0 10/21/19 09:50: Sodium 144, Potassium 2.4 L*, Chloride 111 H, Carbon Dioxide 25, Anion Gap 10.4, BUN 11, Creatinine 1.40 H, Estimated Creat Clear 54, Estimated GFR 39 L, Est GFR ( Amer) 47 L, Glucose 95 D, Calcium 8.2 L 10/21/19 15:44: Antibody Identification Anti-c 10/22/19 01:38: Potassium 2.8 L* 10/22/19 01:38: Hgb 9.5 L D, Hct 29.0 L 10/22/19 06:10: Sodium 143, Potassium 3.2 L, Chloride 119 H, Carbon Dioxide 21 L, Anion Gap 6.2, BUN 10, Creatinine 1.20 H, Estimated Creat Clear 63, Estimated GFR 46 L, Est GFR ( Amer) 56 L, Glucose 71 L D, Calcium 8.7 I & O for Last 24 hours: Intake & Output 10/19/19 10/20/19 10/21/19 10/22/19 11:59 11:59 11:59 11:59 Intake Total 2846 / 2846 1492.5 / 1492.5 Output Total 525 / 525 250 / 250 Balance 2321 / 2321 1242.5 / 1242.5 Weight 170 lb 169 lb 15.975 oz Narrative: Patient is laying in bed and appears comfortable. She shows no signs of physical or respiratory distress. Oropharynx is dry. Lips are cracked. Neck is without lymphadenopathy. Lungs are clear. Heart has a regular rate and rhythm. Assessment and Plan (1) Hypokalemia Current visit: Yes Status: Acute Category: Medical Code(s): E87.6 - Hypokalemia (2) Pancytopenia Current visit: Yes Status: Acute Category: Medical Code(s): D61.818 - Other pancytopenia (3) Acute alteration in mental status Current visit: No Status: Acute Category: Medical Code(s): R41.82 - Altered mental status, unspecified (4) Recurrent falls Current visit: No Status: Chronic Category: Medical Code(s): R29.6 - Repeated falls (5) Seizure disorder Current visit: No Status: Chronic Category: Medical Code(s): G40.909 - Epilepsy, unspecified, not intractable, without status epilepticus - Assessment and plan all Dx Assessment and Plan for all problems:: 1. Continue potassium replacement 2. Check valproic acid level and we will use blood from admission 3. Continue to monitor pancytopenia
--- NOTE | 2019-10-22 07:25 | PC.NURSE ---
24 hour urine continues, when emptied into container, urine with very strong foul smell noted.
[2019-10-22 08:06] LABS: Eosinophils # 0.1 K/mm3 (0.0-0.4); Monocytes # 0.2 K/mm3 (0.1-1.0); Monocytes % 5.7 % (1.7-9.3); Red Cell Distribution Width 20.6 % (11.5-17.5)
--- NOTE | 2019-10-22 08:21 | XR_ITS ---
PROCEDURE: XR CHEST PORTABLE PICC PLAC CLINICAL HISTORY: Confirm PICC line placement COMPARISON: [id number] XR chest portable PICC plac from 09/19/2018 XR CHEST PORTABLE from 03/30/2019 XR CHEST PORTABLE from 10/20/2019 FINDINGS: The cardiomediastinal silhouette and pulmonary vascularity are within normal limits. A left upper extremity PICC line has been placed. The tip is in good position in the region of the superior vena cava. There are atelectatic changes in the right midlung with elevated right hemidiaphragm. No acute bony abnormalities. IMPRESSION: Left upper extremity PICC line tip in good position Dictated by: Maxim Paredes MD 10/22/2019 11:02 Electronically signed by Maxim Paredes MD in [place] 10/22/2019 11:02
[2019-10-22 08:41] LABS: Eosinophils % 1.3 % (0.1-12.0); Hematocrit 31.7 % (37.0-47.0); Lymphocytes # 1.6 K/mm3 (0.7-4.5); Lymphocytes % 37.8 % (10-50); Mean Corpuscular HGB Conc 33.9 g/dL (31.8-35.4); Mean Corpuscular Hemoglobin 30.6 pg (27.0-31.2); Mean Corpuscular Volume 90.3 fl (81-99); Neutrophils # 2.3 K/mm3 (1.8-7.8); Neutrophils % 54.2 % (37.0-80.0); Red Blood Count 3.52 M/mm3 (4.20-5.40); White Blood Count 4.2 K/mm3 (4.8-10.8)
[2019-10-22 09:10] LABS: Hemoglobin 10.8 g/dL (12.2-16.2); Platelet Count 32 K/mm3 (142-424)
--- NOTE | 2019-10-22 10:28 | PC.NURSE ---
LAB PHONED THIS RN ASKING TO PUT IN LAB ORDER OF ERYTHROPOIETIN DUE TO LAB CANCELLING PREVIOUS ORDER DUE TO NOT HAVING PROPER SERUM.
--- NOTE | 2019-10-22 19:15 | PC.NURSE ---
report given to justine
--- NOTE | 2019-10-22 20:31 | PC.NURSE ---
PATIENT A&O X4, LUNGS CLEAR, PUSHES AND PULLS WEAK BUT EQUAL. PATIENT TOLERATED CLEAR LIQUIDS. PATIENT TOLERATED REGULAR DIET. NO NEW NEEDS OR CONCERNS.
[2019-10-23] VITALS: PULSE 70
[2019-10-23 04:00] VITALS: BP 110/61; PULSE 70; RESP 16; TEMP 36.8; O2SAT 95; BMI 32.2
[2019-10-23 06:27] LABS: Chloride 111 mmol/L (98-107); Sodium 138 mmol/L (136-145)
[2019-10-23 06:29] LABS: Eosinophils # 0.1 K/mm3 (0.0-0.4); Lymphocytes # 1.3 K/mm3 (0.7-4.5); Monocytes # 0.1 K/mm3 (0.1-1.0); Neutrophils # 1.5 K/mm3 (1.8-7.8); White Blood Count 3.1 K/mm3 (4.8-10.8)
[2019-10-23 06:31] LABS: Anion Gap 5.7 mEq/L (5-15); Blood Urea Nitrogen 9 mg/dl (7-17); Calcium 8.3 mg/dl (8.4-10.2); Carbon Dioxide 24 mmol/L (22.0-30.0); Creatinine Clearance Estimated 60 mL/min (50-200); Estimated Glomerular Filt Rate 42 ml/min (>60); GFR (African American) 51 ML/MIN (>60); Glucose 81 mg/dl (74-100)
[2019-10-23 06:38] LABS: Basophils % 1.4 % (0.1-2.0); Eosinophils % 3.8 % (0.1-12.0); Hematocrit 26.6 % (37.0-47.0); Lymphocytes % 41.5 % (10-50); Mean Corpuscular HGB Conc 32.2 g/dL (31.8-35.4); Mean Corpuscular Hemoglobin 29.5 pg (27.0-31.2); Mean Corpuscular Volume 91.5 fl (81-99); Mean Platelet Volume 9.7 fl (7.4-10.4); Neutrophils % 49.2 % (37.0-80.0); Red Blood Count 2.91 M/mm3 (4.20-5.40); Red Cell Distribution Width 21.5 % (11.5-17.5)
[2019-10-23 06:58] LABS: Platelet Count 25 K/mm3 (142-424)
[2019-10-23 07:13] LABS: Potassium 2.7 mmoL/L (3.5-5.1)
--- NOTE | 2019-10-23 07:19 | HMH.ACPN2 ---
Internal Medicine - PN: Subj *Date: 10/23/19 *Time: 07:19 Interval history: Patient has no new complaints this morning. She is awake and alert. She does report back pain which is a chronic complaint. Patient has been able to tolerate a regular diet. She has not been out of bed yet. Exam Vital signs and Labs for Last 24 Hours: Temp Pulse Resp BP Pulse Ox 98.2 F 70 16 110/61 95 10/23/19 04:00 10/23/19 04:00 10/23/19 04:00 10/23/19 04:00 10/23/19 04:00 Laboratory Results - last 24 hr 10/22/19 07:50: WBC 4.2 L D, RBC 3.52 L D, Hgb 10.8 L D, Hct 31.7 L, MCV 90.3, MCH 30.6, MCHC 33.9, RDW 20.6 H, Plt Count 32 L* D, MPV 10.0, Neut % (Auto) 54.2, Lymph % (Auto) 37.8, [place] % (Auto) 5.7, Eos % (Auto) 1.3, Baso % (Auto) 1.0, Neut # (Auto) 2.3, Lymph # (Auto) 1.6, [place] # (Auto) 0.2, Eos # (Auto) 0.1, Baso # (Auto) 0.0 10/23/19 06:10: WBC 3.1 L D, RBC 2.91 L, Hct 26.6 L, MCV 91.5, MCH 29.5, MCHC 32.2, RDW 21.5 H, Plt Count 25 L*, MPV 9.7, Neut % (Auto) 49.2, Lymph % (Auto) 41.5, [place] % (Auto) 4.0, Eos % (Auto) 3.8, Baso % (Auto) 1.4, Neut # (Auto) 1.5 L, Lymph # (Auto) 1.3, [place] # (Auto) 0.1, Eos # (Auto) 0.1, Baso # (Auto) 0.0 10/23/19 06:10: Sodium 138, Potassium 2.7 L*, Chloride 111 H, Carbon Dioxide 24, Anion Gap 5.7, BUN 9, Creatinine 1.30 H, Estimated Creat Clear 60, Estimated GFR 42 L, Est GFR ( Amer) 51 L, Glucose 81, Calcium 8.3 L I & O for Last 24 hours: Intake & Output 10/20/19 10/21/19 10/22/19 10/23/19 11:59 11:59 11:59 11:59 Intake Total 2946 / 2946 1692.5 / 1692.5 1460 / 1460 Output Total 525 / 525 400 / 400 250 / 250 Balance 2421 / 2421 1292.5 / 1292.5 1210 / 1210 Weight 170 lb 169 lb 15.975 oz 175 lb 1 oz Microbiology Reports for the Last 24 Hours: Microbiology 10/20/19 18:35 Blood Blood Culture - Preliminary NO GROWTH AFTER 48 HOURS 10/20/19 13:18 Blood Blood Culture - Preliminary NO GROWTH AFTER 48 HOURS Narrative: Patient awakens easily this morning. Speech is clear. Lungs are clear. Heart has a regular rate and rhythm. Abdomen is soft. Potassium has decreased again. She remains pancytopenic Assessment and Plan (1) Hypokalemia Current visit: Yes Status: Acute Category: Medical Code(s): E87.6 - Hypokalemia (2) Pancytopenia Current visit: Yes Status: Acute Category: Medical Code(s): D61.818 - Other pancytopenia (3) Acute alteration in mental status Current visit: No Status: Acute Category: Medical Code(s): R41.82 - Altered mental status, unspecified (4) Recurrent falls Current visit: No Status: Chronic Category: Medical Code(s): R29.6 - Repeated falls (5) Seizure disorder Current visit: No Status: Chronic Category: Medical Code(s): G40.909 - Epilepsy, unspecified, not intractable, without status epilepticus - Assessment and plan all Dx Assessment and Plan for all problems:: 1. Patient will receive additional runs of IV potassium today equaling a total of 60 mEq. Simultaneously she will receive 20 mEq of potassium chloride p.o. 3 times daily 2. PT eval to assess needs as well as eval for penitentiary needs. Patient has previously transition to home via penitentiary facility such as [facility] during hospitalizations and I anticipate she will need this same routine of care 3. DC Ramirez catheter
[2019-10-23 07:40] VITALS: BP 103/65; PULSE 74; RESP 17; TEMP 36.7; O2SAT 100
[2019-10-23 08:28] LABS: Hemoglobin 8.6 g/dL (12.2-16.2)
--- NOTE | 2019-10-23 10:42 | PC.NURSE ---
PICC DRESSING CHANGED USING STERILE TECHNIQUE.
--- NOTE | 2019-10-23 10:55 | HMH.PTEV ---
Physical Therapy Evaluation Rehab PT IP Evaluation Start: 10/23/19 07:18 Freq: ONCE Status: Active Protocol: Document 10/23/19 10:51 HERONLINDSEY (Rec: 10/23/19 10:55 BETTINA [id number]) Subjective/History History History 59-year-old female was found by family down at home unable to ambulate or stand under her own power. Patient was confused. She was brought to the emergency department. History is limited as the patient is no condition to answer questions this morning. In the emergency department patient was found to be hypokalemic and pancytopenic. This is not the first time patient has presented with these diagnoses associated with mental status changes. Patient was admitted on IV fluids to replace her potassium Subjective Subjective Pt reports she is sore from fall at home, and she laid on the ground for 2 days w/out assistance Rehab PT IP Eval Objective Appearance Patient Behavior Appropriate,Cooperative, Fatigued Patient Orientation Person,Place,Time Difficulty following instructions none Speech Pattern Clear,Soft-Spoken Ambulation Patient Able to Ambulate Yes Ambulation Observation IP General Gait Pattern Observation Shuffling Step Ambulation Distance (feet) 3 Ambulation Assistive Device Rolling Walker Ambulation Ability Contact Guard/Hand Hold Balance Ability to Arise Able, uses arms to help Sitting Balance Steady, safe Standing Balance Steady, wide stance Dynamic Sitting Balance Ability Fair Dynamic Standing Balance Ability Poor Transfers Bed Transfer Ability Contact Guard/Hand Hold Chair Transfer Ability Contact Guard/Hand Hold Sit to Stand Bed Transfer Ability Contact Guard/Hand Hold Sit to Stand Chair Transfer Ability Contact Guard/Hand Hold ROM All Extremities PT ROM Status WFL MMT All Extremities Abnormal MMT Grade 3/5 Rehab PT IP prob,goals,plan Problems Date of Evaluation: 10/23/19 PT IP Problems Transfers,Gait,Balance,Self care,Safety Rehab Potential Rehab Potent
[2019-10-23 13:33] LABS: Vancomycin,Trough 19.1 ug/mL (5.0-10.0)
--- NOTE | 2019-10-23 14:02 | SW/DCPLANNER ---
Addendum entered by Radha Mcnulty 10/24/19 10:14: SPOKE WITH PARAG AT [facility] AND [facility] HAS BEEN ACCEPTED THERE TO GO [facility] ()... I HAVE CALLED AND LEFT A MESSAGE WITH HER DAUGHTER AND I WILL STOP BY AND TELL [facility] TODAY... Original Note: SPOKE WITH PATIENT AND DAUGHTER VIA TELEPHONE THIS AM AND [facility] PATIENT STATED [facility] WOULD BE OK TO SEE IF THEY CAN TAKE HER... I HAVE CALLED AND SPOKE WITH [facility] [employer], PARAG BOLTON AND SHE IS REVIEWING PATIENT INFORMATION, IF ACCEPTED SHE WILL DISCHARGE THERE IN THE AM (TUE)....
--- NOTE | 2019-10-23 14:05 | HMH.PHACONS ---
- Pharmacy Consult Date: 10/23/19 Time: 14:05 Referring provider: ALEXANDREA Reason for Consult:: VANCOMYCIN THERAPY FOR PANCYTOPENIA Allergies and ADEs:: Allergies Allergy/AdvReac Type Severity Reaction Status Date / Time Penicillins Allergy Intermediate I-ITCHING Verified 05/10/19 14:47 Home Medications:: Home Medications Medication Instructions Recorded Confirmed Type Prazosin HCl 2 mg PO HS 07/17/18 10/20/19 History Melatonin 10 mg PO HS 09/19/18 10/20/19 History OLANZapine [Olanzapine] 10 mg PO DAILY 09/19/18 10/20/19 History Ondansetron [Zofran 4mg ODT] 8 mg PO DAILY PRN 09/20/18 10/20/19 History Pantoprazole Sodium [Protonix 40mg 40 mg PO DAILY 09/20/18 10/20/19 History tablet] Multivitamin [Daily Multiple 1 each PO DAILY 04/09/19 10/20/19 History Vitamin] cholecalciferol (vitamin D3) 250 50,000 unit PO TUFR cap 05/10/19 10/21/19 History mcg (10,000 unit) capsule Propranolol HCl [Propranolol HCl 60 mg PO BID 05/15/19 10/21/19 History ER] Phenytoin Sodium Extended 100 mg PO BID 10/20/19 10/20/19 History [Dilantin 100mg Capsule] levETIRAcetam [Levetiracetam] 500 mg PO BID 10/20/19 10/20/19 History Divalproex Sodium [Depakote] 750 mg PO BID 10/21/19 10/21/19 History Nitrofurantoin Monohyd/M-Cryst 100 mg PO DAILY 10/21/19 10/21/19 History [Nitrofurantoin [place]-Mcr 100 mg] Height: 1.57 m Weight: 79.407 kg Laboratory Results:: Laboratory Results - last 24 hr 10/23/19 06:10: WBC 3.1 L D, RBC 2.91 L, Hgb 8.6 L D, Hct 26.6 L, MCV 91.5, MCH 29.5, MCHC 32.2, RDW 21.5 H, Plt Count 25 L*, MPV 9.7, Neut % (Auto) 49.2, Lymph % (Auto) 41.5, [place] % (Auto) 4.0, Eos % (Auto) 3.8, Baso % (Auto) 1.4, Neut # (Auto) 1.5 L, Lymph # (Auto) 1.3, [place] # (Auto) 0.1, Eos # (Auto) 0.1, Baso # (Auto) 0.0 10/23/19 06:10: Sodium 138, Potassium 2.7 L*, Chloride 111 H, Carbon Dioxide 24, Anion Gap 5.7, BUN 9, Creatinine 1.30 H, Estimated Creat Clear 60, Estimated GFR 42 L, Est GFR ( Amer) 51 L, Glucose 81, Calcium 8.3 L 10/23/19 12:30: Vancomycin Trough 19.1 H Medical History: Reports:: Anxiety, Gastroesophageal Reflux Disease(GERD), Hypertension, Myocardial Infarction Denies:: Cancer, Diabetes Mellitus Type 1, Diabetes Mellitus Type 2, Internal Pacemaker, Lung Disease, MRSA, Seizures Assessment and Plan (1) Hypokalemia Current visit: Yes Status: Acute Category: Medical Code(s): E87.6 - Hypokalemia (2) Pancytopenia Current visit: Yes Status: Acute Category: Medical Code(s): D61.818 - Other pancytopenia (3) Acute alteration in mental status Current visit: No Status: Acute Category: Medical Code(s): R41.82 - Altered mental status, unspecified (4) Recurrent falls Current visit: No Status: Chronic Category: Medical Code(s): R29.6 - Repeated falls (5) Seizure disorder Current visit: No Status: Chronic Category: Medical Code(s): G40.909 - Epilepsy, unspecified, not intractable, without status epilepticus - Assessment and plan all Dx Assessment and Plan for all problems:: VANCOMYCIN TROUGH AFTER TWO DOSES TODAY = 19.1 WILL CHANGE DOSE TO 1000MG AND WAIT UNTIL 1800 TO GIVE NEXT DOSE. WILL CONTINUE TO FOLLOW DAILY. PT ALSO ON LEVAQUIN 500MG IVPB DAILY
[2019-10-23 16:00] VITALS: BP 105/73; PULSE 80; PULSE 83; RESP 17; TEMP 36.7; O2SAT 99
--- NOTE | 2019-10-23 19:18 | PC.NURSE ---
REPORT GIVEN TO Callum FONSECA RN
[2019-10-23 20:00] VITALS: BP 130/65; PULSE 70; PULSE 85; RESP 16; TEMP 36.9; O2SAT 100
[2019-10-24] VITALS: BP 120/68; PULSE 79; PULSE 80; RESP 14; TEMP 37.2; O2SAT 95
[2019-10-24 04:00] VITALS: BP 110/60; PULSE 70; PULSE 71; RESP 16; TEMP 36.8; O2SAT 97
--- NOTE | 2019-10-24 05:09 | PC.NURSE ---
A&OX4. PT HAS TOLERATED RA WELL T/O SHIFT. PT AMBULATING WELL TO BATHROOM WITH WALKER AND X1 ASSIST. PT HAS HAD ADEQUATE URINE OUTPUT THIS SHIFT. PT HAS HAD NO C/O PAIN, NA/VO. PT HAS HAD NO S/S OF CONFUSION T/O SHIFT. PT HAS RESTED WELL MAJORITY OF SHIFT. NO COMPLAINTS THUS FAR, VSS WILL CONTINUE TO MONITOR.
[2019-10-24 05:16] VITALS: BMI 32.2
[2019-10-24 06:37] LABS: Basophils # 0.1 K/mm3 (0-0.2); Basophils % 2.3 % (0.1-2.0); Eosinophils # 0.1 K/mm3 (0.0-0.4); Lymphocytes # 1.2 K/mm3 (0.7-4.5); Lymphocytes % 43.4 % (10-50); Mean Corpuscular HGB Conc 33.2 g/dL (31.8-35.4); Mean Corpuscular Hemoglobin 30.7 pg (27.0-31.2); Mean Corpuscular Volume 92.6 fl (81-99); Mean Platelet Volume 10.1 fl (7.4-10.4); Monocytes # 0.2 K/mm3 (0.1-1.0); Monocytes % 6.1 % (1.7-9.3); Neutrophils # 1.3 K/mm3 (1.8-7.8); Neutrophils % 45.4 % (37.0-80.0); Red Blood Count 2.59 M/mm3 (4.20-5.40); Red Cell Distribution Width 21.7 % (11.5-17.5); White Blood Count 2.8 K/mm3 (4.8-10.8)
[2019-10-24 06:53] LABS: Anion Gap 4.6 mEq/L (5-15); Blood Urea Nitrogen 9 mg/dl (7-17); Calcium 8.4 mg/dl (8.4-10.2); Carbon Dioxide 22 mmol/L (22.0-30.0); Chloride 113 mmol/L (98-107); Creatinine Clearance Estimated 60 mL/min (50-200); Estimated Glomerular Filt Rate 42 ml/min (>60); GFR (African American) 51 ML/MIN (>60); Glucose 78 mg/dl (74-100); Potassium 3.6 mmoL/L (3.5-5.1); Sodium 136 mmol/L (136-145)
[2019-10-24 07:32] LABS: Platelet Count 33 K/mm3 (142-424)
[2019-10-24 08:00] VITALS: BP 99/57; PULSE 85; PULSE 90; RESP 16; TEMP 36.7; O2SAT 98
[2019-10-24 12:00] VITALS: BP 96/55; PULSE 68; PULSE 70; RESP 18; TEMP 36.9; O2SAT 100
[2019-10-24 16:00] VITALS: BP 99/48; PULSE 60; PULSE 62; RESP 16; TEMP 36.8; O2SAT 99
[2019-10-24 16:49] LABS: Hematocrit 26.1 % (37.0-47.0); Hemoglobin 8.2 g/dL (12.2-16.2)
--- NOTE | 2019-10-24 17:09 | PC.NURSE ---
Pt alert to self and place, when asked the date she said Jun 06, 1980. She complains of being sore from a fall the other day . Scattered bruising noted to body. She has been up to the chair for a bit in the am, tolerated well. No other complaints verbalized. Will continue to monitor.
--- NOTE | 2019-10-24 19:17 | PC.NURSE ---
report given to keny
[2019-10-24 20:00] VITALS: BP 114/67; PULSE 60; PULSE 70; RESP 16; TEMP 36.8; O2SAT 98
[2019-10-25] VITALS: BP 95/62; PULSE 70; RESP 17; TEMP 37.1; O2SAT 97
[2019-10-25 04:00] VITALS: BP 146/59; PULSE 63; PULSE 70; RESP 18; TEMP 36.5; O2SAT 99
--- NOTE | 2019-10-25 04:25 | PC.NURSE ---
Pt is A&Ox3 and has ambulated to the BR 2x this shift with walker and staff SBA, pt tolerated well. Pt c/o not being able to sleep well the past 2 nights, stating I wake up at 4am and just have a hard time falling asleep. It appeared pt slept well from [id number], when she called out needing to use the restroom. Pt denied any pain, N/V/D this shift. Pt did c/o nausea during previous shift. Pt reports her last BM to have been on Tuesday10/22/19 and this shift passed flatus and burping frequently. Lungs CTA, O2 sats 97-98% on room air. ABD is soft and non-tender with active BS. Pt appears pale, scattered on bruising BUE, BLE, chest, & shoulders. VSS, call light within reach, continue to monitor.
[2019-10-25 05:00] VITALS: BMI 34.0
[2019-10-25 07:35] LABS: Basophils % 0.9 % (0.1-2.0); Eosinophils # 0.1 K/mm3 (0.0-0.4); Eosinophils % 2.8 % (0.1-12.0); Hematocrit 27.5 % (37.0-47.0); Hemoglobin 8.7 g/dL (12.2-16.2); Lymphocytes # 1.3 K/mm3 (0.7-4.5); Lymphocytes % 44.1 % (10-50); Mean Corpuscular HGB Conc 31.7 g/dL (31.8-35.4); Mean Corpuscular Hemoglobin 30.7 pg (27.0-31.2); Mean Platelet Volume 9.3 fl (7.4-10.4); Monocytes # 0.3 K/mm3 (0.1-1.0); Monocytes % 9.6 % (1.7-9.3); Neutrophils # 1.2 K/mm3 (1.8-7.8); Neutrophils % 42.6 % (37.0-80.0); Red Blood Count 2.84 M/mm3 (4.20-5.40); Red Cell Distribution Width 21.5 % (11.5-17.5); White Blood Count 2.9 K/mm3 (4.8-10.8)
[2019-10-25 07:39] LABS: Chloride 112 mmol/L (98-107); Potassium 4.1 mmoL/L (3.5-5.1); Sodium 138 mmol/L (136-145)
[2019-10-25 07:42] LABS: Blood Urea Nitrogen 8 mg/dl (7-17); Creatinine Clearance Estimated 69 mL/min (50-200); Estimated Glomerular Filt Rate 46 ml/min (>60); GFR (African American) 56 ML/MIN (>60)
[2019-10-25 07:43] LABS: Anion Gap 6.1 mEq/L (5-15); Calcium 8.7 mg/dl (8.4-10.2); Carbon Dioxide 24 mmol/L (22.0-30.0); Glucose 83 mg/dl (74-100)
[2019-10-25 08:00] VITALS: BP 161/84; PULSE 70; RESP 18; TEMP 36.9; O2SAT 100
--- NOTE | 2019-10-25 08:26 | HMH.ACPN2 ---
Internal Medicine - PN: Subj *Date: 10/24/19 *Time: 08:26 Interval history: Patient has no complaints this morning. She is eating well. Hemoglobin has dropped slightly compared to yesterday. Patient has not had a bowel movement. Exam Vital signs and Labs for Last 24 Hours: Temp Pulse Resp BP Pulse Ox 98.5 F 70 18 161/84 H 100 10/25/19 08:00 10/25/19 08:00 10/25/19 08:00 10/25/19 08:00 10/25/19 08:00 Laboratory Results - last 24 hr 10/21/19 05:50: Copper ug/dl 81 10/24/19 16:35: Hgb 8.2 L, Hct 26.1 L 10/25/19 07:10: Sodium 138, Potassium 4.1, Chloride 112 H, Carbon Dioxide 24, Anion Gap 6.1, BUN 8, Creatinine 1.20 H, Estimated Creat Clear 69, Estimated GFR 46 L, Est GFR ( Amer) 56 L, Glucose 83, Calcium 8.7 I & O for Last 24 hours: Intake & Output 10/22/19 10/23/19 10/24/19 10/25/19 11:59 11:59 11:59 11:59 Intake Total 1692.5 / 1692.5 1780 / 1780 820 / 820 3240 / 3240 Output Total 400 / 400 250 / 250 450 / 450 420 / 420 Balance 1292.5 / 1292.5 1530 / 1530 370 / 370 2820 / 2820 Weight 169 lb 15.975 oz 175 lb 1 oz 175 lb 0.999 oz 185 lb 1 oz Narrative: Patient is in no distress. She is oriented to person and place. Lungs are clear. Heart has a regular rate and rhythm. Abdomen is soft. Assessment and Plan (1) Hypokalemia Current visit: Yes Status: Acute Category: Medical Code(s): E87.6 - Hypokalemia (2) Pancytopenia Current visit: Yes Status: Acute Category: Medical Code(s): D61.818 - Other pancytopenia (3) Acute alteration in mental status Current visit: No Status: Acute Category: Medical Code(s): R41.82 - Altered mental status, unspecified (4) Recurrent falls Current visit: No Status: Chronic Category: Medical Code(s): R29.6 - Repeated falls (5) Seizure disorder Current visit: No Status: Chronic Category: Medical Code(s): G40.909 - Epilepsy, unspecified, not intractable, without status epilepticus - Assessment and plan all Dx Assessment and Plan for all problems:: 1. Repeat H&H this afternoon 2. Patient has been accepted at [facility] for snf to rehabilitate and regain strength to return to prior level of function. Once H&H is stable patient will be discharged to [facility]
--- NOTE | 2019-10-25 08:27 | HMH.ACPN2 ---
Internal Medicine - PN: Subj *Date: 10/25/19 *Time: 08:27 Interval history: Patient has no new complaints this morning. She continues to have back pain. Hemoglobin yesterday afternoon was stable. We are awaiting CBC this morning to decide whether to discharge patient to [facility] to rehabilitate and return to her prior level of function. Exam Vital signs and Labs for Last 24 Hours: Temp Pulse Resp BP Pulse Ox 98.5 F 70 18 161/84 H 100 10/25/19 08:00 10/25/19 08:00 10/25/19 08:00 10/25/19 08:00 10/25/19 08:00 Laboratory Results - last 24 hr 10/21/19 05:50: Copper ug/dl 81 10/24/19 16:35: Hgb 8.2 L, Hct 26.1 L 10/25/19 07:10: Sodium 138, Potassium 4.1, Chloride 112 H, Carbon Dioxide 24, Anion Gap 6.1, BUN 8, Creatinine 1.20 H, Estimated Creat Clear 69, Estimated GFR 46 L, Est GFR ( Amer) 56 L, Glucose 83, Calcium 8.7 I & O for Last 24 hours: Intake & Output 10/22/19 10/23/19 10/24/19 10/25/19 11:59 11:59 11:59 11:59 Intake Total 1692.5 / 1692.5 1780 / 1780 820 / 820 3240 / 3240 Output Total 400 / 400 250 / 250 450 / 450 420 / 420 Balance 1292.5 / 1292.5 1530 / 1530 370 / 370 2820 / 2820 Weight 169 lb 15.975 oz 175 lb 1 oz 175 lb 0.999 oz 185 lb 1 oz Narrative: Patient appears comfortable. Lungs are clear. Heart has a regular rate and rhythm. Abdomen is soft. Assessment and Plan (1) Hypokalemia Current visit: Yes Status: Acute Category: Medical Code(s): E87.6 - Hypokalemia (2) Pancytopenia Current visit: Yes Status: Acute Category: Medical Code(s): D61.818 - Other pancytopenia (3) Acute alteration in mental status Current visit: No Status: Acute Category: Medical Code(s): R41.82 - Altered mental status, unspecified (4) Recurrent falls Current visit: No Status: Chronic Category: Medical Code(s): R29.6 - Repeated falls (5) Seizure disorder Current visit: No Status: Chronic Category: Medical Code(s): G40.909 - Epilepsy, unspecified, not intractable, without status epilepticus - Assessment and plan all Dx Assessment and Plan for all problems:: 1. Await patient's CBC this morning. 2. Discharged to [facility] if CBC is stable
[2019-10-25 08:30] LABS: Platelet Count 48 K/mm3 (142-424)
--- NOTE | 2019-10-25 08:36 | HMH.DCSUM ---
General - General Admission date:: 10/20/19 Discharge date: 10/25/19 HPI HPI: 59-year-old female was found by family down at home unable to ambulate or stand under her own power. Patient was confused. She was brought to the emergency department. History is limited as the patient is no condition to answer questions this morning. In the emergency department patient was found to be hypokalemic and pancytopenic. This is not the first time patient has presented with these diagnoses associated with mental status changes. Patient was admitted on IV fluids to replace her potassium and serial CBCs have been ordered. This morning the patient's hypokalemia is essentially unchanged and pancytopenia has worsened. Nursing staff reports patient has become less interactive since admission. She required assistance with feeding. She had difficulty taking her nighttime medicines due to difficulty following instructions Regarding the patient's pancytopenia patient has seen machine group leader and undergone bone marrow biopsy which was nondiagnostic. Hospital Course Hospital Course: Patient was admitted for her hypokalemia causing profound muscular weakness and mental status changes. Potassium was replaced with intravenous and oral potassium and after 48 hours returned to a normal level. At this time patient continued oral potassium supplementation. This is not the first hospitalization patient has had with unexplained hypokalemia. A 24-hour urine was collected for potassium and at the time of this dictation there is no result on this test. Patient has pancytopenia that is chronic and worsened during hospitalization. She was initially started on Levaquin and vancomycin while cultures were pending. Once blood cultures and urine cultures were negative patient's antibiotics were discontinued. Anemia worsened and she required transfusion with 2 units of packed red blood cells. Patient has had a thorough anemia work-up although her labs were repeated during this hospitalization and at the time of this dictation labs such as iron, vitamin B12, vitamin B1, folate and other nutritional labs are still pending. Patient has had bone marrow biopsy which was not normal but was also nondiagnostic. Patient will need additional hematology evaluation in the future. Once we were assured patient's H&H had stabilized patient was discharged. Patient was quite weak from her illness and decision was made to transition patient to home through retirement facility. She was accepted at [facility] and will rehabilitate there. Objective Vital signs: Temp Pulse Resp BP Pulse Ox 98.5 F 70 18 161/84 H 100 10/25/19 08:00 10/25/19 08:00 10/25/19 08:00 10/25/19 08:00 10/25/19 08:00 Results Labs on day of discharge: Labs from last 24 hours 10/25/19 10/25/19 10/24/19 07:10 07:10 16:35 WBC 2.9 L RBC 2.84 L Hgb 8.7 L 8.2 L Hct 27.5 L 26.1 L MCV 97.0 MCH 30.7 MCHC 31.7 L RDW 21.5 H Plt Count 48 L* D MPV 9.3 Neut % (Auto) 42.6 Lymph % (Auto) 44.1 [facility] % (Auto) 9.6 H Eos % (Auto) 2.8 Baso % (Auto) 0.9 Neut # (Auto) 1.2 L Lymph # (Auto) 1.3 [facility] # (Auto) 0.3 Eos # (Auto) 0.1 Baso # (Auto) 0.0 Sodium 138 Potassium 4.1 Chloride 112 H Carbon Dioxide 24 Anion Gap 6.1 BUN 8 Creatinine 1.20 H Estimated Creat Clear 69 Estimated GFR 46 L Est GFR ( Amer) 56 L Glucose 83 Calcium 8.7 Copper ug/dl 10/21/19 05:50 WBC RBC Hgb Hct MCV MCH MCHC RDW Plt Count MPV Neut % (Auto) Lymph % (Auto) [facility] % (Auto) Eos % (Auto) Baso % (Auto) Neut # (Auto) Lymph # (Auto) [facility] # (Auto) Eos # (Auto) Baso # (Auto) Sodium Potassium Chloride Carbon Dioxide Anion Gap BUN Creatinine Estimated Creat Clear Estimated GFR Est GFR ( Amer) Glucose Calcium Copper ug/dl 81 Preliminary micr
[2019-10-25 09:19] VITALS: PULSE 70; RESP 18; O2SAT 100
[2019-10-25 11:05] VITALS: BP 135/69; PULSE 69; RESP 17; TEMP 36.7; O2SAT 99
[2019-10-26 11:20] LABS: Vitamin B1 40.5 nmol/L (66.5-200.0)
[2019-10-27 10:46] LABS: Potassium, Urine 36.7; Potassium, Urine 24 Hr 17
[2019-10-27 10:47] LABS: Free Valproic Acid (Depakote) 10.5
== END 2019-10-25 11:57 | DRG 809 ==
LOC: ER 15:36 → 2ND 16:05
PROVIDERS: Admitting Provider Internal Medicine Adolescent Medicine; Emergency Provider Family Medicine; Visit Provider Family Medicine
DX: D61.818 Other pancytopenia (principal); N17.9 Acute kidney failure, unspecified; E87.6 Hypokalemia; R29.6 Repeated falls; I25.2 Old myocardial infarction; Z88.0 Allergy status to penicillin; Z79.899 Other long term (current) drug therapy; G40.909 Epilepsy, unspecified, not intractable, without status epilepticus; I12.9 Hypertensive chronic kidney disease with stage 1 through stage 4 chronic kidney disease, or unspecified chronic kidney disease; N18.9 Chronic kidney disease, unspecified
CPT/HCPCS: 36569; 36415; 70450; 71045; 72125; 80048; 80053; 80165; 80185; 80202; 81001; 82525; 82570; 82668; 83605; 83615; 83735; 84132; 84133; 84425; 84484; 85014; 85018; 85025; 86850; 86870; 87040; 96365; 97110; 97116; 97161; 97530; 99285; C1751; J1953; J1956; J2405; J3370; P9016

== ENCOUNTER → 2019-12-20 11:19 | Outpatient (CLI) | payer MEDICARE, SELFPAY ==
[2019-12-20 11:29] LABS: Basophils % 0.6 % (0.1-2.0); Eosinophils # 0.1 K/mm3 (0.0-0.4); Eosinophils % 2.1 % (0.1-12.0); Hematocrit 32.6 % (37.0-47.0); Hemoglobin 10.5 g/dL (12.2-16.2); Lymphocytes # 1.6 K/mm3 (0.7-4.5); Lymphocytes % 49.9 % (10-50); Mean Corpuscular HGB Conc 32.1 g/dL (31.8-35.4); Mean Corpuscular Hemoglobin 31.6 pg (27.0-31.2); Mean Corpuscular Volume 98.6 fl (81-99); Mean Platelet Volume 8.7 fl (7.4-10.4); Monocytes # 0.2 K/mm3 (0.1-1.0); Monocytes % 5.1 % (1.7-9.3); Neutrophils # 1.4 K/mm3 (1.8-7.8); Neutrophils % 42.3 % (37.0-80.0); Platelet Count 163 K/mm3 (142-424); Red Cell Distribution Width 15.5 % (11.5-17.5); White Blood Count 3.2 K/mm3 (4.8-10.8)
[2019-12-20 11:54] LABS: Chloride 105 mmol/L (98-107)
[2019-12-20 11:55] LABS: Potassium 3.5 mmoL/L (3.5-5.1); Sodium 137 mmol/L (136-145)
[2019-12-20 11:58] LABS: Anion Gap 6.5 mEq/L (5-15); Blood Urea Nitrogen 7 mg/dl (7-17); Calcium 8.6 mg/dl (8.4-10.2); Carbon Dioxide 29 mmol/L (22.0-30.0); Estimated Glomerular Filt Rate 51 ml/min (>60); GFR (African American) 62 ML/MIN (>60); Glucose 113 mg/dl (74-100)
== END ==
PROVIDERS: Visit Provider Family Medicine
DX: G40.909 Epilepsy, unspecified, not intractable, without status epilepticus (principal)
CPT/HCPCS: 80048; 85025

== ENCOUNTER → 2020-10-10 08:16 | Outpatient (CLI) | payer MEDICARE, SELFPAY ==
--- NOTE | 2020-10-10 08:22 | US_ITS ---
PROCEDURE: US ABDOMEN COMPLETE CLINICAL INDICATION: LLQ ABD PAIN,NAUSEA COMPARISON: US US ABDOMEN LIMITED from 04/01/2019 FINDINGS: PANCREAS: Pancreas is not well delineated due to overlying bowel gas. CT or MRI without and with contrast with pancreatic protocol may provide further evaluation if clinically desired. LIVER: No focal liver lesions demonstrated. Homogeneous echogenicity. No intrahepatic biliary ductal dilatation evident. There is appropriate direction of blood flow within a non dilated portal vein RIGHT KIDNEY: Unremarkable. Normal size and echogenicity. No hydronephrosis LEFT KIDNEY: Unremarkable. Normal size and echogenicity. No hydronephrosis GALLBLADDER: No gallstones, gallbladder wall thickening, pericholecystic fluid, or biliary dilatation. AORTA: No evidence of aneurysmal dilatation. SPLEEN: Unremarkable. Normal size and echogenicity ASCITES: None demonstrated. IMPRESSION: Poor visualization of the pancreas otherwise unremarkable abdominal Dictated by: Maxim Paredes MD 10/10/2020 18:38 Maxim Paredes MD in [place] 10/10/2020 18:38
== END ==
PROVIDERS: PCP Family Medicine; Visit Provider Nurse Practitioner Family
DX: R10.32 Left lower quadrant pain (principal); R11.0 Nausea
CPT/HCPCS: 76700

== ENCOUNTER → 2020-11-03 10:37 | Outpatient (POV) | payer MEDICARE, SELFPAY | PROVIDERS: Visit Provider Internal Medicine Nephrology | DX: Z00.00 Encounter for general adult medical examination without abnormal findings (principal) ==

== ENCOUNTER 2020-11-07 07:50 | Outpatient (CLI) | payer MEDICARE, SELFPAY ==
--- NOTE | 2020-11-07 08:12 | CT_ITS ---
PROCEDURE INFORMATION: Exam: CT Abdomen Without Contrast Exam date and time: 11/07/2020 8:12 AM Age: 60 years old Clinical indication: Abdominal pain; Localized; Left lower quadrant (llq); Prior surgery; Surgery date: 6+ months; Surgery type: Colon; Additional info: Llq pain, nausea TECHNIQUE: Imaging protocol: Computed tomography images of the abdomen without contrast. Radiation optimization: All CT scans at this facility use at least one of these dose optimization techniques: automated exposure control; mA and/or kV adjustment per patient size (includes targeted exams where dose is matched to clinical indication); or iterative reconstruction. COMPARISON: [facility] CT abdomen pelvis w con 09/19/2017 2:56 PM FINDINGS: Liver: Normal. No mass. Gallbladder and bile ducts: Normal. No calcified stones. No ductal dilation. Pancreas: Fatty infiltration of the pancreas was present on the prior study. Spleen: Normal. No splenomegaly. Adrenals: Normal. No mass. Kidneys and ureters: Normal. No hydronephrosis. Stomach and bowel: Visualized stomach and bowel are unremarkable. No obstruction. No mucosal thickening. Intraperitoneal space: Unremarkable. No free air. No significant fluid collection. Lymph nodes: Unremarkable. No enlarged lymph nodes. Vasculature: Unremarkable. No abdominal aortic aneurysm. Bones/joints: Unremarkable. No acute fracture. No dislocation. Soft tissues: Unremarkable. IMPRESSION: No acute process
[2020-11-07 10:00] VITALS: BP 134/56; PULSE 56; RESP 17; TEMP 36.7; O2SAT 99
[2020-11-07 11:06] VITALS: BP 137/64; PULSE 71; RESP 17; O2SAT 97
== END 2020-11-07 11:07 | disposition home or self-care (01) ==
PROVIDERS: PCP Family Medicine; Visit Provider Nurse Practitioner Family
DX: R10.32 Left lower quadrant pain (principal); R11.0 Nausea; N18.4 Chronic kidney disease, stage 4 (severe)
CPT/HCPCS: 74176; 96360

== ENCOUNTER 2021-09-18 15:58 | Emergency (ER) | payer MEDICARE, SELFPAY ==
[2021-09-18] VITALS (8 sets, daily range): BP systolic 150–199; BP diastolic 62–108; PULSE 61–74; RESP 15–21; TEMP 36.7; O2SAT 96–100; BMI 45.3
--- NOTE | 2021-09-18 15:58 | ECG_ITS ---
APPROVED REPORT Exam: Resting ECG HR:71 bpm ECG Measurements Heart Rate 71 AXES SD 184 P 14 QRSd 85 QRS -1 QT 380 T 20 QTc 402 Conclusion SINUS RHYTHM NORMAL ECG UNCONFIRMED REPORT Electronically signed by : Zack Fontaine MD 09/19/2021 08:16:37
--- NOTE | 2021-09-18 16:07 | XR_ITS ---
PROCEDURE INFORMATION: Exam: XR Chest Exam date and time: 09/18/2021 4:14 PM Age: 61 years old Clinical indication: Pain; Chest pressure; Additional info: Cp TECHNIQUE: Imaging protocol: XR of the chest. Views: 1 view. COMPARISON: CR XR CHEST PORTABLE PICC PLAC 10/22/2019 10:32 AM FINDINGS: Airway: Patent Lungs: Low lung volumes causes crowding of the bronchovascular structures. No acute interstitial or airspace disease. Pleural spaces: Unremarkable. No pleural effusion. No pneumothorax. Heart/Mediastinum: The heart is mildly enlarged. Vasculature: Calcified aortic knob. Diaphragm: There is nonspecific elevation of the right hemidiaphragm. Bones/joints: No acute skeletal abnormality or aggressive osseous lesion. IMPRESSION: No acute thoracic pathology.
--- NOTE | 2021-09-18 16:14 | HMH.EDGENADL ---
ED Disposition Clinical Impression: Atypical chest pain Disposition: Home, Self-Care Condition on Discharge: Good Instructions: DI for Atypical Chest Pain Additional Instructions: See Dr. Sparks as soon as possible. Call Tuesday for appointment. Additional instructions for CHEST PAIN: Return immediately if worsening chest pain, vomiting, shortness of breath, fever, coughing of blood. Referrals: Provider,Referral, [Referring] - - Critical Care Critical Care Time: No Attestation: On 09/18/21, the high probability of a clinically significant, sudden or life threatening deterioration of the following system(s) required my full and direct attention, intervention and personal management. The time I documented below is in addition to time spent performing reported procedures but includes the following listed in this critical care notation. Medical Decision Making - [place] Inquiry Pt receiving controlled substance: No Vital Signs: 09/18/21 15:58 09/18/21 16:03 09/18/21 16:31 Temperature 98.0 F Temperature Source Oral Pulse Rate 69 Pulse Rate [Right Radial] 74 Respiratory Rate 18 21 Blood Pressure 194/108 H 150/68 H Blood Pressure [Right Arm] 188/82 H Blood Pressure Mean 95 Blood Pressure Mean [Right Arm] 117 Blood Pressure Source Manual Cuff/ Auscultation Blood Pressure Source [Right Arm] Automatic Cuff Blood Pressure Position Sitting Blood Pressure Position [Right Arm] Sitting 02 Sat by Pulse Oximetry 97 100 Oxygen Delivery Method Room Air 09/18/21 17:04 09/18/21 17:35 09/18/21 18:01 Temperature Temperature Source Pulse Rate 64 62 61 Pulse Rate [Right Radial] Respiratory Rate 18 21 18 Blood Pressure 176/73 H 199/71 H 157/62 H Blood Pressure [Right Arm] Blood Pressure Mean 91 107 94 Blood Pressure Mean [Right Arm] Blood Pressure Source Blood Pressure Source [Right Arm] Blood Pressure Position Blood Pressure Position [Right Arm] 02 Sat by Pulse Oximetry 100 98 97 Oxygen Delivery Method 09/18/21 18:30 Temperature Temperature Source Pulse Rate 63 Pulse Rate [Right Radial] Respiratory Rate 15 Blood Pressure 176/88 H Blood Pressure [Right Arm] Blood Pressure Mean 101 Blood Pressure Mean [Right Arm] Blood Pressure Source Blood Pressure Source [Right Arm] Blood Pressure Position Blood Pressure Position [Right Arm] 02 Sat by Pulse Oximetry 98 Oxygen Delivery Method - Lab Data Lab Results 09/18/21 16:13: WBC 5.2, RBC 3.51 L, Hgb 10.4 L, Hct 31.8 L, MCV 90.7, MCH 29.6, MCHC 32.6, RDW 13.6, Plt Count 220, MPV 8.7, Neut % (Auto) 71.3, Lymph % (Auto) 21.6, [place] % (Auto) 4.4, Eos % (Auto) 2.2, Baso % (Auto) 0.6, Neut # (Auto) 3.7, Lymph # (Auto) 1.1, [place] # (Auto) 0.2, Eos # (Auto) 0.1, Baso # (Auto) 0.0 09/18/21 16:13: Sodium 135 L, Potassium 4.7, Chloride 101, Carbon Dioxide 27, Anion Gap 11.7, BUN 19 H, Creatinine 1.70 H, Estimated Creat Clear 28, Estimated GFR 31 L, Est GFR ( Amer) 37 L, Glucose 99, Calcium 8.7, Troponin I < 0.01 09/18/21 17:36: Urine Color Yellow, Urine Appearance Clear, Urine pH 8.0, Ur Specific Soldier 1.015, Urine Protein Negative, Urine Glucose (UA) Negative, Urine Ketones Negative, Urine Blood Negative, Urine Nitrate Negative, Urine Bilirubin Negative, Urine Urobilinogen 0.2, Ur Leukocyte Esterase Negative, Urine WBC Occasional, Ur Squamous Epith Cells 10-20, Ur Renal Epithelial Cell 3-5 09/18/21 19:26: Troponin I 0.01 Result diagrams: 09/18/21 16:13 09/18/21 16:13 Orders (Tests/Meds): ED MEDICATIONS Generic Name Dose Route Start Last Admin Trade Name Freq PRN Reason Stop Dose Admin Sodium Chloride 10 ml 09/18/21 16:07 Sodium Chloride 0.9% 10ml Flush Syringe IV 10/18/21 16:06 NEEDED PRN Maintain IV Site ORDERS Category Date Time Status Troponin I Q3H Lab 09/18/21 22:15 Ordered - Radiology Data #1 Image(s): Chest Image Reviewed: Yes I
[2021-09-18 16:32] LABS: Basophils % 0.6 % (0.1-2.0); Eosinophils # 0.1 K/mm3 (0.0-0.4); Eosinophils % 2.2 % (0.1-12.0); Hematocrit 31.8 % (37.0-47.0); Hemoglobin 10.4 g/dL (12.2-16.2); Lymphocytes # 1.1 K/mm3 (0.7-4.5); Lymphocytes % 21.6 % (10-50); Mean Corpuscular HGB Conc 32.6 g/dL (31.8-35.4); Mean Corpuscular Hemoglobin 29.6 pg (27.0-31.2); Mean Corpuscular Volume 90.7 fl (81-99); Mean Platelet Volume 8.7 fl (7.4-10.4); Monocytes # 0.2 K/mm3 (0.1-1.0); Monocytes % 4.4 % (1.7-9.3); Neutrophils # 3.7 K/mm3 (1.8-7.8); Neutrophils % 71.3 % (37.0-80.0); Platelet Count 220 K/mm3 (142-424); Red Blood Count 3.51 M/mm3 (4.20-5.40); Red Cell Distribution Width 13.6 % (11.5-17.5); White Blood Count 5.2 K/mm3 (4.8-10.8)
[2021-09-18 16:33] LABS: Chloride 101 mmol/L (98-107); Potassium 4.7 mmoL/L (3.5-5.1); Sodium 135 mmol/L (136-145)
[2021-09-18 16:36] LABS: Blood Urea Nitrogen 19 mg/dl (7-17); Calcium 8.7 mg/dl (8.4-10.2); Creatinine Clearance Estimated 28 mL/min (50-200); Estimated Glomerular Filt Rate 31 ml/min (>60); GFR (African American) 37 ML/MIN (>60); Glucose 99 mg/dl (74-100)
[2021-09-18 16:49] LABS: Troponin I < 0.01 ng/ml (0.00-0.034)
[2021-09-18 17:03] LABS: Anion Gap 11.7 mEq/L (5-15); Carbon Dioxide 27 mmol/L (22.0-30.0)
[2021-09-18 17:49] LABS: Microscopic, Urine URINE MICROSCOPIC (MICROSCOPIC)
[2021-09-18 18:14] LABS: Appearance,Urine CLEAR (Clear); Bilirubin,Urine Negative (Negative); Blood, Urine Negative (Negative); Color,Urine YELLOW (Yellow); Glucose,Urine (UA) Negative (Negative); Ketones,Urine Negative (Negative); Leukocyte Esterase,Urine Negative (Negative); Nitrate,Urine Negative (Negative); Protein,Urine Negative (Negative); Specific Gravity, Urine 1.015 (1.005-1.030); Urobilinogen,Urine 0.2 EU/dl (0.2)
[2021-09-18 18:36] LABS: WBC,Urine Occasional #/hpf (0-3)
--- NOTE | 2021-09-18 19:27 | PC.NURSE ---
LABS DRAWN AND SENT. NO COMPLAINTS VOICED. NO ACUTE DISTRESS NOTED.
[2021-09-18 20:26] LABS: Troponin I 0.01 ng/ml (0.00-0.034)
== END 2021-09-18 20:54 | disposition home or self-care (01) ==
PROVIDERS: Emergency Provider Emergency Medicine; PCP Nurse Practitioner Family
DX: R07.89 Other chest pain (principal); I10 Essential (primary) hypertension; E78.5 Hyperlipidemia, unspecified; K21.9 Gastro-esophageal reflux disease without esophagitis; F41.9 Anxiety disorder, unspecified; I25.2 Old myocardial infarction; Z79.899 Other long term (current) drug therapy
CPT/HCPCS: 71045; 80048; 81001; 84484; 85025; 93005; 99283

== ENCOUNTER 2022-04-29 11:31 | Observation (INO) | payer MEDICARE, SELFPAY ==
[2022-04-29] VITALS (17 sets, daily range): BP systolic 128–178; BP diastolic 71–109; PULSE 82–113; RESP 15–24; TEMP 36.6–36.8; O2SAT 78–100; BMI 29.2; BMI 48.7
--- NOTE | 2022-04-29 11:43 | ECG_ITS ---
APPROVED REPORT Exam: Resting ECG HR:103 bpm ECG Measurements Heart Rate 103 AXES AL 164 P 69 QRSd 81 QRS -58 QT 326 T 82 QTc 385 Conclusion SINUS TACHYCARDIA PATTERN CONSISTENT WITH PULMONARY DISEASE LEFT ANTERIOR FASCICULAR BLOCK [QRS AXIS <= -45, QR IN I, RS IN II] ABNORMAL ECG UNCONFIRMED REPORT Electronically signed by : Zack Fontaine MD 04/29/2022 19:47:55
--- NOTE | 2022-04-29 11:46 | XR_ITS ---
FINAL REPORT CLINICAL HISTORY: Precordial chest pain COMPARISON: 09/18/2021 FINDINGS: A single view of the chest was obtained. The heart is normal in size. The mediastinum is unremarkable. There is mild scarring in the right lung base. There is no acute pulmonary abnormality. There is no pleural effusion. There is no pneumothorax. There is no acute osseous abnormality. IMPRESSION: No acute cardiopulmonary process. Reviewed, Interpreted and Dictated by Eric Bergman MD Transcribed by Camille Stacy Authenticated and [facility]
--- NOTE | 2022-04-29 11:46 | HMH.EDGENADL ---
Discharge Plan Disposition Patient Disposition: Admitted As Inpatient Condition: Good Chief Complaint: Shortness of Breath/Dyspnea Clinical Impressions Clinical Impression: Acute kidney injury superimposed on CKD, CHF (congestive heart failure) Discharge ED Provider: Krish Mcpherson General Adult HPI General Chief complaint: Shortness of Breath/Dyspnea Stated complaint: Physician Refferal, SOA, fast heart beat Time Seen by Provider: 04/29/22 11:40 History of Present Illness HPI narrative: Patient is a 61-year-old female with a past medical history of hypertension, renal insufficiency, seizure disorder who presents with concern for shortness of breath. She says that over the last couple of months she has noticed that she is much more short of breath when she walks around her house. She says that she decided to make a doctor's appointment at her doctor's appointment today they noted that her heart rate was in the low 100s so they wanted her to come over for evaluation. She denies any fever or chills. She says that she does have some pain with deep inspiration. She says that she does sometimes feel short of breath at rest as well. She denies any numbness or tingling into her extremities. Denies any numbness or tingling into her jaw. Denies any nausea or diaphoresis. No history of cancer. No leg swelling. Related Data Home Medications Medication Instructions Recorded Confirmed melatonin 10 mg tablet 10 mg PO HS Insomnia 09/19/18 10/20/19 olanzapine 10 mg tablet 10 mg PO DAILY Bipolar 09/19/18 10/20/19 pantoprazole 40 mg tablet,delayed 40 mg PO DAILY GERD 09/20/18 10/20/19 release multivitamin 1 each PO DAILY Supplement 04/09/19 10/20/19 propranolol 60 mg capsule,24 60 mg PO BID MIGRAINE 05/15/19 10/21/19 hr,extended release levetiracetam 500 mg tablet 500 mg PO BID SEIZURES 10/20/19 10/20/19 Previous Rx's Medication Instructions Recorded potassium chloride 20 mEq 20 meq PO TID 10/25/19 tablet,extended release(part/cryst) Allergies Allergy/AdvReac Type Severity Reaction Status Date / Time Penicillins Allergy Intermediate I-ITCHING Verified 05/10/19 14:47 PFSH PFSH Social History Smoking Status: Never smoker alcohol intake: never counseling provided: provider counseling substance use type: opiates current occupational status: disabled Travel in the last 8 weeks: None household members: none housing: house current occupational exposures/hazards: No caffeine: No ROS Obtained: Yes All systems reviewed & no additional complaints except as documented A 14 point review of system was obtained and otherwise negative except per HPI Physical Exam General General appearance: alert and in no apparent distress Head Head exam: atraumatic, normocephalic and normal inspection Eye Eye exam: Present normal appearance, PERRL and EOMI ENT ENT exam: Present normal exam, normal oropharynx, mucous membranes moist, TM's normal bilaterally and normal external ear exam Neck Neck exam: Present normal inspection, full ROM and trachea midline; Absent meningismus or lymphadenopathy Chest Chest inspection: Present normal inspection and symmetric chest wall rise; Absent tenderness Respiratory Respiratory exam: Present normal lung sounds bilaterally; Absent respiratory distress Cardiovascular Cardiovascular exam: Present normal rhythm and tachycardia; Absent JVD Abdominal Exam Abdominal exam: Present soft and normal bowel sounds; Absent distention, tenderness or guarding Extremities Exam Extremities exam: Present normal inspection, full ROM and normal capillary refill; Absent calf tenderness Back Exam Back exam: Present normal inspection; Absent tenderness Neurological Exam Neurological exam: Present alert and oriented X3 Psychiatric Psychiatric exam: Present normal affect and normal mood Skin Skin exam: Present warm, dry, intact and normal color Lymphatic Lymphatic Findings: no adenopath
[2022-04-29 12:55] LABS: Basophils # 0.1 K/mm3 (0-0.2); Eosinophils # 0.1 K/mm3 (0.0-0.4); Eosinophils % 1.2 % (0.1-12.0); Hematocrit 32.2 % (37.0-47.0); Lymphocytes # 1.4 K/mm3 (0.7-4.5); Lymphocytes % 19.7 % (10-50); Mean Corpuscular HGB Conc 30.9 g/dL (31.8-35.4); Mean Corpuscular Volume 97.2 fl (81-99); Mean Platelet Volume 8.2 fl (7.4-10.4); Monocytes # 0.3 K/mm3 (0.1-1.0); Neutrophils # 5.2 K/mm3 (1.8-7.8); Neutrophils % 74.1 % (37.0-80.0); Platelet Count 281 K/mm3 (142-424); Red Blood Count 3.31 M/mm3 (4.20-5.40); Red Cell Distribution Width 14.8 % (11.5-17.5); White Blood Count 7.1 K/mm3 (4.8-10.8)
[2022-04-29 13:06] LABS: Alanine Aminotransferase 21 U/L (12-78); Albumin Level 4.4 g/dl (3.5-5.0); Albumin/Globulin Ratio 1.5 (1.1-1.8); Alkaline Phosphatase 161 U/L (38-126); Anion Gap 20.3 mEq/L (5-15); Aspartate Amino Transferase 27 U/L (14-36); Bilirubin,Total 0.5 mg/dl (0.2-1.3); Blood Urea Nitrogen 29 mg/dl (7-17); Carbon Dioxide 17 mmol/L (22.0-30.0); Chloride 108 mmol/L (98-107); Creatinine Clearance Estimated 30 mL/min (50-200); Estimated Glomerular Filt Rate 22 ml/min (>60); GFR (African American) 26 ML/MIN (>60); Glucose 101 mg/dl (74-100); Lipase 35 U/L (23-300); Potassium 5.3 mmoL/L (3.5-5.1); Sodium 140 mmol/L (136-145); Total Protein,Serum 7.4 g/dl (6.3-8.2)
[2022-04-29 13:11] LABS: D-Dimer 0.69 ug/mL (0.0-0.5)
[2022-04-29 13:20] LABS: NT Pro Brain Natriuretic Pep. 430 pg/mL (0-125)
[2022-04-29 13:31] LABS: Troponin I 0.01 ng/ml (0.00-0.034)
--- NOTE | 2022-04-29 13:42 | CA_ITS ---
APPROVED REPORT EXAM: Comprehensive 2D, Doppler, and color-flow Echocardiogram Harvest Supervisor: Bernice Covington RDCS Ht: 5 ft 2 in Wt: 160lbs BSA: 1.74 BP: 154/100 mmHg Indications: ELEVATED TROPONIN, SOA,HTN TDS SECONDARY TO BODY HABITUS 2D Dimensions LVOT 1.94 cm (M/F) 1.5-2.5 M-Mode Dimensions RVDd 2.59 cm (0.9-2.6) LA Diam 3.16 cm (1.9-4.0) LVDd 4.78 cm (3.5-5.7) Ao Diam 3.16 cm (2.0-3.7) LVDs 3.67 cm (3.5-5.7) IVSd 1.11 cm (0.6-1.1) PWd 0.84 cm (0.6-1.1) EF (Teich) 46.50% FS 23.20% EDV (Teich) 106.50 mL ESV (Teich) 57.00 mL LV Diastology E Decel Time 270.00 (160-240 msec) E/A Ratio 0.5 MED E' 7.00 (< 7 cm/sec) E'/MED E' Ratio 8.94 (>14) LAT E' 5.80 (<10 cm/sec) E/LAT E' Ratio 10.79 (>14) Mitral Valve MV E Max Cristian. 63.00 (40-130 cm/s) MV A Velocity 123.00 (40-130 cm/s) E/A Ratio 0.51 MV Decel. Time 270.00 (160-240 ms) MV PHT 79.00 ms Left Ventricle Left atrium is mildly enlarged, left ventricle is normal size, mild concentric left ventricular hypertrophy, estimated ejection fraction 55% with no regional wall motion abnormality. Grade 1 diastolic dysfunction seen without tissue Doppler evidence of raise left atrial pressure. Right Ventricle Right atrium and right ventricle are normal size and contractility. Aortic Valve Aortic valve is minimally thickened and calcified without aortic stenosis or aortic insufficiency. Mitral Valve Mitral valve is grossly normal, there is no mitral stenosis, there is trace mitral regurgitation. Tricuspid Valve Tricuspid valve grossly normal, there is trace tricuspid regurgitation, tricuspid regurgitation jet velocity is inadequate for calculation of the right ventricular systolic pressure. Pulmonic Valve Pulmonic valve is poorly visualized. Great Vessels Aortic root is normal size. Inferior vena cava is normal size with normal inspiratory collapse. Pericardium No significant pericardial effusion noted. Conclusion 1. Mildly enlarged left atrium, normal left ventricular size, mild concentric left ventricular hypertrophy, estimated ejection fraction 55% with no regional wall motion abnormality, grade 1 diastolic dysfunction seen without tissue Doppler evidence of raise left atrial pressure. 2. Trace mitral and tricuspid regurgitation. 3. No significant pericardial effusion noted 4. Inferior vena cava is normal size with normal inspiratory collapse. Electronically signed by : Lee Rodriguez MD 04/30/2022 14:48:35
--- NOTE | 2022-04-29 13:51 | PC.NURSE ---
spoke with echo lab about echo order
[2022-04-29 14:05] LABS: Coronavirus 19, PCR Not Detected (NotDetected); Influenza A, PCR Not Detected (NotDetected); Influenza B, PCR Not Detected (NotDetected)
--- NOTE | 2022-04-29 15:13 | PC.NURSE ---
pt ambulating to the restroom
--- NOTE | 2022-04-29 15:21 | PC.NURSE ---
ua sent to the lab
[2022-04-29 15:23] LABS: Microscopic, Urine URINE MICROSCOPIC (MICROSCOPIC)
[2022-04-29 15:32] LABS: Appearance,Urine CLEAR (Clear); Bilirubin,Urine Negative (Negative); Blood, Urine Negative (Negative); Color,Urine YELLOW (Yellow); Glucose,Urine (UA) Negative (Negative); Ketones,Urine Negative (Negative); Leukocyte Esterase,Urine Negative (Negative); Nitrate,Urine Negative (Negative); PH,Urine 5.5 (5.0-8.5); Protein,Urine Negative (Negative); Urobilinogen,Urine 0.2 EU/dl (0.2)
[2022-04-29 15:52] LABS: Squamous Epithelial Cell,Urine Occasional #/hpf (0-5)
[2022-04-29 17:19] LABS: Troponin I 0.02 ng/ml (0.00-0.034)
--- NOTE | 2022-04-29 17:28 | PC.NURSE ---
speaking with hospitalist
--- NOTE | 2022-04-29 17:28 | PC.NURSE ---
traci paged for phone consult
--- NOTE | 2022-04-29 17:40 | PC.NURSE ---
DR REBOLLAR SPOKE WITH DR LEPE AND HOSPITALIST THEY BOTH HAVE AGREED PT NEEDS ADMITTED
--- NOTE | 2022-04-29 18:21 | PC.NURSE ---
report given to Perla Traylor RN
--- NOTE | 2022-04-29 18:22 | EXP.HP ---
History of Present Illness *Admission Date: 04/29/22 *Reason for visit:: Shortness of breath with exertion *History of present illness: Patient is a pleasant 61-year-old woman with past medical history of hypertension, CKD, history of pancytopenia, history of hypokalemia, and seizure disorder who came to the ER today at the behest of her primary care doctor for severe shortness of breath with exertion. Patient reports this problem has been going on for the past 2 or 3 months. She will get very short of breath walking from her couch to the kitchen which is only a short distance. She has gained some weight and noticed some intermittent swelling in her legs. Her shortness of breath is worse if she lays down flat, therefore she has to sleep propped up. She denies fever, chills, chest pain, cough, abdominal pain, nausea, vomiting, diarrhea, constipation. PFSH PFSH Social History Smoking Status: Never smoker alcohol intake: never counseling provided: provider counseling substance use type: opiates current occupational status: disabled Travel in the last 8 weeks: None household members: none housing: house current occupational exposures/hazards: No caffeine: No Review of Systems Constitutional Constitutional: Denies body ache(s), Denies chills, Reports fatigue, Reports headache(s) and Reports weight gain Eyes Eyes: Denies blurry vision ENT Ears, Nose, Mouth, and Throat: Denies dizziness, Denies dysphagia, Reports headache(s), Denies mouth pain and Denies odynophagia *Cardiovascular Cardiovascular: Denies chest pain, Denies chest pain at rest, Denies chest pain with activity, Reports dyspnea, Reports dyspnea on exertion, Denies edema, Reports orthopnea and Denies palpitations *Respiratory Respiratory: Denies chest congestion, Denies cough, Reports dyspnea and Reports dyspnea on exertion *Gastrointestinal Gastrointestinal: Denies change in stool character, Denies constipation, Denies diarrhea, Denies dysphagia, Denies hematemesis, Denies odynophagia and Denies vomiting *Musculoskeletal Musculoskeletal: Denies abnormal gait, Denies arthralgias and Denies back pain *Neurologic Neurologic: Denies abnormal gait, Denies abnormal movements, Denies abnormal speech, Denies confusion, Denies dizziness, Reports headache(s), Denies paresthesias and Denies seizure-like activity Psychiatric Psychiatric: Denies anxiety, Denies change in appetite, Denies confusion and Denies depression Endocrine Endocrine: Reports fatigue and Denies palpitations Meds Home Medications and Allergies Home Medications Medication Instructions Recorded Confirmed Type melatonin 10 mg tablet 10 mg PO HS Insomnia 09/19/18 10/20/19 History olanzapine 10 mg tablet 10 mg PO DAILY Bipolar 09/19/18 10/20/19 History pantoprazole 40 mg tablet,delayed 40 mg PO DAILY GERD 09/20/18 10/20/19 History release multivitamin 1 each PO DAILY Supplement 04/09/19 10/20/19 History propranolol 60 mg capsule,24 60 mg PO BID MIGRAINE 05/15/19 10/21/19 History hr,extended release levetiracetam 500 mg tablet 500 mg PO BID SEIZURES 10/20/19 10/20/19 History potassium chloride 20 mEq 20 meq PO TID 10/25/19 Rx tablet,extended release(part/cryst) New Prescriptions to Start Prescriptions: Allergies Allergy/AdvReac Type Severity Reaction Status Date / Time Penicillins Allergy Intermediate I-ITCHING Verified 05/10/19 14:47 Exam Data for Last 24 hours Vital signs and Labs for Last 24 Hours: Temp Pulse Resp BP Pulse Ox 98.0 F 95 H 17 174/95 H 100 04/29/22 11:32 04/29/22 16:00 04/29/22 16:00 04/29/22 16:00 04/29/22 16:00 Laboratory Results - last 24 hr 04/29/22 12:15: SARS-CoV-2 (PCR) Not detected, Influenza A Untype (PCR) Not detected, Influenza Type B (PCR) Not detected 04/29/22 12:40: WBC 7.1, RBC 3.31 L, Hgb 10.0 L, Hct 32.2 L, MCV 97.2, MCH 30.0, MCHC 30.9 L, RDW 14.8, Plt Count 281, MPV 8.2, Neut % (Auto) 74.1, Lymph % (Auto) 19.7, [place] % (
--- NOTE | 2022-04-29 18:31 | PC.NURSE ---
patient arrived to room by wheelchair from ED
--- NOTE | 2022-04-29 18:37 | PC.NURSE ---
PT GONE UP FOR ADMISSION
[2022-04-29 19:31] LABS: Troponin I 0.03 ng/ml (0.00-0.034)
--- NOTE | 2022-04-29 19:47 | PC.NURSE ---
PT came to floor @ 1835. She is A/Ox4. She is very pleasant. Ordered pt dinner from dietary. She knows she is npo at midnight for cards consult. She has ultra sound guided IV that was placed in ER. Took a walker into room to help pt go to bathroom with assist x1. She has no complaints or needs at this time.
[2022-04-29 19:50] LABS: Thyroid Stimulating Hormone 1.55 uIU/mL (0.465-4.68)
[2022-04-29 19:51] LABS: Free T4 (Free Thyroxine) 0.93 ng/dl (0.78-2.19)
[2022-04-30] VITALS (8 sets, daily range): BP systolic 132–165; BP diastolic 78–92; PULSE 80–105; RESP 16–18; TEMP 36.5–37; O2SAT 98–99; BMI 49.8
--- NOTE | 2022-04-30 04:57 | PC.NURSE ---
pt has had no complaints of chest pain. she did appear and c/o SOA when getting out of bed and ambulating to bathroom. NS infusing at 100ml/hr. remains in seizure precautions.
[2022-04-30 06:46] LABS: Basophils % 0.9 % (0.1-2.0); Hematocrit 30.2 % (37.0-47.0); Hemoglobin 9.4 g/dL (12.2-16.2); Lymphocytes # 0.9 K/mm3 (0.7-4.5); Lymphocytes % 21.7 % (10-50); Mean Corpuscular HGB Conc 31.2 g/dL (31.8-35.4); Mean Corpuscular Hemoglobin 30.2 pg (27.0-31.2); Mean Corpuscular Volume 96.8 fl (81-99); Mean Platelet Volume 7.9 fl (7.4-10.4); Monocytes # 0.3 K/mm3 (0.1-1.0); Neutrophils # 2.7 K/mm3 (1.8-7.8); Neutrophils % 69.3 % (37.0-80.0); Platelet Count 252 K/mm3 (142-424); Red Blood Count 3.12 M/mm3 (4.20-5.40); Red Cell Distribution Width 14.9 % (11.5-17.5); White Blood Count 3.9 K/mm3 (4.8-10.8)
[2022-04-30 06:58] LABS: Alanine Aminotransferase 17 U/L (12-78); Albumin Level 3.9 g/dl (3.5-5.0); Albumin/Globulin Ratio 1.4 (1.1-1.8); Alkaline Phosphatase 140 U/L (38-126); Anion Gap 15.9 mEq/L (5-15); Aspartate Amino Transferase 27 U/L (14-36); Bilirubin,Total 0.5 mg/dl (0.2-1.3); Blood Urea Nitrogen 23 mg/dl (7-17); Calcium 9.5 mg/dl (8.4-10.2); Carbon Dioxide 18 mmol/L (22.0-30.0); Chloride 110 mmol/L (98-107); Chol/HDL Ratio 3.6 (1-3.5); Cholesterol 223 mg/dl (140-200); Creatinine Clearance Estimated 25 mL/min (50-200); Estimated Glomerular Filt Rate 29 ml/min (>60); GFR (African American) 35 ML/MIN (>60); Globulin 2.7 g/dL (1.3-3.2); Glucose 99 mg/dl (74-100); HDL Cholesterol 62 mg/dl (40-60); INR 0.96 (0.9-1.1); Magnesium 1.5 mg/dl (1.6-2.3); Potassium 4.9 mmoL/L (3.5-5.1); Prothrombin Time 10.4 seconds (10.1-12.5); Sodium 139 mmol/L (136-145); Total Protein,Serum 6.6 g/dl (6.3-8.2); Triglycerides 85 mg/dl (30-150); VLDL Cholesterol 17 mg/dL (0-40)
--- NOTE | 2022-04-30 06:58 | PC.NURSE ---
redness and excoriation noted under breasts and abdominal folds.
[2022-04-30 07:15] LABS: Direct LDL Cholesterol 109.16 mg/dL (100-129)
[2022-04-30 07:50] LABS: Troponin I 0.03 ng/ml (0.00-0.034)
--- NOTE | 2022-04-30 09:46 | EXP.CARD.CON ---
History of Present Illness History of Present Illness Consult date: 04/30/22 Requesting physician: Ap [place] Consult reason: hypertension and congestive heart failure Chief complaint: SOA with exertion Additional Medical History:: 1. Hypertension/hypertensive heart disease, treated for many years with possible congestive heart failure, 04/29/2022 A. Echo, 07/11/2018, mild LAE, normal LV size, mild concentric LVH with hyperdynamic EF greater than 65%. No regional wall motion abnormality. Doppler evidence of high cardiac output state. Diastolic parameters inconclusive. Mild MR/TR. 2. Acute kidney injury, 04/29/2022, improving with IV fluids 3. History of seizure disorder, last seizure approximately 2019 4. History of pancytopenia and recurrent transfusions with the last transfusion approximately 2019. Patient denies any prior bone marrow biopsy or hematology evaluation. 5. Family history of heart disease in both parents dying of PR in their 70s. 6. History of migraine headaches, previously controlled on propranolol 7. Obesity 8. Abnormal EKG with left axis deviation and possible left anterior fascicular block, 04/29/2022 History of present illness: In review this is a 61-year-old female who presents with concern for tachycardia.? Hemodynamically stable and nontoxic-appearing.? Physical exam is largely unremarkable outside of her being tachycardic.? Initial EKG independently reviewed by me shows sinus tachycardia with no acute ST abnormalities.? Patient's symptoms could be potentially consistent with pulmonary embolism with her tachycardia at baseline with some pleuritic chest pain so we will get a D-dimer to risk stratify her.? Laboratory studies were pertinent for chronic anemia.? D-dimer was slightly elevated at 0.69 but under years criteria so does not need any imaging at this time.? Potassium was 5.3 but no EKG changes.? Creatinine was 2.3 consistent with an HOMERO on CKD.? Her initial troponin was 0.? 1 and her 3-hour troponin was 0.02.? I did get a BNP which was also elevated at 430 and I have nothing to compare this to previously.? Due to this I got an echo which shows an ejection fraction of approximately 43% which is decreased from her previous echo in 2019 with an EF of greater than 65% due to this I talked with cardiology who recommended admission and potential cath when her HOMERO has improved.? I talked to the hospital medicine service who agreed to by the patient onto their service. The above per ER MD, Krish Mcpherson. Patient confirms increasing shortness of breath with intermittent swelling of her lower extremities over the last couple of months. She does complain of recurrent nausea but no vomiting or diarrhea. She has gained weight in the last few months. Denies chest pain, pressure or tightness. She does describe some chest ache like she has a cold. Patient was admitted with tachycardia, hypertension and acute kidney injury which has responded to gentle hydration. Echocardiogram has been performed with results pending at this time. [facility] Medical History (Updated 04/30/22 @ 09:59 by DEANN Ortega) Diastolic CHF HHD (hypertensive heart disease) Seizure Surgical History (Updated 04/29/22 @ 21:04 by Krupa Walotn RN) History of hysterectomy Family History (Updated 04/29/22 @ 21:02 by Krupa Walton RN) Family history of acute heart failure Family history of cancer Family history of hypertension Social History (Updated 04/29/22 @ 21:04 by Krupa Walton RN) Smoking Status: Never smoker alcohol intake: never counseling provided: provider counseling substance use type: opiates current occupational status: disabled Travel in the last 8 weeks: None household members: none housing: house current occupational exposures/hazards: No caffeine: No Review of Systems Constitutional Constitutional: Reports headache(s) ENT Ears, Nose, Mouth, and Throat: Denies dizziness and Reports headache(
--- NOTE | 2022-04-30 09:54 | HMH.PHAINT1 ---
Pharmacy Intervention Comments: Medication reconciliation completed via external fill history and patient interview. Of note, patient states she no longer takes olanzapine 10 mg daily (no recent fill history from pharmacy). -Rachel Connor, PharmD Candidate 2022
--- NOTE | 2022-04-30 10:21 | CA_ITS ---
FINAL REPORT CLINICAL HISTORY: HTN,OBESITY FINDINGS: Aorta velocity: 137 cm/sec Right kidney: 8.5 cm. Right intrarenal RI: 0.66 Right renal artery velocity: 219 cm/sec. Right RAR (Renal artery-Aortic Ratio): 1.6 Left Kidney: 9.1 cm. Left intrarenal RI: 0.75 Left renal artery velocity: 119 cm/sec. Left RAR (Renal Artery-Aortic Ratio): 0.87 IMPRESSION: Less than 60% bilateral renal artery stenosis. Limited study. CT angiogram or postcontrast MR angiogram would be more sensitive for evaluation of possible renal artery stenosis. Reviewed, Interpreted and Dictated by Eric Bergman MD Transcribed by Emiliano Hand Authenticated and . [facility]
--- NOTE | 2022-04-30 10:21 | US_ITS ---
FINAL REPORT TECHNIQUE: Sonographic images were obtained of the retroperitoneum. CLINICAL HISTORY: HTN FINDINGS: The right kidney measures 8.3 cm. The left kidney measures 7.5 cm. The right renal cortex is thinned. There are small benign cysts in both kidneys measuring up to 1.4 cm on the left. IMPRESSION: Benign-appearing bilateral renal cysts. Reviewed, Interpreted and Dictated by Eric Bergman MD Transcribed by Emiliano Hand Authenticated and [facility]
--- NOTE | 2022-04-30 11:18 | EXP.PN ---
Subjective *Date: 04/30/22 *Time: 11:18 Interval history: No acute events overnight, patient reports still having headache, although not as bad as yesterday in the ER. Overall she feels somewhat better today, less short of breath although she has not really exerted herself much. Exam Data for Last 24 hours Vital signs and Labs for Last 24 Hours: Temp Pulse Resp BP Pulse Ox 97.7 F 99 H 18 165/92 H 99 04/30/22 08:00 04/30/22 08:00 04/30/22 08:00 04/30/22 08:00 04/30/22 08:00 Laboratory Results - last 24 hr 04/29/22 12:15: SARS-CoV-2 (PCR) Not detected, Influenza A Untype (PCR) Not detected, Influenza Type B (PCR) Not detected 04/29/22 12:40: WBC 7.1, RBC 3.31 L, Hgb 10.0 L, Hct 32.2 L, MCV 97.2, MCH 30.0, MCHC 30.9 L, RDW 14.8, Plt Count 281, MPV 8.2, Neut % (Auto) 74.1, Lymph % (Auto) 19.7, [place] % (Auto) 4.0, Eos % (Auto) 1.2, Baso % (Auto) 1.0, Neut # (Auto) 5.2, Lymph # (Auto) 1.4, [place] # (Auto) 0.3, Eos # (Auto) 0.1, Baso # (Auto) 0.1 04/29/22 12:40: D-Dimer 0.69 H 04/29/22 12:40: Sodium 140, Potassium 5.3 H, Chloride 108 H, Carbon Dioxide 17 L, Anion Gap 20.3 H, BUN 29 H, Creatinine 2.30 H, Estimated Creat Clear 30, Estimated GFR 22 L, Est GFR ( Amer) 26 L, Glucose 101 H, Calcium 10.0, Total Bilirubin 0.5, AST 27, ALT 21, Alkaline Phosphatase 161 H, Troponin I 0.01, NT-Pro-B Natriuret Pep 430 H, Total Protein 7.4 D, Albumin 4.4, Globulin 3.0, Albumin/Globulin Ratio 1.5, Lipase 35 04/29/22 15:04: Troponin I 0.02 04/29/22 15:20: Urine Color Yellow, Urine Appearance Clear, Urine pH 5.5, Ur Specific [place] 1.020, Urine Protein Negative, Urine Glucose (UA) Negative, Urine Ketones Negative, Urine Blood Negative, Urine Nitrate Negative, Urine Bilirubin Negative, Urine Urobilinogen 0.2, Ur Leukocyte Esterase Negative, Urine RBC None, Urine WBC None, Ur Squamous Epith Cells Occasional, Urine Bacteria None 04/29/22 18:58: Troponin I 0.03 04/29/22 18:58: Free T4 0.93 04/29/22 18:58: TSH 1.55 04/30/22 06:08: Troponin I 0.03 04/30/22 06:08: WBC 3.9 L D, RBC 3.12 L, Hgb 9.4 L, Hct 30.2 L, MCV 96.8, MCH 30.2, MCHC 31.2 L, RDW 14.9, Plt Count 252, MPV 7.9, Neut % (Auto) 69.3, Lymph % (Auto) 21.7, [place] % (Auto) 7.0, Eos % (Auto) 1.0, Baso % (Auto) 0.9, Neut # (Auto) 2.7, Lymph # (Auto) 0.9, [place] # (Auto) 0.3, Eos # (Auto) 0.0, Baso # (Auto) 0.0 04/30/22 06:08: PT 10.4, INR 0.96 04/30/22 06:08: Sodium 139, Potassium 4.9, Chloride 110 H, Carbon Dioxide 18 L, Anion Gap 15.9 H, BUN 23 H, Creatinine 1.80 H D, Estimated Creat Clear 25, Estimated GFR 29 L, Est GFR ( Amer) 35 L D, Glucose 99, Calcium 9.5, Magnesium 1.5 L, Total Bilirubin 0.5, AST 27, ALT 17, Alkaline Phosphatase 140 H, Total Protein 6.6, Albumin 3.9 D, Globulin 2.7, Albumin/Globulin Ratio 1.4, Triglycerides 85, Cholesterol 223 H, LDL Cholesterol Direct 109.16, VLDL Cholesterol 17, HDL Cholesterol 62 H, Cholesterol/HDL Ratio 3.6 H I & O for Last 24 hours: Intake & Output 04/27/22 04/28/22 04/29/22 04/30/22 23:59 23:59 23:59 23:59 Intake Total 938 / 938 Output Total 100 / 100 Balance 838 / 838 Weight 120.911 kg 122.742 kg Constitutional Constitutional: no acute distress, morbidly obese, chronically ill appearing and cooperative *Routine HEENT Exam Head: Present normocephalic and atraumatic Eye: Present EOMI and PERRL ENT: Present mucous membranes moist and oropharynx clear *Routine Neck Exam Neck: Present supple and full ROM *Routine Respiratory Exam Respiratory: Present decreased breath sounds, CTA bilaterally and diminished air movement; Absent accessory muscle use or respiratory distress *Routine Cardiovascular Exam Cardiovascular: Present Normal S1, Normal S2 and tachycardia (regular rhythm ); Absent murmur *Routine Abdominal Exam Abdominal: Present soft and normoactive bowel sounds; Absent tenderness, distended, rebound or guarding *Routine Extremities Exam Extremities: Present full ROM, pulses intact and normal capillary refill; Absent edema (trace
--- NOTE | 2022-04-30 11:23 | XR_ITS ---
FINAL REPORT TECHNIQUE: Chest PA & Lateral CLINICAL HISTORY: CHF, shortness of breath FINDINGS: 2 views of the chest were performed. The heart size is normal. The mediastinum is within normal limits. There is no acute cardiopulmonary process. There are no pleural effusions. There is no pneumothorax. The bony thorax appears intact. IMPRESSION: No acute cardiopulmonary process. Reviewed, Interpreted and Dictated by Eric Bergman MD Transcribed by Emiliano Hand Authenticated and [facility]
--- NOTE | 2022-04-30 13:31 | HMH.OTEV ---
OT Inpatient Evaluation Rehab OT IP Evaluation Start: 04/30/22 11:28 Freq: ONCE Status: Complete Protocol: Document 04/30/22 13:25 [facility] (Rec: 04/30/22 13:31 [facility] [id number]) Rehab OT IP Assessment Subjective History Pt oriented x 3 on arrival. Pt agreeable to engage in therapy evaluation. Pt was admitted via ED on 04/29/22 due to shortness of breath. Prior to being in the hospital , pt lived in an apartment independently. Pt claims she was independent with all ADLs and IADLs. She did use a rolling walker during functional transfers and ambulation. Pt usually had groceries delivered to her home or her family would pick them up for her. She no longer drove. Pt has a past medical history of hypertension, CKD, history of pancytopenia, history of hypokalemia, and seizure disorder Subjective I did everything I needed to. Objective Patient Orientation Person,Place,Birthday Upper Extremity Gross ROM WFL Bed Mobility bed mobility-scooting,bed mobility - supine/sit,bed mobility - rolling Assist Level Independent Transfer Training Sit/Stand Transfer Assist Level Supervision/Stand by Chair Transfer Ability Supervision/Stand by Chair Transfer Technique Sit to/from Ambulatory Chair Transfer Assistive Devices Rolling Walker Lower Body Dressing Ability Independent Overall Commode/Toilet Transfer Ability Standby Assistance Commode/Toilet Transfer Technique Sit to/from Ambulatory Rehab OT IP prob,goals,plan Problems Date of Evaluation: 04/30/22 Rehab Potential Rehab Potential Innapropriate for Skilled Therapy Discharge Plan OT Discharge Plan At this time, pt appears to be at her baseline with functional transfers and ADL independence. Pt can return home once medically stable per physician. Eval Complexity Eval Charge Codes 71266
--- NOTE | 2022-04-30 13:46 | HMH.PTEV ---
Physical Therapy Evaluation Rehab PT IP Evaluation Start: 04/30/22 11:28 Freq: ONCE Status: Active Protocol: Document 04/30/22 13:43 BETTINA (Rec: 04/30/22 13:46 [facility] [id number]) Subjective/History History History This is the initial IP PT evaluation for Sydnee Mireles. Patient is a pleasant 61-year- old woman with past medical history of hypertension, CKD, history of pancytopenia, history of hypokalemia, and seizure disorder who came to the ER today at the behest of her primary care doctor for severe shortness of breath with exertion. Patient reports this problem has been going on for the past 2 or 3 months. Subjective Subjective Pt reports no complaints at this time - willingly agrees to participate w/ therapy Rehab PT IP Eval Objective Appearance Patient Behavior Appropriate,Cooperative Patient Orientation Place,Name,Birthday,Year, Situation Difficulty following instructions none Speech Pattern Clear,Appropriate Ambulation Patient Able to Ambulate Yes Ambulation Observation IP General Gait Pattern Observation No Deviations/Normal Ambulation Distance (feet) 48 Ambulation Assistive Device Rolling Walker Ambulation Ability Independent Balance Ability to Arise Able, uses arms to help Sitting Balance Steady, safe Standing Balance Steady, wide stance Dynamic Sitting Balance Ability Normal Dynamic Standing Balance Ability Good Transfers Bed Transfer Ability Independent Chair Transfer Ability Independent Sit to Stand Bed Transfer Ability Independent Sit to Stand Chair Transfer Ability Independent ROM All Extremities PT ROM Status WFL MMT All Extremities PT MMT WFL Rehab PT IP prob,goals,plan Problems Date of Evaluation: 04/30/22 Rehab Potential Rehab Potential Innapropriate for Skilled Therapy Discharge Plan PT Discharge Plan no skilled therapy needed at this time - pt safe to return home once medically stable G -code Required No Eval Complexity Eval Charge Codes 00842 - Low Complexity
--- NOTE | 2022-04-30 14:23 | DIET.NUTRFU ---
changed diet to regular, nursing called down for regular diet for lunch per patients request, reviewed with nursing and dietary
--- NOTE | 2022-04-30 18:19 | PC.NURSE ---
Pt is A/Ox4. She has been pleasant all shift. She has tolerated her diet well. She has ambulated multiple times to the bathroom assist x1 using the walker. She has had diarrhea a few times today. She has complained of a ORTIZ, and was given tylenol. She has also complained of her legs itching. She scratched her legs and caused scattered open areas. I wrapped in kerlex and coban. We tried lotion with little relief. We are going to try some barrier cream to see if it works. She has been on RA all day. She does get a little short winded when she ambulates.
[2022-05-01] VITALS: BP 163/89; PULSE 65; PULSE 80; RESP 18; TEMP 36.6; O2SAT 99
--- NOTE | 2022-05-01 03:59 | PC.NURSE ---
pt A&OX4. ambulates to and from bathroom with walker and standby assistance. pt has been complaining of itching on legs, arms, and chest. barrier cream was applied with little relief. [employer] was contacted and ordered a one time dose of vistaril, pt has not complained of itching since administration.
[2022-05-01 04:00] VITALS: BP 148/87; PULSE 87; PULSE 90; RESP 18; TEMP 36.8; O2SAT 97
[2022-05-01 05:00] VITALS: BMI 50.0
[2022-05-01 08:00] VITALS: BP 132/90; PULSE 79; RESP 20; TEMP 36.8; O2SAT 100
[2022-05-01 08:30] LABS: Basophils % 0.8 % (0.1-2.0); Eosinophils # 0.1 K/mm3 (0.0-0.4); Eosinophils % 2.2 % (0.1-12.0); Hematocrit 29.4 % (37.0-47.0); Hemoglobin 9.2 g/dL (12.2-16.2); Lymphocytes % 20.2 % (10-50); Mean Corpuscular HGB Conc 31.3 g/dL (31.8-35.4); Mean Corpuscular Hemoglobin 29.8 pg (27.0-31.2); Mean Platelet Volume 8.6 fl (7.4-10.4); Monocytes # 0.2 K/mm3 (0.1-1.0); Monocytes % 4.3 % (1.7-9.3); Neutrophils # 3.6 K/mm3 (1.8-7.8); Neutrophils % 72.5 % (37.0-80.0); Platelet Count 260 K/mm3 (142-424); Red Cell Distribution Width 14.6 % (11.5-17.5)
[2022-05-01 08:36] LABS: Alanine Aminotransferase 22 U/L (12-78); Albumin Level 3.8 g/dl (3.5-5.0); Albumin/Globulin Ratio 1.3 (1.1-1.8); Alkaline Phosphatase 122 U/L (38-126); Anion Gap 14.8 mEq/L (5-15); Aspartate Amino Transferase 34 U/L (14-36); Bilirubin,Total 0.5 mg/dl (0.2-1.3); Blood Urea Nitrogen 17 mg/dl (7-17); Calcium 9.6 mg/dl (8.4-10.2); Carbon Dioxide 20 mmol/L (22.0-30.0); Chloride 109 mmol/L (98-107); Creatinine Clearance Estimated 29 mL/min (50-200); Estimated Glomerular Filt Rate 33 ml/min (>60); GFR (African American) 40 ML/MIN (>60); Globulin 2.9 g/dL (1.3-3.2); Glucose 120 mg/dl (74-100); Magnesium 1.7 mg/dl (1.6-2.3); Potassium 4.8 mmoL/L (3.5-5.1); Sodium 139 mmol/L (136-145); Total Protein,Serum 6.7 g/dl (6.3-8.2)
--- NOTE | 2022-05-01 09:43 | EXP.DC.SUM ---
General Admission date:: 04/29/22 Discharge date: 05/01/22 HPI HPI HPI: Patient is a pleasant 61-year-old woman with past medical history of hypertension, CKD, history of pancytopenia, history of hypokalemia, and seizure disorder who came to the ER today at the behest of her primary care doctor for severe shortness of breath with exertion. Patient reports this problem has been going on for the past 2 or 3 months. She will get very short of breath walking from her couch to the kitchen which is only a short distance. She has gained some weight and noticed some intermittent swelling in her legs. Her shortness of breath is worse if she lays down flat, therefore she has to sleep propped up. She denies fever, chills, chest pain, cough, abdominal pain, nausea, vomiting, diarrhea, constipation. Hospital Course Hospital Course Hospital Course: Patient was admitted for shortness of breath with exertion, orthopnea, and reported history of weight gain. This clinically meets criteria for new diagnosis of congestive heart failure and this is supported with an elevated BNP of 430, and pulmonary vascular engorgement seen on chest x-ray per my read. Patient was determined to be hypovolemic given that she has no pleural effusions on chest x-ray, no lung crackles, and just trace ankle edema as well as dry mucous membranes. Creatinine was elevated at 2.3 in the ER. Patient was given gentle rehydration with normal saline at 100 mL an hour and creatinine gradually improved during admission from 2.3?1.8?1.6. She did not show any signs of volume overload and shortness of breath with exertion improved. An echocardiogram was performed and this showed an ejection fraction of 55% and grade 1 diastolic dysfunction confirming the diagnosis of diastolic heart failure. Patient's metoprolol was increased from 50 to 100 mg p.o. daily, and clonidine is discontinued as this carries a risk of rebound hypertension and tachycardia. Exam Data for Last 24 hours Vital signs and Labs for Last 24 Hours: Temp Pulse Resp BP Pulse Ox 98.3 F 79 20 132/90 100 05/01/22 08:00 05/01/22 08:00 05/01/22 08:00 05/01/22 08:00 05/01/22 08:00 Laboratory Results - last 24 hr 05/01/22 08:21: WBC 5.0 D, RBC 3.10 L, Hgb 9.2 L, Hct 29.4 L, MCV 95.0, MCH 29.8, MCHC 31.3 L, RDW 14.6, Plt Count 260, MPV 8.6, Neut % (Auto) 72.5, Lymph % (Auto) 20.2, [place] % (Auto) 4.3, Eos % (Auto) 2.2, Baso % (Auto) 0.8, Neut # (Auto) 3.6, Lymph # (Auto) 1.0, [place] # (Auto) 0.2, Eos # (Auto) 0.1, Baso # (Auto) 0.0 05/01/22 08:21: Sodium 139, Potassium 4.8, Chloride 109 H, Carbon Dioxide 20 L, Anion Gap 14.8, BUN 17 D, Creatinine 1.60 H, Estimated Creat Clear 29, Estimated GFR 33 L, Est GFR ( Amer) 40 L, Glucose 120 H, Calcium 9.6, Magnesium 1.7 D, Total Bilirubin 0.5, AST 34 D, ALT 22 D, Alkaline Phosphatase 122, Total Protein 6.7, Albumin 3.8, Globulin 2.9, Albumin/Globulin Ratio 1.3 I & O for Last 24 hours: Intake & Output 04/28/22 04/29/22 04/30/22 05/01/22 23:59 23:59 23:59 23:59 Intake Total 1358 / 1358 240 / 240 Output Total 300 / 600 700 / 700 Balance 1058 / 758 -460 / -460 Weight 120.911 kg 122.72 kg 123.286 kg Constitutional Constitutional: no acute distress, morbidly obese, chronically ill appearing and cooperative *Routine HEENT Exam Head: Present normocephalic and atraumatic Eye: Present EOMI and PERRL ENT: Present mucous membranes moist and oropharynx clear *Routine Neck Exam Neck: Present supple and full ROM *Routine Respiratory Exam Respiratory: Present CTA bilaterally; Absent accessory muscle use, respiratory distress, rhonchi, stridor, wheezes or crackles *Routine Cardiovascular Exam Cardiovascular: Present RRR, Normal S1 and Normal S2; Absent murmur *Routine Abdominal Exam Abdominal: Present soft and normoactive bowel sounds; Absent tenderness, distended, rebound or guarding *Routine Extremities Exam Extremities: Present full ROM, pulses intact and normal
--- NOTE | 2022-05-03 13:15 | CARE MANAGER ---
Contacted patient related to hospital discharge. She states she is doing well, but is just tired. She picked up new medication and is aware of follow up appointments. NEISHA Hobson
== END 2022-05-01 12:50 | disposition home or self-care (01) ==
LOC: ER 11:59 → 2ND 18:26
PROVIDERS: Admitting Provider Emergency Medicine; Emergency Provider Student in an Organized Health Care Education/Training Program; PCP Family Medicine; Visit Provider Emergency Medicine
DX: I12.9 Hypertensive chronic kidney disease with stage 1 through stage 4 chronic kidney disease, or unspecified chronic kidney disease (principal); I50.32 Chronic diastolic (congestive) heart failure; N17.9 Acute kidney failure, unspecified; E78.5 Hyperlipidemia, unspecified; G40.909 Epilepsy, unspecified, not intractable, without status epilepticus; I25.10 Atherosclerotic heart disease of native coronary artery without angina pectoris; D63.8 Anemia in other chronic diseases classified elsewhere; E83.42 Hypomagnesemia; Z79.899 Other long term (current) drug therapy; N18.9 Chronic kidney disease, unspecified; E66.01 Morbid (severe) obesity due to excess calories; Z68.43 Body mass index [BMI] 50.0-59.9, adult; Z20.822 Contact with and (suspected) exposure to COVID-19
CPT/HCPCS: G0378; 36415; 71045; 71046; 76770; 80053; 80061; 81001; 83690; 83735; 83880; 84439; 84443; 84484; 85025; 85378; 85610; 93005; 93306; 93976; 97161; 97165; 99285; C9803; J2405; J3475; U0003; U0005

== ENCOUNTER → 2023-02-07 14:54 | Outpatient (CLI) | payer MEDICARE, SELFPAY ==
--- NOTE | 2023-02-07 15:01 | CA_ITS ---
APPROVED REPORT EXAM: Comprehensive 2D, Doppler, and color-flow Echocardiogram Bobbin Cleaner: Patsy Santizo CRT Ht: 5 ft 1 in Wt: 279lbs BSA: 2.18 BP: 181/87 mmHg Indications: Chest Pain, Congestive Heart Failure, Shortness of Breath, Fatigue, Peripheral Edema 2D Dimensions LVOT 1.72 cm (M/F) 1.5-2.5 LA Volume 42.10 mL LA Volume Index 19.31 mL/m2 (M/F) 16-34 M-Mode Dimensions RVDd 2.36 cm (0.9-2.6) LA Diam 4.00 cm (1.9-4.0) LVDd 4.34 cm (3.5-5.7) Ao Diam 3.88 cm (2.0-3.7) LVDs 2.91 cm (3.5-5.7) IVSd 1.63 cm (0.6-1.1) PWd 0.68 cm (0.6-1.1) EF (Teich) 61.70% FS 32.90% EDV (Teich) 84.90 mL TAPSE 2.13 (<1.7) ESV (Teich) 32.50 mL LV Diastology E Decel Time 317.00 (160-240 msec) E/A Ratio 0.78 MED E' 5.40 (< 7 cm/sec) MED A' 7.80 cm/s E'/MED E' Ratio 14.39 (>14) LAT E' 5.40 (<10 cm/sec) LAT A' 9.90 cm/s E/LAT E' Ratio 14.39 (>14) Aortic Valve AO Peak GR. 10.90 mmHg Mitral Valve MV A Velocity 100.00 (40-130 cm/s) E/A Ratio 0.78 MV Decel. Time 317.00 (160-240 ms) Pulmonary Valve PV Peak Velocity 166.00 (50-150 cm/s) Tricuspid Valve TR P. Velocity 346.00 cm/s RAP Estimate 10.00 mmHg RVSP 57.90 mmHg Left Ventricle The left ventricle is normal size. The left ventricular systolic function is normal. The left ventricular ejection fraction is within the normal range. There is increased LV wall thickness. There is normal LV segmental wall motion. There is grade II diastolic dysfunction. LVEF is 60%. Right Ventricle The right ventricle is mildly dilated. The right ventricular systolic function is normal. Atria The left atrium size is normal. The right atrium size is normal. There is no Doppler evidene of interatrial shunt. Aortic Valve The aortic valve is mildly thickened. There is no aortic valvular stenosis. No aortic regurgitation is present. Mitral Valve The mitral valve is mildly thickened. No evidence of mitral valve stenosis. Trace mitral regurgitation. Tricuspid Valve The tricuspid valve leaflets are thin and pliable. Mild tricuspid regurgitation. RVSP is 40-45 mmHg. Pulmonic Valve The pulmonary valve is normal in structure. Trace pulmonic regurgitation. Great Vessels The aortic root is normal in size. The ascending aorta is not well visualized. IVC is normal in size and collapses >50% with inspiration. Pericardium There is no pericardial effusion. Other Information Study Quality: Technically Difficult Conclusion This was a technically difficult study due to poor accoustic windows. Normal biventricular systolic function. Grade II diastolic dysfunction. Mild RV dilation. No significant valvular disease. RVSP 40-45 mmHg. Electronically signed by : Fairda Ramirez, 02/08/2023 16:54:36
[2023-02-07 16:04] LABS: Basophils % 0.2 % (0.1-2.0); Eosinophils # 0.1 K/mm3 (0.0-0.4); Eosinophils % 1.6 % (0.1-12.0); Hematocrit 27.9 % (37.0-47.0); Hemoglobin 8.8 g/dL (12.2-16.2); Lymphocytes # 0.9 K/mm3 (0.7-4.5); Lymphocytes % 18.7 % (10-50); Mean Corpuscular HGB Conc 31.6 g/dL (31.8-35.4); Mean Corpuscular Hemoglobin 29.3 pg (27.0-31.2); Mean Corpuscular Volume 92.5 fl (81-99); Mean Platelet Volume 9.3 fl (7.4-10.4); Monocytes # 0.2 K/mm3 (0.1-1.0); Monocytes % 3.4 % (1.7-9.3); Neutrophils # 3.8 K/mm3 (1.8-7.8); Platelet Count 190 K/mm3 (142-424); Red Blood Count 3.01 M/mm3 (4.20-5.40); Red Cell Distribution Width 14.4 % (11.5-17.5)
[2023-02-07 17:42] LABS: Alanine Aminotransferase 13 U/L (12-78); Albumin Level 3.7 g/dl (3.5-5.0); Alkaline Phosphatase 122 U/L (38-126); Anion Gap 11.7 mEq/L (5-15); Aspartate Amino Transferase 17 U/L (14-36); Bilirubin,Indirect 0.4 mg/dL (0.0-0.9); Bilirubin,Total 0.4 mg/dl (0.2-1.3); Bilirubin,Unconjugated 0.5 mg/dL (0.0-1.1); Blood Urea Nitrogen 20 mg/dl (7-17); Calcium 8.8 mg/dl (8.4-10.2); Carbon Dioxide 25 mmol/L (22.0-30.0); Chloride 103 mmol/L (98-107); Chol/HDL Ratio 2.4 (1-3.5); Cholesterol 121 mg/dl (140-200); Estimated Glomerular Filt Rate 24 ml/min (>60); GFR (African American) 29 ML/MIN (>60); Glucose 89 mg/dl (74-100); HDL Cholesterol 51 mg/dl (40-60); Magnesium 1.8 mg/dl (1.6-2.3); Potassium 4.7 mmoL/L (3.5-5.1); Sodium 135 mmol/L (136-145); Total Protein,Serum 6.4 g/dl (6.3-8.2); Triglycerides 95 mg/dl (30-150); VLDL Cholesterol 19 mg/dL (0-40)
[2023-02-07 17:52] LABS: NT Pro Brain Natriuretic Pep. 10000 pg/mL (0-125)
[2023-02-07 17:54] LABS: Direct LDL Cholesterol 49.12 mg/dL (100-129)
[2023-02-07 17:56] LABS: Free T4 (Free Thyroxine) 0.98 ng/dl (0.78-2.19)
[2023-02-07 18:13] LABS: Thyroid Stimulating Hormone 1.44 uIU/mL (0.465-4.68)
== END ==
PROVIDERS: Physician Assistant; PCP Family Medicine; Visit Provider Nurse Practitioner
DX: D63.8 Anemia in other chronic diseases classified elsewhere (principal); E78.5 Hyperlipidemia, unspecified; G40.909 Epilepsy, unspecified, not intractable, without status epilepticus; I50.30 Unspecified diastolic (congestive) heart failure; R06.00 Dyspnea, unspecified; I11.0 Hypertensive heart disease with heart failure
CPT/HCPCS: 36415; 80048; 80061; 80076; 83735; 83880; 84439; 84443; 85025; 93306

== ENCOUNTER → 2023-02-14 16:01 | Outpatient (CLI) | payer MEDICARE, SELFPAY ==
[2023-02-14 17:08] LABS: Chloride 101 mmol/L (98-107); Potassium 4.7 mmoL/L (3.5-5.1); Sodium 136 mmol/L (136-145)
[2023-02-14 17:11] LABS: Blood Urea Nitrogen 25 mg/dl (7-17); Estimated Glomerular Filt Rate 23 ml/min (>60); GFR (African American) 28 ML/MIN (>60)
[2023-02-14 17:12] LABS: Anion Gap 17.7 mEq/L (5-15); Calcium 9.4 mg/dl (8.4-10.2); Carbon Dioxide 22 mmol/L (22.0-30.0); Glucose 99 mg/dl (74-100)
[2023-02-14 17:22] LABS: NT Pro Brain Natriuretic Pep. 17400 pg/mL (0-125)
[2023-02-16 13:41] LABS: Immunoglobulin A, Qn 52 mg/dL (87-352); Immunoglobulin G, Qn 1029 mg/dL (586-1602); Immunoglobulin M, Qn 113 mg/dL (26-217)
[2023-02-16 20:29] LABS: Albumin 3.6 g/dL (2.9-4.4); Alpha-1-Globulin 0.3 g/dL (0.0-0.4); Alpha-2-Globulin 0.9 g/dL (0.4-1.0); Protein, Total 6.7 g/dL (6.0-8.5)
[2023-02-17 11:30] LABS: Free Kappa Lt Chains 40.6; Free Lambda Lt Chains 24.3
== END ==
PROVIDERS: Physician Assistant; PCP Family Medicine; Visit Provider Internal Medicine
DX: I11.0 Hypertensive heart disease with heart failure (principal); I50.33 Acute on chronic diastolic (congestive) heart failure; R06.02 Shortness of breath; E78.5 Hyperlipidemia, unspecified; I49.8 Other specified cardiac arrhythmias; I50.30 Unspecified diastolic (congestive) heart failure; N18.9 Chronic kidney disease, unspecified; R55 Syncope and collapse
CPT/HCPCS: 36415; 80048; 82784; 83880; 83883; 84155; 84165; 86334; 93270

== ENCOUNTER → 2023-03-02 08:44 | Outpatient (CLI) | payer MEDICARE, SELFPAY ==
--- NOTE | 2023-03-02 08:44 | NM_ITS ---
APPROVED REPORT File Clerk: Procedure: 99mTc-PYP Cardiac Amyloidosis Imaging Clinical Indication: Heart failure, increased LV wall thickness Protocol: The patient received 25.2 mCi 99mTc-PYP intravenously. Planar and SPECT imaging was performed approximately 3 hours post injection. Planar images included anterior, left lateral and SABAS-45 projections. Findings: Visual interpretation: Planar and SPECT images were reviewed The overall quality of the study was good. Semi quantitative SPECT findings showed a grade 1. Planar imaging demonstrates a heart to contralateral ratio of 1.2 (normal < 1.5, equivocal=1.2-1.4, abnormal 1.5). Conclusion 1. Overall, the quality of the study was good. 2. Semi quantitative SPECT findings showed grade 1. 3. Overall interpretation of the findings is equivocal for ATTR amyloidosis. 4. Due to equivocal PYP scan findings, cardiac MRI (amyloidosis protocol) is recommended to r/o cardiac amyloidosis Electronically signed by : Farida Ramirez MD 03/13/2023 17:52:56
== END ==
LOC: RAD 08:44
PROVIDERS: PCP Family Medicine; Visit Provider Internal Medicine
DX: E78.5 Hyperlipidemia, unspecified (principal); I10 Essential (primary) hypertension; I49.8 Other specified cardiac arrhythmias; I50.30 Unspecified diastolic (congestive) heart failure; N18.9 Chronic kidney disease, unspecified; R55 Syncope and collapse
CPT/HCPCS: 78800

== ENCOUNTER 2023-03-30 20:50 | Emergency (ER) | payer MEDICARE, SELFPAY ==
[2023-03-30 20:52] VITALS: BP 121/65; PULSE 99; RESP 21; O2SAT 98; BMI 50.8
--- NOTE | 2023-03-30 20:57 | XR_ITS ---
PROCEDURE INFORMATION: Exam: XR Chest Exam date and time: 03/30/2023 9:32 PM Age: 62 years old Clinical indication: Sternal or substernal pain; Additional info: Cp TECHNIQUE: Imaging protocol: Radiologic exam of the chest. Views: 1 view. COMPARISON: CR XR CHEST 2V 04/30/2022 11:54 AM FINDINGS: Lungs: Unremarkable. No consolidation. Pleural spaces: Unremarkable. No pleural effusion. No pneumothorax. Heart/Mediastinum: Unremarkable. No cardiomegaly. Bones/joints: Unremarkable. IMPRESSION: No acute findings.
--- NOTE | 2023-03-30 21:02 | ECG_ITS ---
APPROVED REPORT Exam: Resting ECG HR:85 bpm ECG Measurements Heart Rate 85 AXES IN 198 P 43 QRSd 92 QRS -44 QT 341 T 57 QTc 384 Conclusion SINUS RHYTHM LEFT AXIS DEVIATION [QRS AXIS < -30] Late R wave progression ABNORMAL ECG UNCONFIRMED REPORT Electronically signed by : Zack Fontaine MD 04/02/2023 11:06:46
--- NOTE | 2023-03-30 21:22 | PC.NURSE ---
Rounded on patient call light within reach of patient. @ BS.
[2023-03-30 21:25] LABS: VBG Base Excess -18.2 mmol/L (-2.4-2.3); VBG HCO3 10.8 mmol/L (23-30); VBG Oxygen Saturation 90.1 % (50-70); VBG PCO2 32.4 mmol/L (35-51); VBG PO2 65.6 mmol/L (28-40); VBG Total CO2 11.8 mmol/L (23-27)
[2023-03-30 21:28] LABS: Basophils % 0.4 % (0.1-2.0); Eosinophils # 0.1 K/mm3 (0.0-0.4); Eosinophils % 0.9 % (0.1-12.0); Hematocrit 32.9 % (37.0-47.0); Hemoglobin 11.1 g/dL (12.2-16.2); Lymphocytes # 0.8 K/mm3 (0.7-4.5); Lymphocytes % 13.7 % (10-50); Mean Corpuscular HGB Conc 33.8 g/dL (31.8-35.4); Mean Corpuscular Volume 91.7 fl (81-99); Mean Platelet Volume 11.8 fl (7.4-10.4); Monocytes # 0.2 K/mm3 (0.1-1.0); Neutrophils # 4.9 K/mm3 (1.8-7.8); Platelet Count 130 K/mm3 (142-424); Red Blood Count 3.59 M/mm3 (4.20-5.40); Red Cell Distribution Width 14.3 % (11.5-17.5)
[2023-03-30 21:28] LABS: VBG PH 7.14 mmol/L (7.31-7.41)
--- NOTE | 2023-03-30 21:28 | PC.NURSE ---
VBG results from respiratory: pH:7.14 CO2: 32.4 Bicarb 10.8 MD notified
[2023-03-30 21:30] LABS: Alanine Aminotransferase 18 U/L (12-78); Albumin Level 4.6 g/dl (3.5-5.0); Albumin/Globulin Ratio 1.2 (1.1-1.8); Alkaline Phosphatase 115 U/L (38-126); Anion Gap 27.4 mEq/L (5-15); Aspartate Amino Transferase 32 U/L (14-36); Bilirubin,Total 0.5 mg/dl (0.2-1.3); Calcium 9.4 mg/dl (8.4-10.2); Carbon Dioxide 11 mmol/L (22.0-30.0); Chloride 92 mmol/L (98-107); Creatinine Clearance Estimated 5 mL/min (50-200); Estimated Glomerular Filt Rate 4 ml/min (>60); GFR (African American) 5 ML/MIN (>60); Globulin 3.8 g/dL (1.3-3.2); Glucose 112 mg/dl (74-100); Sodium 124 mmol/L (136-145); Total Protein,Serum 8.4 g/dl (6.3-8.2)
[2023-03-30 21:31] VITALS: BP 106/72; RESP 13
--- NOTE | 2023-03-30 21:31 | HMH.EDGENADL ---
Discharge Plan Disposition Patient Disposition: Xfer Short-Term Hosp Chief Complaint: Shortness of Breath/Dyspnea Prescriptions Prescriptions: No Action furosemide [Lasix] 40 mg tablet 40 mg PO .COMPLEX Qty: 30 2RF Rx Instructions: 40 mg orally once daily at 3pm; potassium chloride 10 mEq capsule, extended release 10 meq PO DAILY propranolol 20 mg tablet 20 mg PO ONCE Pro Fe 180 mg iron capsule 180 mg PO DAILY furosemide [Lasix] 80 mg tablet 80 mg PO DAILY Qty: 30 3RF spironolactone [Aldactone] 25 mg tablet 25 mg PO DAILY Qty: 30 3RF melatonin 10 MG tablet 10 mg PO HS pantoprazole 40 MG tablet,delayed release (DR/EC) 40 mg PO DAILY levetiracetam 500 MG tablet 500 mg PO BID gabapentin 300 mg capsule 300 mg PO HS ondansetron 8 mg tablet,disintegrating 8 mg PO Q8H PRN (Reason: nausea/vomiting) escitalopram oxalate 10 mg Tablet 10 mg PO DAILY atorvastatin 20 mg Tablet 20 mg PO HS Qty: 30 0RF Referrals Follow up/Referrals: Myron Hawthorne MD [Primary Care Provider] - See instructions Clinical Impressions Clinical Impression: Acute renal failure (ARF), Non-ST elevation ME (NSTEMI), Acute hyperkalemia, Episode of generalized weakness Discharge ED Provider: Tonio Radford General Adult HPI General Chief complaint: Shortness of Breath/Dyspnea Stated complaint: SOA, weakness, abnormal labs Time Seen by Provider: 03/30/23 20:54 Mode of Arrival: Wheelchair Source of Information: Patient and Relative Limitations: No Limitations Description of Symptoms (Recalled from ER Triage Doc. by RN): Presents to ED with c/o SOA x a few weeks that has progressively gotten worse. Patient states she has had generalized weakness and lightheadedness when she gets up to walk; state she is only able to walk short distances before getting short of breath. PMH: CHF +Lasix. History of Present Illness HPI narrative: 62-year-old female with history of hypertension, hyperlipidemia, CHF (currently being worked up for amyloidosis) presenting with shortness of breath. Patient stating that she has been progressively weak and short of breath for the past couple of weeks to a month. Usually ambulates with a walker, states she cannot even move across the room without feeling winded. States she has been taking all her medications as prescribed. Has not sustained any falls or trauma. Denies chest pain, but is intermittently having nausea. No fevers, chills, diarrhea, constipation, abdominal pain, neurologic deficits, or any other concerns. Related Data Home Medications Medication Instructions Recorded Confirmed melatonin 10 mg tablet 10 mg PO HS Insomnia 09/19/18 03/09/23 pantoprazole 40 mg tablet,delayed 40 mg PO DAILY GERD 09/20/18 03/09/23 release levetiracetam 500 mg tablet 500 mg PO BID SEIZURES 10/20/19 03/09/23 gabapentin 300 mg capsule 300 mg PO HS seizures 04/29/22 03/09/23 escitalopram oxalate 10 mg tablet 10 mg PO DAILY mood disorder 04/30/22 03/09/23 ondansetron 8 mg disintegrating 8 mg PO Q8H PRN nausea/vomiting 04/30/22 03/09/23 tablet polysaccharide iron complex 180 mg 180 mg PO DAILY 02/07/23 03/09/23 iron capsule (Pro Fe) potassium chloride 10 mEq 10 meq PO DAILY 03/09/23 03/09/23 capsule,extended release propranolol 20 mg tablet 20 mg PO ONCE 03/09/23 03/09/23 Previous Rx's Medication Instructions Recorded atorvastatin 20 mg tablet 20 mg PO HS #30 tabs 05/01/22 furosemide 80 mg tablet (Lasix) 80 mg PO DAILY #30 tabs 02/10/23 spironolactone 25 mg tablet 25 mg PO DAILY #30 tabs 02/10/23 (Aldactone) furosemide 40 mg tablet (Lasix) 40 mg PO .COMPLEX #30 tabs 02/14/23 Allergies Allergy/AdvReac Type Severity Reaction Status Date / Time Penicillins Allergy Intermediate I-ITCHING Verified 03/09/23 15:22 [facility] Disclaimer: The information contained in this section may have been updated after the patient was seen, as this
[2023-03-30 21:46] LABS: Blood Urea Nitrogen 110 mg/dl (7-17); Potassium 6.4 mmoL/L (3.5-5.1)
--- NOTE | 2023-03-30 21:47 | PC.NURSE ---
spoke with lab over critical lab on Room [address] Radford in regards to them.
[2023-03-30 21:48] LABS: T4 (Thyroxine) 2.7 ug/dl (5.53-11.0)
[2023-03-30 21:49] LABS: Lipase 103 U/L (23-300)
[2023-03-30 22:01] LABS: Thyroid Stimulating Hormone 1.54 uIU/mL (0.465-4.68)
--- NOTE | 2023-03-30 22:02 | PC.NURSE ---
o/p with [facility].
--- NOTE | 2023-03-30 22:09 | PC.NURSE ---
o/p with [facility] at this time.
[2023-03-30 22:10] LABS: Lactic Acid 0.8 mmol/L (0.7-2.1)
[2023-03-30 22:38] LABS: Microscopic, Urine URINE MICROSCOPIC (MICROSCOPIC)
[2023-03-30 22:39] LABS: Appearance,Urine CLEAR (Clear); Bilirubin,Urine Negative (Negative); Blood, Urine TRACE-I (Negative); Color,Urine YELLOW (Yellow); Glucose,Urine (UA) Negative (Negative); Ketones,Urine Negative (Negative); Leukocyte Esterase,Urine Negative (Negative); Nitrate,Urine Negative (Negative); PH,Urine 5.5 (5.0-8.5); Protein,Urine Negative (Negative); Specific Gravity, Urine 1.015 (1.005-1.030); Urobilinogen,Urine 0.2 EU/dl (0.2)
[2023-03-30 23:08] LABS: Bacteria,Urine Trace /lpf; Squamous Epithelial Cell,Urine Occasional #/hpf (0-5)
[2023-03-30 23:47] VITALS: BP 108/65; PULSE 81; RESP 19; O2SAT 99
[2023-03-31] VITALS: BP 131/63; PULSE 79; RESP 18; O2SAT 98
[2023-03-31 00:30] VITALS: BP 137/66; PULSE 81; RESP 17; O2SAT 98
--- NOTE | 2023-03-31 00:32 | PC.NURSE ---
Rounded on patient nothing needed at this time. Updated family on plan of care. Call light within reach of patient
[2023-03-31 00:45] LABS: Troponin I 0.09 ng/ml (0.00-0.034)
[2023-03-31 01:00] VITALS: BP 137/66; PULSE 81; RESP 18; TEMP 36.6; O2SAT 98
--- NOTE | 2023-04-04 12:14 | [facility].EDGENADL ---
Discharge Plan Disposition Patient Disposition: Xfer Short-Term Hosp Condition: Good Prescriptions Prescriptions: No Action furosemide [Lasix] 40 mg tablet 40 mg PO .COMPLEX Qty: 30 2RF Rx Instructions: 40 mg orally once daily at 3pm; potassium chloride 10 mEq capsule, extended release 10 meq PO DAILY propranolol 20 mg tablet 20 mg PO ONCE Pro Fe 180 mg iron capsule 180 mg PO DAILY furosemide [Lasix] 80 mg tablet 80 mg PO DAILY Qty: 30 3RF spironolactone [Aldactone] 25 mg tablet 25 mg PO DAILY Qty: 30 3RF melatonin 10 MG tablet 10 mg PO HS pantoprazole 40 MG tablet,delayed release (DR/EC) 40 mg PO DAILY levetiracetam 500 MG tablet 500 mg PO BID gabapentin 300 mg capsule 300 mg PO HS ondansetron 8 mg tablet,disintegrating 8 mg PO Q8H PRN (Reason: nausea/vomiting) escitalopram oxalate 10 mg Tablet 10 mg PO DAILY atorvastatin 20 mg Tablet 20 mg PO HS Qty: 30 0RF Referrals Follow up/Referrals: Myron Hawthorne MD [Primary Care Provider] - See instructions Clinical Impressions Clinical Impression: Acute renal failure (ARF), Non-ST elevation TN (NSTEMI), Acute hyperkalemia, Episode of generalized weakness Stand Alone Forms Stand Alone Forms: Transfer Record - ED Discharge ED Provider: Tonio Radford General Adult HPI General Chief complaint: Shortness of Breath/Dyspnea Stated complaint: SOA, weakness, abnormal labs Time Seen by Provider: 03/30/23 20:54 Mode of Arrival: Wheelchair Source of Information: Patient and Relative Limitations: No Limitations Description of Symptoms (Recalled from ER Triage Doc. by RN): Presents to ED with c/o SOA x a few weeks that has progressively gotten worse. Patient states she has had generalized weakness and lightheadedness when she gets up to walk; state she is only able to walk short distances before getting short of breath. PMH: CHF +Lasix. Related Data Home Medications Medication Instructions Recorded Confirmed melatonin 10 mg tablet 10 mg PO HS Insomnia 09/19/18 03/09/23 pantoprazole 40 mg tablet,delayed 40 mg PO DAILY GERD 09/20/18 03/09/23 release levetiracetam 500 mg tablet 500 mg PO BID SEIZURES 10/20/19 03/09/23 gabapentin 300 mg capsule 300 mg PO HS seizures 04/29/22 03/09/23 escitalopram oxalate 10 mg tablet 10 mg PO DAILY mood disorder 04/30/22 03/09/23 ondansetron 8 mg disintegrating 8 mg PO Q8H PRN nausea/vomiting 04/30/22 03/09/23 tablet polysaccharide iron complex 180 mg 180 mg PO DAILY 02/07/23 03/09/23 iron capsule (Pro Fe) potassium chloride 10 mEq 10 meq PO DAILY 03/09/23 03/09/23 capsule,extended release propranolol 20 mg tablet 20 mg PO ONCE 03/09/23 03/09/23 Previous Rx's Medication Instructions Recorded atorvastatin 20 mg tablet 20 mg PO HS #30 tabs 05/01/22 furosemide 80 mg tablet (Lasix) 80 mg PO DAILY #30 tabs 02/10/23 spironolactone 25 mg tablet 25 mg PO DAILY #30 tabs 02/10/23 (Aldactone) furosemide 40 mg tablet (Lasix) 40 mg PO .COMPLEX #30 tabs 02/14/23 Allergies Allergy/AdvReac Type Severity Reaction Status Date / Time Penicillins Allergy Intermediate I-ITCHING Verified 03/09/23 15:22 [facility] Disclaimer: The information contained in this section may have been updated after the patient was seen, as this information can be updated by other users. Medical History (Updated 03/30/23 @ 23:25 by Tonio Radford MD) Chronic kidney disease Diastolic CHF Dyspnea Equivocal imaging test findings HHD (hypertensive heart disease) Periodic heart flutter Seizure Syncope Surgical History History of hysterectomy Family History Other Family history of acute heart failure Family history of cancer Family history of hypertension Social History Smoking Status: Never smoker alc
--- NOTE | 2023-04-04 12:25 | PC.NURSE ---
blood culture result on worklist, notified Dr. Mane ( on shift at this time), rhe reviewed pts chart. He requests a f/u call with pt to see how pt is feeling. Pt was transferred to [facility] from ER, contacted [facility] pt is no longer at their facility. Contacted pt number listed on chart, no answer, voicemail left requesting a return call.
== END 2023-03-31 01:03 | disposition short-term general hospital (02) ==
PROVIDERS: Emergency Provider Emergency Medicine; PCP Family Medicine
DX: N17.9 Acute kidney failure, unspecified (principal); I21.4 Non-ST elevation (NSTEMI) myocardial infarction; E87.5 Hyperkalemia; E87.1 Hypo-osmolality and hyponatremia; B95.7 Other staphylococcus as the cause of diseases classified elsewhere; R53.1 Weakness; I11.0 Hypertensive heart disease with heart failure; I50.30 Unspecified diastolic (congestive) heart failure; E78.5 Hyperlipidemia, unspecified; R06.02 Shortness of breath; N18.9 Chronic kidney disease, unspecified
CPT/HCPCS: 36415; 71045; 80053; 81001; 82803; 83605; 83690; 84436; 84443; 84484; 85025; 87040; 93005; 96374; 96375; 99291; J0692

== ENCOUNTER 2023-07-11 02:35 | Emergency (ER) | payer MEDICARE, SELFPAY ==
--- NOTE | 2023-07-11 02:31 | ECG_ITS ---
APPROVED REPORT Exam: Resting ECG HR:98 bpm ECG Measurements Heart Rate 98 AXES NH 184 P 64 QRSd 92 QRS -34 QT 310 T 17 QTc 365 Conclusion SINUS RHYTHM LEFT AXIS DEVIATION [QRS AXIS < -30] NONSPECIFIC T-WAVE ABNORMALITY ABNORMAL ECG UNCONFIRMED REPORT Electronically signed by : Zack Fontaine MD 07/11/2023 17:28:56
--- NOTE | 2023-07-11 02:34 | CT_ITS ---
PROCEDURE INFORMATION: Exam: CT Head Without Contrast Exam date and time: 07/11/2023 2:46 AM Age: 63 years old Clinical indication: Injury or trauma; Fall; Blunt trauma (contusions or hematomas); Additional info: Fall, pain TECHNIQUE: Imaging protocol: Computed tomography of the head without contrast. Radiation optimization: All CT scans at this facility use at least one of these dose optimization techniques: automated exposure control; mA and/or kV adjustment per patient size (includes targeted exams where dose is matched to clinical indication); or iterative reconstruction. COMPARISON: CT HEAD/BRAIN WO CON 10/20/2019 1:40 PM FINDINGS: Brain: No hemorrhage. Unremarkable white matter. No mass effect. Preserved cifuentes-white interfaces. Cerebral ventricles: No ventriculomegaly. Paranasal sinuses: Visualized sinuses are unremarkable. No fluid levels. Mastoid air cells: Visualized mastoid air cells are well aerated. Bones/joints: Unremarkable. No acute fracture. Soft tissues: Vertex scalp hematoma. IMPRESSION: No evidence of acute intracranial hemorrhage, mass effect, or edema. Vertex scalp hematoma.
--- NOTE | 2023-07-11 02:34 | XR_ITS ---
PROCEDURE INFORMATION: Exam: XR Right Hip Exam date and time: 07/11/2023 3:04 AM Age: 63 years old Clinical indication: Injury or trauma; Fall; Sprain or strain; Right; Hip; Additional info: Fall pain TECHNIQUE: Imaging protocol: Radiologic exam of the right hip. Views: 2 or 3 views hip with pelvis when performed. COMPARISON: CT ABDOMEN PELVIS WO CON 07/11/2023 2:56 AM FINDINGS: Bones/joints: No displaced fractures are evident. No nondisplaced fractures wore present on earlier CT. Soft tissues: Patient habitus limits sensitivity. IMPRESSION: No evidence of acute pelvic or proximal femoral fracture.
--- NOTE | 2023-07-11 02:34 | CT_ITS ---
PROCEDURE INFORMATION: Exam: CT Cervical Spine Without Contrast Exam date and time: 07/11/2023 2:48 AM Age: 63 years old Clinical indication: Injury or trauma; Fall; Concussion/head injury; Additional info: Fall, pain TECHNIQUE: Imaging protocol: Computed tomography of the cervical spine without contrast. Radiation optimization: All CT scans at this facility use at least one of these dose optimization techniques: automated exposure control; mA and/or kV adjustment per patient size (includes targeted exams where dose is matched to clinical indication); or iterative reconstruction. COMPARISON: CT CERVICAL SPINE WO CON 10/20/2019 1:40 PM FINDINGS: Tubes, catheters and devices: Right internal jugular central venous catheter is partly visualized. Bones/joints: No evidence of acute cervical spine fracture or malalignment. Mild degenerative change noted with widely patent spinal canal and neural foramina. Mild bilateral temporomandibular joint osteoarthritis. Pharynx: Normal fossa of Rosenmuller. Normal tonsillar pillars. Larynx: Normal epiglottis. Lungs: Clear lung apices. Clear lung apices. Pleural spaces: No pneumothorax. Thyroid: Homogeneous thyroid. Soft tissues: Unremarkable. IMPRESSION: No evidence of acute cervical spine fracture or malalignment. Widely patent spinal canal and neural foramina.
--- NOTE | 2023-07-11 02:34 | CT_ITS ---
PROCEDURE INFORMATION: Exam: CT Abdomen And Pelvis Without Contrast Exam date and time: 07/11/2023 2:56 AM Age: 63 years old Clinical indication: Injury or trauma; Fall; Sprain or strain; Additional info: Fall pain TECHNIQUE: Imaging protocol: Computed tomography of the abdomen and pelvis without contrast. Radiation optimization: All CT scans at this facility use at least one of these dose optimization techniques: automated exposure control; mA and/or kV adjustment per patient size (includes targeted exams where dose is matched to clinical indication); or iterative reconstruction. COMPARISON: CT CHEST WO CON 07/11/2023 2:56 AM FINDINGS: Diaphragm: There is elevation of the right hemidiaphragm. Liver: Homogeneous low attenuation throughout the liver is compatible with fatty infiltration. Liver measures 17.0 cm in length. Gallbladder and bile ducts: No regional inflammation. No calcified stones. No ductal dilation. Pancreas: Advanced fatty atrophy of the pancreas noted without ductal dilation, visible edema, or mass. Spleen: Spleen measures 9.1 cm in length. Adrenal glands: Normal adrenals. Kidneys and ureters: Kidneys are symmetric without evidence of perinephric fluid or obstruction. Stomach and bowel: Unremarkable. No obstruction. No mural thickening. Appendix: Appendix is not visualized as a discrete structure but there is no inflammation at the cecal base. Intraperitoneal space: No free air. No significant fluid collection. Vasculature: Mild aortoiliac calcific atherosclerosis without aneurysm. Lymph nodes: No enlarged lymph nodes. Urinary bladder: Unremarkable as visualized. Reproductive: Prior hysterectomy. No evidence of vaginal cuff or adnexal mass. Bones/joints: No evidence of acute fracture involving the lumbar spine, pelvis, or proximal femora. Right rib fractures are described in separate chest CT report. Soft tissues: Unremarkable. IMPRESSION: No acute traumatic change in the abdomen or pelvis.
--- NOTE | 2023-07-11 02:34 | CT_ITS ---
PROCEDURE INFORMATION: Exam: CT Lumbar Spine Without Contrast Exam date and time: 07/11/2023 2:53 AM Age: 63 years old Clinical indication: Injury or trauma; Fall; Sprain or strain, lumbar ligaments; Additional info: Fall, pain TECHNIQUE: Imaging protocol: Computed tomography of the lumbar spine without contrast. Radiation optimization: All CT scans at this facility use at least one of these dose optimization techniques: automated exposure control; mA and/or kV adjustment per patient size (includes targeted exams where dose is matched to clinical indication); or iterative reconstruction. COMPARISON: CT LUMBAR SPINE WO CON 03/30/2019 2:09 PM FINDINGS: Bones/joints: There are 5 lumbar type vertebrae. Alignment is normal. Vertebral body heights are normal throughout. Degenerative disc disease is notable at L2-L3 and L4-L5. Patent spinal canal and neural foramina. Mild sacroiliac osteoarthritis noted bilaterally. Vasculature: Visualized abdominal aorta is normal in caliber. Soft tissues: Paraspinous soft tissues are normal. IMPRESSION: No evidence of acute lumbar spine fracture or malalignment. Widely patent spinal canal.
--- NOTE | 2023-07-11 02:34 | CT_ITS ---
PROCEDURE INFORMATION: Exam: CT Chest Without Contrast; Diagnostic Exam date and time: 07/11/2023 2:56 AM Age: 63 years old Clinical indication: Injury or trauma; Fall; Sprain or strain; Additional info: Fall pain TECHNIQUE: Imaging protocol: Diagnostic computed tomography of the chest without contrast. Radiation optimization: All CT scans at this facility use at least one of these dose optimization techniques: automated exposure control; mA and/or kV adjustment per patient size (includes targeted exams where dose is matched to clinical indication); or iterative reconstruction. COMPARISON: CR XR CHEST PORTABLE 03/30/2023 9:32 PM FINDINGS: Tubes, catheters and devices: Right internal jugular large caliber central venous catheter terminates at the cavoatrial junction. Lungs: Clear normal lung parenchyma. No features of interstitial lung disease, mass lesion, or infiltrate. Pleural spaces: No pneumothorax. No pleural effusion. Heart: Heart size is normal with mild coronary artery calcification. Coronary arteries: No significant coronary artery calcification. Lymph nodes: No enlarged lymph nodes. Vasculature: Main pulmonary artery trunk is mildly dilated measuring 3.3 cm. Diaphragm: Moderate sliding hiatal hernia. Small sliding hiatal hernia. Bones/joints: There are acute appearing nonsegmental nondisplaced rib fractures on the right involving ribs 4 through 7. Healing fractures of left ribs 2 through 10 are noted anteriorly. No evidence of acute fracture involving the shoulder girdles, spine, or sternum. Soft tissues: Unremarkable. IMPRESSION: 1. Acute nondisplaced nonsegmental fractures of right ribs 4 through 7. No acute segmental fractures. 2. Healing fractures of left anterior ribs 2 through 10. New line no evidence of pneumothorax or pulmonary contusion. No evidence of spine, shoulder girdle, or sternal fracture.
--- NOTE | 2023-07-11 02:34 | CT_ITS ---
PROCEDURE INFORMATION: Exam: CT Thoracic Spine Without Contrast Exam date and time: 07/11/2023 2:50 AM Age: 63 years old Clinical indication: Injury or trauma; Fall; Sprain or strain; Additional info: Fall pain TECHNIQUE: Imaging protocol: Computed tomography of the thoracic spine without contrast. Radiation optimization: All CT scans at this facility use at least one of these dose optimization techniques: automated exposure control; mA and/or kV adjustment per patient size (includes targeted exams where dose is matched to clinical indication); or iterative reconstruction. COMPARISON: CT THORACIC SPINE WO CON 03/30/2019 2:13 PM FINDINGS: Bones/joints: There is no evidence of acute thoracic spine fracture or malalignment. There is moderate diffuse degenerative disc disease throughout the thoracic spine. Spinal canal is widely patent. There is a stable hemangioma in the T12 vertebral body. Mild degenerative changes noted at the costovertebral junctions. Soft tissues: Unremarkable. Lungs: Small sliding hiatal hernia. Visualized lung parenchyma is clear. IMPRESSION: No evidence of acute thoracic spine fracture or malalignment. Widely patent spinal canal.
--- NOTE | 2023-07-11 02:34 | XR_ITS ---
PROCEDURE INFORMATION: Exam: XR Right Femur Exam date and time: 07/11/2023 3:04 AM Age: 63 years old Clinical indication: Injury or trauma; Fall; Sprain or strain; Hip and thigh or upper leg; Right; Additional info: Fall pain TECHNIQUE: Imaging protocol: Radiologic exam of the right femur. Views: 2 views. COMPARISON: CR XR HIP RT 2-3V W/PELVIS 07/11/2023 3:04 AM FINDINGS: Bones/joints: No evidence of acute fracture. Moderate osteoarthritis at the knee. Soft tissues: Unremarkable. IMPRESSION: No evidence of acute fracture.
[2023-07-11 02:35] VITALS: BP 127/72; PULSE 100; RESP 18; TEMP 37.2; O2SAT 100; BMI 46.3
--- NOTE | 2023-07-11 02:37 | HMH.EDGENADL ---
Discharge Plan Disposition Patient Disposition: Xfer Other Chief Complaint: Fall Prescriptions Prescriptions: No Action furosemide [Lasix] 40 mg tablet 40 mg PO .COMPLEX Qty: 30 2RF Rx Instructions: 40 mg orally once daily at 3pm; potassium chloride 10 mEq capsule, extended release 10 meq PO DAILY propranolol 20 mg tablet 20 mg PO ONCE Pro Fe 180 mg iron capsule 180 mg PO DAILY furosemide [Lasix] 80 mg tablet 80 mg PO DAILY Qty: 30 3RF spironolactone [Aldactone] 25 mg tablet 25 mg PO DAILY Qty: 30 3RF melatonin 10 MG tablet 10 mg PO HS pantoprazole 40 MG tablet,delayed release (DR/EC) 40 mg PO DAILY levetiracetam 500 MG tablet 500 mg PO BID gabapentin 300 mg capsule 300 mg PO HS ondansetron 8 mg tablet,disintegrating 8 mg PO Q8H PRN (Reason: nausea/vomiting) escitalopram oxalate 10 mg Tablet 10 mg PO DAILY atorvastatin 20 mg Tablet 20 mg PO HS Qty: 30 0RF Referrals Follow up/Referrals: Provider,Referral, MD [Primary Care Provider] - See instructions Clinical Impressions Clinical Impression: Hematoma of occipital region of scalp, Fall, Generalized weakness, End-stage renal disease (ESRD) Fracture, ribs Qualifiers: Encounter type: initial encounter Fracture type: closed Laterality: right Qualified Code(s): S22.41XA - Multiple fractures of ribs, right side, initial encounter for closed fracture Concussion Qualifiers: Encounter type: initial encounter Loss of consciousness presence/duration: without LOC Qualified Code(s): S06.0X0A - Concussion without loss of consciousness, initial encounter Stand Alone Forms Stand Alone Forms: Transfer Record - ED Discharge ED Provider: Arnoldo Mchugh General Adult HPI General Chief complaint: Fall Stated complaint: fall Time Seen by Provider: 07/11/23 02:37 History of Present Illness HPI narrative: 63-year-old female with history of end-stage renal disease on dialysis for the last 3 months, obesity, heart failure, seizure disorder (has not had seizures in a long time), presents with fall. She reports her last dialysis was on Tuesday, 07/06. She missed her dialysis on Tuesday due to the weather. She reports that her legs have been giving out intermittently recently and she feels generally weak. She fell today and was down for approximately 30 minutes prior to EMS arrival. She reports that she struck her head but did not lose consciousness. She reports severe pain in her head. She reports generalized pain everywhere else as well. She still makes urine. Related Data Home Medications Medication Instructions Recorded Confirmed melatonin 10 mg tablet 10 mg PO HS Insomnia 09/19/18 03/09/23 pantoprazole 40 mg tablet,delayed 40 mg PO DAILY GERD 09/20/18 03/09/23 release levetiracetam 500 mg tablet 500 mg PO BID SEIZURES 10/20/19 03/09/23 gabapentin 300 mg capsule 300 mg PO HS seizures 04/29/22 03/09/23 escitalopram oxalate 10 mg tablet 10 mg PO DAILY mood disorder 04/30/22 03/09/23 ondansetron 8 mg disintegrating 8 mg PO Q8H PRN nausea/vomiting 04/30/22 03/09/23 tablet polysaccharide iron complex 180 mg 180 mg PO DAILY 02/07/23 03/09/23 iron capsule (Pro Fe) potassium chloride 10 mEq 10 meq PO DAILY 03/09/23 03/09/23 capsule,extended release propranolol 20 mg tablet 20 mg PO ONCE 03/09/23 03/09/23 Previous Rx's Medication Instructions Recorded atorvastatin 20 mg tablet 20 mg PO HS #30 tabs 05/01/22 furosemide 80 mg tablet (Lasix) 80 mg PO DAILY #30 tabs 02/10/23 spironolactone 25 mg tablet 25 mg PO DAILY #30 tabs 02/10/23 (Aldactone) furosemide 40 mg tablet (Lasix) 40 mg PO .COMPLEX #30 tabs 02/14/23 Allergies Allergy/AdvReac Type Severity Reaction Status Date / Time Penicillins Allergy Intermediate I-ITCHING Verified 03/09/23 15:22 [facility] Disclaimer: The information contained in this section may have been updated after the patient was seen, as this information can be updated by other users. Medical History (Updated 07/11/23 @ 04:22 by Arnoldo Mchugh MD) Chronic kidney disease Diastolic CHF Dyspnea Equivocal imaging test findings HHD (hypertensive heart disease) Periodic heart flutter Seizure Syncope Surgical History History of hysterectomy Family History Other Family history of acute heart failure Family history of cancer Family history of hypertension Social History Smoking Status: Never smoker alcohol intake: never counseling provided: provider counseling substance use type: opiates current occupational status: disabled Travel in the last 8 weeks: None household members: none housing: house current occupational exposures/hazards: No caffeine: No ROS Obtained: Yes All systems reviewed & no additional complaints except as documented Physical Exam General General appearance: alert and obese Comment: Uncomfortable appearing Head Head exam: normocephalic and other (Palpable hematoma over the vertex, no obvious depressed skull fracture, no laceration noted) Eye Eye exam: Present normal appearance, PERRL and EOMI ENT ENT exam: Present normal oropharynx and normal external ear exam Neck Neck exam: Present normal inspection, full ROM and tenderness (Midline and paraspinal) Chest Chest inspection: Present normal inspection, symmetric chest wall rise and tenderness (Generalized. No crepitus) Respiratory Respiratory exam: Present normal lung sounds bilaterally; Absent respiratory distress Cardiovascular Cardiovascular exam: Present regular rate and normal rhythm Abdominal Exam Abdominal exam: Present soft and tenderness (Mild, generalized); Absent distention or guarding Extremities Exam Extremities exam: Present other (No significant lower extremity edema. Generalized bony tenderness, greatest over the right hip femur. No deformity. Otherwise normal sensation and range of motion of the extremities) Back Exam Back exam: Present normal inspection and tenderness (Generalized) Neurological Exam Neurological exam: Present alert and oriented X3; Absent motor sensory deficit Psychiatric Psychiatric exam: Present normal affect and anxious Skin Skin exam: Present warm, dry and normal color Lymphatic Lymphatic Findings: no adenopathy Medical Decision Making Medical Records Medical records reviewed: Yes I reviewed the patient's medical records. [place] Inquiry Pt receiving controlled substance: No [place] was queried for this patient: No Vital Signs: 07/11/23 02:35 07/11/23 03:48 Temperature 99.0 F Temperature Source Oral Pulse Rate 61 Pulse Rate [Radial] 100 H Respiratory Rate 18 17 Blood Pressure 116/74 Blood Pressure [Left Arm] 127/72 Blood Pressure Mean [Left Arm] 90 Blood Pressure Source [Left Arm] Automatic Cuff Blood Pressure Position [Left Arm] Supine 02 Sat by Pulse Oximetry 100 100 Oxygen Delivery Method Room Air Lab Data Lab results reviewed: Yes I reviewed the patient's lab results. Lab Results 07/11/23 03:41: WBC 11.7 H, RBC 3.61 L, Hgb 11.1 L, Hct 34.7 L, MCV 96.0, MCH 30.6, MCHC 31.9, RDW 16.8, Plt Count 188, MPV 9.6, Neut % (Auto) 92.1 H, Lymph % (Auto) 4.3 L, [place] % (Auto) 2.1, Eos % (Auto) 1.3, Baso % (Auto) 0.1, Neut # (Auto) 10.8 H, Lymph # (Auto) 0.5 L, [place] # (Auto) 0.3, Eos # (Auto) 0.2, Baso # (Auto) 0.0, PT 11.6, INR 1.08, Sodium 133 L, Potassium 3.5, Chloride 94 L, Carbon Dioxide 27, Anion Gap 15.5 H, BUN 24 H, Creatinine 4.40 H, Estimated Creat Clear 11, Estimated GFR 10 L*, Est GFR ( Amer) 12 L*, Glucose 92, Calcium 8.1 L, Phosphorus 3.2, Magnesium 1.4 L, Total Bilirubin 0.9, AST 63 H, ALT 28, Alkaline Phosphatase 249 H, Total Protein 6.4, Albumin 3.0 L, Globulin 3.4 H, Albumin/Globulin Ratio 0.9 L 07/11/23 03:41 07/11/23 03:41 Orders (Tests/Meds): ED MEDICATIONS Discontinued Medications Generic Name Dose Route Start Last Admin Trade Name Freq PRN Reason Stop Dose Admin Acetaminophen 1,000 mg 07/11/23 03:18 07/11/23 03:51 Acetaminophen 500mg Tab PO 07/11/23 03:19 1,000 mg ONCE ONE Administration Ondansetron HCl 4 mg 07/11/23 03:18 07/11/23 03:50 Ondansetron 4mg/2ml Vial IV 07/11/23 03:19 4 mg ONCE ONE Administration ORDERS Category Date Time Status CT abdomen pelvis wo con Stat Cat Scan 07/11/23 02:[address] cervical spine wo con Stat Cat Scan 07/11/23 02:[address] chest wo con Stat Cat Scan 07/11/23 02:[address] head/brain wo con Stat Cat Scan 07/11/23 02:[address] lumbar spine wo con Stat Cat Scan 07/11/23 02:[address] thoracic spine wo con Stat Cat Scan 07/11/23 02:34 Completed XR femur RT 2V Stat Exams 07/11/23 02:34 Completed XR hip RT 2-3V w/pelvis Stat Exams 07/11/23 02:34 Completed BNP [Brain Natriuretic Peptide] Stat Lab 07/11/23 03:41 Received CBC w/Auto Diff [Complete Blood Count Auto Diff] Stat Lab 07/11/23 03:41 Results CMP [Comprehensive Metabolic Panel] Stat Lab 07/11/23 03:41 Completed INR [Prothrombin Time INR] Stat Lab 07/11/23 03:41 Completed Magnesium Stat Lab 07/11/23 03:41 Completed PHOS [Phosphorous] Stat Lab 07/11/23 03:41 Completed UA [Urinalysis and Microscopic] Stat Lab 07/11/23 03:48 Received Medical Decision Narrative: 63-year-old female presents with fall at home after her legs gave out. Patient struck her head but did not lose consciousness. Patient was down for approximately 30 minutes prior to EMS arrival. Presentation complicated by history of ESRD on MWF dialysis for the last 3 months, missed dialysis on Tuesday, history of heart failure, hypertension, anemia, seizure disorder (has not had seizures for a long time). Patient is not on blood thinners. History was obtained via conversation with patient, EMS, chart review. On arrival, patient is afebrile, he medically stable, satting appropriately on room air, alert and orient x 4, uncomfortable appearing, moving all extremities spontaneously. Full physical exam performed and significant for occipital scalp hematoma without laceration, generalized spinal, thoracic, abdominal tenderness to palpation. Patient had vomiting in ED. Differential includes but is not limited to intracranial trauma intrathoracic trauma intra-abdominal trauma spine trauma extremity trauma, heart failure, arrhythmia, volume overload, electrolyte derangement. Patient was given 1 g Tylenol, 4 mg IV Zofran for symptomatic management and correction of underlying abnormalities. Workup initiated including CBC CMP mag INR BNP. Given relatively low mechanism trauma and history of ESRD on dialysis, still making urine, will initially evaluate with noncontrast CT head spine and chest abdomen pelvis. Radiographs of the right hip and femur obtained given tenderness. Patient placed in c-collar. FAST exam deferred given body habitus. On re-evaluation, patient [remains afebrile, HD stable.] Had some episodes of vomiting. Reports persistent headache. Laboratory workup independently interpreted by me and significant for mild leukocytosis, mildly elevated AST and alk phos, mild hypomagnesemia and hypocalcemia, creatinine 4.4 (unknown baseline). Urinalysis not yet back. Imaging independently interpreted by me and significant for CT head with scalp with, without intracranial bleeding or skull fracture. Chest CT shows acute rib fractures on the right side, 4, 5, 6, 7. Old healing fractures noted on the left side. No pneumothorax or obvious pulmonary contusion. CT spine does show no acute fracture. CT abdomen pelvis shows no acute solid organ injury, though interpretation limited by lack of contrast. See radiology read for full review of final results. EKG independently interpreted by me and significant for sinus rhythm, rate of 98, no significant ST or T wave changes or signs of arrhythmia. Given patient history, exam and workup, patient's presentation most likely represents acute right fourth through seventh rib fractures and concussion secondary to fall. Patient pulling 750-1000 on incentive spirometry. Given acute trauma and significant comorbidities, patient is at high risk for decompensation and requires transfer to a trauma center. And interactive discussion was had with Dr. Antonio at the [facility] transfer center who accepted the patient in transfer to [facility]. Procedures Risk/Benefits of Procedure(s) Were Explained: Yes Critical Care Critical Care Time Critical Care Time: No
[2023-07-11 03:48] VITALS: BP 116/74; PULSE 61; RESP 17; O2SAT 100
[2023-07-11 03:49] LABS: Basophils % 0.1 % (0.1-2.0); Eosinophils # 0.2 K/mm3 (0.0-0.4); Eosinophils % 1.3 % (0.1-12.0); Hematocrit 34.7 % (37.0-47.0); Hemoglobin 11.1 g/dL (12.2-16.2); Lymphocytes # 0.5 K/mm3 (0.7-4.5); Lymphocytes % 4.3 % (10-50); Mean Corpuscular HGB Conc 31.9 g/dL (31.8-35.4); Mean Corpuscular Hemoglobin 30.6 pg (27.0-31.2); Mean Platelet Volume 9.6 fl (7.4-10.4); Monocytes # 0.3 K/mm3 (0.1-1.0); Monocytes % 2.1 % (1.7-9.3); Neutrophils # 10.8 K/mm3 (1.8-7.8); Neutrophils % 92.1 % (37.0-80.0); Platelet Count 188 K/mm3 (142-424); Red Blood Count 3.61 M/mm3 (4.20-5.40); Red Cell Distribution Width 16.8 % (11.5-17.5); White Blood Count 11.7 K/mm3 (4.8-10.8)
[2023-07-11] MEDS: ONDANSETRON 4MG/2ML VIAL 4 MG IV (03:50)
[2023-07-11] MEDS: ACETAMINOPHEN 500MG TAB 1000 MG PO (03:51)
[2023-07-11 03:53] LABS: Chloride 94 mmol/L (98-107); Sodium 133 mmol/L (136-145)
[2023-07-11 03:54] LABS: Potassium 3.5 mmoL/L (3.5-5.1)
[2023-07-11 03:55] LABS: Microscopic, Urine URINE MICROSCOPIC (MICROSCOPIC)
--- NOTE | 2023-07-11 03:55 | PC.NURSE ---
calling [facility] transfer center at this time.
[2023-07-11 03:56] LABS: Appearance,Urine CLOUDY (Clear); Blood, Urine 1+ (Negative); Color,Urine YELLOW (Yellow); Glucose,Urine (UA) Negative (Negative); Ketones,Urine TRACE (Negative); Leukocyte Esterase,Urine 1+ (Negative); Nitrate,Urine Negative (Negative); PH,Urine 5.5 (5.0-8.5); Protein,Urine Negative (Negative); Urobilinogen,Urine 0.2 EU/dl (0.2)
[2023-07-11 03:56] LABS: Alanine Aminotransferase 28 U/L (12-78); Albumin/Globulin Ratio 0.9 (1.1-1.8); Alkaline Phosphatase 249 U/L (38-126); Anion Gap 15.5 mEq/L (5-15); Aspartate Amino Transferase 63 U/L (14-36); Bilirubin,Total 0.9 mg/dl (0.2-1.3); Blood Urea Nitrogen 24 mg/dl (7-17); Calcium 8.1 mg/dl (8.4-10.2); Carbon Dioxide 27 mmol/L (22.0-30.0); Creatinine Clearance Estimated 11 mL/min (50-200); Estimated Glomerular Filt Rate 10 ml/min (>60); GFR (African American) 12 ML/MIN (>60); Globulin 3.4 g/dL (1.3-3.2); Glucose 92 mg/dl (74-100); Total Protein,Serum 6.4 g/dl (6.3-8.2)
[2023-07-11 03:57] LABS: INR 1.08 (0.9-1.1); Magnesium 1.4 mg/dl (1.6-2.3); Phosphorous 3.2 mg/dl (2.5-4.5); Prothrombin Time 11.6 seconds (10.1-12.5)
[2023-07-11 04:00] VITALS: BP 114/67; PULSE 100; RESP 17; O2SAT 94
[2023-07-11 04:01] LABS: MANUAL DIFFERENTIAL MANUAL DIFFERENTIAL (MANUAL DIFF)
--- NOTE | 2023-07-11 04:01 | PC.NURSE ---
o/p with at this time.
--- NOTE | 2023-07-11 04:02 | PC.NURSE ---
accepted patient to [facility]
[2023-07-11 04:09] LABS: NT Pro Brain Natriuretic Pep. 10200 pg/mL (0-125)
--- NOTE | 2023-07-11 04:12 | PC.NURSE ---
Report Called to Joleen at [facility]
--- NOTE | 2023-07-11 04:12 | PC.NURSE ---
notified [facility] that pt is ready for transported to er
--- NOTE | 2023-07-11 04:13 | PC.NURSE ---
daughter notifed of patient condition and transfer
[2023-07-11 04:16] LABS: Bilirubin,Urine 2+ (Negative)
[2023-07-11 04:17] LABS: Amorphous Sediment,Urine Trace /lpf; Bacteria,Urine 2+ /lpf; RBC,Urine Occasional #/hpf (0-3); Squamous Epithelial Cell,Urine 50-100 #/hpf (0-5); WBC,Urine 50-100 #/hpf (0-3)
--- NOTE | 2023-07-11 04:42 | PC.NURSE ---
in room talking with patient at this time.
[2023-07-11 04:45] VITALS: BP 119/59; PULSE 96; RESP 16; TEMP 37.3; O2SAT 99
[2023-07-11 04:52] LABS: Hypochromasia 2+; Lymphocytes % 4 % (10-50); Monocytes % 1 % (2-9); Neutrophils % 95 % (42-76); Platelet Estimate Normal; Target Cells 1+; Total Cells Counted 100
--- NOTE | 2023-07-14 12:48 | PC.NURSE ---
faxed urine culture results [facility] [phone]. aware
== END 2023-07-11 04:45 | disposition other institution (70) ==
PROVIDERS: Emergency Provider Emergency Medicine
DX: S06.0X0A Concussion without loss of consciousness, initial encounter (principal); S22.41XA Multiple fractures of ribs, right side, initial encounter for closed fracture; R53.1 Weakness; G40.909 Epilepsy, unspecified, not intractable, without status epilepticus; I13.2 Hypertensive heart and chronic kidney disease with heart failure and with stage 5 chronic kidney disease, or end stage renal disease; I50.30 Unspecified diastolic (congestive) heart failure; N18.6 End stage renal disease; W19.XXXA Unspecified fall, initial encounter
CPT/HCPCS: 70450; 71250; 72125; 72128; 72131; 73502; 73552; 74176; 80053; 81001; 83735; 83880; 84100; 85007; 85025; 85610; 87086; 93005; 96374; 99285; J2405